=== PATIENT | male | born 1950 ===

== ENCOUNTER 2017-04-05 13:31 | Emergency (ER) | payer MEDICARE ==
[2017-04-05 13:31] VITALS: BMI 27.2
[2017-04-05 13:49] VITALS: RESP 18
[2017-04-05] MEDS ORDERED: Sodium Chloride 0.9% 500 ML IV ONE ×2 (15:30→15:40)
[2017-04-05 15:44] LABS: BASO # 0.1 K/uL (0.0-0.2); BASO % 0.4 % (0.0-2.0); EOS # 0.1 K/uL (0.0-0.7); EOS % 0.9 % (0.0-4.0); HEMOGLOBIN 11.9 g/dL (12.0-18.0); LYMPH # 2.6 K/uL (1.0-4.3); LYMPH % 17.7 % (20.0-40.0); MEAN CELL VOLUME 80.5 fL (80.0-94.0); MEAN CORPUSCULAR HEMOGLOBIN 26.4 pg (27.0-31.0); MEAN CORPUSCULAR HGB CONC 32.8 g/dL (33.0-37.0); MEAN PLATELET VOLUME 8.2 fL (7.2-11.7); MONO # 1.4 K/uL (0.0-0.8); MONO % 9.2 % (0.0-10.0); NEUT # 10.5 K/uL (1.8-7.0); NEUT % 71.8 % (50.0-75.0); RBC 4.5 Mil/uL (4.40-5.90); RED CELL DISTRIBUTION WIDTH 15.5 % (11.5-14.5); WHITE BLOOD COUNT 14.7 K/uL (4.8-10.8)
[2017-04-05 15:57] LABS: ALBUMIN 3.5 g/dL (3.5-5.0)
[2017-04-05 16:00] LABS: ALB/GLOB RATIO 0.9 (1.0-2.1); AST/SGOT 20 U/L (17-59); GFR AFRICAN-AMERICAN > 60; GFR NON-AFRICAN AMERICAN > 60
[2017-04-05 16:02] LABS: ALT/SGPT 22 U/L (21-72); BLOOD UREA NITROGEN 18 mg/dL (9-20); CALCIUM 9.2 mg/dl (8.6-10.4)
[2017-04-05] MEDS ORDERED: Potassium Chloride 20 mEq ER Tab PO STA (16:31)
[2017-04-05 16:37] VITALS: BP 105/65; PULSE 80; TEMP 98.1
[2017-04-05 16:39] VITALS: O2SAT 100
--- NOTE | 2017-04-05 16:40 | C.PDOC ---
History Of Present Illness 66 y/o male presents to the ED for evaluation of a pressure ulcer of his left buttock noted a few days ago. Patient believes the area is infected and feels like it is draining. Patient is paraplegic and uses a motorized scooter. Patient denies fever/chills, recent falls/injuries. Time Seen by Provider: 04/05/17 14:12 Chief Complaint (Nursing): Abnormal Skin Integrity History Per: Patient History/Exam Limitations: no limitations Onset/Duration Of Symptoms: Days Current Symptoms Are (Timing): Still Present Location Of Injury: Left: Buttock Quality Of Symptoms: Painful, Draining Severity: Mild Additional History Per: Patient Past Medical History Reviewed: Historical Data, Nursing Documentation, Vital Signs Vital Signs: Last Vital Signs Temp 98.1 F 04/05/17 16:36 Pulse 80 04/05/17 16:36 Resp 18 04/05/17 16:36 BP 105/65 04/05/17 16:36 Pulse Ox 100 04/05/17 18:58 - Medical History PMH: Anemia, Anxiety, Back Problems (paralysis), Bipolar Disorder, Depression, Diverticulitis, Fibromyalgia, Gastritis, Gall Bladder Disease, Hypercholesterolemia, Kidney Stones (1980s), Malignancy (kidney ), Peripheral Edema, Chronic Kidney Disease Surgical History: Back Surgery - [facility] Procedures DRAINAGE OF RIGHT KNEE JOINT, OPEN APPROACH (07/15/15) ENDOSC LG BOWEL THROUGH STOMA (10/03/14) EXCIS DEBRIDE OF WOUND, INFECT, OR BURN (12/01/14) EXCISION OF LEFT KIDNEY, PERCUTANEOUS ENDOSCOPIC APPROACH (06/01/16) EXCISION OF RIGHT LOWER LEG SKIN, EXTERNAL APPROACH (06/20/15) FLUOROSCOPY OF L SUBCLAV VEIN USING OTH CONTRAST, GUIDANCE (06/20/15) INDIVID PSYCHOTHERAP NEC (02/28/14) INSERT INFUSION DEV IN L EXT JUGULAR VEIN, PERC (06/20/15) INSERTION OF INFUSION DEV INTO L SUBCLAV VEIN, OPEN APPROACH (06/20/15) INTRODUCE OF OTH ANTI-INFECT INTO PERIPH VEIN, PERC APPROACH (06/20/15) INTRODUCTION OF SERUM/TOX/VACCINE INTO SUBCU, PERC APPROACH (06/20/15) OTHER GROUP THERAPY (02/28/14) OTHER SKIN & SUBQ I D (12/01/14) RADICAL EXCIS SKIN LES (12/01/14) ROBOTIC ASSISTED PROCEDURE OF TRUNK, PERC ENDO APPROACH (06/01/16) SOFT TISSUE INCISION NEC (12/01/14) TRANSFER RIGHT LOWER LEG SKIN, EXTERNAL APPROACH (06/20/15) Family History: States: No Known Family Hx - Social History Hx Tobacco Use: No Hx Alcohol Use: No Hx Substance Use: No - Immunization History Hx Tetanus Toxoid Vaccination: Yes Hx Influenza Vaccination: Yes Hx Pneumococcal Vaccination: No Review Of Systems Except As Marked, All Systems Reviewed And Found Negative. Constitutional: Negative for: Fever, Chills Cardiovascular: Negative for: Chest Pain Respiratory: Negative for: Shortness of Breath Gastrointestinal: Negative for: Nausea, Vomiting, Abdominal Pain, Diarrhea Skin: Positive for: Other (+pressure ulcer on left buttock with +drainage ) Physical Exam - Physical Exam Appears: Well, Non-toxic, No Acute Distress Skin: Warm, Dry, Other (+central pustule with mild surrounding erythema, (+) purulent discharge noted (left lower buttock/ischial area) ) Head: Normacephalic Eye(s): bilateral: Normal Inspection Oral Mucosa: Moist Cardiovascular: Rhythm Regular Respiratory: Normal Breath Sounds, No Rales, No Rhonchi, No Wheezing Gastrointestinal/Abdominal: Normal Exam, Bowel Sounds, Soft, No Tenderness Back: Normal Inspection, No Vertebral Tenderness, No Paraspinal Tenderness Extremity: Normal ROM, Tenderness (to left lower buttock/ischial area (+) TTP ) , Capillary Refill (less than 2 seconds ), No Deformity, No Swelling Neurological/Psych: Oriented x3 ED Course And Treatment - Laboratory Results Result Diagrams: 04/05/17 15:36 04/05/17 15:36 O2 Sat by Pulse Oximetry: 100 (on RA) Pulse Ox Interpretation: Normal Progress Note: Blood work and wound culture ordered. Patient given PO Clindamycin. He states he has h/o hypokalemia due to Lasix use. PO Kdur given. Patient offered admission but states he would like to go home, does not want admission at this time. He was given Rx for Clindamycin and instructed to return to ER in 48 hours for wound check. Patient has also previously been seen by Dr. Subramanian for similar wounds, states he will also follow up with him in the office. Disposition Counseled Patient/Family Regarding: Studies Performed, Diagnosis, Need For Followup, Rx Given - Disposition Referrals: Amalia Orellana MD [Staff Provider] - Jamil Subramanian MD [Staff Provider] - Disposition: HOME/ ROUTINE Disposition Time: 17:00 Condition: STABLE Additional Instructions: FOLLOW UP WITH YOUR DOCTOR/SURGEON WITHIN 1 WEEK RETURN FOR WOUND CHECK IN 48 HOURS Prescriptions: Clindamycin [Cleocin] 300 mg PO TID #21 cap Instructions: Pressure Ulcer (ED), Abscess (ED) Print Language: KHMER - POA Present On Arrival: None - Clinical Impression Clinical Impression: Decubitus ulcer, Abscess - Scribe Statement The provider has reviewed the documentation as recorded by the Scribe (Cristela Bates) Provider Attestation: All medical record entries made by the Scribe were at my direction and personally dictated by me. I have reviewed the chart and agree that the record accurately reflects my personal performance of the history, physical exam, medical decision making, and the department course for this patient. I have also personally directed, reviewed, and agree with the discharge instructions and disposition.
[2017-04-05] MEDS ORDERED: Potassium Chloride 20 mEq ER Tab PO ONE (16:41)
== END 2017-04-05 17:32 | disposition home or self-care (01) ==
LOC: C.ER 13:31
DX: L89.329 Pressure ulcer of left buttock, unspecified stage (principal); L02.31 Cutaneous abscess of buttock; E78.00 Pure hypercholesterolemia, unspecified; N18.9 Chronic kidney disease, unspecified
CPT/HCPCS: 80053; 82948; 85025; 87070; 87181; 96360; 99284; J7040

== ENCOUNTER 2017-04-07 18:09 | Inpatient (IN) | payer MEDICARE ==
[2017-04-07 18:09] VITALS: BMI 27.2
--- NOTE | 2017-04-07 19:11 | C.PDOC ---
History Of Present Illness 66 year old male, patient of Dr. Subramanian, who presents to the ER for a wound check. Patient is paralyzed from the waist down and spends most of the day sitting down; as a result patient developed an ulcer over the left buttock. Patient was seen in the ER 2 days ago because the wound began to drain; he had labs done at the time and was found to have a 19264 white count. Patient was advised to be admitted to the hospital but did not want to stay; he was discharged with clindamycin. Patient had an appointment with Dr. Subramanian today but did not go because he was advised to come to the ER for a wound check. Denies fever, chills, or abdominal pain. Time Seen by Provider: 04/07/17 18:49 Chief Complaint (Nursing): Wound Check History Per: Patient History/Exam Limitations: no limitations Onset/Duration Of Symptoms: Days Ago Current Symptoms Are (Timing): Still Present Location Of Injury: Left: Buttock (Ulcer) Quality Of Symptoms: Draining Recent travel outside of the [place]: No Past Medical History Reviewed: Historical Data, Nursing Documentation, Vital Signs Vital Signs: Last Vital Signs Temp 98.2 F 04/07/17 18:13 Pulse 90 04/07/17 18:13 Resp 20 04/07/17 18:13 BP 113/72 04/07/17 18:13 Pulse Ox 100 04/07/17 19:56 - Medical History PMH: Anemia, Anxiety, Back Problems (paralysis), Bipolar Disorder, Depression, Diverticulitis, Fibromyalgia, Gastritis, Gall Bladder Disease, Hypercholesterolemia, Kidney Stones (1980s), Malignancy (kidney ), Peripheral Edema, Chronic Kidney Disease Surgical History: Back Surgery - [facility] Procedures DRAINAGE OF RIGHT KNEE JOINT, OPEN APPROACH (07/15/15) ENDOSC LG BOWEL THROUGH STOMA (10/03/14) EXCIS DEBRIDE OF WOUND, INFECT, OR BURN (12/01/14) EXCISION OF LEFT KIDNEY, PERCUTANEOUS ENDOSCOPIC APPROACH (06/01/16) EXCISION OF RIGHT LOWER LEG SKIN, EXTERNAL APPROACH (06/20/15) FLUOROSCOPY OF L SUBCLAV VEIN USING [facility] CONTRAST, GUIDANCE (06/20/15) INDIVID PSYCHOTHERAP NEC (02/28/14) INSERT INFUSION DEV IN L EXT JUGULAR VEIN, PERC (06/20/15) INSERTION OF INFUSION DEV INTO L SUBCLAV VEIN, OPEN APPROACH (06/20/15) INTRODUCE OF OTH ANTI-INFECT INTO PERIPH VEIN, PERC APPROACH (06/20/15) INTRODUCTION OF SERUM/TOX/VACCINE INTO SUBCU, PERC APPROACH (06/20/15) OTHER GROUP THERAPY (02/28/14) OTHER SKIN & SUBQ I D (12/01/14) RADICAL EXCIS SKIN LES (12/01/14) ROBOTIC ASSISTED PROCEDURE OF TRUNK, PERC ENDO APPROACH (06/01/16) SOFT TISSUE INCISION NEC (12/01/14) TRANSFER RIGHT LOWER LEG SKIN, EXTERNAL APPROACH (06/20/15) Family History: States: Unknown Family Hx - Social History Hx Tobacco Use: No Hx Alcohol Use: No Hx Substance Use: No - Immunization History Hx Tetanus Toxoid Vaccination: Yes Hx Influenza Vaccination: Yes Hx Pneumococcal Vaccination: No Review Of Systems Constitutional: Negative for: Fever, Chills Skin: Positive for: Other (Ulcer) Neurological: Positive for: Other (Paralysis, waist down) Physical Exam - Physical Exam Appears: Non-toxic Skin: Warm, Dry, Other (1cm hole to left buttock with purulent drainage, no surrounding erythema, nontender due to paralysis) Head: Atraumatic, Normacephalic Oral Mucosa: Moist Chest: Symmetrical, No Tenderness Cardiovascular: Rhythm Regular, No Murmur Respiratory: Normal Breath Sounds, No Rales, No Rhonchi, No Wheezing Gastrointestinal/Abdominal: Soft, No Tenderness Neurological/Psych: Oriented x3, Normal Speech, Normal Cognition, Other ( Paralysis from the waist down) ED Course And Treatment - Laboratory Results Result Diagrams: 04/07/17 20:01 04/07/17 20:01 Lab Interpretation: Abnormal (WBC 14.8, with left shift.) O2 Sat by Pulse Oximetry: 100 (Room air) Pulse Ox Interpretation: Normal Progress Note: Blood work and wound culture ordered. - Physician Consult Information Outcome Of Conversation: Case discussed with Dr Subramanian and Dr Muñoz. He will be admitted for treatment of infected decubitus ulcer. Disposition - Disposition Disposition: HOSPITALIZED Disposition Time: 19:55 Condition: STABLE - POA Present On Arrival: None - Clinical Impression Clinical Impression: Decubitus ulcer, Cellulitis and abscess, Paraplegia - Scribe Statement The provider has reviewed the documentation as recorded by the Scribwendy Mcknight All medical record entries made by the Scribe were at my direction and personally dictated by me. I have reviewed the chart and agree that the record accurately reflects my personal performance of the history, physical exam, medical decision making, and the department course for this patient. I have also personally directed, reviewed, and agree with the discharge instructions and disposition.
[2017-04-07 20:06] LABS: BASO # 0.1 K/uL (0.0-0.2); BASO % 0.8 % (0.0-2.0); EOS # 0.2 K/uL (0.0-0.7); EOS % 1.1 % (0.0-4.0); HEMOGLOBIN 11.3 g/dL (12.0-18.0); LYMPH # 3.1 K/uL (1.0-4.3); LYMPH % 21.2 % (20.0-40.0); MEAN CELL VOLUME 81.6 fL (80.0-94.0); MEAN CORPUSCULAR HEMOGLOBIN 26.5 pg (27.0-31.0); MEAN CORPUSCULAR HGB CONC 32.5 g/dL (33.0-37.0); MEAN PLATELET VOLUME 7.9 fL (7.2-11.7); MONO % 7.1 % (0.0-10.0); NEUT # 10.3 K/uL (1.8-7.0); NEUT % 69.8 % (50.0-75.0); RBC 4.26 Mil/uL (4.40-5.90); WHITE BLOOD COUNT 14.8 K/uL (4.8-10.8)
[2017-04-07 20:12] LABS: ALBUMIN 3.5 g/dL (3.5-5.0)
[2017-04-07 20:15] LABS: AST/SGOT 20 U/L (17-59); GFR AFRICAN-AMERICAN > 60; GFR NON-AFRICAN AMERICAN > 60
[2017-04-07 20:16] LABS: ALB/GLOB RATIO 0.9 (1.0-2.1); ALT/SGPT 18 U/L (21-72); BLOOD UREA NITROGEN 20 mg/dL (9-20); CALCIUM 9.4 mg/dl (8.6-10.4)
--- NOTE | 2017-04-07 20:34 | CP.PCM.HP ---
<Annalee Navarro - Last Filed: 04/07/17 21:48> History of Present Illness - History of Present Illness History of Present Illness: Medicine Note CC: leaking sacral wound HPI: 66M with a significant PMHx significant noted below, presented to the ED complaining of leaking from sacral wound. Patient reports he had this sacral wound 1-2 years ago which was managed by Dr. Subramanian. Patient started to develop the sacral ulcer again, was seen by Dr. Subramanian, prescribed Clindamycin 300mg PO TID and instructed to return to the office at a later date. He was scheduled to follow up with Dr. Subramanian tomorrow, but the ulcer started to leak pus and the patient reported feeling febrile. Denied chills, chest pain, SOB, abdominal pain, n/v/d/c, or urinary symptoms. PMD: Dr. Orellana. 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 Meds: As per DEC All: NKDA SHx: Denies tobacco, alcohol and illicit drug use. FHx: Mother with DM, HTN, heart disease and depression. Father with prostate problems, dies of DE. Present on Admission - Present on Admission Any Indicators Present on Admission: No Review of Systems - Constitutional Constitutional: Fever. absent: Chills - EENT Eyes: absent: Change in Vision Ears: absent: Tinnitus Nose/Mouth/Throat: absent: Dry Mouth, Hoarsness - Cardiovascular Cardiovascular: absent: Chest Pain, Chest Pain at Rest - Respiratory Respiratory: absent: Cough, Dyspnea - Gastrointestinal Gastrointestinal: absent: Abdominal Pain, Bloating, Nausea, Vomiting - Genitourinary Genitourinary: absent: Dysuria, Hematuria - Musculoskeletal Musculoskeletal: absent: Back Pain - Integumentary Integumentary: Skin Ulcer (sacral ulcer, no eschar noted ) - Neurological Neurological: absent: Syncope - Psychiatric Psychiatric: Anxiety, Depression - Endocrine Endocrine: absent: Polyphagia, Polyuria - Hematologic/Lymphatic Hematologic: absent: Easy Bleeding Past Patient History - Infectious Disease Hx of Infectious Diseases: None - Past Medical History & Family History Past Medical History?: Yes - Past Social History Smoking Status: Never Smoked - CARDIAC Hx Hypercholesterolemia: Yes Hx Peripheral Edema: Yes - PULMONARY Hx Respiratory Disorders: No Hx Tuberculosis: No - HEENT Hx HEENT Problems: No Other/Comment: HX: CHRISTOPHER'S PALSY RIGHT SIDE - RENAL Hx Chronic Kidney Disease: Yes Hx Kidney Stones: Yes (1980s) - ENDOCRINE/METABOLIC Hx Endocrine Disorders: No - HEMATOLOGICAL/ONCOLOGICAL Hx Anemia: Yes - INTEGUMENTARY Hx Dermatological Problems: Yes Hx Cellulitis: Yes Other/Comment: . BOTH LEGS WITH EDEMAULCER ON RIGHT LOWER LEG SKIN GRAFT WAS DONE - MUSCULOSKELETAL/RHEUMATOLOGICAL Other/Comment: Paralyzed from the waist down - GASTROINTESTINAL Hx Diverticulitis: Yes Hx Gall Bladder Disease: Yes Hx Gastritis: Yes - GENITOURINARY/GYNECOLOGICAL Hx Sexually Transmitted Disorders: No - PSYCHIATRIC Hx Anxiety: Yes Hx Bipolar Disorder: Yes Hx Depression: Yes Hx Substance Use: No - SURGICAL HISTORY Hx Orthopedic Surgery: Yes (B/L LE sx) - ANESTHESIA Hx Anesthesia: Yes Hx Anesthesia Reactions: No Hx Malignant Hyperthermia: No Meds Allergies/Adverse Reactions: Allergies Allergy/AdvReac Type Severity Reaction Status Date / Time No Known Allergies Allergy Verified 04/07/17 18:25 Physical Exam - Constitutional Appears: No Acute Distress - Head Exam Head Exam: NORMAL INSPECTION, NORMOCEPHALIC - Eye Exam Eye Exam: EOMI, Normal appearance, PERRL Pupil Exam: NORMAL ACCOMODATION - ENT Exam ENT Exam: Mucous Membranes Moist - Neck Exam Neck exam: Positive for: Normal Inspection - Respiratory Exam Respiratory Exam: Clear to Auscultation Bilateral, NORMAL BREATHING PATTERN. absent: Wheezes - Cardiovascular Exam Cardiovascular Exam: REGULAR RHYTHM, RRR - GI/Abdominal Exam GI & Abdominal Exam: Normal Bowel Sounds, Soft. absent: Distended - Extremities Exam Extremities exam: Positive for: normal inspection, pedal edema, pedal pulses present. Negative for: tenderness Additional comments: chronic pitting edema BL - Back Exam Back exam: NORMAL INSPECTION. absent: CVA tenderness (L), CVA tenderness (R), muscle spasm - Neurological Exam Neurological exam: Alert, Oriented x3 Additional comments: paraplegic waist down - Skin Skin Exam: Dry, Intact, Normal Color, Warm Results - Vital Signs Recent Vital Signs: Last Vital Signs Temp 98.2 F 04/07/17 18:13 Pulse 90 04/07/17 18:13 Resp 20 04/07/17 18:13 BP 113/72 04/07/17 18:13 Pulse Ox 100 04/07/17 20:29 - Labs Result Diagrams: 04/07/17 20:01 04/07/17 20:01 Labs: Laboratory Results - last 24 hr 04/07/17 04/07/17 20:01 20:01 WBC 14.8 H RBC 4.26 L Hgb 11.3 L Hct 34.8 L MCV 81.6 MCH 26.5 L MCHC 32.5 L RDW 15.0 H Plt Count 585 H MPV 7.9 Neut % (Auto) 69.8 Lymph % (Auto) 21.2 [place] % (Auto) 7.1 Eos % (Auto) 1.1 Baso % (Auto) 0.8 Neut # 10.3 H Lymph # 3.1 [place] # 1.0 H Eos # 0.2 Baso # 0.1 Sodium 136 Potassium 3.7 Chloride 90 L Carbon Dioxide 35 H Anion Gap 15 BUN 20 Creatinine 0.6 L Est GFR ( Amer) > 60 Est GFR (Non-Af Amer) > 60 Random Glucose 127 H Calcium 9.4 Total Bilirubin 0.7 AST 20 ALT 18 L Alkaline Phosphatase 71 Total Protein 7.3 Albumin 3.5 Globulin 3.8 Albumin/Globulin Ratio 0.9 L Assessment & Plan - Assessment and Plan (Free Text) Assessment: 66M with a significant PMHx significant noted below, presented to the ED complaining of leaking from sacral wound. Plan: Sacral Ulcer * Leukocytosis with left shift * Surgery Consult: Dr. Subramanian - help appreciated * Wound Care consult - help appreciated * Patient continued on Clindamycin 600mg IV Q8H * F/U wound culture, blood cultures Chronic Peripheral Edema * Resumed home medications: Lasix 40mg PO daily and KDur 40mg PO daily Chronic DVT * IVC filter placed * Xarelto 10mg PO daily PVD Paraplegia Depression/ Anxiety * Resumed home medications: Wellbutrin xL 300mg PO daily, Celexa 20mg PO daily, Klonopin 0.5mg PO BID Prophylactic Measures * GI PPX: Protonix 40mg PO daily * DVT: SCDs contraindicated due to PVD, VTE patient already on Xarelto * Regular Diet DW Ramon Cruz DO, PGY-1 <Vinicius Muñoz - Last Filed: 04/08/17 06:25> Results - Vital Signs Recent Vital Signs: Last Vital Signs Temp 98.4 F 04/08/17 00:00 Pulse 81 04/08/17 00:00 Resp 20 04/08/17 00:00 BP 106/61 04/08/17 00:00 Pulse Ox 98 04/08/17 00:00 - Labs Result Diagrams: 04/07/17 20:01 04/07/17 20:01 Labs: Laboratory Results - last 24 hr 04/07/17 04/07/17 20:01 20:01 WBC 14.8 H RBC 4.26 L Hgb 11.3 L Hct 34.8 L MCV 81.6 MCH 26.5 L MCHC 32.5 L RDW 15.0 H Plt Count 585 H MPV 7.9 Neut % (Auto) 69.8 Lymph % (Auto) 21.2 [place] % (Auto) 7.1 Eos % (Auto) 1.1 Baso % (Auto) 0.8 Neut # 10.3 H Lymph # 3.1 [place] # 1.0 H Eos # 0.2 Baso # 0.1 Sodium 136 Potassium 3.7 Chloride 90 L Carbon Dioxide 35 H Anion Gap 15 BUN 20 Creatinine 0.6 L Est GFR ( Amer) > 60 Est GFR (Non-Af Amer) > 60 Random Glucose 127 H Calcium 9.4 Total Bilirubin 0.7 AST 20 ALT 18 L Alkaline Phosphatase 71 Total Protein 7.3 Albumin 3.5 Globulin 3.8 Albumin/Globulin Ratio 0.9 L Assessment & Plan - Date & Time Date: 04/08/17 (I have seen and examined the patient. I agree with the findings and plan of care as documented by Dr. Navarro. Patient with sacral decub ulcer. History of paraplegia. Continue clinda. Consult to wound care and surgery. Patient would prefer not to have to undergo further surgeries. Monitor for signs of cellulitis. Monitor for acute changes.) Time: 06:23 Attending/Attestation - Attestation I have personally seen and examined this patient.: Yes I have fully participated in the care of the patient.: Yes I have reviewed all pertinent clinical information: Yes
[2017-04-07] MEDS: Clindamycin 600mg/50ml D5W 600 MG/50 ML VIAL IVPB SCH (22:01)
[2017-04-07] MEDS: Sodium Chloride 0.9% 1,000 ML IV SCH (22:03)
[2017-04-08] MEDS: Clindamycin 600mg/50ml D5W 600 MG/50 ML VIAL IVPB SCH ×2 (04:57→12:10)
[2017-04-08] MEDS: Sodium Chloride 0.9% 1,000 ML IV SCH ×2 (06:29→10:50)
[2017-04-08 07:56] LABS: BASO # 0.1 K/uL (0.0-0.2); BASO % 0.4 % (0.0-2.0); EOS # 0.1 K/uL (0.0-0.7); HEMOGLOBIN 9.8 g/dL (12.0-18.0); LYMPH # 3.6 K/uL (1.0-4.3); MEAN CELL VOLUME 80.4 fL (80.0-94.0); MEAN CORPUSCULAR HEMOGLOBIN 26.1 pg (27.0-31.0); MEAN CORPUSCULAR HGB CONC 32.5 g/dL (33.0-37.0); MONO # 1.2 K/uL (0.0-0.8); MONO % 8.7 % (0.0-10.0); NEUT # 8.7 K/uL (1.8-7.0); NEUT % 63.9 % (50.0-75.0); RBC 3.75 Mil/uL (4.40-5.90); RED CELL DISTRIBUTION WIDTH 15.1 % (11.5-14.5); WHITE BLOOD COUNT 13.7 K/uL (4.8-10.8)
[2017-04-08 08:07] LABS: GFR AFRICAN-AMERICAN > 60; GFR NON-AFRICAN AMERICAN > 60
[2017-04-08 08:08] LABS: ALB/GLOB RATIO 0.9 (1.0-2.1); ALT/SGPT 19 U/L (21-72); AST/SGOT 16 U/L (17-59); BLOOD UREA NITROGEN 14 mg/dL (9-20)
[2017-04-08 08:09] LABS: CALCIUM 8.6 mg/dl (8.6-10.4); MAGNESIUM 2.3 mg/dL (1.6-2.3)
--- NOTE | 2017-04-08 09:07 | CP.PCM.PN ---
<Willow RiverCiara kesslerrebecaaly Pastora - Last Filed: 04/08/17 19:57> Subjective - Date & Time of Evaluation Date of Evaluation: 04/08/17 Time of Evaluation: 10:00 - Subjective Subjective: Medicine Note (PGY 1) : Dr. Murray' service Patient was seen and examined at bedside. Patient states that he is doing well. Patient denies chest pain, shortness of breath, nausea, vomiting, fever and chills. Patient has no new complaints. Objective - Vital Signs/Intake and Output Vital Signs (last 24 hours): Temp Pulse Resp BP Pulse Ox 98.4 F 81 20 106/61 98 04/08/17 00:00 04/08/17 00:00 04/08/17 00:00 04/08/17 00:00 04/08/17 00:00 Intake and Output: 04/08/17 04/08/17 06:59 18:59 Intake Total 1040 Output Total 500 Balance 540 - Medications Medications: Current Medications Acetaminophen (Tylenol 325mg Tab) 650 mg PO Q6 PRN PRN Reason: Pain, moderate (4-7) Bupropion HCl (Wellbutrin Xl) 300 mg PO DAILY [facility] Citalopram Hydrobromide (Celexa) 20 mg PO DAILY [facility] Clonazepam (Klonopin) 0.5 mg PO BID PRN PRN Reason: Other Last Admin: 04/08/17 00:06 Dose: 0.5 mg Furosemide (Lasix) 40 mg PO DAILY [facility] Sodium Chloride (Sodium Chloride 0.9%) 1,000 mls @ 100 mls/hr IV .Q10H [facility] Last Admin: 04/08/17 06:29 Dose: Not Given Clindamycin Phosphate (Cleocin) 600 mg in 50 mls @ 102 mls/hr IVPB Q8H [facility] Last Admin: 04/08/17 04:57 Dose: 102 mls/hr Ondansetron HCl (Zofran Inj) 4 mg IVP Q6 PRN PRN Reason: Nausea/Vomiting Pantoprazole Sodium (Protonix Ec Tab) 40 mg PO DAILY [facility] Potassium Chloride (K-Dur 20 Meq Er Tab) 40 meq PO DAILY [facility] Rivaroxaban (Xarelto) 10 mg PO QPM [facility] Zolpidem Tartrate (Ambien) 5 mg PO HS PRN PRN Reason: Insomnia Last Admin: 04/08/17 00:06 Dose: 5 mg - Labs Labs: 04/08/17 07:51 04/08/17 07:51 - Constitutional Appears: Well, No Acute Distress - Head Exam Head Exam: NORMAL INSPECTION, NORMOCEPHALIC - Eye Exam Eye Exam: EOMI, Normal appearance - ENT Exam ENT Exam: Mucous Membranes Moist, Normal Exam - Respiratory Exam Respiratory Exam: Clear to Ausculation Bilateral, NORMAL BREATHING PATTERN - Cardiovascular Exam Cardiovascular Exam: REGULAR RHYTHM, +S1, +S2 - GI/Abdominal Exam GI & Abdominal Exam: Soft, Normal Bowel Sounds - Exam External exam: Erythema (Left sacral wounds ) - Extremities Exam Extremities Exam: Normal Capillary Refill. absent: Pedal Edema - Neurological Exam Neurological Exam: Alert, Awake, Oriented x3 - Psychiatric Exam Psychiatric exam: Normal Affect, Normal Mood - Skin Skin Exam: Dry, Normal Color, Warm Assessment and Plan (1) Sacral ulcer Assessment & Plan: Afebrile Leukocytosis with left shift (Improving 14.8--->13.7) * Surgery Consult: Dr. Subramanian - help appreciated * Wound Care consult - help appreciated * Patient continued on Clindamycin 600mg IV Q8H --- discontinued 04/08/17 Infectious disease consult: Dr. Sevilla----> Help appreciated * Wound culture: + for staphylcoccus aureus 1. Started on Zosyn 3.3753mg IVPB Q6H (04/08/17) 2. Started on Vancomycin 1gm IVPB Q12H (04/08/17) * Pending blood culture Status: Acute (2) Peripheral edema Assessment & Plan: Resumed home medications: Lasix 40mg PO daily and KDur 40mg PO daily Status: Chronic (3) Hypokalemia Assessment & Plan: K= 2.4 Continue home medication: KDur 40mg PO daily Status: Acute (4) History of DVT (deep vein thrombosis) Assessment & Plan: IVC filter placed * Xarelto 10mg PO daily Status: Chronic (5) History of depression Assessment & Plan: Resumed home medications: * Wellbutrin xL 300mg PO daily, * Celexa 20mg PO daily Status: Acute (6) History of anxiety Assessment & Plan: Continue home medications: * Klonopin 0.5mg PO BID * Celexa 20mg PO daily Status: Acute (7) Paraplegia Assessment & Plan: Evaluation of PT and Occupation. Status: Chronic (8) Prophylactic measure Assessment & Plan: * GI PPX: Protonix 40mg PO daily * DVT: SCDs contraindicated due to hx PVD, VTE patient already on Xarelto Status: Acute <Denny Murray M - Last Filed: 04/09/17 08:56> Objective - Vital Signs/Intake and Output Vital Signs (last 24 hours): Temp Pulse Resp BP Pulse Ox 97.8 F 70 20 99/57 L 98 04/09/17 00:00 04/09/17 00:00 04/09/17 00:00 04/09/17 00:00 04/09/17 00:00 Intake and Output: 04/09/17 04/09/17 06:59 18:59 Intake Total 1040 Output Total 500 Balance 540 - Medications Medications: Current Medications Acetaminophen (Tylenol 325mg Tab) 650 mg PO Q6 PRN PRN Reason: Pain, moderate (4-7) Artificial Tears (Artificial Tears) 0 ml OU Q2H PRN PRN Reason: Dry eyes Last Admin: 04/09/17 00:19 Dose: 2 applic Bupropion HCl (Wellbutrin Xl) 300 mg PO DAILY [facility] Last Admin: 04/08/17 10:56 Dose: 300 mg Citalopram Hydrobromide (Celexa) 20 mg PO DAILY [facility] Last Admin: 04/08/17 09:37 Dose: Not Given Clonazepam (Klonopin) 0.5 mg PO BID PRN PRN Reason: Other Last Admin: 04/08/17 09:38 Dose: 0.5 mg Furosemide (Lasix) 40 mg PO DAILY [facility] Last Admin: 04/08/17 09:38 Dose: 40 mg Gabapentin (Neurontin) 300 mg PO TID [facility] Sodium Chloride (Sodium Chloride 0.9%) 1,000 mls @ 100 mls/hr IV .Q10H [facility] Last Admin: 04/09/17 02:17 Dose: 100 mls/hr Vancomycin/Sodium Chloride (Vancocin) 1 gm in 200 mls @ 133 mls/hr IVPB Q12H [facility] Stop: 04/13/17 18:16 Last Admin: 04/09/17 06:11 Dose: 133 mls/hr Piperacillin Sod/Tazobactam Sod (Zosyn 3.375 Gm Iv Premix) 3.375 gm in 50 mls @ 100 mls/hr IVPB Q6H [facility] Last Admin: 04/09/17 07:07 Dose: 100 mls/hr Lactobacillus Acidophilus (Bacid Acidophilus) 1 cap PO BID [facility] Ondansetron HCl (Zofran Inj) 4 mg IVP Q6 PRN PRN Reason: Nausea/Vomiting Pantoprazole Sodium (Protonix Ec Tab) 40 mg PO DAILY [facility] Last Admin: 04/08/17 09:38 Dose: 40 mg Potassium Chloride (K-Dur 20 Meq Er Tab) 40 meq PO DAILY [facility] Last Admin: 04/08/17 10:46 Dose: 40 meq Rivaroxaban (Xarelto) 10 mg PO QPM [facility] Last Admin: 04/08/17 18:24 Dose: 10 mg Rosuvastatin Calcium (Crestor) 5 mg PO HS [facility] Last Admin: 04/08/17 22:14 Dose: 5 mg Zolpidem Tartrate (Ambien) 5 mg PO HS PRN PRN Reason: Insomnia Last Admin: 04/08/17 22:14 Dose: 5 mg - Labs Labs: 04/09/17 07:31 04/09/17 07:31 Attending/Attestation - Attestation I have personally seen and examined this patient.: Yes I have fully participated in the care of the patient.: Yes I have reviewed all pertinent clinical information, including history, physical exam and plan: Yes Notes (Text): 04/09/17 08:56 Patient was seen and examined at bedside with the resident Patient to be evaluated by ID for antibiotic management Continue current management Discussed the plan of care with the resident and agree with the assessment and plan documented.
[2017-04-08] MEDS: Pantoprazole 40 mg EC Tab PO SCH (09:38)
[2017-04-08] MEDS ORDERED: Enoxaparin 40 mg Syringe SC SCH (10:00)
[2017-04-08] MEDS ORDERED: Potassium Chloride 20 mEq ER Tab PO ONE (10:00)
[2017-04-08] MEDS: Potassium Chloride 20 mEq ER Tab PO SCH (10:46)
[2017-04-08] MEDS: buPROPion 150 mg/24 Hours XL Tab PO SCH (10:56)
[2017-04-08 15:05] LABS: AST/SGOT 14 U/L (17-59); GFR AFRICAN-AMERICAN > 60; GFR NON-AFRICAN AMERICAN > 60
[2017-04-08 15:06] LABS: ALB/GLOB RATIO 0.9 (1.0-2.1); ALT/SGPT 18 U/L (21-72); BLOOD UREA NITROGEN 14 mg/dL (9-20)
[2017-04-08 15:07] LABS: CALCIUM 8.4 mg/dl (8.6-10.4)
--- NOTE | 2017-04-08 18:07 | CP.PCM.CON ---
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 Subramanian. Patient started to develop the sacral ulcer again, was seen by Dr. Subramanian, prescribed Clindamycin 300mg PO TID and instructed to return to the office at a later date. He was scheduled to follow up with Dr. Subramanian tomorrow , but the ulcer started to leak pus and the patient reported feeling febrile. Denied chills, chest pain, SOB, abdominal pain, n/v/d/c, or urinary symptoms. PMD: Dr. Orellana. 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 Meds: As per DEC All: NKDA SHx: Denies tobacco, alcohol and illicit drug use. FHx: Mother with DM, HTN, heart disease and depression. Father with prostate problems, dies of [place]. Present on Admission - Present on Admission Any Indicators Present on Admission: No Review of Systems - Constitutional Constitutional: Fever. absent: Chills - EENT Eyes: absent: Change in Vision Ears: absent: Tinnitus Nose/Mouth/Throat: absent: Dry Mouth, Hoarsness - Cardiovascular Cardiovascular: absent: Chest Pain, Chest Pain at Rest - Respiratory Respiratory: absent: Cough, Dyspnea - Gastrointestinal Gastrointestinal: absent: Abdominal Pain, Bloating, Nausea, Vomiting - Genitourinary Genitourinary: absent: Dysuria, Hematuria - Musculoskeletal Musculoskeletal: absent: Back Pain - Integumentary Integumentary: Skin Ulcer (sacral ulcer, Neurological Neurological: absent: Syncope - Psychiatric Psychiatric: Anxiety, Depression - Endocrine Endocrine: absent: Polyphagia, Polyuria - Hematologic/Lymphatic Hematologic: absent: Easy Bleeding Past Patient History - Infectious Disease Hx of Infectious Diseases: None - Past Medical History & Family History Past Medical History?: Yes - Past Social History Smoking Status: Never Smoked - CARDIAC Hx Hypercholesterolemia: Yes Hx Peripheral Edema: Yes - PULMONARY Hx Respiratory Disorders: No Hx Tuberculosis: No - HEENT Hx HEENT Problems: No Other/Comment: HX: LINDSEY'S PALSY RIGHT SIDE - RENAL Hx Chronic Kidney Disease: Yes Hx Kidney Stones: Yes () - ENDOCRINE/METABOLIC Hx Endocrine Disorders: No - HEMATOLOGICAL/ONCOLOGICAL Hx Anemia: Yes - INTEGUMENTARY Hx Dermatological Problems: Yes Hx Cellulitis: Yes Other/Comment: . BOTH LEGS WITH EDEMAULCER ON RIGHT LOWER LEG SKIN GRAFT WAS DONE - MUSCULOSKELETAL/RHEUMATOLOGICAL Other/Comment: Paralyzed from the waist down - GASTROINTESTINAL Hx Diverticulitis: Yes Hx Gall Bladder Disease: Yes Hx Gastritis: Yes - GENITOURINARY/GYNECOLOGICAL Hx Sexually Transmitted Disorders: No - PSYCHIATRIC Hx Anxiety: Yes Hx Bipolar Disorder: Yes Hx Depression: Yes Hx Substance Use: No - SURGICAL HISTORY Hx Orthopedic Surgery: Yes (B/L LE sx) - ANESTHESIA Hx Anesthesia: Yes Hx Anesthesia Reactions: No Hx Malignant Hyperthermia: No Meds Allergies/Adverse Reactions: Allergies Allergy/AdvReac Type Severity Reaction Status Date / Time No Known Allergies Allergy Verified 04/07/17 18:25 Temp 98.2 F 04/07/17 18:13 Pulse 90 04/07/17 18:13 Resp 20 04/07/17 18:13 BP 113/72 04/07/17 18:13 Pulse Ox 100 04/07/17 20:29 04/07/17 04/07/17 20:01 20:01 WBC 14.8 H RBC 4.26 L Hgb 11.3 L Hct 34.8 L MCV 81.6 MCH 26.5 L MCHC 32.5 L RDW 15.0 H Plt Count 585 H MPV 7.9 Neut % (Auto) 69.8 Lymph % (Auto) 21.2 [place] % (Auto) 7.1 Eos % (Auto) 1.1 Baso % (Auto) 0.8 Neut # 10.3 H Lymph # 3.1 [place] # 1.0 H Eos # 0.2 Baso # 0.1 Sodium 136 Potassium 3.7 Chloride 90 L Carbon Dioxide 35 H Anion Gap 15 BUN 20 Creatinine 0.6 L Est GFR ( Amer) > 60 Est GFR (Non-Af Amer) > 60 Random Glucose 127 H Calcium 9.4 Total Bilirubin 0.7 AST 20 ALT 18 L Alkaline Phosphatase 71 Total Protein 7.3 Albumin 3.5 Globulin 3.8 Albumin/Globulin Ratio 0.9 L Temp 98.4 F 04/08/17 00:00 Pulse 81 04/08/17 00:00 Resp 20 04/08/17 00:00 BP 106/61 04/08/17 00:00 Pulse Ox 98 04/08/17 00:00 - Labs Result Diagrams: 04/07/17 20:01 04/07/17 20:01 Labs: Laboratory Results - last 24 hr 04/07/17 04/07/17 20:01 20:01 WBC 14.8 H RBC 4.26 L Hgb 11.3 L Hct 34.8 L MCV 81.6 MCH 26.5 L MCHC 32.5 L RDW 15.0 H Plt Count 585 H MPV 7.9 Neut % (Auto) 69.8 Lymph % (Auto) 21.2 [place] % (Auto) 7.1 Eos % (Auto) 1.1 Baso % (Auto) 0.8 Neut # 10.3 H Lymph # 3.1 [place] # 1.0 H Eos # 0.2 Baso # 0.1 Sodium 136 Potassium 3.7 Chloride 90 L Carbon Dioxide 35 H Anion Gap 15 BUN 20 Creatinine 0.6 L Est GFR ( Amer) > 60 Est GFR (Non-Af Amer) > 60 Random Glucose 127 H Calcium 9.4 Total Bilirubin 0.7 AST 20 ALT 18 L Alkaline Phosphatase 71 Total Protein 7.3 Albumin 3.5 Globulin 3.8 Albumin/Globulin Ratio 0.9 L Past Patient History - Infectious Disease Hx of Infectious Diseases: None - Past Medical History & Family History Past Medical History?: Yes - Past Social History Smoking Status: Never Smoked - CARDIAC Hx Hypercholesterolemia: Yes Hx Peripheral Edema: Yes - PULMONARY Hx Respiratory Disorders: No Hx Tuberculosis: No - HEENT Hx HEENT Problems: No Other/Comment: HX: LINDSEY'S PALSY RIGHT SIDE - RENAL Hx Chronic Kidney Disease: Yes Hx Kidney Stones: Yes () - ENDOCRINE/METABOLIC Hx Endocrine Disorders: No - HEMATOLOGICAL/ONCOLOGICAL Hx Anemia: Yes - INTEGUMENTARY Hx Dermatological Problems: Yes Hx Cellulitis: Yes Other/Comment: . BOTH LEGS WITH EDEMAULCER ON RIGHT LOWER LEG SKIN GRAFT WAS DONE - MUSCULOSKELETAL/RHEUMATOLOGICAL Other/Comment: Paralyzed from the waist down - GASTROINTESTINAL Hx Diverticulitis: Yes Hx Gall Bladder Disease: Yes Hx Gastritis: Yes - GENITOURINARY/GYNECOLOGICAL Hx Sexually Transmitted Disorders: No - PSYCHIATRIC Hx Anxiety: Yes Hx Bipolar Disorder: Yes Hx Depression: Yes Hx Substance Use: No - SURGICAL HISTORY Hx Orthopedic Surgery: Yes (B/L LE sx) - ANESTHESIA Hx Anesthesia: Yes Hx Anesthesia Reactions: No Hx Malignant Hyperthermia: No Meds Allergies/Adverse Reactions: Allergies Allergy/AdvReac Type Severity Reaction Status Date / Time No Known Allergies Allergy Verified 04/07/17 18:25 - Medications Medications: Current Medications Acetaminophen (Tylenol 325mg Tab) 650 mg PO Q6 PRN PRN Reason: Pain, moderate (4-7) Bupropion HCl (Wellbutrin Xl) 300 mg PO DAILY [facility] Last Admin: 04/08/17 10:56 Dose: 300 mg Citalopram Hydrobromide (Celexa) 20 mg PO DAILY [facility] Last Admin: 04/08/17 09:37 Dose: Not Given Clonazepam (Klonopin) 0.5 mg PO BID PRN PRN Reason: Other Last Admin: 04/08/17 09:38 Dose: 0.5 mg Furosemide (Lasix) 40 mg PO DAILY [facility] Last Admin: 04/08/17 09:38 Dose: 40 mg Sodium Chloride (Sodium Chloride 0.9%) 1,000 mls @ 100 mls/hr IV .Q10H [facility] Last Admin: 04/08/17 10:50 Dose: 100 mls/hr Vancomycin/Sodium Chloride (Vancocin) 1 gm in 200 mls @ 133 mls/hr IVPB Q12H [facility] Stop: 04/13/17 18:16 Piperacillin Sod/Tazobactam Sod (Zosyn 3.375 Gm Iv Premix) 3.375 gm in 50 mls @ 100 mls/hr IVPB Q6H [facility] Lactobacillus Acidophilus (Bacid Acidophilus) 1 cap PO BID [facility] Ondansetron HCl (Zofran Inj) 4 mg IVP Q6 PRN PRN Reason: Nausea/Vomiting Pantoprazole Sodium (Protonix Ec Tab) 40 mg PO DAILY [facility] Last Admin: 04/08/17 09:38 Dose: 40 mg Potassium Chloride (K-Dur 20 Meq Er Tab) 40 meq PO DAILY [facility] Last Admin: 04/08/17 10:46 Dose: 40 meq Rivaroxaban (Xarelto) 10 mg PO QPM [facility] Rosuvastatin Calcium (Crestor) 5 mg PO HS [facility] Zolpidem Tartrate (Ambien) 5 mg PO HS PRN PRN Reason: Insomnia Last Admin: 04/08/17 00:06 Dose: 5 mg Physical Exam - Constitutional Appears: No Acute Distress - Head Exam Head Exam: ATRAUMATIC, NORMOCEPHALIC - Eye Exam Eye Exam: Normal appearance Pupil Exam: NORMAL ACCOMODATION - ENT Exam ENT Exam: Normal Exam - Neck Exam Neck exam: Positive for: Normal Inspection - Respiratory Exam Respiratory Exam: Decreased Breath Sounds, Clear to Auscultation Bilateral - Cardiovascular Exam Cardiovascular Exam: REGULAR RHYTHM, RRR - GI/Abdominal Exam GI & Abdominal Exam: Normal Bowel Sounds, Soft - Rectal Exam Additional comments: patient is paraplegic with decreased sensations below umbilicus and incontinent of urine and feces and has leg edema bilateral there is a right heel decbiti stage 2 present. - Neurological Exam Additional comments: paraplegic,history of bells palsy - Skin Additional comments: sacral decubiti with drainage Results - Vital Signs Recent Vital Signs: Last Vital Signs Temp 97.5 F L 04/08/17 15:00 Pulse 73 04/08/17 15:00 Resp 20 04/08/17 15:00 BP 92/52 L 04/08/17 15:00 Pulse Ox 98 04/08/17 15:00 - Labs Result Diagrams: 04/08/17 07:51 04/08/17 14:35 Labs: Laboratory Results - last 24 hr 04/07/17 04/07/17 04/08/17 20:01 20:01 07:51 WBC 14.8 H 13.7 H RBC 4.26 L 3.75 L Hgb 11.3 L 9.8 L Hct 34.8 L 30.2 L MCV 81.6 80.4 MCH 26.5 L 26.1 L MCHC 32.5 L 32.5 L RDW 15.0 H 15.1 H Plt Count 585 H 476 H D MPV 7.9 8.0 Neut % (Auto) 69.8 63.9 Lymph % (Auto) 21.2 26.0 [place] % (Auto) 7.1 8.7 Eos % (Auto) 1.1 1.0 Baso % (Auto) 0.8 0.4 Neut # 10.3 H 8.7 H Lymph # 3.1 3.6 [place] # 1.0 H 1.2 H Eos # 0.2 0.1 Baso # 0.1 0.1 Sodium 136 Potassium 3.7 Chloride 90 L Carbon Dioxide 35 H Anion Gap 15 BUN 20 Creatinine 0.6 L Est GFR ( Amer) > 60 Est GFR (Non-Af Amer) > 60 Random Glucose 127 H Calcium 9.4 Phosphorus Magnesium Total Bilirubin 0.7 AST 20 ALT 18 L Alkaline Phosphatase 71 Total Protein 7.3 Albumin 3.5 Globulin 3.8 Albumin/Globulin Ratio 0.9 L 04/08/17 04/08/17 07:51 14:35 WBC RBC Hgb Hct MCV MCH MCHC RDW Plt Count MPV Neut % (Auto) Lymph % (Auto) [place] % (Auto) Eos % (Auto) Baso % (Auto) Neut # Lymph # [place] # Eos # Baso # Sodium 133 132 Potassium 2.4 L* D 3.2 L Chloride 91 L 90 L Carbon Dioxide 33 H 33 H Anion Gap 11 12 BUN 14 14 Creatinine 0.6 L 0.6 L Est GFR ( Amer) > 60 > 60 Est GFR (Non-Af Amer) > 60 > 60 Random Glucose 83 117 H Calcium 8.6 8.4 L Phosphorus 3.5 Magnesium 2.3 Total Bilirubin 0.6 0.5 AST 16 L 14 L ALT 19 L 18 L Alkaline Phosphatase 69 72 Total Protein 6.2 L 6.3 Albumin 3.0 L 3.0 L Globulin 3.2 3.3 Albumin/Globulin Ratio 0.9 L 0.9 L Assessment & Plan (1) Cellulitis and abscess Assessment and Plan: patient has draining infected sacral decubiti and is paraplegic will need surgical eval and also antibiotics for now. If deep will need Mri if patient can have one and has no contraindication to MRI Status: Acute Priority: High (2) Decubitus ulcer Status: Acute (3) History of anxiety Status: Acute (4) History of depression Status: Acute (5) Hypokalemia Status: Acute (6) Sacral ulcer Status: Acute (7) History of DVT (deep vein thrombosis) Status: Chronic - Assessment and Plan (Free Text) Assessment: patient has sacral decubiti and is bed ridden except that he has a motorized wheel chair to move around and is incontinent of stool and urine Plan: will dc clindamycin in view of potassium depletion and place him on Vancomycin and zosyn
[2017-04-08] MEDS: Vancomycin 1 gm/NS 200 ml 1 GM/200 ML BAG IVPB SCH (18:32)
[2017-04-08] MEDS ORDERED: Saccharomyces Boulardi 250 mg Cap PO SCH (19:30)
[2017-04-08] MEDS: Piperacill/Tazo 3.375gm in Dex 3.375 GM/50 ML BAG IVPB SCH (22:15)
[2017-04-09] MEDS: Aritificial Tears (15ml) OU PRN (00:19)
[2017-04-09] MEDS: Piperacill/Tazo 3.375gm in Dex 3.375 GM/50 ML BAG IVPB SCH ×5 (02:15→19:25)
[2017-04-09] MEDS: Sodium Chloride 0.9% 1,000 ML IV SCH ×3 (02:17→23:00)
[2017-04-09] MEDS: Vancomycin 1 gm/NS 200 ml 1 GM/200 ML BAG IVPB SCH ×2 (06:11→17:48)
[2017-04-09 07:43] LABS: BASO % 0.4 % (0.0-2.0); EOS # 0.3 K/uL (0.0-0.7); EOS % 2.3 % (0.0-4.0); HEMOGLOBIN 8.6 g/dL (12.0-18.0); LYMPH # 3.6 K/uL (1.0-4.3); MEAN CELL VOLUME 81.2 fL (80.0-94.0); MEAN CORPUSCULAR HEMOGLOBIN 26.5 pg (27.0-31.0); MEAN CORPUSCULAR HGB CONC 32.6 g/dL (33.0-37.0); MONO # 0.8 K/uL (0.0-0.8); MONO % 7.1 % (0.0-10.0); NEUT # 6.8 K/uL (1.8-7.0); NEUT % 59.2 % (50.0-75.0); RBC 3.24 Mil/uL (4.40-5.90); RED CELL DISTRIBUTION WIDTH 15.5 % (11.5-14.5); WHITE BLOOD COUNT 11.5 K/uL (4.8-10.8)
[2017-04-09 07:59] LABS: ALBUMIN 2.6 g/dL (3.5-5.0)
[2017-04-09 08:02] LABS: ALB/GLOB RATIO 0.9 (1.0-2.1); AST/SGOT 12 U/L (17-59); BLOOD UREA NITROGEN 11 mg/dL (9-20); GFR AFRICAN-AMERICAN > 60; GFR NON-AFRICAN AMERICAN > 60
[2017-04-09 08:03] LABS: ALT/SGPT 19 U/L (21-72); CALCIUM 8.4 mg/dl (8.6-10.4); MAGNESIUM 2.4 mg/dL (1.6-2.3)
[2017-04-09] MEDS: Lactobacillus Acidophilus 500 MU Cap PO SCH ×2 (12:12→17:47)
[2017-04-09] MEDS: Pantoprazole 40 mg EC Tab PO SCH (12:12)
[2017-04-09] MEDS: buPROPion 150 mg/24 Hours XL Tab PO SCH (12:13)
[2017-04-09] MEDS: Potassium Chloride 20 mEq ER Tab PO SCH (12:13)
[2017-04-09] MEDS ORDERED: Lidocaine 1% Inj (20ml) ONE (15:20)
[2017-04-09] MEDS ORDERED: Bupivacaine HCl 0.25% PF (10 ml) Inj ONE (15:20)
[2017-04-09] MEDS ORDERED: ceFAZolin IV 1 gm in Dextrose 0 GM/0 ML BAG IVPB ONE (15:20)
--- NOTE | 2017-04-09 22:05 | CP.PCM.PN ---
<AurelioCiaracolumba Guillory - Last Filed: 04/09/17 22:12> Subjective - Date & Time of Evaluation Date of Evaluation: 04/09/17 Time of Evaluation: 09:15 - Subjective Subjective: Medicine Note (PGY 1) : Dr. Murray' service Patient was seen and examined at bedside. Patient states that he is doing well. Patient denies chest pain, shortness of breath, nausea, vomiting, fever and chills. Patient has no new complaints. Objective - Vital Signs/Intake and Output Vital Signs (last 24 hours): Temp Pulse Resp BP Pulse Ox 98.0 F 80 20 98/60 L 98 04/09/17 15:00 04/09/17 15:00 04/09/17 15:00 04/09/17 15:00 04/09/17 15:00 Intake and Output: 04/09/17 04/10/17 18:59 06:59 Output Total 750 Balance -750 - Medications Medications: Current Medications Acetaminophen (Tylenol 325mg Tab) 650 mg PO Q6 PRN PRN Reason: Pain, moderate (4-7) Artificial Tears (Artificial Tears) 0 ml OU Q2H PRN PRN Reason: Dry eyes Last Admin: 04/09/17 00:19 Dose: 2 applic Bupropion HCl (Wellbutrin Xl) 300 mg PO DAILY [facility] Last Admin: 04/09/17 12:13 Dose: 300 mg Citalopram Hydrobromide (Celexa) 20 mg PO DAILY [facility] Last Admin: 04/09/17 12:12 Dose: 20 mg Clonazepam (Klonopin) 0.5 mg PO BID PRN PRN Reason: Other Last Admin: 04/09/17 21:54 Dose: 0.5 mg Furosemide (Lasix) 40 mg PO DAILY [facility] Last Admin: 04/09/17 12:13 Dose: Not Given Gabapentin (Neurontin) 300 mg PO TID [facility] Last Admin: 04/09/17 17:48 Dose: 300 mg Sodium Chloride (Sodium Chloride 0.9%) 1,000 mls @ 100 mls/hr IV .Q10H [facility] Last Admin: 04/09/17 13:00 Dose: Not Given Vancomycin/Sodium Chloride (Vancocin) 1 gm in 200 mls @ 133 mls/hr IVPB Q12H [facility] Stop: 04/13/17 18:16 Last Admin: 04/09/17 17:48 Dose: 133 mls/hr Imipenem/Cilastatin Sodium 500 (mg/ Sodium Chloride) 100 mls @ 100 mls/hr IVPB Q6H [facility] Last Admin: 04/09/17 21:54 Dose: 100 mls/hr Lactobacillus Acidophilus (Bacid Acidophilus) 1 cap PO BID [facility] Last Admin: 04/09/17 17:47 Dose: 1 cap Ondansetron HCl (Zofran Inj) 4 mg IVP Q6 PRN PRN Reason: Nausea/Vomiting Pantoprazole Sodium (Protonix Ec Tab) 40 mg PO DAILY [facility] Last Admin: 04/09/17 12:12 Dose: 40 mg Potassium Chloride (K-Dur 20 Meq Er Tab) 40 meq PO DAILY [facility] Last Admin: 04/09/17 12:13 Dose: 40 meq Rivaroxaban (Xarelto) 10 mg PO QPM [facility] Last Admin: 04/09/17 17:48 Dose: 10 mg Rosuvastatin Calcium (Crestor) 5 mg PO HS [facility] Last Admin: 04/09/17 21:54 Dose: 5 mg Zolpidem Tartrate (Ambien) 5 mg PO HS PRN PRN Reason: Insomnia Last Admin: 04/09/17 21:54 Dose: 5 mg - Labs Labs: 04/09/17 07:31 04/09/17 07:31 - Constitutional Appears: Well, No Acute Distress - Eye Exam Eye Exam: EOMI, Normal appearance - ENT Exam ENT Exam: Mucous Membranes Moist, Normal Exam - Respiratory Exam Respiratory Exam: Clear to Ausculation Bilateral, NORMAL BREATHING PATTERN - GI/Abdominal Exam GI & Abdominal Exam: Soft, Normal Bowel Sounds - Extremities Exam Extremities Exam: Tenderness - Neurological Exam Neurological Exam: Alert, Awake, Oriented x3 - Psychiatric Exam Psychiatric exam: Normal Affect, Normal Mood - Skin Skin Exam: Dry, Normal Color, Warm Assessment and Plan (1) Sacral ulcer Assessment & Plan: Afebrile Leukocytosis with left shift (Improving 14.8--->13.7---> 11.5) * Surgery Consult: Dr. Subramanian - help appreciated Debridement of left hip decubitus ulcer (04/09/17) * Wound Care consult - help appreciated * Patient continued on Clindamycin 600mg IV Q8H --- discontinued 04/08/17 Infectious disease consult: Dr. Sevilla----> Help appreciated * Wound culture: + for staphylcoccus aureus 1. Started on Zosyn 3.3753mg IVPB Q6H (04/08/17) 2. Started on Vancomycin 1gm IVPB Q12H (04/08/17) * Pending blood culture Status: Acute (2) Peripheral edema Assessment & Plan: Resumed home medications: Lasix 40mg PO daily and KDur 40mg PO daily Status: Chronic (3) Hypokalemia Assessment & Plan: Continue home medication: KDur 40mg PO daily Status: Acute (4) History of DVT (deep vein thrombosis) Assessment & Plan: IVC filter placed * Xarelto 10mg PO daily Status: Chronic (5) History of depression Assessment & Plan: Resumed home medications: * Wellbutrin xL 300mg PO daily, * Celexa 20mg PO daily Status: Acute (6) History of anxiety Assessment & Plan: Continue home medications: * Klonopin 0.5mg PO BID * Celexa 20mg PO daily Status: Acute (7) Paraplegia Assessment & Plan: Evaluation of PT and Occupation therapy. Status: Chronic (8) Prophylactic measure Assessment & Plan: GI PPX: Protonix 40mg PO daily DVT: SCDs contraindicated due to hx PVD, VTE patient already on Xarelto Bacid acidophilus 1 cap PO bid Status: Acute <Denny Murray - Last Filed: 04/10/17 17:29> Objective - Vital Signs/Intake and Output Vital Signs (last 24 hours): Temp Pulse Resp BP Pulse Ox 98.3 F 82 20 104/59 L 100 04/10/17 16:00 04/10/17 16:00 04/10/17 16:00 04/10/17 16:00 04/10/17 16:00 Intake and Output: 04/10/17 04/10/17 06:59 18:59 Intake Total 1840 1150 Output Total 1200 1200 Balance 640 -50 - Medications Medications: Current Medications Acetaminophen (Tylenol 325mg Tab) 650 mg PO Q6 PRN PRN Reason: Pain, moderate (4-7) Artificial Tears (Artificial Tears) 0 ml OU Q2H PRN PRN Reason: Dry eyes Last Admin: 04/09/17 00:19 Dose: 2 applic Bupropion HCl (Wellbutrin Xl) 300 mg PO DAILY [facility] Last Admin: 04/10/17 09:23 Dose: 300 mg Citalopram Hydrobromide (Celexa) 20 mg PO DAILY [facility] Last Admin: 04/10/17 09:23 Dose: 20 mg Clonazepam (Klonopin) 0.5 mg PO BID PRN PRN Reason: Other Last Admin: 04/09/17 21:54 Dose: 0.5 mg Furosemide (Lasix) 40 mg PO DAILY [facility] Last Admin: 04/10/17 09:21 Dose: 40 mg Gabapentin (Neurontin) 300 mg PO TID [facility] Last Admin: 04/10/17 13:27 Dose: 300 mg Sodium Chloride (Sodium Chloride 0.9%) 1,000 mls @ 100 mls/hr IV .Q10H [facility] Last Admin: 04/10/17 09:46 Dose: Not Given Vancomycin/Sodium Chloride (Vancocin) 1 gm in 200 mls @ 133 mls/hr IVPB Q12H [facility] Stop: 04/13/17 18:16 Last Admin: 04/10/17 05:19 Dose: 133 mls/hr Imipenem/Cilastatin Sodium 500 (mg/ Sodium Chloride) 100 mls @ 100 mls/hr IVPB Q6H [facility] Last Admin: 04/10/17 13:27 Dose: 100 mls/hr Lactobacillus Acidophilus (Bacid Acidophilus) 1 cap PO BID [facility] Last Admin: 04/10/17 09:23 Dose: 1 cap Ondansetron HCl (Zofran Inj) 4 mg IVP Q6 PRN PRN Reason: Nausea/Vomiting Pantoprazole Sodium (Protonix Ec Tab) 40 mg PO DAILY [facility] Last Admin: 04/10/17 09:22 Dose: 40 mg Potassium Chloride (K-Dur 20 Meq Er Tab) 40 meq PO DAILY [facility] Last Admin: 04/10/17 09:22 Dose: 40 meq Rivaroxaban (Xarelto) 10 mg PO QPM [facility] Last Admin: 04/09/17 17:48 Dose: 10 mg Rosuvastatin Calcium (Crestor) 5 mg PO HS [facility] Last Admin: 04/09/17 21:54 Dose: 5 mg Zolpidem Tartrate (Ambien) 5 mg PO HS PRN PRN Reason: Insomnia Last Admin: 04/09/17 21:54 Dose: 5 mg - Labs Labs: 04/10/17 16:56 04/10/17 16:56 Attending/Attestation - Attestation I have personally seen and examined this patient.: Yes I have fully participated in the care of the patient.: Yes I have reviewed all pertinent clinical information, including history, physical exam and plan: Yes Notes (Text): 04/10/17 17:29 Patient was seen and examined at bedside Plan for I and D by Dr. Subramanian today. Continue antibiotic as per recommendations of for ID Discussed the plan of care with the resident and agree with the assessment and plan.
[2017-04-10] MEDS: Vancomycin 1 gm/NS 200 ml 1 GM/200 ML BAG IVPB SCH ×2 (05:19→17:57)
[2017-04-10] MEDS: Pantoprazole 40 mg EC Tab PO SCH (09:22)
[2017-04-10] MEDS: Potassium Chloride 20 mEq ER Tab PO SCH (09:22)
[2017-04-10] MEDS: Lactobacillus Acidophilus 500 MU Cap PO SCH ×2 (09:23→17:57)
[2017-04-10] MEDS: buPROPion 150 mg/24 Hours XL Tab PO SCH (09:23)
[2017-04-10] MEDS: Sodium Chloride 0.9% 1,000 ML IV SCH ×3 (09:26→19:00)
--- NOTE | 2017-04-10 11:03 | CP.PCM.PN ---
<Raven Valdez - Last Filed: 04/10/17 18:21> Subjective - Date & Time of Evaluation Date of Evaluation: 04/10/17 Time of Evaluation: 08:00 - Subjective Subjective: PGY1- Medicine Note- Dr. Murray's Service Patient seen and examined and in no acute distress. Patient laying in bed comfortably eating breakfast. Patient complains of no pain at site of sacral ulcer. Patient denies chest pain, shortness of breath, or abdominal pain. Patient is incontinent of both urine and feces secondary to paraplegia. Patient' s urine color slightly dark so suggested to drink more. Patient's right foot ulcer healing well and was cleaned and covered with medihoney and 4x4 dressing. Objective - Vital Signs/Intake and Output Vital Signs (last 24 hours): Temp Pulse Resp BP Pulse Ox 98.5 F 87 20 103/60 100 04/10/17 00:00 04/10/17 00:00 04/10/17 00:00 04/10/17 09:21 04/10/17 00:00 Intake and Output: 04/10/17 04/10/17 06:59 18:59 Intake Total 1840 Output Total 1200 Balance 640 - Medications Medications: Current Medications Acetaminophen (Tylenol 325mg Tab) 650 mg PO Q6 PRN PRN Reason: Pain, moderate (4-7) Artificial Tears (Artificial Tears) 0 ml OU Q2H PRN PRN Reason: Dry eyes Last Admin: 04/09/17 00:19 Dose: 2 applic Bupropion HCl (Wellbutrin Xl) 300 mg PO DAILY [facility] Last Admin: 04/10/17 09:23 Dose: 300 mg Citalopram Hydrobromide (Celexa) 20 mg PO DAILY [facility] Last Admin: 04/10/17 09:23 Dose: 20 mg Clonazepam (Klonopin) 0.5 mg PO BID PRN PRN Reason: Other Last Admin: 04/09/17 21:54 Dose: 0.5 mg Furosemide (Lasix) 40 mg PO DAILY [facility] Last Admin: 04/10/17 09:21 Dose: 40 mg Gabapentin (Neurontin) 300 mg PO TID [facility] Last Admin: 04/10/17 09:22 Dose: 300 mg Sodium Chloride (Sodium Chloride 0.9%) 1,000 mls @ 100 mls/hr IV .Q10H [facility] Last Admin: 04/10/17 09:26 Dose: 100 mls/hr Vancomycin/Sodium Chloride (Vancocin) 1 gm in 200 mls @ 133 mls/hr IVPB Q12H [facility] Stop: 04/13/17 18:16 Last Admin: 04/10/17 05:19 Dose: 133 mls/hr Imipenem/Cilastatin Sodium 500 (mg/ Sodium Chloride) 100 mls @ 100 mls/hr IVPB Q6H [facility] Last Admin: 04/10/17 09:19 Dose: 100 mls/hr Lactobacillus Acidophilus (Bacid Acidophilus) 1 cap PO BID [facility] Last Admin: 04/10/17 09:23 Dose: 1 cap Ondansetron HCl (Zofran Inj) 4 mg IVP Q6 PRN PRN Reason: Nausea/Vomiting Pantoprazole Sodium (Protonix Ec Tab) 40 mg PO DAILY [facility] Last Admin: 04/10/17 09:22 Dose: 40 mg Potassium Chloride (K-Dur 20 Meq Er Tab) 40 meq PO DAILY [facility] Last Admin: 04/10/17 09:22 Dose: 40 meq Rivaroxaban (Xarelto) 10 mg PO QPM [facility] Last Admin: 04/09/17 17:48 Dose: 10 mg Rosuvastatin Calcium (Crestor) 5 mg PO HS [facility] Last Admin: 04/09/17 21:54 Dose: 5 mg Zolpidem Tartrate (Ambien) 5 mg PO HS PRN PRN Reason: Insomnia Last Admin: 04/09/17 21:54 Dose: 5 mg - Labs Labs: 04/09/17 07:31 04/09/17 07:31 - Constitutional Appears: Well, Non-toxic, No Acute Distress - Head Exam Head Exam: ATRAUMATIC, NORMAL INSPECTION, NORMOCEPHALIC - Eye Exam Eye Exam: EOMI, Normal appearance, PERRL - Neck Exam Neck Exam: Full ROM, Normal Inspection. absent: Lymphadenopathy - Cardiovascular Exam Cardiovascular Exam: REGULAR RHYTHM, RRR, +S1, +S2. absent: Murmur - GI/Abdominal Exam GI & Abdominal Exam: Soft, Normal Bowel Sounds. absent: Firm, Guarding, Rigid, Tenderness - Extremities Exam Extremities Exam: Pedal Edema Additional comments: paraplegia, chronic edema bilaterally - Back Exam Additional comments: sacral decubitus ulcer - Neurological Exam Neurological Exam: Alert, Awake, Oriented x3 - Psychiatric Exam Psychiatric exam: Normal Affect, Normal Mood - Skin Skin Exam: Warm Additional comments: sacral decubitus ulcer dressed, right heel decubitus ulcer dressed Assessment and Plan - Assessment and Plan (Free Text) Assessment: (1) Sacral ulcer Assessment & Plan: Afebrile Leukocytosis with left shift ( 14.8--->13.7---> 11.5--->14.9 on 04/10) * Surgery Consult: Dr. Subramanian - help appreciated Debridement of left hip decubitus ulcer (04/09/17) * Wound Care consult - help appreciated * Patient continued on Clindamycin 600mg IV Q8H --- discontinued 04/08/17 Infectious disease consult: Dr. Sevilla----> Help appreciated * Wound culture: + for staphylcoccus aureus 1. Started on Zosyn 3.3753mg IVPB Q6H (04/08/17) 2. Started on Vancomycin 1gm IVPB Q12H (04/08/17) * Pending blood culture Status: Acute (2) Peripheral edema Assessment & Plan: Resumed home medications: Lasix 40mg PO daily and KDur 40mg PO daily Status: Chronic (3) Right heel ulcer Has been getting it treated outpatient before hospital admission continue to clean and use medihoney (4) Hypokalemia Assessment & Plan: Continue home medication: KDur 40mg PO daily Status: Acute (5) History of DVT (deep vein thrombosis) Assessment & Plan: IVC filter placed * Xarelto 10mg PO daily Status: Chronic (6) History of depression Assessment & Plan: Resumed home medications: * Wellbutrin xL 300mg PO daily, * Celexa 20mg PO daily Status: Acute (7) History of anxiety Assessment & Plan: Continue home medications: * Klonopin 0.5mg PO BID * Celexa 20mg PO daily Status: Acute (8) Paraplegia Assessment & Plan: Evaluation of PT and Occupation therapy. Status: Chronic (9) Prophylactic measure Assessment & Plan: GI PPX: Protonix 40mg PO daily DVT: SCDs contraindicated due to hx PVD, VTE patient already on Xarelto Bacid acidophilus 1 cap PO bid <Denny Murray - Last Filed: 04/10/17 18:33> Objective - Vital Signs/Intake and Output Vital Signs (last 24 hours): Temp Pulse Resp BP Pulse Ox 98.3 F 82 20 104/59 L 100 04/10/17 16:00 04/10/17 16:00 04/10/17 16:00 04/10/17 16:00 04/10/17 16:00 Intake and Output: 04/10/17 04/10/17 06:59 18:59 Intake Total 1840 1150 Output Total 1200 1200 Balance 640 -50 - Medications Medications: Current Medications Acetaminophen (Tylenol 325mg Tab) 650 mg PO Q6 PRN PRN Reason: Pain, moderate (4-7) Artificial Tears (Artificial Tears) 0 ml OU Q2H PRN PRN Reason: Dry eyes Last Admin: 04/09/17 00:19 Dose: 2 applic Bupropion HCl (Wellbutrin Xl) 300 mg PO DAILY [facility] Last Admin: 04/10/17 09:23 Dose: 300 mg Citalopram Hydrobromide (Celexa) 20 mg PO DAILY [facility] Last Admin: 04/10/17 09:23 Dose: 20 mg Clonazepam (Klonopin) 0.5 mg PO BID PRN PRN Reason: Other Last Admin: 04/09/17 21:54 Dose: 0.5 mg Furosemide (Lasix) 40 mg PO DAILY [facility] Last Admin: 04/10/17 09:21 Dose: 40 mg Gabapentin (Neurontin) 300 mg PO TID [facility] Last Admin: 04/10/17 17:57 Dose: 300 mg Sodium Chloride (Sodium Chloride 0.9%) 1,000 mls @ 100 mls/hr IV .Q10H [facility] Last Admin: 04/10/17 09:46 Dose: Not Given Vancomycin/Sodium Chloride (Vancocin) 1 gm in 200 mls @ 133 mls/hr IVPB Q12H [facility] Stop: 04/13/17 18:16 Last Admin: 04/10/17 17:57 Dose: 133 mls/hr Imipenem/Cilastatin Sodium 500 (mg/ Sodium Chloride) 100 mls @ 100 mls/hr IVPB Q6H [facility] Last Admin: 04/10/17 13:27 Dose: 100 mls/hr Lactobacillus Acidophilus (Bacid Acidophilus) 1 cap PO BID [facility] Last Admin: 04/10/17 17:57 Dose: 1 cap Ondansetron HCl (Zofran Inj) 4 mg IVP Q6 PRN PRN Reason: Nausea/Vomiting Pantoprazole Sodium (Protonix Ec Tab) 40 mg PO DAILY [facility] Last Admin: 04/10/17 09:22 Dose: 40 mg Potassium Chloride (K-Dur 20 Meq Er Tab) 40 meq PO DAILY [facility] Last Admin: 04/10/17 09:22 Dose: 40 meq Rivaroxaban (Xarelto) 10 mg PO QPM [facility] Last Admin: 04/10/17 17:57 Dose: 10 mg Rosuvastatin Calcium (Crestor) 5 mg PO HS [facility] Last Admin: 04/09/17 21:54 Dose: 5 mg Zolpidem Tartrate (Ambien) 5 mg PO HS PRN PRN Reason: Insomnia Last Admin: 04/09/17 21:54 Dose: 5 mg - Labs Labs: 04/10/17 16:56 04/10/17 16:56 Attending/Attestation - Attestation I have personally seen and examined this patient.: Yes I have fully participated in the care of the patient.: Yes I have reviewed all pertinent clinical information, including history, physical exam and plan: Yes Notes (Text): 04/10/17 18:33 Patient was seen and examined at bedside Status post IND of the sacral decubitus ulcer by Dr. Subramanian Continue antibiotics as per recommendations of ID Plan for further debridement on Wednesday Discussed the plan of care with the resident and agree with the assessment and plan.
[2017-04-10 17:07] LABS: BASO # 0.1 K/uL (0.0-0.2); BASO % 0.5 % (0.0-2.0); EOS # 0.4 K/uL (0.0-0.7); HEMOGLOBIN 9.5 g/dL (12.0-18.0); LYMPH # 3.1 K/uL (1.0-4.3); LYMPH % 21.1 % (20.0-40.0); MEAN CELL VOLUME 81.3 fL (80.0-94.0); MEAN CORPUSCULAR HEMOGLOBIN 26.2 pg (27.0-31.0); MEAN CORPUSCULAR HGB CONC 32.3 g/dL (33.0-37.0); MONO # 1.2 K/uL (0.0-0.8); NEUT % 67.4 % (50.0-75.0); RBC 3.61 Mil/uL (4.40-5.90); RED CELL DISTRIBUTION WIDTH 15.7 % (11.5-14.5); WHITE BLOOD COUNT 14.9 K/uL (4.8-10.8)
[2017-04-10 17:20] LABS: ALBUMIN 2.7 g/dL (3.5-5.0)
[2017-04-10 17:23] LABS: ALB/GLOB RATIO 0.9 (1.0-2.1); ALT/SGPT 17 U/L (21-72); AST/SGOT 10 U/L (17-59); BLOOD UREA NITROGEN 12 mg/dL (9-20); GFR AFRICAN-AMERICAN > 60; GFR NON-AFRICAN AMERICAN > 60
[2017-04-10 17:24] LABS: CALCIUM 8.3 mg/dl (8.6-10.4)
--- NOTE | 2017-04-10 19:44 | CP.PCM.PN ---
Subjective - Date & Time of Evaluation Date of Evaluation: 04/10/17 Time of Evaluation: 07:00 Objective - Vital Signs/Intake and Output Vital Signs (last 24 hours): Temp Pulse Resp BP Pulse Ox 98.3 F 82 20 104/59 L 100 04/10/17 16:00 04/10/17 16:00 04/10/17 16:00 04/10/17 16:00 04/10/17 16:00 Intake and Output: 04/10/17 04/11/17 18:59 06:59 Intake Total 1150 Output Total 1200 Balance -50 - Medications Medications: Current Medications Acetaminophen (Tylenol 325mg Tab) 650 mg PO Q6 PRN PRN Reason: Pain, moderate (4-7) Artificial Tears (Artificial Tears) 0 ml OU Q2H PRN PRN Reason: Dry eyes Last Admin: 04/09/17 00:19 Dose: 2 applic Bupropion HCl (Wellbutrin Xl) 300 mg PO DAILY [facility] Last Admin: 04/10/17 09:23 Dose: 300 mg Citalopram Hydrobromide (Celexa) 20 mg PO DAILY [facility] Last Admin: 04/10/17 09:23 Dose: 20 mg Clonazepam (Klonopin) 0.5 mg PO BID PRN PRN Reason: Other Last Admin: 04/09/17 21:54 Dose: 0.5 mg Furosemide (Lasix) 40 mg PO DAILY [facility] Last Admin: 04/10/17 09:21 Dose: 40 mg Gabapentin (Neurontin) 300 mg PO TID [facility] Last Admin: 04/10/17 17:57 Dose: 300 mg Sodium Chloride (Sodium Chloride 0.9%) 1,000 mls @ 100 mls/hr IV .Q10H [facility] Last Admin: 04/10/17 09:46 Dose: Not Given Vancomycin/Sodium Chloride (Vancocin) 1 gm in 200 mls @ 133 mls/hr IVPB Q12H [facility] Stop: 04/13/17 18:16 Last Admin: 04/10/17 17:57 Dose: 133 mls/hr Imipenem/Cilastatin Sodium 500 (mg/ Sodium Chloride) 100 mls @ 100 mls/hr IVPB Q6H [facility] Last Admin: 04/10/17 13:27 Dose: 100 mls/hr Lactobacillus Acidophilus (Bacid Acidophilus) 1 cap PO BID [facility] Last Admin: 04/10/17 17:57 Dose: 1 cap Ondansetron HCl (Zofran Inj) 4 mg IVP Q6 PRN PRN Reason: Nausea/Vomiting Pantoprazole Sodium (Protonix Ec Tab) 40 mg PO DAILY [facility] Last Admin: 04/10/17 09:22 Dose: 40 mg Potassium Chloride (K-Dur 20 Meq Er Tab) 40 meq PO DAILY [facility] Last Admin: 04/10/17 09:22 Dose: 40 meq Rivaroxaban (Xarelto) 10 mg PO QPM [facility] Last Admin: 04/10/17 17:57 Dose: 10 mg Rosuvastatin Calcium (Crestor) 5 mg PO HS [facility] Last Admin: 04/09/17 21:54 Dose: 5 mg Zolpidem Tartrate (Ambien) 5 mg PO HS PRN PRN Reason: Insomnia Last Admin: 04/09/17 21:54 Dose: 5 mg - Labs Labs: 04/10/17 16:56 04/10/17 16:56
[2017-04-11] MEDS: Sodium Chloride 0.9% 1,000 ML IV SCH ×2 (03:00→18:10)
[2017-04-11] MEDS: Vancomycin 1 gm/NS 200 ml 1 GM/200 ML BAG IVPB SCH ×2 (05:16→18:08)
[2017-04-11 07:47] LABS: BASO # 0.1 K/uL (0.0-0.2); BASO % 0.4 % (0.0-2.0); EOS # 0.4 K/uL (0.0-0.7); HEMOGLOBIN 8.7 g/dL (12.0-18.0); LYMPH % 31.7 % (20.0-40.0); MEAN CELL VOLUME 82.1 fL (80.0-94.0); MEAN CORPUSCULAR HEMOGLOBIN 26.2 pg (27.0-31.0); MEAN PLATELET VOLUME 7.7 fL (7.2-11.7); NEUT # 7.1 K/uL (1.8-7.0); NEUT % 56.9 % (50.0-75.0); RBC 3.31 Mil/uL (4.40-5.90); RED CELL DISTRIBUTION WIDTH 15.4 % (11.5-14.5); WHITE BLOOD COUNT 12.5 K/uL (4.8-10.8)
[2017-04-11 08:13] LABS: ALBUMIN 2.5 g/dL (3.5-5.0)
[2017-04-11 08:16] LABS: AST/SGOT 15 U/L (17-59); GFR AFRICAN-AMERICAN > 60; GFR NON-AFRICAN AMERICAN > 60
[2017-04-11 08:17] LABS: ALB/GLOB RATIO 0.8 (1.0-2.1); ALT/SGPT 18 U/L (21-72); BLOOD UREA NITROGEN 12 mg/dL (9-20); CALCIUM 8.3 mg/dl (8.6-10.4); MAGNESIUM 2.1 mg/dL (1.6-2.3)
--- NOTE | 2017-04-11 09:42 | CP.PCM.PN ---
<Raven Valdez - Last Filed: 04/11/17 15:31> Subjective - Date & Time of Evaluation Date of Evaluation: 04/11/17 Time of Evaluation: 07:00 - Subjective Subjective: PGY1- Medicine Note- Dr. Murray's Service Patient seen and examined and in no acute distress. Patient laying in bed comfortably eating breakfast. Patient complains of no pain at site of sacral ulcer. Patient denies chest pain, shortness of breath, or abdominal pain. Patient is incontinent of both urine and feces secondary to paraplegia. 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 Objective - Vital Signs/Intake and Output Vital Signs (last 24 hours): Temp Pulse Resp BP Pulse Ox 98.6 F 87 20 106/64 97 04/11/17 00:00 04/11/17 00:00 04/11/17 00:00 04/11/17 00:00 04/11/17 00:00 Intake and Output: 04/11/17 04/11/17 06:59 18:59 Intake Total 1250 Output Total 1300 Balance -50 - Medications Medications: Current Medications Acetaminophen (Tylenol 325mg Tab) 650 mg PO Q6 PRN PRN Reason: Pain, moderate (4-7) Artificial Tears (Artificial Tears) 0 ml OU Q2H PRN PRN Reason: Dry eyes Last Admin: 04/09/17 00:19 Dose: 2 applic Bupropion HCl (Wellbutrin Xl) 300 mg PO DAILY [facility] Last Admin: 04/10/17 09:23 Dose: 300 mg Citalopram Hydrobromide (Celexa) 20 mg PO DAILY [facility] Last Admin: 04/10/17 09:23 Dose: 20 mg Clonazepam (Klonopin) 0.5 mg PO BID PRN PRN Reason: Other Last Admin: 04/10/17 21:26 Dose: 0.5 mg Furosemide (Lasix) 40 mg PO DAILY [facility] Last Admin: 04/10/17 09:21 Dose: 40 mg Gabapentin (Neurontin) 300 mg PO TID [facility] Last Admin: 04/10/17 17:57 Dose: 300 mg Sodium Chloride (Sodium Chloride 0.9%) 1,000 mls @ 100 mls/hr IV .Q10H [facility] Last Admin: 04/11/17 03:00 Dose: 100 mls/hr Vancomycin/Sodium Chloride (Vancocin) 1 gm in 200 mls @ 133 mls/hr IVPB Q12H [facility] Stop: 04/13/17 18:16 Last Admin: 04/11/17 05:16 Dose: 133 mls/hr Imipenem/Cilastatin Sodium 500 (mg/ Sodium Chloride) 100 mls @ 100 mls/hr IVPB Q6H [facility] Last Admin: 04/11/17 08:18 Dose: 100 mls/hr Lactobacillus Acidophilus (Bacid Acidophilus) 1 cap PO BID [facility] Last Admin: 04/10/17 17:57 Dose: 1 cap Ondansetron HCl (Zofran Inj) 4 mg IVP Q6 PRN PRN Reason: Nausea/Vomiting Pantoprazole Sodium (Protonix Ec Tab) 40 mg PO DAILY [facility] Last Admin: 04/10/17 09:22 Dose: 40 mg Potassium Chloride (K-Dur 20 Meq Er Tab) 40 meq PO DAILY [facility] Last Admin: 04/10/17 09:22 Dose: 40 meq Rivaroxaban (Xarelto) 10 mg PO QPM [facility] Last Admin: 04/10/17 17:57 Dose: 10 mg Rosuvastatin Calcium (Crestor) 5 mg PO HS [facility] Last Admin: 04/10/17 21:26 Dose: 5 mg Zolpidem Tartrate (Ambien) 5 mg PO HS PRN PRN Reason: Insomnia Last Admin: 04/10/17 21:26 Dose: 5 mg - Labs Labs: 04/11/17 07:40 04/11/17 07:40 - Constitutional Appears: Well, Non-toxic, No Acute Distress - Head Exam Head Exam: ATRAUMATIC, NORMAL INSPECTION, NORMOCEPHALIC - Eye Exam Eye Exam: EOMI, Normal appearance, PERRL - ENT Exam ENT Exam: Mucous Membranes Moist, Normal Exam - Neck Exam Neck Exam: Full ROM, Normal Inspection. absent: Lymphadenopathy - Respiratory Exam Respiratory Exam: Clear to Ausculation Bilateral, NORMAL BREATHING PATTERN. absent: Rales, Rhonchi, Wheezes, Respiratory Distress, Stridor - Cardiovascular Exam Cardiovascular Exam: REGULAR RHYTHM, RRR. absent: Gallop, Murmur - GI/Abdominal Exam GI & Abdominal Exam: Soft, Normal Bowel Sounds. absent: Distended, Firm, Guarding, Rigid, Tenderness - Extremities Exam Extremities Exam: Pedal Edema. absent: Full ROM Additional comments: paraplegic, chronic lower extremity edema - Back Exam Back Exam: absent: CVA tenderness (L), CVA tenderness (R) Additional comments: sacral ulcer covered in dressings - Neurological Exam Neurological Exam: Alert, Awake, Oriented x3 - Psychiatric Exam Psychiatric exam: Normal Affect, Normal Mood - Skin Skin Exam: Warm. absent: Intact Additional comments: right leg ulcer near knee sacral ulcer right foot ulcer healing Assessment and Plan - Assessment and Plan (Free Text) Assessment: (1) Sacral ulcer Assessment & Plan: Afebrile Leukocytosis with left shift ( 14.9 -->12.5 on 04/11) * Surgery Consult: Dr. Subramanian - help appreciated Debridement of left hip decubitus ulcer (04/09/17) * Wound Care consult - help appreciated * Patient continued on Clindamycin 600mg IV Q8H --- discontinued 04/08/17 * Patient to go for second debridement 04/12 Infectious disease consult: Dr. Sevilla----> Help appreciated * Wound culture: + for staphylcoccus aureus 1. Started on Zosyn 3.3753mg IVPB Q6H (04/08/17) 2. Started on Vancomycin 1gm IVPB Q12H (04/08/17) * blood culture- no growth Status: Acute (2) Peripheral edema Assessment & Plan: Resumed home medications: Lasix 40mg PO daily and KDur 40mg PO daily Status: Chronic (3) Right heel ulcer Has been getting it treated outpatient before hospital admission continue to clean and use medihoney (4) Hypokalemia Assessment & Plan: Continue home medication: KDur 40mg PO daily Status: Acute (5) History of DVT (deep vein thrombosis) Assessment & Plan: IVC filter placed * Xarelto 10mg PO daily Status: Chronic (6) History of depression Assessment & Plan: Resumed home medications: * Wellbutrin xL 300mg PO daily, * Celexa 20mg PO daily Status: Acute (7) History of anxiety Assessment & Plan: Continue home medications: * Klonopin 0.5mg PO BID * Celexa 20mg PO daily Status: Acute (8) Paraplegia Assessment & Plan: Evaluation of PT and Occupation therapy. Status: Chronic (9) Prophylactic measure Assessment & Plan: GI PPX: Protonix 40mg PO daily DVT: SCDs contraindicated due to hx PVD, VTE patient already on Xarelto Bacid acidophilus 1 cap PO bid <Denny Murray - Last Filed: 04/11/17 16:46> Objective - Vital Signs/Intake and Output Vital Signs (last 24 hours): Temp Pulse Resp BP Pulse Ox 98.6 F 87 20 106/64 97 04/11/17 00:00 04/11/17 00:00 04/11/17 00:00 04/11/17 10:14 04/11/17 00:00 Intake and Output: 04/11/17 04/11/17 06:59 18:59 Intake Total 1250 1250 Output Total 1300 1450 Balance -50 -200 - Medications Medications: Current Medications Acetaminophen (Tylenol 325mg Tab) 650 mg PO Q6 PRN PRN Reason: Pain, moderate (4-7) Artificial Tears (Artificial Tears) 0 ml OU Q2H PRN PRN Reason: Dry eyes Last Admin: 04/09/17 00:19 Dose: 2 applic Bupropion HCl (Wellbutrin Xl) 300 mg PO DAILY [facility] Last Admin: 04/11/17 10:15 Dose: 300 mg Citalopram Hydrobromide (Celexa) 20 mg PO DAILY [facility] Last Admin: 04/11/17 10:15 Dose: 20 mg Clonazepam (Klonopin) 0.5 mg PO BID PRN PRN Reason: Other Last Admin: 04/10/17 21:26 Dose: 0.5 mg Furosemide (Lasix) 40 mg PO DAILY [facility] Last Admin: 04/11/17 10:14 Dose: 40 mg Gabapentin (Neurontin) 300 mg PO TID [facility] Last Admin: 04/11/17 13:45 Dose: 300 mg Sodium Chloride (Sodium Chloride 0.9%) 1,000 mls @ 100 mls/hr IV .Q10H [facility] Last Admin: 04/11/17 03:00 Dose: 100 mls/hr Vancomycin/Sodium Chloride (Vancocin) 1 gm in 200 mls @ 133 mls/hr IVPB Q12H [facility] Stop: 04/13/17 18:16 Last Admin: 04/11/17 05:16 Dose: 133 mls/hr Imipenem/Cilastatin Sodium 500 (mg/ Sodium Chloride) 100 mls @ 100 mls/hr IVPB Q6H [facility] Last Admin: 04/11/17 13:45 Dose: 100 mls/hr Lactobacillus Acidophilus (Bacid Acidophilus) 1 cap PO BID [facility] Last Admin: 04/11/17 10:15 Dose: 1 cap Ondansetron HCl (Zofran Inj) 4 mg IVP Q6 PRN PRN Reason: Nausea/Vomiting Pantoprazole Sodium (Protonix Ec Tab) 40 mg PO DAILY [facility] Last Admin: 04/11/17 10:16 Dose: 40 mg Potassium Chloride (K-Dur 20 Meq Er Tab) 40 meq PO DAILY [facility] Last Admin: 04/11/17 10:14 Dose: 40 meq Rivaroxaban (Xarelto) 10 mg PO QPM [facility] Last Admin: 04/10/17 17:57 Dose: 10 mg Rosuvastatin Calcium (Crestor) 5 mg PO HS [facility] Last Admin: 04/10/17 21:26 Dose: 5 mg Zolpidem Tartrate (Ambien) 5 mg PO HS PRN PRN Reason: Insomnia Last Admin: 04/10/17 21:26 Dose: 5 mg - Labs Labs: 04/11/17 07:40 04/11/17 07:40 Attending/Attestation - Attestation I have personally seen and examined this patient.: Yes I have fully participated in the care of the patient.: Yes I have reviewed all pertinent clinical information, including history, physical exam and plan: Yes Notes (Text): 04/11/17 16:43 Patient was seen and examined at bedside with the resident Patient appears comfortable at this time Patient is scheduled for another I and D by Dr. Subramanian in the morning We will follow up the results of the bone biopsy to rule out any osteomyelitis We will continue antibiotics as per recommendations of ID. Patient is currently on vancomycin and Zosyn. Wound culture shows staph aureus I discussed the plan of care with the resident and agree with the history and physical and assessment/plan by the resident.
[2017-04-11] MEDS: Potassium Chloride 20 mEq ER Tab PO SCH (10:14)
[2017-04-11] MEDS: Lactobacillus Acidophilus 500 MU Cap PO SCH ×2 (10:15→18:09)
[2017-04-11] MEDS: buPROPion 150 mg/24 Hours XL Tab PO SCH (10:15)
[2017-04-11] MEDS: Pantoprazole 40 mg EC Tab PO SCH (10:16)
[2017-04-12] MEDS: Sodium Chloride 0.9% 1,000 ML IV SCH ×3 (00:45→20:30)
[2017-04-12] MEDS: Vancomycin 1 gm/NS 200 ml 1 GM/200 ML BAG IVPB SCH ×2 (05:15→17:19)
[2017-04-12 08:24] LABS: BASO # 0.1 K/uL (0.0-0.2); BASO % 0.7 % (0.0-2.0); EOS # 0.4 K/uL (0.0-0.7); EOS % 3.4 % (0.0-4.0); HEMOGLOBIN 8.8 g/dL (12.0-18.0); LYMPH # 4.1 K/uL (1.0-4.3); LYMPH % 32.7 % (20.0-40.0); MEAN CELL VOLUME 81.2 fL (80.0-94.0); MEAN CORPUSCULAR HEMOGLOBIN 26.5 pg (27.0-31.0); MEAN CORPUSCULAR HGB CONC 32.6 g/dL (33.0-37.0); MEAN PLATELET VOLUME 7.9 fL (7.2-11.7); MONO % 7.7 % (0.0-10.0); NEUT % 55.5 % (50.0-75.0); NRBC % 0.1 % (0.0-2.0); RBC 3.32 Mil/uL (4.40-5.90); RED CELL DISTRIBUTION WIDTH 15.4 % (11.5-14.5); WHITE BLOOD COUNT 12.6 K/uL (4.8-10.8)
[2017-04-12 08:28] LABS: INR 1.7; PROTHROMBIN TIME 20.2 SECONDS (9.7-12.2)
[2017-04-12 08:50] LABS: ALBUMIN 2.7 g/dL (3.5-5.0)
[2017-04-12 08:52] LABS: GFR AFRICAN-AMERICAN > 60; GFR NON-AFRICAN AMERICAN > 60
[2017-04-12 08:53] LABS: ALB/GLOB RATIO 0.8 (1.0-2.1); ALT/SGPT 25 U/L (21-72); AST/SGOT 18 U/L (17-59); BLOOD UREA NITROGEN 10 mg/dL (9-20); CALCIUM 8.7 mg/dl (8.6-10.4)
[2017-04-12] MEDS: Pantoprazole 40 mg EC Tab PO SCH (10:13)
[2017-04-12] MEDS: Lactobacillus Acidophilus 500 MU Cap PO SCH ×2 (10:13→17:20)
[2017-04-12] MEDS: Potassium Chloride 20 mEq ER Tab PO SCH (10:17)
[2017-04-12] MEDS: buPROPion 150 mg/24 Hours XL Tab PO SCH (10:17)
[2017-04-12] MEDS ORDERED: Lactated Ringer's 1,000 ML IV ONE (13:15)
[2017-04-12] MEDS ORDERED: Midazolam 2 MG/2 ML VIAL ONE (13:27)
--- NOTE | 2017-04-12 13:44 | CP.PCM.PN ---
<AurelioCiaracolumba Guillory - Last Filed: 04/12/17 20:27> Subjective - Date & Time of Evaluation Date of Evaluation: 04/12/17 Time of Evaluation: 07:20 - Subjective Subjective: Medicine Note ( PGY 1) : Dr. Ho's note Patient was seen and examined at bedside. Patient is s/p day 2 first sacral ulcer debridement. Patient reports that he is doing well and has no complaints. Patient denies chest pain, sob, nausea, vomiting, abd pain, fever, chills or pain. Patient is having a second debridement today. Objective - Vital Signs/Intake and Output Vital Signs (last 24 hours): Temp Pulse Resp BP Pulse Ox 98.2 F 83 20 113/62 98 04/12/17 07:53 04/12/17 07:53 04/12/17 07:53 04/12/17 10:19 04/12/17 07:53 Intake and Output: 04/12/17 04/12/17 06:59 18:59 Intake Total 1500 Output Total 1850 300 Balance -350 -300 - Medications Medications: Current Medications Acetaminophen (Tylenol 325mg Tab) 650 mg PO Q6 PRN PRN Reason: Pain, moderate (4-7) Artificial Tears (Artificial Tears) 0 ml OU Q2H PRN PRN Reason: Dry eyes Last Admin: 04/09/17 00:19 Dose: 2 applic Bupropion HCl (Wellbutrin Xl) 300 mg PO DAILY [facility] Last Admin: 04/12/17 10:17 Dose: 300 mg Citalopram Hydrobromide (Celexa) 20 mg PO DAILY [facility] Last Admin: 04/12/17 10:18 Dose: 20 mg Clonazepam (Klonopin) 0.5 mg PO BID PRN PRN Reason: Other Last Admin: 04/11/17 22:06 Dose: 0.5 mg Furosemide (Lasix) 40 mg PO DAILY [facility] Last Admin: 04/12/17 10:19 Dose: 40 mg Gabapentin (Neurontin) 300 mg PO TID [facility] Last Admin: 04/12/17 13:42 Dose: Not Given Sodium Chloride (Sodium Chloride 0.9%) 1,000 mls @ 100 mls/hr IV .Q10H [facility] Last Admin: 04/12/17 13:43 Dose: Not Given Vancomycin/Sodium Chloride (Vancocin) 1 gm in 200 mls @ 133 mls/hr IVPB Q12H [facility] Stop: 04/13/17 18:16 Last Admin: 04/12/17 05:15 Dose: 133 mls/hr Imipenem/Cilastatin Sodium 500 (mg/ Sodium Chloride) 100 mls @ 100 mls/hr IVPB Q6H [facility] Last Admin: 04/12/17 10:24 Dose: 100 mls/hr Lactobacillus Acidophilus (Bacid Acidophilus) 1 cap PO BID [facility] Last Admin: 04/12/17 10:13 Dose: Not Given Ondansetron HCl (Zofran Inj) 4 mg IVP Q6 PRN PRN Reason: Nausea/Vomiting Pantoprazole Sodium (Protonix Ec Tab) 40 mg PO DAILY [facility] Last Admin: 04/12/17 10:13 Dose: Not Given Potassium Chloride (K-Dur 20 Meq Er Tab) 40 meq PO DAILY [facility] Last Admin: 04/12/17 10:17 Dose: 40 meq Rivaroxaban (Xarelto) 10 mg PO QPM [facility] Last Admin: 04/11/17 18:09 Dose: 10 mg Rosuvastatin Calcium (Crestor) 5 mg PO HS [facility] Last Admin: 04/11/17 22:06 Dose: 5 mg Zolpidem Tartrate (Ambien) 5 mg PO HS PRN PRN Reason: Insomnia Last Admin: 04/11/17 22:06 Dose: 5 mg - Labs Labs: 04/12/17 08:09 04/12/17 08:09 PT 20.2 SECONDS (9.7-12.2) H 04/12/17 08:09 INR 1.7 04/12/17 08:09 - Constitutional Appears: Well, No Acute Distress - Head Exam Head Exam: NORMAL INSPECTION, NORMOCEPHALIC - Eye Exam Eye Exam: EOMI, Normal appearance - ENT Exam ENT Exam: Mucous Membranes Moist, Normal Exam - Respiratory Exam Respiratory Exam: Clear to Ausculation Bilateral, NORMAL BREATHING PATTERN - Cardiovascular Exam Cardiovascular Exam: REGULAR RHYTHM, +S1, +S2 - GI/Abdominal Exam GI & Abdominal Exam: Soft, Normal Bowel Sounds - Extremities Exam Extremities Exam: Pedal Edema - Neurological Exam Neurological Exam: Alert, Awake, Oriented x3 - Psychiatric Exam Psychiatric exam: Normal Affect, Normal Mood - Skin Skin Exam: Dry, Normal Color, Warm Assessment and Plan (1) Sacral ulcer Assessment & Plan: Afebrile Leukocytosis with left shift ( 14.9 -->12.5 on 04/11)---> Stable * Surgery Consult: Dr. Subramanian - help appreciated Debridement of left hip decubitus ulcer (04/09/17) * Wound Care consult - help appreciated * Patient continued on Clindamycin 600mg IV Q8H --- discontinued 04/08/17 * Patient to go for second debridement 04/12 Infectious disease consult: Dr. Sevilla----> Help appreciated * Wound culture: + for staphylcoccus aureus and Acinectobacter Baumanii 1. Started on Zosyn 3.3753mg IVPB Q6H (04/08/17)-- discontinues 2. Started on Vancomycin 1gm IVPB Q12H (04/08/17) --- Stop date (08/20) 3. Started on primaxin 500mg IVPB Q6H (04/09/17) * blood culture- no growth Status: Acute (2) Peripheral edema Assessment & Plan: Resumed home medications: Lasix 40mg PO daily and KDur 40mg PO daily Status: Chronic (3) Ulcer of right heel Assessment & Plan: Has been getting it treated outpatient before hospital admission continue to clean and use medihoney Status: Acute (4) Hypokalemia Assessment & Plan: Continue home medication: KDur 40mg PO daily Status: Acute (5) History of DVT (deep vein thrombosis) Assessment & Plan: IVC filter placed * Xarelto 10mg PO daily Status: Chronic (6) History of depression Assessment & Plan: Resumed home medications: * Wellbutrin xL 300mg PO daily, * Celexa 20mg PO daily Status: Acute (7) History of anxiety Assessment & Plan: continue home medications: * Klonopin 0.5mg PO BID * Celexa 20mg PO daily Status: Acute (8) Paraplegia Assessment & Plan: Evaluation of PT and Occupation therapy Status: Chronic (9) History of kidney cancer Assessment & Plan: 06/02/16: Left partial nephrectomy (10) Prophylactic measure Assessment & Plan: GI PPX: Protonix 40mg PO daily DVT: SCDs contraindicated due to hx PVD, VTE patient already on Xarelto Bacid acidophilus 1 cap PO bid Status: Acute <Markel Ho - Last Filed: 04/13/17 07:46> Objective - Vital Signs/Intake and Output Vital Signs (last 24 hours): Temp Pulse Resp BP Pulse Ox 98.8 F 82 20 113/62 96 04/13/17 00:00 04/13/17 00:00 04/13/17 00:00 04/12/17 16:11 04/13/17 00:00 Intake and Output: 04/13/17 04/13/17 06:59 18:59 Intake Total 1650 Output Total 1950 Balance -300 - Medications Medications: Current Medications Acetaminophen (Tylenol 325mg Tab) 650 mg PO Q6 PRN PRN Reason: Pain, moderate (4-7) Artificial Tears (Artificial Tears) 0 ml OU Q2H PRN PRN Reason: Dry eyes Last Admin: 04/09/17 00:19 Dose: 2 applic Bupropion HCl (Wellbutrin Xl) 300 mg PO DAILY [facility] Last Admin: 04/12/17 10:17 Dose: 300 mg Citalopram Hydrobromide (Celexa) 20 mg PO DAILY [facility] Last Admin: 04/12/17 10:18 Dose: 20 mg Clonazepam (Klonopin) 0.5 mg PO BID PRN PRN Reason: Other Last Admin: 04/12/17 17:30 Dose: 0.5 mg Furosemide (Lasix) 40 mg PO DAILY [facility] Last Admin: 04/12/17 10:19 Dose: 40 mg Gabapentin (Neurontin) 300 mg PO TID [facility] Last Admin: 04/12/17 17:20 Dose: 300 mg Sodium Chloride (Sodium Chloride 0.9%) 1,000 mls @ 100 mls/hr IV .Q10H [facility] Last Admin: 04/13/17 07:01 Dose: 100 mls/hr Imipenem/Cilastatin Sodium 500 (mg/ Sodium Chloride) 100 mls @ 100 mls/hr IVPB Q6H [facility] Last Admin: 04/13/17 01:12 Dose: 100 mls/hr Vancomycin HCl 1,000 mg/ (Sodium Chloride) 250 mls @ 166.6 mls/hr IVPB Q12H [facility] Last Admin: 04/13/17 05:13 Dose: 166.6 mls/hr Lactobacillus Acidophilus (Bacid Acidophilus) 1 cap PO BID [facility] Last Admin: 04/12/17 17:20 Dose: 1 cap Ondansetron HCl (Zofran Inj) 4 mg IVP Q6 PRN PRN Reason: Nausea/Vomiting Pantoprazole Sodium (Protonix Ec Tab) 40 mg PO DAILY [facility] Last Admin: 04/12/17 10:13 Dose: Not Given Potassium Chloride (K-Dur 20 Meq Er Tab) 40 meq PO DAILY [facility] Last Admin: 04/12/17 10:17 Dose: 40 meq Rivaroxaban (Xarelto) 10 mg PO QPM [facility] Last Admin: 04/12/17 17:20 Dose: 10 mg Rosuvastatin Calcium (Crestor) 5 mg PO HS [facility] Last Admin: 04/12/17 21:47 Dose: 5 mg Zolpidem Tartrate (Ambien) 5 mg PO HS PRN PRN Reason: Insomnia Last Admin: 04/12/17 21:48 Dose: 5 mg - Labs Labs: 04/13/17 07:05 04/13/17 07:05 PT 20.2 SECONDS (9.7-12.2) H 04/12/17 08:09 INR 1.7 04/12/17 08:09 Attending/Attestation - Attestation I have personally seen and examined this patient.: Yes I have fully participated in the care of the patient.: Yes I have reviewed all pertinent clinical information, including history, physical exam and plan: Yes Notes (Text): Medical attending: Patient was seen and examined by me, agrees the above note by emergency medicine medical director. This is a patient with a history of paraplegia. He explains to us that normally he is bed bound, or wheelchair-bound. He last week was seen by his surgeon who advised him to come to the hospital due to worsening sacral wounds. He is ready had one debridement and from what I understand he'll be very soon going for another debridement as well. He previously had wound culture positive Staph Aureus as well as Acinectobacter Baumanii. The patient remains on IV anti-biotics at this time. The blood cultures have remained negative for the past 4 days, however were pending a new wound cultures from the wound debridement The patient denied having any pain in his sacral area and also denied having pain in the right knee area for which it looks like he has either an abscess or boil. However he has very minimal sensation below his waist following his history of injury Thank you very much, Markel Ho
--- NOTE | 2017-04-12 21:05 | CP.PCM.PN ---
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 He is concerned about his knee. he is paraplegic and has incontinence of urine and has a colostomy due to sacral wound Objective - Vital Signs/Intake and Output Vital Signs (last 24 hours): Temp Pulse Resp BP Pulse Ox 98.2 F 80 20 113/62 100 04/12/17 15:00 04/12/17 15:00 04/12/17 15:00 04/12/17 16:11 04/12/17 15:00 Intake and Output: 04/12/17 04/13/17 18:59 06:59 Output Total 300 Balance -300 - Medications Medications: Current Medications Acetaminophen (Tylenol 325mg Tab) 650 mg PO Q6 PRN PRN Reason: Pain, moderate (4-7) Artificial Tears (Artificial Tears) 0 ml OU Q2H PRN PRN Reason: Dry eyes Last Admin: 04/09/17 00:19 Dose: 2 applic Bupropion HCl (Wellbutrin Xl) 300 mg PO DAILY [facility] Last Admin: 04/12/17 10:17 Dose: 300 mg Citalopram Hydrobromide (Celexa) 20 mg PO DAILY [facility] Last Admin: 04/12/17 10:18 Dose: 20 mg Clonazepam (Klonopin) 0.5 mg PO BID PRN PRN Reason: Other Last Admin: 04/12/17 17:30 Dose: 0.5 mg Furosemide (Lasix) 40 mg PO DAILY [facility] Last Admin: 04/12/17 10:19 Dose: 40 mg Gabapentin (Neurontin) 300 mg PO TID [facility] Last Admin: 04/12/17 17:20 Dose: 300 mg Sodium Chloride (Sodium Chloride 0.9%) 1,000 mls @ 100 mls/hr IV .Q10H [facility] Last Admin: 04/12/17 13:43 Dose: Not Given Vancomycin/Sodium Chloride (Vancocin) 1 gm in 200 mls @ 133 mls/hr IVPB Q12H [facility] Stop: 04/13/17 18:16 Last Admin: 04/12/17 17:19 Dose: 133 mls/hr Imipenem/Cilastatin Sodium 500 (mg/ Sodium Chloride) 100 mls @ 100 mls/hr IVPB Q6H [facility] Last Admin: 04/12/17 20:57 Dose: 100 mls/hr Vancomycin HCl 1,000 mg/ (Sodium Chloride) 250 mls @ 166.6 mls/hr IVPB Q12H [facility] Lactobacillus Acidophilus (Bacid Acidophilus) 1 cap PO BID [facility] Last Admin: 04/12/17 17:20 Dose: 1 cap Ondansetron HCl (Zofran Inj) 4 mg IVP Q6 PRN PRN Reason: Nausea/Vomiting Pantoprazole Sodium (Protonix Ec Tab) 40 mg PO DAILY [facility] Last Admin: 04/12/17 10:13 Dose: Not Given Potassium Chloride (K-Dur 20 Meq Er Tab) 40 meq PO DAILY [facility] Last Admin: 04/12/17 10:17 Dose: 40 meq Rivaroxaban (Xarelto) 10 mg PO QPM [facility] Last Admin: 04/12/17 17:20 Dose: 10 mg Rosuvastatin Calcium (Crestor) 5 mg PO HS [facility] Last Admin: 04/11/17 22:06 Dose: 5 mg Zolpidem Tartrate (Ambien) 5 mg PO HS PRN PRN Reason: Insomnia Last Admin: 04/11/17 22:06 Dose: 5 mg - Labs Labs: 04/12/17 08:09 04/12/17 08:09 PT 20.2 SECONDS (9.7-12.2) H 04/12/17 08:09 INR 1.7 04/12/17 08:09 - Constitutional Appears: No Acute Distress - Head Exam Head Exam: ATRAUMATIC, NORMOCEPHALIC - Eye Exam Eye Exam: Normal appearance. absent: Conjunctival injection, EOMI, Nystagmus, Periorbital swelling, Periorbital tenderness, PERRL, Scleral icterus Pupil Exam: NORMAL ACCOMODATION - ENT Exam ENT Exam: Mucous Membranes Moist - Neck Exam Neck Exam: Normal Inspection - Respiratory Exam Respiratory Exam: Clear to Ausculation Bilateral, NORMAL BREATHING PATTERN - Cardiovascular Exam Cardiovascular Exam: REGULAR RHYTHM - GI/Abdominal Exam GI & Abdominal Exam: Soft, Normal Bowel Sounds - Extremities Exam Additional comments: paraplegic with chronic edema legs,dressing on the right knee with pressure present Assessment and Plan (1) Cellulitis and abscess Assessment & Plan: patient has stage 4 decubiti sacral s/p bone biopsy today Status: Acute (2) Decubitus ulcer Status: Acute (3) History of anxiety Status: Acute (4) History of depression Status: Acute (5) Hypokalemia Status: Acute (6) Sacral ulcer Status: Acute (7) History of DVT (deep vein thrombosis) Status: Chronic (8) Infection of right knee Assessment & Plan: patient awaiting ortho eval, Status: Acute - Assessment and Plan (Free Text) Assessment: patient has staph and acinetobacter and should be in contact precaution pt to continue Vancomycin and primaxin iv check bone biopsy results also right knee assessment from DR Temple
[2017-04-13] MEDS: Sodium Chloride 0.9% 1,000 ML IV SCH (07:01)
[2017-04-13 07:20] LABS: ALBUMIN 2.6 g/dL (3.5-5.0)
[2017-04-13 07:23] LABS: AST/SGOT 20 U/L (17-59); GFR AFRICAN-AMERICAN > 60; GFR NON-AFRICAN AMERICAN > 60
[2017-04-13 07:24] LABS: ALB/GLOB RATIO 0.9 (1.0-2.1); ALT/SGPT 33 U/L (21-72); BLOOD UREA NITROGEN 12 mg/dL (9-20); CALCIUM 8.6 mg/dl (8.6-10.4)
[2017-04-13 07:25] LABS: BASO # 0.1 K/uL (0.0-0.2); BASO % 0.6 % (0.0-2.0); EOS # 0.4 K/uL (0.0-0.7); EOS % 3.4 % (0.0-4.0); HEMOGLOBIN 9.1 g/dL (12.0-18.0); LYMPH # 3.7 K/uL (1.0-4.3); LYMPH % 35.1 % (20.0-40.0); MAGNESIUM 2.1 mg/dL (1.6-2.3); MEAN CELL VOLUME 80.8 fL (80.0-94.0); MEAN CORPUSCULAR HEMOGLOBIN 26.5 pg (27.0-31.0); MEAN CORPUSCULAR HGB CONC 32.8 g/dL (33.0-37.0); MEAN PLATELET VOLUME 7.7 fL (7.2-11.7); MONO # 0.8 K/uL (0.0-0.8); MONO % 7.8 % (0.0-10.0); NEUT # 5.7 K/uL (1.8-7.0); NEUT % 53.1 % (50.0-75.0); RBC 3.42 Mil/uL (4.40-5.90); RED CELL DISTRIBUTION WIDTH 15.1 % (11.5-14.5); WHITE BLOOD COUNT 10.6 K/uL (4.8-10.8)
[2017-04-13] MEDS: Potassium Chloride 20 mEq ER Tab PO SCH (10:08)
[2017-04-13] MEDS: Aritificial Tears (15ml) OU PRN (10:09)
[2017-04-13] MEDS: Pantoprazole 40 mg EC Tab PO SCH (10:09)
[2017-04-13] MEDS: Lactobacillus Acidophilus 500 MU Cap PO SCH ×2 (10:09→17:10)
[2017-04-13] MEDS: buPROPion 150 mg/24 Hours XL Tab PO SCH (10:10)
--- NOTE | 2017-04-13 16:03 | CP.PCM.PN ---
<KirkwoodCiara kesslercolumba E - Last Filed: 04/13/17 18:19> Subjective - Date & Time of Evaluation Date of Evaluation: 04/13/17 Time of Evaluation: 07:45 - Subjective Subjective: Medicine note (PGY 1): Dr. Ho's service Patient was seen and examined at bedside. Patient is s/p sacral ulcer and right knee I & D day 1. Patient reports that he is doing well and has no new complaints. Patient denies chest pain, sob, nausea, vomiting, fever, chills and abd pain. Objective - Vital Signs/Intake and Output Vital Signs (last 24 hours): Temp Pulse Resp BP Pulse Ox 98.1 F 78 20 106/62 98 04/13/17 08:55 04/13/17 08:55 04/13/17 08:55 04/13/17 10:17 04/13/17 08:55 Intake and Output: 04/13/17 04/13/17 06:59 18:59 Intake Total 1650 Output Total 1950 Balance -300 - Medications Medications: Current Medications Acetaminophen (Tylenol 325mg Tab) 650 mg PO Q6 PRN PRN Reason: Pain, moderate (4-7) Artificial Tears (Artificial Tears) 0 ml OU Q2H PRN PRN Reason: Dry eyes Last Admin: 04/13/17 10:09 Dose: 1 applic Bupropion HCl (Wellbutrin Xl) 300 mg PO DAILY [facility] Last Admin: 04/13/17 10:10 Dose: 300 mg Citalopram Hydrobromide (Celexa) 20 mg PO DAILY [facility] Last Admin: 04/13/17 10:10 Dose: 20 mg Clonazepam (Klonopin) 0.5 mg PO BID PRN PRN Reason: Other Last Admin: 04/12/17 17:30 Dose: 0.5 mg Furosemide (Lasix) 40 mg PO DAILY [facility] Last Admin: 04/13/17 10:17 Dose: 40 mg Gabapentin (Neurontin) 300 mg PO TID [facility] Last Admin: 04/13/17 14:12 Dose: 300 mg Imipenem/Cilastatin Sodium 500 (mg/ Sodium Chloride) 100 mls @ 100 mls/hr IVPB Q6H [facility] Last Admin: 04/13/17 14:12 Dose: 100 mls/hr Vancomycin HCl 1,000 mg/ (Sodium Chloride) 250 mls @ 166.6 mls/hr IVPB Q12H [facility] Last Admin: 04/13/17 05:13 Dose: 166.6 mls/hr Lactobacillus Acidophilus (Bacid Acidophilus) 1 cap PO BID [facility] Last Admin: 04/13/17 10:09 Dose: 1 cap Ondansetron HCl (Zofran Inj) 4 mg IVP Q6 PRN PRN Reason: Nausea/Vomiting Pantoprazole Sodium (Protonix Ec Tab) 40 mg PO DAILY [facility] Last Admin: 04/13/17 10:09 Dose: 40 mg Potassium Chloride (K-Dur 20 Meq Er Tab) 40 meq PO DAILY [facility] Last Admin: 04/13/17 10:08 Dose: 40 meq Rivaroxaban (Xarelto) 10 mg PO QPM [facility] Last Admin: 04/12/17 17:20 Dose: 10 mg Rosuvastatin Calcium (Crestor) 5 mg PO HS [facility] Last Admin: 04/12/17 21:47 Dose: 5 mg Zolpidem Tartrate (Ambien) 5 mg PO HS PRN PRN Reason: Insomnia Last Admin: 04/12/17 21:48 Dose: 5 mg - Labs Labs: 04/13/17 07:05 04/13/17 07:05 PT 20.2 SECONDS (9.7-12.2) H 04/12/17 08:09 INR 1.7 04/12/17 08:09 - Constitutional Appears: Well, No Acute Distress - Head Exam Head Exam: ATRAUMATIC - Eye Exam Eye Exam: EOMI, Normal appearance - ENT Exam ENT Exam: Mucous Membranes Moist, Normal Exam - Respiratory Exam Respiratory Exam: Clear to Ausculation Bilateral, NORMAL BREATHING PATTERN - Cardiovascular Exam Cardiovascular Exam: REGULAR RHYTHM, +S1, +S2 - GI/Abdominal Exam GI & Abdominal Exam: Soft, Normal Bowel Sounds - Extremities Exam Extremities Exam: Pedal Edema, Tenderness - Neurological Exam Neurological Exam: Alert, Awake, Oriented x3 - Psychiatric Exam Psychiatric exam: Normal Affect, Normal Mood - Skin Skin Exam: Dry, Normal Color, Warm Assessment and Plan (1) Sacral ulcer Assessment & Plan: Stable Afebrile Leukocytosis with left shift ( 14.9 -->12.5 on 04/11---> 10.4 (04/19)---> Stable * Surgery Consult: Dr. Subramanian - help appreciated Debridement of left hip decubitus ulcer (04/09/17) * Wound Care consult - help appreciated * Patient continued on Clindamycin 600mg IV Q8H --- discontinued 04/08/17 * Patient to go for second debridement 04/12 * Patient is s/p second sacral ulcer debridement and I & D of the right knee * Management instruction as per Dr. Subramanian Infectious disease consult: Dr. Sevilla----> Help appreciated * Wound culture: + for staphylcoccus aureus and Acinectobacter Baumanii * Wound culture s/p debridement: Staphylococcus aureus 1. Started on Zosyn 3.3753mg IVPB Q6H (04/08/17)-- discontinued 2. Started on Vancomycin 1gm IVPB Q12H (04/08/17) ---> Stop date () 3. Started on primaxin 500mg IVPB Q6H (04/09/17) * (04/07/17) blood culture- no growth Status: Acute (2) Peripheral edema Assessment & Plan: On going, stable Resumed home medications: Lasix 40mg PO daily and KDur 40mg PO daily Status: Chronic (3) Ulcer of right heel Assessment & Plan: Stable Has been getting it treated outpatient before hospital admission Patient continues to clean and use medihoney Status: Acute (4) Hypokalemia Assessment & Plan: Stable Continue home medication: KDur 40mg PO daily Status: Acute (5) History of DVT (deep vein thrombosis) Assessment & Plan: IVC filter placed * Xarelto 10mg PO daily Status: Chronic (6) History of depression Assessment & Plan: Resumed home medications: * Wellbutrin xL 300mg PO daily * Celexa 20mg PO daily Status: Acute (7) History of anxiety Assessment & Plan: continue home medications: * Klonopin 0.5mg PO BID * Celexa 20mg PO daily Status: Acute (8) Paraplegia Assessment & Plan: Evaluation of PT and Occupation therapy Status: Chronic (9) History of kidney cancer Assessment & Plan: 06/02/16: Left partial nephrectomy Status: Acute (10) Prophylactic measure Assessment & Plan: GI PPX: Protonix 40mg PO daily DVT: SCDs contraindicated due to hx PVD, VTE patient already on Xarelto Bacid acidophilus 1 cap PO bid Status: Acute <Markel Ho H - Last Filed: 04/13/17 18:34> Objective - Vital Signs/Intake and Output Vital Signs (last 24 hours): Temp Pulse Resp BP Pulse Ox 98.4 F 96 H 20 113/63 99 04/13/17 16:00 04/13/17 16:00 04/13/17 16:00 04/13/17 16:00 04/13/17 16:00 Intake and Output: 04/13/17 04/13/17 06:59 18:59 Intake Total 1650 800 Output Total 1950 1150 Balance -300 -350 - Medications Medications: Current Medications Acetaminophen (Tylenol 325mg Tab) 650 mg PO Q6 PRN PRN Reason: Pain, moderate (4-7) Artificial Tears (Artificial Tears) 0 ml OU Q2H PRN PRN Reason: Dry eyes Last Admin: 04/13/17 10:09 Dose: 1 applic Bupropion HCl (Wellbutrin Xl) 300 mg PO DAILY [facility] Last Admin: 04/13/17 10:10 Dose: 300 mg Citalopram Hydrobromide (Celexa) 20 mg PO DAILY [facility] Last Admin: 04/13/17 10:10 Dose: 20 mg Clonazepam (Klonopin) 0.5 mg PO BID PRN PRN Reason: Other Last Admin: 04/12/17 17:30 Dose: 0.5 mg Furosemide (Lasix) 40 mg PO DAILY [facility] Last Admin: 04/13/17 10:17 Dose: 40 mg Gabapentin (Neurontin) 300 mg PO TID [facility] Last Admin: 04/13/17 17:10 Dose: 300 mg Imipenem/Cilastatin Sodium 500 (mg/ Sodium Chloride) 100 mls @ 100 mls/hr IVPB Q6H [facility] Last Admin: 04/13/17 14:12 Dose: 100 mls/hr Vancomycin HCl 1,000 mg/ (Sodium Chloride) 250 mls @ 166.6 mls/hr IVPB Q12H [facility] Last Admin: 04/13/17 17:10 Dose: 166.6 mls/hr Lactobacillus Acidophilus (Bacid Acidophilus) 1 cap PO BID [facility] Last Admin: 04/13/17 17:10 Dose: 1 cap Ondansetron HCl (Zofran Inj) 4 mg IVP Q6 PRN PRN Reason: Nausea/Vomiting Pantoprazole Sodium (Protonix Ec Tab) 40 mg PO DAILY [facility] Last Admin: 04/13/17 10:09 Dose: 40 mg Potassium Chloride (K-Dur 20 Meq Er Tab) 40 meq PO DAILY [facility] Last Admin: 04/13/17 10:08 Dose: 40 meq Rivaroxaban (Xarelto) 10 mg PO QPM [facility] Last Admin: 04/13/17 17:10 Dose: 10 mg Rosuvastatin Calcium (Crestor) 5 mg PO HS [facility] Last Admin: 04/12/17 21:47 Dose: 5 mg Zolpidem Tartrate (Ambien) 5 mg PO HS PRN PRN Reason: Insomnia Last Admin: 04/12/17 21:48 Dose: 5 mg - Labs Labs: 04/13/17 07:05 04/13/17 07:05 PT 20.2 SECONDS (9.7-12.2) H 04/12/17 08:09 INR 1.7 04/12/17 08:09 Attending/Attestation - Attestation I have personally seen and examined this patient.: Yes I have fully participated in the care of the patient.: Yes I have reviewed all pertinent clinical information, including history, physical exam and plan: Yes Notes (Text): 04/13/17 18:31 Medical attending: Patient was seen and examined by me, agree with the above note by the medical dosimetrist. He had additional I and D done yesterday. He still needs to be on abx, the new cultures are showing additional staph auerus and on vancomycin as per ID. He does not have a fever, WBC is stable, he may end up with a wound vac - particular for the sacral wound - there is concern he may have osteomylitis as well. He did not report any pain - however he has paraplegia and has little to no sensation from the waist down. At this time, continue IV abx, follow cultures, lab work thank you Markel Ho
--- NOTE | 2017-04-13 20:56 | CP.PCM.PN ---
Subjective - Date & Time of Evaluation Date of Evaluation: 04/13/17 Time of Evaluation: 03:00 - Subjective Subjective: Patient has been draining alot from the sacral wound,he was still waiting to see the orthopedic doctor Objective - Vital Signs/Intake and Output Vital Signs (last 24 hours): Temp Pulse Resp BP Pulse Ox 98.4 F 96 H 20 113/63 99 04/13/17 16:00 04/13/17 16:00 04/13/17 16:00 04/13/17 16:00 04/13/17 16:00 Intake and Output: 04/13/17 04/14/17 18:59 06:59 Intake Total 800 Output Total 1150 Balance -350 - Medications Medications: Current Medications Acetaminophen (Tylenol 325mg Tab) 650 mg PO Q6 PRN PRN Reason: Pain, moderate (4-7) Artificial Tears (Artificial Tears) 0 ml OU Q2H PRN PRN Reason: Dry eyes Last Admin: 04/13/17 10:09 Dose: 1 applic Bupropion HCl (Wellbutrin Xl) 300 mg PO DAILY [facility] Last Admin: 04/13/17 10:10 Dose: 300 mg Citalopram Hydrobromide (Celexa) 20 mg PO DAILY [facility] Last Admin: 04/13/17 10:10 Dose: 20 mg Clonazepam (Klonopin) 0.5 mg PO BID PRN PRN Reason: Other Last Admin: 04/12/17 17:30 Dose: 0.5 mg Furosemide (Lasix) 40 mg PO DAILY [facility] Last Admin: 04/13/17 10:17 Dose: 40 mg Gabapentin (Neurontin) 300 mg PO TID [facility] Last Admin: 04/13/17 17:10 Dose: 300 mg Imipenem/Cilastatin Sodium 500 (mg/ Sodium Chloride) 100 mls @ 100 mls/hr IVPB Q6H [facility] Last Admin: 04/13/17 14:12 Dose: 100 mls/hr Vancomycin HCl 1,000 mg/ (Sodium Chloride) 250 mls @ 166.6 mls/hr IVPB Q12H [facility] Last Admin: 04/13/17 17:10 Dose: 166.6 mls/hr Lactobacillus Acidophilus (Bacid Acidophilus) 1 cap PO BID [facility] Last Admin: 04/13/17 17:10 Dose: 1 cap Ondansetron HCl (Zofran Inj) 4 mg IVP Q6 PRN PRN Reason: Nausea/Vomiting Pantoprazole Sodium (Protonix Ec Tab) 40 mg PO DAILY [facility] Last Admin: 04/13/17 10:09 Dose: 40 mg Potassium Chloride (K-Dur 20 Meq Er Tab) 40 meq PO DAILY [facility] Last Admin: 04/13/17 10:08 Dose: 40 meq Rivaroxaban (Xarelto) 10 mg PO QPM [facility] Last Admin: 04/13/17 17:10 Dose: 10 mg Rosuvastatin Calcium (Crestor) 5 mg PO HS [facility] Last Admin: 04/12/17 21:47 Dose: 5 mg Zolpidem Tartrate (Ambien) 5 mg PO HS PRN PRN Reason: Insomnia Last Admin: 04/12/17 21:48 Dose: 5 mg - Labs Labs: 04/13/17 07:05 04/13/17 07:05 PT 20.2 SECONDS (9.7-12.2) H 04/12/17 08:09 INR 1.7 04/12/17 08:09 - Constitutional Appears: No Acute Distress - Head Exam Head Exam: ATRAUMATIC, NORMOCEPHALIC - Eye Exam Eye Exam: Normal appearance - ENT Exam ENT Exam: Normal Exam - Neck Exam Neck Exam: Normal Inspection - Respiratory Exam Respiratory Exam: Clear to Ausculation Bilateral, NORMAL BREATHING PATTERN - Cardiovascular Exam Cardiovascular Exam: REGULAR RHYTHM, RRR - GI/Abdominal Exam GI & Abdominal Exam: Soft, Normal Bowel Sounds - Rectal Exam Additional comments: colostomy present - Extremities Exam Additional comments: edema present with bilateral foot drop ,small ulcer on right heel and right knee has dressing and has infection of joint Assessment and Plan (1) Cellulitis and abscess Assessment & Plan: patient is on Vancomycin and primaxin based on the bacteria isolated,wound seen is a big whol in sacral area down to the bone Dr Warren packed it as it was bleeding and also he took bone biopsy yesterday will wait for that Status: Acute (2) Decubitus ulcer Status: Acute (3) History of anxiety Status: Acute (4) History of depression Status: Acute (5) Hypokalemia Status: Acute (6) Sacral ulcer Status: Acute (7) History of DVT (deep vein thrombosis) Status: Chronic (8) Infection of right knee Status: Acute
[2017-04-14 08:07] LABS: BASO # 0.1 K/uL (0.0-0.2); BASO % 0.9 % (0.0-2.0); EOS # 0.3 K/uL (0.0-0.7); EOS % 3.1 % (0.0-4.0); LYMPH % 34.6 % (20.0-40.0); MEAN CELL VOLUME 80.9 fL (80.0-94.0); MEAN CORPUSCULAR HEMOGLOBIN 26.6 pg (27.0-31.0); MEAN CORPUSCULAR HGB CONC 32.9 g/dL (33.0-37.0); MEAN PLATELET VOLUME 7.7 fL (7.2-11.7); MONO # 0.6 K/uL (0.0-0.8); MONO % 7.1 % (0.0-10.0); NEUT # 4.7 K/uL (1.8-7.0); NEUT % 54.3 % (50.0-75.0); RBC 3.36 Mil/uL (4.40-5.90); RED CELL DISTRIBUTION WIDTH 15.3 % (11.5-14.5); WHITE BLOOD COUNT 8.7 K/uL (4.8-10.8)
[2017-04-14 08:20] LABS: ALBUMIN 2.6 g/dL (3.5-5.0)
[2017-04-14 08:22] LABS: GFR AFRICAN-AMERICAN > 60; GFR NON-AFRICAN AMERICAN > 60
[2017-04-14 08:23] LABS: ALB/GLOB RATIO 0.8 (1.0-2.1); ALT/SGPT 30 U/L (21-72); AST/SGOT 16 U/L (17-59); BLOOD UREA NITROGEN 12 mg/dL (9-20)
[2017-04-14 08:24] LABS: CALCIUM 8.5 mg/dl (8.6-10.4); MAGNESIUM 2.1 mg/dL (1.6-2.3)
[2017-04-14] MEDS: Pantoprazole 40 mg EC Tab PO SCH ×2 (10:15→14:44)
[2017-04-14] MEDS: buPROPion 150 mg/24 Hours XL Tab PO SCH ×2 (10:15→14:45)
[2017-04-14] MEDS: Lactobacillus Acidophilus 500 MU Cap PO SCH ×2 (10:15→17:58)
[2017-04-14] MEDS: Potassium Chloride 20 mEq ER Tab PO SCH ×2 (10:15→14:44)
[2017-04-14] MEDS ORDERED: Lactated Ringer's 1,000 ML IV ONE (12:20)
--- NOTE | 2017-04-14 15:41 | CP.PCM.PN ---
<AurelioCiaracolumba E - Last Filed: 04/14/17 16:02> Subjective - Date & Time of Evaluation Date of Evaluation: 04/14/17 Time of Evaluation: 07:30 - Subjective Subjective: Medicine Note (PGY 1) : Dr. Ho's service Patient was seen and examined. Patient states that he is doing well. Patient denies chest pain, sob, nausea, vomiting, fever, chills and diarrhea. Patient is tolerating diet. Objective - Vital Signs/Intake and Output Vital Signs (last 24 hours): Temp Pulse Resp BP Pulse Ox 99.2 F 74 20 95/66 L 99 04/14/17 08:25 04/14/17 08:25 04/14/17 08:25 04/14/17 14:51 04/14/17 08:25 Intake and Output: 04/14/17 04/14/17 06:59 18:59 Intake Total 1570 Output Total 2100 Balance -530 - Medications Medications: Current Medications Acetaminophen (Tylenol 325mg Tab) 650 mg PO Q6 PRN PRN Reason: Pain, moderate (4-7) Artificial Tears (Artificial Tears) 0 ml OU Q2H PRN PRN Reason: Dry eyes Last Admin: 04/13/17 10:09 Dose: 1 applic Bupropion HCl (Wellbutrin Xl) 300 mg PO DAILY [facility] Last Admin: 04/14/17 14:45 Dose: 300 mg Citalopram Hydrobromide (Celexa) 20 mg PO DAILY [facility] Last Admin: 04/14/17 14:49 Dose: 20 mg Clonazepam (Klonopin) 0.5 mg PO BID PRN PRN Reason: Other Last Admin: 04/14/17 14:54 Dose: 0.5 mg Furosemide (Lasix) 40 mg PO DAILY [facility] Last Admin: 04/14/17 14:51 Dose: 40 mg Gabapentin (Neurontin) 300 mg PO TID [facility] Last Admin: 04/14/17 14:44 Dose: 300 mg Imipenem/Cilastatin Sodium 500 (mg/ Sodium Chloride) 100 mls @ 100 mls/hr IVPB Q6H [facility] Last Admin: 04/14/17 14:43 Dose: 100 mls/hr Vancomycin HCl 1,000 mg/ (Sodium Chloride) 250 mls @ 166.6 mls/hr IVPB Q12H [facility] Last Admin: 04/14/17 05:16 Dose: 166.6 mls/hr Lactobacillus Acidophilus (Bacid Acidophilus) 1 cap PO BID [facility] Last Admin: 04/14/17 10:15 Dose: Not Given Ondansetron HCl (Zofran Inj) 4 mg IVP Q6 PRN PRN Reason: Nausea/Vomiting Pantoprazole Sodium (Protonix Ec Tab) 40 mg PO DAILY [facility] Last Admin: 04/14/17 14:44 Dose: 40 mg Potassium Chloride (K-Dur 20 Meq Er Tab) 40 meq PO DAILY [facility] Last Admin: 04/14/17 14:44 Dose: 40 meq Rosuvastatin Calcium (Crestor) 5 mg PO HS [facility] Last Admin: 04/13/17 21:20 Dose: 5 mg Zolpidem Tartrate (Ambien) 5 mg PO HS PRN PRN Reason: Insomnia Last Admin: 04/13/17 21:20 Dose: 5 mg - Labs Labs: 04/14/17 07:56 04/14/17 07:56 PT 20.2 SECONDS (9.7-12.2) H 04/12/17 08:09 INR 1.7 04/12/17 08:09 - Constitutional Appears: Well, No Acute Distress - Head Exam Head Exam: NORMAL INSPECTION, NORMOCEPHALIC - Eye Exam Eye Exam: EOMI, Normal appearance - ENT Exam ENT Exam: Mucous Membranes Moist, Normal Exam - Respiratory Exam Respiratory Exam: Clear to Ausculation Bilateral, NORMAL BREATHING PATTERN - Cardiovascular Exam Cardiovascular Exam: REGULAR RHYTHM, +S1, +S2 - GI/Abdominal Exam GI & Abdominal Exam: Soft, Normal Bowel Sounds - Extremities Exam Extremities Exam: Joint Swelling, Pedal Edema - Neurological Exam Neurological Exam: Awake, Oriented x3 - Psychiatric Exam Psychiatric exam: Normal Affect, Normal Mood - Skin Skin Exam: Dry, Normal Color, Warm Assessment and Plan (1) Sacral ulcer Assessment & Plan: Stable Afebrile Leukocytosis with left shift ( 14.9 -->12.5 on 04/11---> 10.4 (04/13)---> 8.7 (04/14): Stable Surgery Consult: Dr. Subramanian----> help appreciated * Debridement of left hip decubitus ulcer (04/09/17) * Wound Care consult - help appreciated * Patient continued on Clindamycin 600mg IV Q8H --- discontinued 04/08/17 * Patient to go for second debridement 04/12 * Patient is s/p second sacral ulcer debridement and I & D of the right knee * Third debridement (04/14/17) for sacral ulcer * Wound vacuum placement on 04/14/17 * Management instruction as per Dr. Subramanian Infectious disease consult: Dr. Sevilla----> Help appreciated * Wound culture: + for staphylcoccus aureus and Acinectobacter Baumanii * Wound culture s/p debridement: Staphylococcus aureus 1. Started on Zosyn 3.3753mg IVPB Q6H (04/08/17)-- discontinued 2. Continue on Vancomycin 1gm IVPB Q12H (04/08/17) ----> Day 7 3. Continue on primaxin 500mg IVPB Q6H (04/09/17)---> DAY 8 * (04/07/17) blood culture- no growth Status: Acute (2) Peripheral edema Assessment & Plan: On going, stable Resumed home medications: Lasix 40mg PO daily Status: Chronic (3) Hypokalemia Assessment & Plan: Stable Continue home medication: KDur 40mg PO daily Status: Acute (4) Ulcer of right heel Assessment & Plan: Stable Has been getting it treated outpatient before hospital admission Patient continues to clean and use medihoney Status: Acute (5) History of DVT (deep vein thrombosis) Assessment & Plan: IVC filter placed * Xarelto 10mg PO daily Status: Chronic (6) History of depression Assessment & Plan: Resumed home medications: * Wellbutrin xL 300mg PO daily * Celexa 20mg PO daily Status: Acute (7) History of anxiety Assessment & Plan: Continue home medications: * Klonopin 0.5mg PO BID * Celexa 20mg PO daily Status: Acute (8) Paraplegia Assessment & Plan: Evaluation of PT and Occupation therapy Status: Chronic (9) History of kidney cancer Assessment & Plan: 06/02/16: Left partial nephrectomy Status: Acute (10) Prophylactic measure Assessment & Plan: GI PPX: Protonix 40mg PO daily DVT: SCDs contraindicated due to hx PVD, VTE patient already on Xarelto Bacid acidophilus 1 cap PO bid Status: Acute <Markel Ho - Last Filed: 04/15/17 09:09> Objective - Vital Signs/Intake and Output Vital Signs (last 24 hours): Temp Pulse Resp BP Pulse Ox 98.1 F 80 20 101/60 97 04/15/17 07:18 04/15/17 07:18 04/15/17 07:18 04/15/17 07:18 04/15/17 07:18 Intake and Output: 04/15/17 04/15/17 06:59 18:59 Intake Total 1050 Output Total 2800 Balance -1750 - Medications Medications: Current Medications Acetaminophen (Tylenol 325mg Tab) 650 mg PO Q6 PRN PRN Reason: Pain, moderate (4-7) Artificial Tears (Artificial Tears) 0 ml OU Q2H PRN PRN Reason: Dry eyes Last Admin: 04/13/17 10:09 Dose: 1 applic Bupropion HCl (Wellbutrin Xl) 300 mg PO DAILY [facility] Last Admin: 04/14/17 14:45 Dose: 300 mg Citalopram Hydrobromide (Celexa) 20 mg PO DAILY [facility] Last Admin: 04/14/17 14:49 Dose: 20 mg Clonazepam (Klonopin) 0.5 mg PO BID PRN PRN Reason: Other Last Admin: 04/14/17 14:54 Dose: 0.5 mg Furosemide (Lasix) 40 mg PO DAILY [facility] Last Admin: 04/14/17 14:51 Dose: 40 mg Gabapentin (Neurontin) 300 mg PO TID [facility] Last Admin: 04/14/17 17:58 Dose: 300 mg Imipenem/Cilastatin Sodium 500 (mg/ Sodium Chloride) 100 mls @ 100 mls/hr IVPB Q6H [facility] Last Admin: 04/15/17 07:55 Dose: 100 mls/hr Vancomycin HCl 1,000 mg/ (Sodium Chloride) 250 mls @ 166.6 mls/hr IVPB Q12H [facility] 234 [facility] Last Admin: 04/15/17 05:44 Dose: 166.6 mls/hr Lactobacillus Acidophilus (Bacid Acidophilus) 1 cap PO BID [facility] 234 [facility] Last Admin: 04/14/17 17:58 Dose: 1 cap Ondansetron HCl (Zofran Inj) 4 mg IVP Q6 PRN PRN Reason: Nausea/Vomiting Pantoprazole Sodium (Protonix Ec Tab) 40 mg PO DAILY [facility] Last Admin: 04/14/17 14:44 Dose: 40 mg Potassium Chloride (K-Dur 20 Meq Er Tab) 40 meq PO DAILY [facility] Last Admin: 04/14/17 14:44 Dose: 40 meq Rosuvastatin Calcium (Crestor) 5 mg PO HS [facility] Last Admin: 04/14/17 21:11 Dose: 5 mg Zolpidem Tartrate (Ambien) 5 mg PO HS PRN PRN Reason: Insomnia Last Admin: 04/14/17 23:21 Dose: 5 mg - Labs Labs: 04/15/17 08:16 04/15/17 08:16 PT 20.2 SECONDS (9.7-12.2) H 04/12/17 08:09 INR 1.7 04/12/17 08:09 Attending/Attestation - Attestation I have personally seen and examined this patient.: Yes I have fully participated in the care of the patient.: Yes I have reviewed all pertinent clinical information, including history, physical exam and plan: Yes Notes (Text): Medical Attending: Patient was seen and examined by me. When we saw him, he had just returned from further debridment. From what I am being told, there is possibly a wound vac that will be placed on Wednesday. Patient does not want to go to an [facility], he'd rather go home. If this is the case will discuss with case workers with [facility] visiting nurse for when he does leave. Patient denies fevers or chills. WBC is stable. As mentioned previously his wound cultures are growing out staph aureus.
--- NOTE | 2017-04-14 21:41 | CP.PCM.PN ---
Subjective - Date & Time of Evaluation Date of Evaluation: 04/14/17 Time of Evaluation: 03:00 - Subjective Subjective: Patient just came back from OR after debridement of knee abscesses and the sacral decubiti,biopsy came back as acute on chronic osteomyelitis and patient will need iv antibiotics but he refuses to go to rehab,will need to discuss with is also He will probably need Picc line. He denies any compaints,no nausea,no vomiting, feels no pain as paraplegic Objective - Vital Signs/Intake and Output Vital Signs (last 24 hours): Temp Pulse Resp BP Pulse Ox 98.2 F 81 20 111/64 99 04/14/17 16:00 04/14/17 16:00 04/14/17 16:00 04/14/17 16:00 04/14/17 16:00 - Medications Medications: Current Medications Acetaminophen (Tylenol 325mg Tab) 650 mg PO Q6 PRN PRN Reason: Pain, moderate (4-7) Artificial Tears (Artificial Tears) 0 ml OU Q2H PRN PRN Reason: Dry eyes Last Admin: 04/13/17 10:09 Dose: 1 applic Bupropion HCl (Wellbutrin Xl) 300 mg PO DAILY [facility] Last Admin: 04/14/17 14:45 Dose: 300 mg Citalopram Hydrobromide (Celexa) 20 mg PO DAILY [facility] Last Admin: 04/14/17 14:49 Dose: 20 mg Clonazepam (Klonopin) 0.5 mg PO BID PRN PRN Reason: Other Last Admin: 04/14/17 14:54 Dose: 0.5 mg Furosemide (Lasix) 40 mg PO DAILY [facility] Last Admin: 04/14/17 14:51 Dose: 40 mg Gabapentin (Neurontin) 300 mg PO TID [facility] Last Admin: 04/14/17 17:58 Dose: 300 mg Imipenem/Cilastatin Sodium 500 (mg/ Sodium Chloride) 100 mls @ 100 mls/hr IVPB Q6H [facility] Last Admin: 04/14/17 20:00 Dose: 100 mls/hr Vancomycin HCl 1,000 mg/ (Sodium Chloride) 250 mls @ 166.6 mls/hr IVPB Q12H [facility] Last Admin: 04/14/17 18:00 Dose: 166.6 mls/hr Lactobacillus Acidophilus (Bacid Acidophilus) 1 cap PO BID [facility] Last Admin: 04/14/17 17:58 Dose: 1 cap Ondansetron HCl (Zofran Inj) 4 mg IVP Q6 PRN PRN Reason: Nausea/Vomiting Pantoprazole Sodium (Protonix Ec Tab) 40 mg PO DAILY [facility] Last Admin: 04/14/17 14:44 Dose: 40 mg Potassium Chloride (K-Dur 20 Meq Er Tab) 40 meq PO DAILY [facility] Last Admin: 04/14/17 14:44 Dose: 40 meq Rosuvastatin Calcium (Crestor) 5 mg PO HS [facility] Last Admin: 04/14/17 21:11 Dose: 5 mg Zolpidem Tartrate (Ambien) 5 mg PO HS PRN PRN Reason: Insomnia Last Admin: 04/13/17 21:20 Dose: 5 mg - Labs Labs: 04/14/17 07:56 04/14/17 07:56 PT 20.2 SECONDS (9.7-12.2) H 04/12/17 08:09 INR 1.7 04/12/17 08:09 - Constitutional Appears: No Acute Distress - Head Exam Head Exam: ATRAUMATIC, NORMOCEPHALIC - Eye Exam Eye Exam: Normal appearance Pupil Exam: NORMAL ACCOMODATION - ENT Exam ENT Exam: Mucous Membranes Moist - Neck Exam Neck Exam: Normal Inspection - Respiratory Exam Respiratory Exam: Clear to Ausculation Bilateral, NORMAL BREATHING PATTERN - Cardiovascular Exam Cardiovascular Exam: REGULAR RHYTHM, RRR - GI/Abdominal Exam GI & Abdominal Exam: Soft, Normal Bowel Sounds - Extremities Exam Extremities Exam: Pedal Edema Additional comments: with dressing on right knee from OR and sacral dressings. Assessment and Plan (1) Cellulitis and abscess Status: Acute (2) Decubitus ulcer Status: Acute (3) History of anxiety Status: Acute (4) History of depression Status: Acute (5) Hypokalemia Status: Acute (6) Sacral ulcer Assessment & Plan: Path shows acute on chronic osteomyelitis,will also get echo done Status: Acute (7) History of DVT (deep vein thrombosis) Status: Chronic (8) Infection of right knee Status: Acute - Assessment and Plan (Free Text) Assessment: may need wound Vac and iv antibiotics for healing and skin & muscle flap probably
[2017-04-15 08:24] LABS: BASO # 0.1 K/uL (0.0-0.2); BASO % 0.8 % (0.0-2.0); EOS # 0.2 K/uL (0.0-0.7); EOS % 2.7 % (0.0-4.0); LYMPH # 2.6 K/uL (1.0-4.3); MEAN CELL VOLUME 81.1 fL (80.0-94.0); MEAN CORPUSCULAR HEMOGLOBIN 26.6 pg (27.0-31.0); MEAN CORPUSCULAR HGB CONC 32.8 g/dL (33.0-37.0); MEAN PLATELET VOLUME 7.4 fL (7.2-11.7); MONO # 0.6 K/uL (0.0-0.8); MONO % 7.3 % (0.0-10.0); NEUT % 59.2 % (50.0-75.0); RBC 3.39 Mil/uL (4.40-5.90); RED CELL DISTRIBUTION WIDTH 15.4 % (11.5-14.5); WHITE BLOOD COUNT 8.5 K/uL (4.8-10.8)
[2017-04-15 08:36] LABS: ALBUMIN 2.6 g/dL (3.5-5.0)
[2017-04-15 08:39] LABS: ALB/GLOB RATIO 0.9 (1.0-2.1); AST/SGOT 17 U/L (17-59); GFR AFRICAN-AMERICAN > 60; GFR NON-AFRICAN AMERICAN > 60
[2017-04-15 08:40] LABS: ALT/SGPT 30 U/L (21-72); BLOOD UREA NITROGEN 11 mg/dL (9-20); CALCIUM 8.5 mg/dl (8.6-10.4); MAGNESIUM 2.1 mg/dL (1.6-2.3)
[2017-04-15] MEDS: buPROPion 150 mg/24 Hours XL Tab PO SCH (11:02)
[2017-04-15] MEDS: Pantoprazole 40 mg EC Tab PO SCH (11:02)
[2017-04-15] MEDS: Potassium Chloride 20 mEq ER Tab PO SCH (11:02)
[2017-04-15] MEDS: Lactobacillus Acidophilus 500 MU Cap PO SCH ×2 (11:03→17:43)
--- NOTE | 2017-04-15 13:20 | CP.PCM.PN ---
<Hanny Carey Pastora - Last Filed: 04/15/17 19:44> Subjective - Date & Time of Evaluation Date of Evaluation: 04/15/17 Time of Evaluation: 07:40 - Subjective Subjective: Medicine Note (PGY 1) : Dr. Ho's service Patient was seen and examined at bedside. Patient is stable and has no acute complaints. Patient denies chest pain, sob, nausea, vomiting, abdominal pain, fever and chills. Patient reports that he is having another debridement today. Objective - Vital Signs/Intake and Output Vital Signs (last 24 hours): Temp Pulse Resp BP Pulse Ox 98.1 F 80 20 95/54 L 97 04/15/17 07:18 04/15/17 07:18 04/15/17 07:18 04/15/17 11:07 04/15/17 07:18 Intake and Output: 04/15/17 04/15/17 06:59 18:59 Intake Total 1050 Output Total 2800 Balance -1750 - Medications Medications: Current Medications Acetaminophen (Tylenol 325mg Tab) 650 mg PO Q6 PRN PRN Reason: Pain, moderate (4-7) Artificial Tears (Artificial Tears) 0 ml OU Q2H PRN PRN Reason: Dry eyes Last Admin: 04/13/17 10:09 Dose: 1 applic Bupropion HCl (Wellbutrin Xl) 300 mg PO DAILY [facility] Last Admin: 04/15/17 11:02 Dose: 300 mg Citalopram Hydrobromide (Celexa) 20 mg PO DAILY [facility] Last Admin: 04/15/17 11:03 Dose: 20 mg Clonazepam (Klonopin) 0.5 mg PO BID PRN PRN Reason: Other Last Admin: 04/14/17 14:54 Dose: 0.5 mg Furosemide (Lasix) 40 mg PO DAILY [facility] Last Admin: 04/15/17 11:07 Dose: Not Given Gabapentin (Neurontin) 300 mg PO TID [facility] Last Admin: 04/15/17 11:01 Dose: 300 mg Imipenem/Cilastatin Sodium 500 (mg/ Sodium Chloride) 100 mls @ 100 mls/hr IVPB Q6H [facility] Last Admin: 04/15/17 07:55 Dose: 100 mls/hr Vancomycin HCl 1,000 mg/ (Sodium Chloride) 250 mls @ 166.6 mls/hr IVPB Q12H [facility] Last Admin: 04/15/17 05:44 Dose: 166.6 mls/hr Lactobacillus Acidophilus (Bacid Acidophilus) 1 cap PO BID [facility] Last Admin: 04/15/17 11:03 Dose: 1 cap Ondansetron HCl (Zofran Inj) 4 mg IVP Q6 PRN PRN Reason: Nausea/Vomiting Pantoprazole Sodium (Protonix Ec Tab) 40 mg PO DAILY [facility] Last Admin: 04/15/17 11:02 Dose: 40 mg Potassium Chloride (K-Dur 20 Meq Er Tab) 40 meq PO DAILY [facility] Last Admin: 04/15/17 11:02 Dose: 40 meq Rosuvastatin Calcium (Crestor) 5 mg PO HS [facility] Last Admin: 04/14/17 21:11 Dose: 5 mg Zolpidem Tartrate (Ambien) 5 mg PO HS PRN PRN Reason: Insomnia Last Admin: 04/14/17 23:21 Dose: 5 mg - Labs Labs: 04/15/17 08:16 04/15/17 08:16 PT 20.2 SECONDS (9.7-12.2) H 04/12/17 08:09 INR 1.7 04/12/17 08:09 - Constitutional Appears: Well, No Acute Distress - Head Exam Head Exam: NORMAL INSPECTION, NORMOCEPHALIC - Eye Exam Eye Exam: EOMI, Normal appearance - ENT Exam ENT Exam: Mucous Membranes Moist, Normal Exam - Respiratory Exam Respiratory Exam: Clear to Ausculation Bilateral, NORMAL BREATHING PATTERN - Cardiovascular Exam Cardiovascular Exam: REGULAR RHYTHM, +S1, +S2 - GI/Abdominal Exam GI & Abdominal Exam: Soft, Normal Bowel Sounds - Extremities Exam Extremities Exam: Pedal Edema - Neurological Exam Neurological Exam: Alert, Awake, Oriented x3 - Psychiatric Exam Psychiatric exam: Normal Affect, Normal Mood - Skin Skin Exam: Dry, Normal Color, Warm Assessment and Plan (1) Stage 4 skin ulcer of sacral region Assessment & Plan: Stable Afebrile Leukocytosis with left shift ( 14.9 -->12.5 on 04/11---> 10.4 (04/13)---> 8.7 (04/14): Stable Surgery Consult: Dr. Subramanian----> help appreciated * Debridement of left hip decubitus ulcer (04/09/17) * Wound Care consult - help appreciated * Patient continued on Clindamycin 600mg IV Q8H --- discontinued 04/08/17 * Patient to go for second debridement 04/12 * Patient is s/p second sacral ulcer debridement and I & D of the right knee * Third debridement (04/15/17) for sacral ulcer -----> Debridement done today () * Wound vacuum placement on 04/14/17-----> Placed today (04/15/17) * Management instruction as per Dr. Subramanian Infectious disease consult: Dr. Sevilla----> Help appreciated * Wound culture: + for staphylcoccus aureus and Acinectobacter Baumanii * Wound culture s/p debridement: Staphylococcus aureus * Tissue biopsy of sacral ulcer : Acute and chronic inflammation (Osteomyelitis) 1. Started on Zosyn 3.3753mg IVPB Q6H (04/08/17)-- discontinued 2. Continue on Vancomycin 1gm IVPB Q12H (04/08/17) ----> Day 7 3. Continue on primaxin 500mg IVPB Q6H (04/09/17)---> DAY 8 * (04/07/17) blood culture- no growth Status: Acute (2) Ulcer of right knee Assessment & Plan: Stable S/P I&D ( x 3) Status: Acute (3) Peripheral edema Status: Chronic (4) Hypokalemia Assessment & Plan: Stable Continue home medication: KDur 40mg PO daily Status: Acute (5) Ulcer of right heel Assessment & Plan: Stable As per wound care: unable to stage Has been getting it treated outpatient before hospital admission Patient continues to clean and use medihoney Status: Acute (6) History of DVT (deep vein thrombosis) Assessment & Plan: IVC filter placed * Xarelto 10mg PO daily Status: Chronic (7) History of depression Assessment & Plan: Resumed home medications: * Wellbutrin xL 300mg PO daily * Celexa 20mg PO daily Status: Acute (8) History of anxiety Assessment & Plan: Continue home medications: * Klonopin 0.5mg PO BID * Celexa 20mg PO daily Status: Acute (9) Paraplegia Assessment & Plan: Evaluation of PT and Occupation therapy Status: Chronic (10) History of kidney cancer Assessment & Plan: 06/02/16: Left partial nephrectomy Status: Acute (11) Prophylactic measure Assessment & Plan: GI PPX: Protonix 40mg PO daily DVT: SCDs contraindicated due to hx PVD, VTE patient already on Xarelto Bacid acidophilus 1 cap PO bid Status: Acute <Markel Ho H - Last Filed: 04/16/17 07:33> Objective - Vital Signs/Intake and Output Vital Signs (last 24 hours): Temp Pulse Resp BP Pulse Ox 98.4 F 78 20 101/59 L 99 04/16/17 00:00 04/16/17 00:00 04/16/17 00:00 04/16/17 00:30 04/16/17 00:00 Intake and Output: 04/16/17 04/16/17 06:59 18:59 Intake Total 600 Output Total 1650 Balance -1050 - Medications Medications: Current Medications Acetaminophen (Tylenol 325mg Tab) 650 mg PO Q6 PRN PRN Reason: Pain, moderate (4-7) Artificial Tears (Artificial Tears) 0 ml OU Q2H PRN PRN Reason: Dry eyes Last Admin: 04/13/17 10:09 Dose: 1 applic Bupropion HCl (Wellbutrin Xl) 300 mg PO DAILY [facility] Last Admin: 04/15/17 11:02 Dose: 300 mg Citalopram Hydrobromide (Celexa) 20 mg PO DAILY [facility] Last Admin: 04/15/17 11:03 Dose: 20 mg Clonazepam (Klonopin) 0.5 mg PO BID PRN PRN Reason: Other Last Admin: 04/15/17 22:19 Dose: 0.5 mg Furosemide (Lasix) 40 mg PO DAILY [facility] Last Admin: 04/15/17 11:07 Dose: Not Given Gabapentin (Neurontin) 300 mg PO TID [facility] Last Admin: 04/15/17 17:44 Dose: 300 mg Imipenem/Cilastatin Sodium 500 (mg/ Sodium Chloride) 100 mls @ 100 mls/hr IVPB Q6H [facility] Last Admin: 04/16/17 01:17 Dose: 100 mls/hr Vancomycin HCl 1,000 mg/ (Sodium Chloride) 250 mls @ 166.6 mls/hr IVPB Q12H [facility] Last Admin: 04/16/17 05:07 Dose: 166.6 mls/hr Lactobacillus Acidophilus (Bacid Acidophilus) 1 cap PO BID [facility] Last Admin: 04/15/17 17:43 Dose: 1 cap Ondansetron HCl (Zofran Inj) 4 mg IVP Q6 PRN PRN Reason: Nausea/Vomiting Pantoprazole Sodium (Protonix Ec Tab) 40 mg PO DAILY [facility] Last Admin: 04/15/17 11:02 Dose: 40 mg Potassium Chloride (K-Dur 20 Meq Er Tab) 40 meq PO DAILY [facility] Last Admin: 04/15/17 11:02 Dose: 40 meq Rosuvastatin Calcium (Crestor) 5 mg PO HS [facility] Last Admin: 04/15/17 22:18 Dose: 5 mg Zolpidem Tartrate (Ambien) 5 mg PO HS PRN PRN Reason: Insomnia Last Admin: 04/15/17 22:21 Dose: 5 mg - Labs Labs: 04/16/17 06:16 04/16/17 06:16 PT 20.2 SECONDS (9.7-12.2) H 04/12/17 08:09 INR 1.7 04/12/17 08:09 Attending/Attestation - Attestation I have personally seen and examined this patient.: Yes I have fully participated in the care of the patient.: Yes I have reviewed all pertinent clinical information, including history, physical exam and plan: Yes Notes (Text): Medical attending: Patient was seen and examined by me, agree with the above note by medical delivery technician. Before we saw him he was awaiting further debridement and possibly wound VAC placement over the left sacral area wound. He reported feeling well, he denied having any pain however he has history of paraplegia with decreased sensation below his waist level. We then discussed where he would receive further care, and very likely he's can have to be added subacute rehabilitation or possibly LTAC. This remains to be determined by caseworkers. He's given need any biotics for quite some time following this as well as changes to the wound VAC. We are also following the patient's hemoglobin, in case it drops any further. He denied having any shortness breath for tachycardia. It's likely that he has some element of anemia of chronic disease. Thank you very much, Markel Ho
[2017-04-16 00:26] VITALS: RESP 20
[2017-04-16 06:22] LABS: BASO # 0.1 K/uL (0.0-0.2); BASO % 0.8 % (0.0-2.0); EOS # 0.3 K/uL (0.0-0.7); EOS % 3.5 % (0.0-4.0); HEMOGLOBIN 9.1 g/dL (12.0-18.0); LYMPH # 2.4 K/uL (1.0-4.3); LYMPH % 29.7 % (20.0-40.0); MEAN CELL VOLUME 80.9 fL (80.0-94.0); MEAN CORPUSCULAR HEMOGLOBIN 26.9 pg (27.0-31.0); MEAN CORPUSCULAR HGB CONC 33.3 g/dL (33.0-37.0); MEAN PLATELET VOLUME 7.5 fL (7.2-11.7); MONO # 0.7 K/uL (0.0-0.8); MONO % 8.8 % (0.0-10.0); NEUT # 4.6 K/uL (1.8-7.0); NEUT % 57.2 % (50.0-75.0); NRBC % 0.1 % (0.0-2.0); RBC 3.39 Mil/uL (4.40-5.90); RED CELL DISTRIBUTION WIDTH 15.6 % (11.5-14.5); WHITE BLOOD COUNT 8.1 K/uL (4.8-10.8)
[2017-04-16 06:41] LABS: ALB/GLOB RATIO 0.9 (1.0-2.1); ALBUMIN 2.7 g/dL (3.5-5.0); ALT/SGPT 33 U/L (21-72); AST/SGOT 22 U/L (17-59); BLOOD UREA NITROGEN 12 mg/dL (9-20); CALCIUM 8.5 mg/dl (8.6-10.4); GFR AFRICAN-AMERICAN > 60; GFR NON-AFRICAN AMERICAN > 60; MAGNESIUM 2.1 mg/dL (1.6-2.3)
[2017-04-16] MEDS: Pantoprazole 40 mg EC Tab PO SCH (09:54)
[2017-04-16] MEDS: Potassium Chloride 20 mEq ER Tab PO SCH (09:54)
[2017-04-16] MEDS: Lactobacillus Acidophilus 500 MU Cap PO SCH ×2 (09:55→17:40)
[2017-04-16] MEDS: buPROPion 150 mg/24 Hours XL Tab PO SCH (09:55)
--- NOTE | 2017-04-16 13:00 | OP ---
PROCEDURE DATE: 04/15/2017 PREOPERATIVE DIAGNOSES: 1. Osteomyelitis and decubitus ulcer of the left hip. 2. Osteomyelitis and deep abscess of the right knee. PROCEDURE PERFORMED: Reincision and drainage of osteomyelitis of the left hip. Reincision and drainage of osteomyelitis of the right knee with debridement and partial tissue transfer closure and placement of a wound VAC. SURGEON: Jamil Subramanian MD TYPE OF ANESTHESIA: No anesthesia. ESTIMATED BLOOD LOSS: 50 mL. POSTOPERATIVE CONDITION: Stable. INDICATIONS FOR SURGERY: This is a 66-year-old male with a paraplegia with a new left ischial decubitus ulcer, which is resulted in osteomyelitis of his hip. He came back to the OR today for re-debridement and placement of a wound VAC. He also has concurrent deep abscess of his left knee into his joint cavity, which is also being treated in the OR. DESCRIPTION OF PROCEDURE: The patient was taken to the operating room, placed in a right lateral decubitus position. The left hip and medial right knee areas were prepped and draped. Attention was then turned to the right hip where osteomyelitis was re-drained, cultured, and again aggressively debrided. Bleeding was controlled using the Bovie and a pelvic blood vessel was repaired. Partial tissue transfer closure was again performed and the central portion of the wound was packed with a wound VAC and the wound VAC was placed in the usual fashion. Attention was turned to the left knee where the packing was removed. The abscess was redrained and cultured and the wound was pulse irrigated and packed with wet saline gauze and dressed thoroughly. The patient tolerated the procedure well and returned to the recovery room in stable condition. Jamil Subramanian MD
[2017-04-16] MEDS ORDERED: Lidocaine 2% Inj (20ml) ONE (15:11)
--- NOTE | 2017-04-16 15:40 | PCM.SURG1 ---
Surgeon's Initial Post Op Note - Surgeon's Notes Surgeon: Gurinder Truong MD [employer]: NONE Type of Anesthesia: Local Pre-Operative Diagnosis: Knee infection Operative Findings: Patent right basilic vein. Post-Operative Diagnosis: Knee infection Operation Performed: Single lumen picc placement right basilic vein, 35 cm. Tip in SVC. Specimen/Specimens Removed: None Estimated Blood Loss: EBL {In ML}: 2 Blood Products Given: N/A Drains Used: No Drains Post-Op Condition: Fair Date of Surgery/Procedure: 04/16/17 Time of Surgery/Procedure: 15:35
--- NOTE | 2017-04-16 19:35 | CP.PCM.PN ---
<Gabriel Davila - Last Filed: 04/16/17 19:32> Subjective - Date & Time of Evaluation Date of Evaluation: 04/16/17 Time of Evaluation: 11:00 - Subjective Subjective: Patient was seen and examined at bedside. Patient was resting comfortably in bed. He was not in pain and had no complaints. Patient denied chest pain, shortness of breath, headache, fever, n/v/d/c, bleeding. Objective - Vital Signs/Intake and Output Vital Signs (last 24 hours): Temp Pulse Resp BP Pulse Ox 97.7 F 80 20 103/62 98 04/16/17 15:05 04/16/17 15:05 04/16/17 15:05 04/16/17 15:05 04/16/17 15:05 - Medications Medications: Current Medications Acetaminophen (Tylenol 325mg Tab) 650 mg PO Q6 PRN PRN Reason: Pain, moderate (4-7) Artificial Tears (Artificial Tears) 0 ml OU Q2H PRN PRN Reason: Dry eyes Last Admin: 04/13/17 10:09 Dose: 1 applic Bupropion HCl (Wellbutrin Xl) 300 mg PO DAILY [facility] Last Admin: 04/16/17 09:55 Dose: 300 mg Citalopram Hydrobromide (Celexa) 20 mg PO DAILY [facility] Last Admin: 04/16/17 09:55 Dose: 20 mg Clonazepam (Klonopin) 0.5 mg PO BID PRN PRN Reason: Other Last Admin: 04/15/17 22:19 Dose: 0.5 mg Furosemide (Lasix) 40 mg PO DAILY [facility] Last Admin: 04/16/17 09:54 Dose: Not Given Gabapentin (Neurontin) 300 mg PO TID [facility] Last Admin: 04/16/17 17:39 Dose: 300 mg Imipenem/Cilastatin Sodium 500 (mg/ Sodium Chloride) 100 mls @ 100 mls/hr IVPB Q6H [facility] Last Admin: 04/16/17 14:24 Dose: Not Given Vancomycin HCl 1,000 mg/ (Sodium Chloride) 250 mls @ 166.6 mls/hr IVPB Q12H [facility] Last Admin: 04/16/17 17:43 Dose: 166.6 mls/hr Lactobacillus Acidophilus (Bacid Acidophilus) 1 cap PO BID [facility] Last Admin: 04/16/17 17:40 Dose: 1 cap Ondansetron HCl (Zofran Inj) 4 mg IVP Q6 PRN PRN Reason: Nausea/Vomiting Pantoprazole Sodium (Protonix Ec Tab) 40 mg PO DAILY [facility] Last Admin: 04/16/17 09:54 Dose: 40 mg Potassium Chloride (K-Dur 20 Meq Er Tab) 40 meq PO DAILY [facility] Last Admin: 04/16/17 09:54 Dose: Not Given Rosuvastatin Calcium (Crestor) 5 mg PO HS [facility] Last Admin: 04/15/17 22:18 Dose: 5 mg Zolpidem Tartrate (Ambien) 5 mg PO HS PRN PRN Reason: Insomnia Last Admin: 04/15/17 22:21 Dose: 5 mg - Labs Labs: 04/16/17 06:16 04/16/17 06:16 PT 20.2 SECONDS (9.7-12.2) H 04/12/17 08:09 INR 1.7 04/12/17 08:09 - Constitutional Appears: Well, No Acute Distress - Head Exam Head Exam: ATRAUMATIC, NORMAL INSPECTION, NORMOCEPHALIC - Eye Exam Eye Exam: EOMI, Normal appearance, PERRL - ENT Exam ENT Exam: Mucous Membranes Moist - Neck Exam Neck Exam: Full ROM, Normal Inspection. absent: Lymphadenopathy - Respiratory Exam Respiratory Exam: Clear to Ausculation Bilateral, NORMAL BREATHING PATTERN - Cardiovascular Exam Cardiovascular Exam: REGULAR RHYTHM, +S1, +S2. absent: Murmur - GI/Abdominal Exam GI & Abdominal Exam: Soft, Normal Bowel Sounds. absent: Tenderness - Rectal Exam Rectal Exam: Deferred - Extremities Exam Additional comments: patient is paraplegic from waist down wound vac suctioning fluid appropriately - Neurological Exam Neurological Exam: Alert, Awake, Oriented x3 - Psychiatric Exam Psychiatric exam: Normal Affect, Normal Mood - Skin Skin Exam: Dry, Intact, Normal Color, Warm Assessment and Plan - Assessment and Plan (Free Text) Assessment: (1) Stage 4 skin ulcer of sacral region Assessment & Plan: 04/16: PICC line placed. insurance sales manager trying to find placement at intermediate to continue administration of abx. Patient prefers [facility] as his mother is also there Stable Afebrile Leukocytosis with left shift ( 14.9 -->12.5 on 04/11---> 10.4 (7/11)---> 8.7 (04/14): Stable Surgery Consult: Dr. Subramanian----> help appreciated * Debridement of left hip decubitus ulcer (04/09/17) * Wound Care consult - help appreciated * Patient continued on Clindamycin 600mg IV Q8H --- discontinued 04/08/17 * Patient to go for second debridement 04/12 * Patient is s/p second sacral ulcer debridement and I & D of the right knee * Third debridement (04/15/17) for sacral ulcer -----> Debridement done today () * Wound vacuum placement on 04/14/17-----> Placed today (04/15/17) * Management instruction as per Dr. Subramanian Infectious disease consult: Dr. Sevilla----> Help appreciated * Wound culture: + for staphylcoccus aureus and Acinectobacter Baumanii * Wound culture s/p debridement: Staphylococcus aureus * Tissue biopsy of sacral ulcer : Acute and chronic inflammation (Osteomyelitis) 1. Started on Zosyn 3.3753mg IVPB Q6H (04/08/17)-- discontinued 2. Continue on Vancomycin 1gm IVPB Q12H (04/08/17) ----> Day 7 3. Continue on primaxin 500mg IVPB Q6H (04/09/17)---> DAY 8 * (04/07/17) blood culture- no growth Status: Acute (2) Ulcer of right knee Assessment & Plan: Stable S/P I&D ( x 3) Status: Acute (3) Peripheral edema Status: Chronic (4) Hypokalemia Assessment & Plan: Stable Continue home medication: KDur 40mg PO daily Status: Acute (5) Ulcer of right heel Assessment & Plan: Stable As per wound care: unable to stage Has been getting it treated outpatient before hospital admission Patient continues to clean and use medihoney Status: Acute (6) History of DVT (deep vein thrombosis) Assessment & Plan: IVC filter placed * Xarelto 10mg PO daily Status: Chronic (7) History of depression Assessment & Plan: Resumed home medications: * Wellbutrin xL 300mg PO daily * Celexa 20mg PO daily Status: Acute (8) History of anxiety Assessment & Plan: Continue home medications: * Klonopin 0.5mg PO BID * Celexa 20mg PO daily Status: Acute (9) Paraplegia Assessment & Plan: Evaluation of PT and Occupation therapy Status: Chronic (10) History of kidney cancer Assessment & Plan: 06/02/16: Left partial nephrectomy Status: Acute (11) Prophylactic measure Assessment & Plan: GI PPX: Protonix 40mg PO daily DVT: SCDs contraindicated due to hx PVD, VTE patient already on Xarelto Bacid acidophilus 1 cap PO bid Status: Acute <Markel Ho H - Last Filed: 04/17/17 08:08> Objective - Vital Signs/Intake and Output Vital Signs (last 24 hours): Temp Pulse Resp BP Pulse Ox 97.8 F 76 20 101/59 L 98 04/17/17 00:00 04/17/17 00:00 04/17/17 00:00 04/17/17 00:00 04/17/17 00:00 Intake and Output: 04/17/17 04/17/17 06:59 18:59 Intake Total 1310 Output Total 1600 Balance -290 - Medications Medications: Current Medications Acetaminophen (Tylenol 325mg Tab) 650 mg PO Q6 PRN PRN Reason: Pain, moderate (4-7) Artificial Tears (Artificial Tears) 0 ml OU Q2H PRN PRN Reason: Dry eyes Last Admin: 04/13/17 10:09 Dose: 1 applic Bupropion HCl (Wellbutrin Xl) 300 mg PO DAILY [facility] Last Admin: 04/16/17 09:55 Dose: 300 mg Citalopram Hydrobromide (Celexa) 20 mg PO DAILY [facility] Last Admin: 04/16/17 09:55 Dose: 20 mg Clonazepam (Klonopin) 0.5 mg PO BID PRN PRN Reason: Other Last Admin: 04/16/17 22:42 Dose: 0.5 mg Furosemide (Lasix) 40 mg PO DAILY [facility] Last Admin: 04/16/17 09:54 Dose: Not Given Gabapentin (Neurontin) 300 mg PO TID [facility] Last Admin: 04/16/17 17:39 Dose: 300 mg Imipenem/Cilastatin Sodium 500 (mg/ Sodium Chloride) 100 mls @ 100 mls/hr IVPB Q6H [facility] Last Admin: 04/17/17 07:02 Dose: 100 mls/hr Vancomycin HCl 1,000 mg/ (Sodium Chloride) 250 mls @ 166.6 mls/hr IVPB Q12H [facility] Last Admin: 04/17/17 05:19 Dose: 166.6 mls/hr Lactobacillus Acidophilus (Bacid Acidophilus) 1 cap PO BID [facility] Last Admin: 04/16/17 17:40 Dose: 1 cap Ondansetron HCl (Zofran Inj) 4 mg IVP Q6 PRN PRN Reason: Nausea/Vomiting Pantoprazole Sodium (Protonix Ec Tab) 40 mg PO DAILY [facility] Last Admin: 04/16/17 09:54 Dose: 40 mg Potassium Chloride (K-Dur 20 Meq Er Tab) 40 meq PO DAILY [facility] Last Admin: 04/16/17 09:54 Dose: Not Given Rosuvastatin Calcium (Crestor) 5 mg PO HS [facility] Last Admin: 04/16/17 22:42 Dose: 5 mg Zolpidem Tartrate (Ambien) 5 mg PO HS PRN PRN Reason: Insomnia Last Admin: 04/16/17 22:42 Dose: 5 mg - Labs Labs: 04/17/17 06:22 04/17/17 06:22 PT 20.2 SECONDS (9.7-12.2) H 04/12/17 08:09 INR 1.7 04/12/17 08:09 Attending/Attestation - Attestation I have personally seen and examined this patient.: Yes I have fully participated in the care of the patient.: Yes I have reviewed all pertinent clinical information, including history, physical exam and plan: Yes Notes (Text): Medical Attending: Patient was seen and examined by me. Agree with the above note by the resident. The patient was doing well. He now has a PICC line, also he has a wound vacuum as well to the sacral area. He reported no fever, no chills, no shortness of breath, no chest pain, no palpitations, no abdominal pain, he was tolerating diet well, colostomy bag was fully functional. At this time he remains on IV abx and I explained to the patient that he likley will need it for a very long time usually at a rehab or a intermediate. Patient says he understands as he has been through similar circumstances in the past. Markel Ho
[2017-04-17 06:40] LABS: BASO # 0.1 K/uL (0.0-0.2); BASO % 1.1 % (0.0-2.0); EOS # 0.3 K/uL (0.0-0.7); EOS % 3.6 % (0.0-4.0); HEMOGLOBIN 8.8 g/dL (12.0-18.0); LYMPH # 2.2 K/uL (1.0-4.3); MEAN CELL VOLUME 81.6 fL (80.0-94.0); MEAN CORPUSCULAR HEMOGLOBIN 26.6 pg (27.0-31.0); MEAN CORPUSCULAR HGB CONC 32.7 g/dL (33.0-37.0); MEAN PLATELET VOLUME 7.8 fL (7.2-11.7); MONO # 0.7 K/uL (0.0-0.8); MONO % 8.9 % (0.0-10.0); NEUT # 4.4 K/uL (1.8-7.0); NEUT % 57.4 % (50.0-75.0); RBC 3.31 Mil/uL (4.40-5.90); RED CELL DISTRIBUTION WIDTH 15.8 % (11.5-14.5); WHITE BLOOD COUNT 7.6 K/uL (4.8-10.8)
[2017-04-17 06:43] LABS: ALBUMIN 2.6 g/dL (3.5-5.0)
[2017-04-17 06:46] LABS: AST/SGOT 20 U/L (17-59); BLOOD UREA NITROGEN 13 mg/dL (9-20); GFR AFRICAN-AMERICAN > 60; GFR NON-AFRICAN AMERICAN > 60
[2017-04-17 06:47] LABS: ALT/SGPT 33 U/L (21-72); CALCIUM 8.5 mg/dl (8.6-10.4)
[2017-04-17 07:00] LABS: ALB/GLOB RATIO 0.8 (1.0-2.1)
--- NOTE | 2017-04-17 07:48 | CP.PCM.PN ---
<Gabriel Davila - Last Filed: 04/17/17 13:59> Subjective - Date & Time of Evaluation Date of Evaluation: 04/17/17 Time of Evaluation: 08:30 - Subjective Subjective: Patient was seen and examined at bedside. The patient stated his wound vac stopped functioning last night. He's aware that the auto body technician will come to address this issue. Otherwise patient stated he had no complaints today. He said he feels well and [facility]. He denied chest pain, shortness of breath, fever, chills, cough, bleeding, nausea, vomiting, diarrhea. Objective - Vital Signs/Intake and Output Vital Signs (last 24 hours): Temp Pulse Resp BP Pulse Ox 97.8 F 76 20 101/59 L 98 04/17/17 00:00 04/17/17 00:00 04/17/17 00:00 04/17/17 00:00 04/17/17 00:00 Intake and Output: 04/17/17 04/17/17 06:59 18:59 Intake Total 1310 Output Total 1600 Balance -290 - Medications Medications: Current Medications Acetaminophen (Tylenol 325mg Tab) 650 mg PO Q6 PRN PRN Reason: Pain, moderate (4-7) Artificial Tears (Artificial Tears) 0 ml OU Q2H PRN PRN Reason: Dry eyes Last Admin: 04/13/17 10:09 Dose: 1 applic Bupropion HCl (Wellbutrin Xl) 300 mg PO DAILY [facility] Last Admin: 04/16/17 09:55 Dose: 300 mg Citalopram Hydrobromide (Celexa) 20 mg PO DAILY [facility] Last Admin: 04/16/17 09:55 Dose: 20 mg Clonazepam (Klonopin) 0.5 mg PO BID PRN PRN Reason: Other Last Admin: 04/16/17 22:42 Dose: 0.5 mg Furosemide (Lasix) 40 mg PO DAILY [facility] Last Admin: 04/16/17 09:54 Dose: Not Given Gabapentin (Neurontin) 300 mg PO TID [facility] Last Admin: 04/16/17 17:39 Dose: 300 mg Imipenem/Cilastatin Sodium 500 (mg/ Sodium Chloride) 100 mls @ 100 mls/hr IVPB Q6H [facility] Last Admin: 04/17/17 07:02 Dose: 100 mls/hr Vancomycin HCl 1,000 mg/ (Sodium Chloride) 250 mls @ 166.6 mls/hr IVPB Q12H [facility] Last Admin: 04/17/17 05:19 Dose: 166.6 mls/hr Lactobacillus Acidophilus (Bacid Acidophilus) 1 cap PO BID [facility] Last Admin: 04/16/17 17:40 Dose: 1 cap Ondansetron HCl (Zofran Inj) 4 mg IVP Q6 PRN PRN Reason: Nausea/Vomiting Pantoprazole Sodium (Protonix Ec Tab) 40 mg PO DAILY [facility] Last Admin: 04/16/17 09:54 Dose: 40 mg Potassium Chloride (K-Dur 20 Meq Er Tab) 40 meq PO DAILY [facility] Last Admin: 04/16/17 09:54 Dose: Not Given Rosuvastatin Calcium (Crestor) 5 mg PO HS [facility] Last Admin: 04/16/17 22:42 Dose: 5 mg Zolpidem Tartrate (Ambien) 5 mg PO HS PRN PRN Reason: Insomnia Last Admin: 04/16/17 22:42 Dose: 5 mg - Labs Labs: 04/17/17 06:22 04/17/17 06:22 PT 20.2 SECONDS (9.7-12.2) H 04/12/17 08:09 INR 1.7 04/12/17 08:09 - Constitutional Appears: Well - Head Exam Head Exam: ATRAUMATIC, NORMAL INSPECTION, NORMOCEPHALIC - Eye Exam Eye Exam: EOMI, Normal appearance, PERRL - ENT Exam ENT Exam: Mucous Membranes Moist, Normal Exam - Neck Exam Neck Exam: Full ROM, Normal Inspection. absent: Lymphadenopathy - Respiratory Exam Respiratory Exam: Clear to Ausculation Bilateral, NORMAL BREATHING PATTERN - Cardiovascular Exam Cardiovascular Exam: REGULAR RHYTHM, +S1, +S2. absent: Murmur - GI/Abdominal Exam GI & Abdominal Exam: Soft, Normal Bowel Sounds. absent: Tenderness - Rectal Exam Rectal Exam: Deferred - Exam Additional comments: wilkinson in place - Extremities Exam Extremities Exam: Normal Inspection Additional comments: patient is paraplegic from waist down - Back Exam Additional comments: surgical site covered in gauze c/d/i - Neurological Exam Neurological Exam: Alert, Awake, Oriented x3 - Psychiatric Exam Psychiatric exam: Normal Affect, Normal Mood - Skin Skin Exam: Dry, Intact, Normal Color, Warm Assessment and Plan - Assessment and Plan (Free Text) Assessment: (1) Stage 4 skin ulcer of sacral region Assessment & Plan: 04/17: Length of Abx treatment [facility] was discussed with Dr Sevilla. She recommends imipenem/cilastatin 500mg iv q6 for a total of 6 weeks. Imipenem/cilastatin was started on 04/09 so thus will conclude on 05/21. She recommends Vancomycin 1g iv q12 for a total of 6 weeks. Vancomycin was started on 04/13 so thus will continue until 05/25. She recommends that the penitentiary do a vanco peak and trough once a week, preferably on Mondays. The peak should be between 30-40 and the trough should be between 10-20. The penitentiary should also check a crp, cmp and cbc weekly. 04/16: PICC line placed. custodian manager trying to find placement at penitentiary to continue administration of abx. Patient prefers [place] as his mother is also there Stable Afebrile Leukocytosis with left shift ( 14.9 -->12.5 on 04/11---> 10.4 (04/13)---> 8.7 (04/14): Stable Surgery Consult: Dr. Subramanian----> help appreciated * Debridement of left hip decubitus ulcer (04/09/17) * Wound Care consult - help appreciated * Patient continued on Clindamycin 600mg IV Q8H --- discontinued 04/08/17 * Patient to go for second debridement 04/12 * Patient is s/p second sacral ulcer debridement and I & D of the right knee * Third debridement (04/15/17) for sacral ulcer -----> Debridement done today () * Wound vacuum placement on 04/14/17-----> Placed today (04/15/17) * Management instruction as per Dr. Subramanian Infectious disease consult: Dr. Sevilla----> Help appreciated Wound culture of left hip -> stenotrophomonas maltophilia and klebsella pneumoniae * Wound culture of sacral ulcer: + for staphylcoccus aureus and Acinectobacter Baumanii * Wound culture s/p debridement: Staphylococcus aureus * Tissue biopsy of sacral ulcer : Acute and chronic inflammation (Osteomyelitis) 1. Started on Zosyn 3.3753mg IVPB Q6H (04/08/17)-- discontinued 2. Continue on Vancomycin 1gm IVPB Q12H (04/08/17) ----> Day 7 3. Continue on primaxin 500mg IVPB Q6H (04/09/17)---> DAY 8 * (04/07/17) blood culture- no growth Status: Acute (2) Ulcer of right knee Assessment & Plan: Stable S/P I&D ( x 3) Status: Acute (3) Peripheral edema Status: Chronic (4) Hypokalemia Assessment & Plan: Stable Continue home medication: KDur 40mg PO daily Status: Acute (5) Ulcer of right heel Assessment & Plan: Stable As per wound care: unable to stage Has been getting it treated outpatient before hospital admission Patient continues to clean and use medihoney Status: Acute (6) History of DVT (deep vein thrombosis) Assessment & Plan: IVC filter placed * Xarelto 10mg PO daily Status: Chronic (7) History of depression Assessment & Plan: Resumed home medications: * Wellbutrin xL 300mg PO daily * Celexa 20mg PO daily Status: Acute (8) History of anxiety Assessment & Plan: Continue home medications: * Klonopin 0.5mg PO BID * Celexa 20mg PO daily Status: Acute (9) Paraplegia Assessment & Plan: Evaluation of PT and Occupation therapy Status: Chronic (10) History of kidney cancer Assessment & Plan: 06/02/16: Left partial nephrectomy Status: Acute (11) Prophylactic measure Assessment & Plan: GI PPX: Protonix 40mg PO daily DVT: SCDs contraindicated due to hx PVD, VTE patient already on Xarelto Bacid acidophilus 1 cap PO bid Status: Acute <Markel Ho H - Last Filed: 04/17/17 18:56> Objective - Vital Signs/Intake and Output Vital Signs (last 24 hours): Temp Pulse Resp BP Pulse Ox 97.9 F 82 20 107/53 L 99 04/17/17 15:00 04/17/17 15:00 04/17/17 15:00 04/17/17 15:00 04/17/17 15:00 Intake and Output: 04/17/17 04/17/17 06:59 18:59 Intake Total 1310 340 Output Total 1600 1800 Balance -290 -1460 - Medications Medications: Current Medications Acetaminophen (Tylenol 325mg Tab) 650 mg PO Q6 PRN PRN Reason: Pain, moderate (4-7) Artificial Tears (Artificial Tears) 0 ml OU Q2H PRN PRN Reason: Dry eyes Last Admin: 04/13/17 10:09 Dose: 1 applic Bupropion HCl (Wellbutrin Xl) 300 mg PO DAILY [facility] Last Admin: 04/17/17 09:23 Dose: 300 mg Citalopram Hydrobromide (Celexa) 20 mg PO DAILY [facility] Last Admin: 04/17/17 09:23 Dose: 20 mg Clonazepam (Klonopin) 0.5 mg PO BID PRN PRN Reason: Other Last Admin: 04/17/17 09:26 Dose: 0.5 mg Furosemide (Lasix) 40 mg PO DAILY [facility] Last Admin: 04/17/17 09:25 Dose: 40 mg Gabapentin (Neurontin) 300 mg PO TID [facility] Last Admin: 04/17/17 18:40 Dose: 300 mg Imipenem/Cilastatin Sodium 500 (mg/ Sodium Chloride) 100 mls @ 100 mls/hr IVPB Q6H [facility] Last Admin: 04/17/17 13:25 Dose: 100 mls/hr Vancomycin HCl 1,000 mg/ (Sodium Chloride) 250 mls @ 166.6 mls/hr IVPB Q12H [facility] Last Admin: 04/17/17 18:41 Dose: 166.6 mls/hr Lactobacillus Acidophilus (Bacid Acidophilus) 1 cap PO BID [facility] Last Admin: 04/17/17 18:40 Dose: 1 cap Ondansetron HCl (Zofran Inj) 4 mg IVP Q6 PRN PRN Reason: Nausea/Vomiting Pantoprazole Sodium (Protonix Ec Tab) 40 mg PO DAILY [facility] Last Admin: 04/17/17 09:20 Dose: 40 mg Potassium Chloride (K-Dur 20 Meq Er Tab) 40 meq PO DAILY [facility] Last Admin: 04/17/17 09:20 Dose: 40 meq Rosuvastatin Calcium (Crestor) 5 mg PO HS [facility] Last Admin: 04/16/17 22:42 Dose: 5 mg Zolpidem Tartrate (Ambien) 5 mg PO HS PRN PRN Reason: Insomnia Last Admin: 04/16/17 22:42 Dose: 5 mg - Labs Labs: 04/17/17 06:22 04/17/17 06:22 PT 20.2 SECONDS (9.7-12.2) H 04/12/17 08:09 INR 1.7 04/12/17 08:09 Attending/Attestation - Attestation I have personally seen and examined this patient.: Yes I have fully participated in the care of the patient.: Yes I have reviewed all pertinent clinical information, including history, physical exam and plan: Yes Notes (Text): 04/17/17 18:55 Medical Attending: Patient was seen and examined by me. Agree with the above note by the resident. The patient was not in any acute distress. He denied fever and chills. Per ID will need 6 weeks of IV abx. [place] will be here until Wednesday until can get approval. He now has access via a PICC Line. Markel Ho
[2017-04-17] MEDS: Pantoprazole 40 mg EC Tab PO SCH (09:20)
[2017-04-17] MEDS: Potassium Chloride 20 mEq ER Tab PO SCH (09:20)
[2017-04-17] MEDS: buPROPion 150 mg/24 Hours XL Tab PO SCH (09:23)
[2017-04-17] MEDS: Lactobacillus Acidophilus 500 MU Cap PO SCH ×2 (09:23→18:40)
--- NOTE | 2017-04-18 00:11 | CP.PCM.PN ---
<Hanny Carey E - Last Filed: 04/18/17 05:07> Subjective - Date & Time of Evaluation Date of Evaluation: 04/18/17 Time of Evaluation: 01:15 - Subjective Subjective: Medicine Note (PGY 1) : Dr. Ho's service Patient was seen and examined at bedside. Patient reports that he is doing well and has no new complaints. Patient is s/p wound vac placement for his sacral ulcer; patient is aware that the wound vac is malfunctioning and will be repaired on Wednesday. Patient denies chest pain, sob, nausea, abdominal pain, fever and chills. Objective - Vital Signs/Intake and Output Vital Signs (last 24 hours): Temp Pulse Resp BP Pulse Ox 97.9 F 82 20 107/53 L 99 04/17/17 15:00 04/17/17 15:00 04/17/17 15:00 04/17/17 15:00 04/17/17 15:00 Intake and Output: 04/17/17 04/18/17 18:59 06:59 Intake Total 340 900 Output Total 1800 800 Balance -1460 100 - Medications Medications: Current Medications Acetaminophen (Tylenol 325mg Tab) 650 mg PO Q6 PRN PRN Reason: Pain, moderate (4-7) Artificial Tears (Artificial Tears) 0 ml OU Q2H PRN PRN Reason: Dry eyes Last Admin: 04/13/17 10:09 Dose: 1 applic Bupropion HCl (Wellbutrin Xl) 300 mg PO DAILY [facility] Last Admin: 04/17/17 09:23 Dose: 300 mg Citalopram Hydrobromide (Celexa) 20 mg PO DAILY [facility] Last Admin: 04/17/17 09:23 Dose: 20 mg Clonazepam (Klonopin) 0.5 mg PO BID PRN PRN Reason: Other Last Admin: 04/17/17 22:29 Dose: 0.5 mg Furosemide (Lasix) 40 mg PO DAILY [facility] Last Admin: 04/17/17 09:25 Dose: 40 mg Gabapentin (Neurontin) 300 mg PO TID [facility] Last Admin: 04/17/17 18:40 Dose: 300 mg Imipenem/Cilastatin Sodium 500 (mg/ Sodium Chloride) 100 mls @ 100 mls/hr IVPB Q6H [facility] Last Admin: 04/17/17 20:30 Dose: 100 mls/hr Vancomycin HCl 1,000 mg/ (Sodium Chloride) 250 mls @ 166.6 mls/hr IVPB Q12H [facility] Last Admin: 04/17/17 18:41 Dose: 166.6 mls/hr Lactobacillus Acidophilus (Bacid Acidophilus) 1 cap PO BID [facility] Last Admin: 04/17/17 18:40 Dose: 1 cap Ondansetron HCl (Zofran Inj) 4 mg IVP Q6 PRN PRN Reason: Nausea/Vomiting Pantoprazole Sodium (Protonix Ec Tab) 40 mg PO DAILY [facility] Last Admin: 04/17/17 09:20 Dose: 40 mg Potassium Chloride (K-Dur 20 Meq Er Tab) 40 meq PO DAILY [facility] Last Admin: 04/17/17 09:20 Dose: 40 meq Rosuvastatin Calcium (Crestor) 5 mg PO HS [facility] Last Admin: 04/17/17 22:29 Dose: 5 mg Zolpidem Tartrate (Ambien) 5 mg PO HS PRN PRN Reason: Insomnia Last Admin: 04/17/17 22:29 Dose: 5 mg - Labs Labs: 04/17/17 06:22 04/17/17 06:22 PT 20.2 SECONDS (9.7-12.2) H 04/12/17 08:09 INR 1.7 04/12/17 08:09 - Constitutional Appears: Well, No Acute Distress - Head Exam Head Exam: ATRAUMATIC - Eye Exam Eye Exam: EOMI, Normal appearance - ENT Exam ENT Exam: Mucous Membranes Moist, Normal Exam - Respiratory Exam Respiratory Exam: Clear to Ausculation Bilateral, NORMAL BREATHING PATTERN - Cardiovascular Exam Cardiovascular Exam: REGULAR RHYTHM, +S1, +S2 - GI/Abdominal Exam GI & Abdominal Exam: Soft, Normal Bowel Sounds - Extremities Exam Extremities Exam: Pedal Edema - Neurological Exam Neurological Exam: Alert, Awake, Oriented x3 - Psychiatric Exam Psychiatric exam: Normal Affect, Normal Mood - Skin Skin Exam: Dry, Normal Color, Warm Assessment and Plan (1) Stage 4 skin ulcer of sacral region Assessment & Plan: Stable Afebrile Leukocytosis with left shift ( 14.9 -->12.5 on 04/11---> 10.4 (04/13)---> 8.7 (04/14): Stable Surgery Consult: Dr. Subramanian----> help appreciated * Debridement of left hip decubitus ulcer (04/09/17) * Wound Care consult - help appreciated * Patient continued on Clindamycin 600mg IV Q8H --- discontinued 04/08/17 * Patient to go for second debridement 04/12 * Patient is s/p second sacral ulcer debridement and I & D of the right knee * Third debridement (04/15/17) for sacral ulcer -----> Debridement done today () * Wound vacuum placement on 04/14/17-----> Placed today (04/15/17) * Management instruction as per Dr. Subramanian Infectious disease consult: Dr. Sevilla----> Help appreciated Wound culture of left hip -> stenotrophomonas maltophilia and klebsella pneumoniae * Wound culture of sacral ulcer: + for staphylcoccus aureus and Acinectobacter Baumanii * Wound culture s/p debridement: Staphylococcus aureus * Tissue biopsy of sacral ulcer : Acute and chronic inflammation (Osteomyelitis) 1. Started on Zosyn 3.3753mg IVPB Q6H (04/08/17)-- discontinued 2. Continue on Vancomycin 1gm IVPB Q12H (04/08/17) ----> Day 7 3. Continue on primaxin 500mg IVPB Q6H (04/09/17)---> DAY 8 * (04/07/17) blood culture- no growth 04/17: Length of Abx treatment to continue at group home was discussed with Dr Sevilla. She recommends imipenem/cilastatin 500mg iv q6 for a total of 6 weeks. Imipenem/cilastatin was started on 04/09 so thus will conclude on 05/21. She recommends Vancomycin 1g iv q12 for a total of 6 weeks. Vancomycin was started on 04/13 so thus will continue until 05/25. She recommends that the group home do a vanco peak and trough once a week, preferably on Mondays. The peak should be between 30-40 and the trough should be between 10-20. The group home should also check a crp, cmp and cbc weekly. 04/16: PICC line placed. automotive general manager trying to find placement at group home to continue administration of abx. Patient prefers [place] as his mother is also there Status: Acute (2) Ulcer of right knee Assessment & Plan: Stable S/P I&D ( x 3) Status: Acute (3) Peripheral edema Assessment & Plan: On going, stable Resumed home medications: Lasix 40mg PO daily Status: Chronic (4) Hypokalemia Assessment & Plan: Stable Continue home medication: KDur 40mg PO daily Status: Acute (5) Ulcer of right heel Assessment & Plan: Stable Has been getting it treated outpatient before hospital admission Patient continues to clean and use medihoney Status: Acute (6) History of DVT (deep vein thrombosis) Assessment & Plan: IVC filter placed * Xarelto 10mg PO daily Status: Chronic (7) History of depression Assessment & Plan: Resumed home medications: * Wellbutrin xL 300mg PO daily * Celexa 20mg PO daily Status: Acute (8) History of anxiety Assessment & Plan: Continue home medications: * Klonopin 0.5mg PO BID * Celexa 20mg PO daily Status: Acute (9) Paraplegia Assessment & Plan: Evaluation of PT and Occupation therapy Status: Chronic (10) History of kidney cancer Assessment & Plan: 06/02/16: Left partial nephrectomy Status: Acute (11) Prophylactic measure Assessment & Plan: GI PPX: Protonix 40mg PO daily DVT: SCDs contraindicated due to hx PVD, VTE patient already on Xarelto Bacid acidophilus 1 cap PO bid Status: Acute <Markel Ho H - Last Filed: 04/18/17 12:31> Objective - Vital Signs/Intake and Output Vital Signs (last 24 hours): Temp Pulse Resp BP Pulse Ox 98.7 F 79 20 117/68 100 04/18/17 08:54 04/18/17 08:54 04/18/17 08:54 04/18/17 10:04 04/18/17 08:54 Intake and Output: 04/18/17 04/18/17 06:59 18:59 Intake Total 1250 Output Total 1800 Balance -550 - Medications Medications: Current Medications Acetaminophen (Tylenol 325mg Tab) 650 mg PO Q6 PRN PRN Reason: Pain, moderate (4-7) Artificial Tears (Artificial Tears) 0 ml OU Q2H PRN PRN Reason: Dry eyes Last Admin: 04/13/17 10:09 Dose: 1 applic Bupropion HCl (Wellbutrin Xl) 300 mg PO DAILY [facility] Last Admin: 04/18/17 10:02 Dose: 150 mg Citalopram Hydrobromide (Celexa) 20 mg PO DAILY [facility] Last Admin: 04/18/17 10:03 Dose: 20 mg Clonazepam (Klonopin) 0.5 mg PO BID PRN PRN Reason: Other Last Admin: 04/18/17 10:02 Dose: 0.5 mg Furosemide (Lasix) 40 mg PO DAILY [facility] Last Admin: 04/18/17 10:04 Dose: 40 mg Gabapentin (Neurontin) 300 mg PO TID [facility] Last Admin: 04/18/17 10:03 Dose: 300 mg Imipenem/Cilastatin Sodium 500 (mg/ Sodium Chloride) 100 mls @ 100 mls/hr IVPB Q6H [facility] Last Admin: 04/18/17 08:05 Dose: 100 mls/hr Vancomycin HCl 1,000 mg/ (Sodium Chloride) 250 mls @ 166.6 mls/hr IVPB Q12H [facility] Last Admin: 04/18/17 05:33 Dose: 166.6 mls/hr Lactobacillus Acidophilus (Bacid Acidophilus) 1 cap PO BID [facility] Last Admin: 04/18/17 10:03 Dose: 1 cap Ondansetron HCl (Zofran Inj) 4 mg IVP Q6 PRN PRN Reason: Nausea/Vomiting Pantoprazole Sodium (Protonix Ec Tab) 40 mg PO DAILY [facility] Last Admin: 04/18/17 10:03 Dose: 40 mg Potassium Chloride (K-Dur 20 Meq Er Tab) 40 meq PO DAILY [facility] Last Admin: 04/18/17 10:03 Dose: 40 meq Rosuvastatin Calcium (Crestor) 5 mg PO HS [facility] Last Admin: 04/17/17 22:29 Dose: 5 mg Zolpidem Tartrate (Ambien) 5 mg PO HS PRN PRN Reason: Insomnia Last Admin: 04/17/17 22:29 Dose: 5 mg - Labs Labs: 04/18/17 07:00 04/18/17 07:00 PT 20.2 SECONDS (9.7-12.2) H 04/12/17 08:09 INR 1.7 04/12/17 08:09 Attending/Attestation - Attestation I have personally seen and examined this patient.: Yes I have fully participated in the care of the patient.: Yes I have reviewed all pertinent clinical information, including history, physical exam and plan: Yes Notes (Text): Medical Attending: Patient was seen and examined by me. Agree with the above note by the resident. The patient now has a wound vac, however the battery appears to be need of change. He now has a PICC Line and as per ID will need 6 weeks of abx. Per my discussion with the case sealer over the weekend they still have to get approval before he can go to group home. Patient explains that this is not the first time he's had prolonged IV abx before. thank you Markel Ho
[2017-04-18 07:09] LABS: BASO # 0.1 K/uL (0.0-0.2); BASO % 0.9 % (0.0-2.0); EOS # 0.2 K/uL (0.0-0.7); EOS % 2.7 % (0.0-4.0); HEMOGLOBIN 8.7 g/dL (12.0-18.0); LYMPH # 1.9 K/uL (1.0-4.3); LYMPH % 20.6 % (20.0-40.0); MEAN CELL VOLUME 81.2 fL (80.0-94.0); MEAN CORPUSCULAR HEMOGLOBIN 26.8 pg (27.0-31.0); MEAN PLATELET VOLUME 7.9 fL (7.2-11.7); MONO # 0.8 K/uL (0.0-0.8); MONO % 8.4 % (0.0-10.0); NEUT # 6.2 K/uL (1.8-7.0); NEUT % 67.4 % (50.0-75.0); RBC 3.24 Mil/uL (4.40-5.90); RED CELL DISTRIBUTION WIDTH 15.5 % (11.5-14.5); WHITE BLOOD COUNT 9.2 K/uL (4.8-10.8)
[2017-04-18 07:44] LABS: ALBUMIN 2.6 g/dL (3.5-5.0)
[2017-04-18 07:47] LABS: ALB/GLOB RATIO 0.9 (1.0-2.1); ALT/SGPT 34 U/L (21-72); AST/SGOT 18 U/L (17-59); BLOOD UREA NITROGEN 14 mg/dL (9-20); GFR AFRICAN-AMERICAN > 60; GFR NON-AFRICAN AMERICAN > 60
[2017-04-18 07:48] LABS: CALCIUM 8.6 mg/dl (8.6-10.4); MAGNESIUM 2.2 mg/dL (1.6-2.3)
[2017-04-18] MEDS: buPROPion 150 mg/24 Hours XL Tab PO SCH (10:00)
[2017-04-18] MEDS: Potassium Chloride 20 mEq ER Tab PO SCH (10:03)
[2017-04-18] MEDS: Pantoprazole 40 mg EC Tab PO SCH (10:03)
[2017-04-18] MEDS: Lactobacillus Acidophilus 500 MU Cap PO SCH ×2 (10:03→18:50)
[2017-04-18] MEDS: Vancomycin 1 gm/NS 200 ml 1 GM/200 ML BAG IVPB SCH (18:50)
--- NOTE | 2017-04-18 21:53 | CP.PCM.PN ---
Subjective - Date & Time of Evaluation Date of Evaluation: 04/18/17 Time of Evaluation: 03:00 - Subjective Subjective: dictated Objective - Vital Signs/Intake and Output Vital Signs (last 24 hours): Temp Pulse Resp BP Pulse Ox 98.3 F 83 20 110/67 99 04/18/17 15:00 04/18/17 15:00 04/18/17 15:00 04/18/17 15:00 04/18/17 15:00 Intake and Output: 04/18/17 04/19/17 18:59 06:59 Output Total 1500 Balance -1500 - Medications Medications: Current Medications Acetaminophen (Tylenol 325mg Tab) 650 mg PO Q6 PRN PRN Reason: Pain, moderate (4-7) Artificial Tears (Artificial Tears) 0 ml OU Q2H PRN PRN Reason: Dry eyes Last Admin: 04/13/17 10:09 Dose: 1 applic Bupropion HCl (Wellbutrin Xl) 300 mg PO DAILY [facility] Last Admin: 04/18/17 10:00 Dose: 300 mg Citalopram Hydrobromide (Celexa) 20 mg PO DAILY [facility] Last Admin: 04/18/17 10:03 Dose: 20 mg Clonazepam (Klonopin) 0.5 mg PO BID PRN PRN Reason: Other Last Admin: 04/18/17 10:02 Dose: 0.5 mg Furosemide (Lasix) 40 mg PO DAILY [facility] Last Admin: 04/18/17 10:04 Dose: 40 mg Gabapentin (Neurontin) 300 mg PO TID [facility] Last Admin: 04/18/17 18:59 Dose: 300 mg Imipenem/Cilastatin Sodium 500 (mg/ Sodium Chloride) 100 mls @ 100 mls/hr IVPB Q6H [facility] Last Admin: 04/18/17 20:28 Dose: 100 mls/hr Vancomycin/Sodium Chloride (Vancocin) 1 gm in 200 mls @ 166.6 mls/hr IVPB Q12H [facility] Stop: 04/19/17 06:00 Last Admin: 04/18/17 18:50 Dose: 166.6 mls/hr Lactobacillus Acidophilus (Bacid Acidophilus) 1 cap PO BID [facility] Last Admin: 04/18/17 18:50 Dose: 1 cap Ondansetron HCl (Zofran Inj) 4 mg IVP Q6 PRN PRN Reason: Nausea/Vomiting Pantoprazole Sodium (Protonix Ec Tab) 40 mg PO DAILY [facility] Last Admin: 04/18/17 10:03 Dose: 40 mg Potassium Chloride (K-Dur 20 Meq Er Tab) 40 meq PO DAILY [facility] Last Admin: 04/18/17 10:03 Dose: 40 meq Rosuvastatin Calcium (Crestor) 5 mg PO HS [facility] Last Admin: 04/17/17 22:29 Dose: 5 mg Zolpidem Tartrate (Ambien) 5 mg PO HS PRN PRN Reason: Insomnia Last Admin: 04/17/17 22:29 Dose: 5 mg - Labs Labs: 04/18/17 07:00 04/18/17 07:00 PT 20.2 SECONDS (9.7-12.2) H 04/12/17 08:09 INR 1.7 04/12/17 08:09 Assessment and Plan (1) Cellulitis and abscess Status: Acute (2) Decubitus ulcer Status: Acute (3) History of anxiety Status: Acute (4) History of depression Status: Acute (5) Hypokalemia Status: Acute (6) Sacral ulcer Status: Deleted (7) History of DVT (deep vein thrombosis) Status: Chronic (8) Infection of right knee Status: Acute
[2017-04-19] MEDS: Vancomycin 1 gm/NS 200 ml 1 GM/200 ML BAG IVPB SCH (05:15)
[2017-04-19 06:57] LABS: BASO # 0.1 K/uL (0.0-0.2); BASO % 1.1 % (0.0-2.0); EOS # 0.3 K/uL (0.0-0.7); HEMOGLOBIN 8.2 g/dL (12.0-18.0); LYMPH # 1.9 K/uL (1.0-4.3); MEAN CELL VOLUME 81.2 fL (80.0-94.0); MEAN CORPUSCULAR HEMOGLOBIN 26.8 pg (27.0-31.0); MEAN PLATELET VOLUME 7.8 fL (7.2-11.7); MONO # 0.7 K/uL (0.0-0.8); MONO % 9.3 % (0.0-10.0); NEUT # 4.7 K/uL (1.8-7.0); NEUT % 61.6 % (50.0-75.0); RBC 3.07 Mil/uL (4.40-5.90); RED CELL DISTRIBUTION WIDTH 15.7 % (11.5-14.5); WHITE BLOOD COUNT 7.7 K/uL (4.8-10.8)
[2017-04-19 07:12] LABS: ALB/GLOB RATIO 0.9 (1.0-2.1); ALBUMIN 2.6 g/dL (3.5-5.0); ALT/SGPT 37 U/L (21-72); AST/SGOT 24 U/L (17-59); BLOOD UREA NITROGEN 15 mg/dL (9-20); CALCIUM 8.2 mg/dl (8.6-10.4); GFR AFRICAN-AMERICAN > 60; GFR NON-AFRICAN AMERICAN > 60
--- NOTE | 2017-04-19 09:31 | PN ---
SUBJECTIVE: The patient was seen today, was in good spirits. He has a PICC line there and he states that the vacuum was not working, which they will replace tomorrow. PHYSICAL EXAMINATION: VITAL SIGNS: T-max is 98.3, pulse is 83, blood pressure is 110/67, and respirations are 20. HEENT: Head is atraumatic and normocephalic. NECK: Supple. HEART: S1 and S2 is regular. LUNGS: Clear. No crackles or rales present. ABDOMEN: Soft and nontender. He has a colostomy. He has a wound VAC at this time to the back and also has a dressing on the left knee. He is paraplegic. EXTREMITIES: Trace edema. LABORATORY DATA: Labs are noted. Labs showed white count is 9.2, hemoglobin is 8.7, hematocrit is 26.3, and platelet count is 363. He remains anemic. Sodium is 138, potassium is 3.5, chloride is 100, CO2 is 29, anion gap is 13, and creatinine is 0.6. His micro culture and wound cultures, they did of the left hip and right knee. IMPRESSION AND PLAN: Right knee has Staph aureus and the left hip also has Staph aureus. The sacrum had Staph aureus and Acinetobacter baumannii and the *-sternophonemonas-----*maltophilia that grew, which is Cipro sensitive, but the patient also has Klebsiella pneumoniae along with that, so we will try to give and he is already on imipenem. We will continue with that as it is also trying him to treat the Acinetobacter, which is in the wound and vancomycin, so we will continue that as there are multiple organisms, it is not possible to put antibiotics for every organisms, but needs to be followed up closely. He is on imipenem and he is also on the vancomycin 1 gram and will need vancomycin peak and trough, which have not seen, so we will order for tomorrow. The patient needs to be on antibiotics for about 6 weeks and has chronic osteomyelitis of the sacral wound and we will follow. He also had left knee abscesses, which was also done by *--Marilynn----*. Hill Sevilla MD MTDD
[2017-04-19] MEDS: Lactobacillus Acidophilus 500 MU Cap PO SCH ×2 (09:34→19:08)
[2017-04-19] MEDS: buPROPion 150 mg/24 Hours XL Tab PO SCH (09:34)
[2017-04-19] MEDS: Potassium Chloride 20 mEq ER Tab PO SCH (09:34)
[2017-04-19] MEDS: Pantoprazole 40 mg EC Tab PO SCH (09:34)
--- NOTE | 2017-04-19 17:39 | CP.PCM.PN ---
<Gabriel Davila - Last Filed: 04/19/17 17:35> Subjective - Date & Time of Evaluation Date of Evaluation: 04/19/17 Time of Evaluation: 10:00 - Subjective Subjective: PGY-[address] Murray's Service Patient was seen and examined at beside. Patient was resting comfortably in bed without any complaints. Patient's woundVac has still not been replaced, but the patient said his sacral would was not collecting fluid because the nurses were doing a good job of cleaning it. He was worried about the length of antibiotic treatment and the effect it could have on his kidneys, the patient was reassured his kidney function would be checked throughout his abx treatment. He denied chest pain, shortness of breath, headache, abdominal pain, dysuria, bleeding, fever, nausea, vomiting, diarrhea. Objective - Vital Signs/Intake and Output Vital Signs (last 24 hours): Temp Pulse Resp BP Pulse Ox 98.2 F 85 20 121/67 100 04/19/17 15:00 04/19/17 15:00 04/19/17 15:00 04/19/17 15:00 04/19/17 15:00 Intake and Output: 04/19/17 04/19/17 06:59 18:59 Intake Total 800 770 Output Total 850 100 Balance -50 670 - Medications Medications: Current Medications Acetaminophen (Tylenol 325mg Tab) 650 mg PO Q6 PRN PRN Reason: Pain, moderate (4-7) Artificial Tears (Artificial Tears) 0 ml OU Q2H PRN PRN Reason: Dry eyes Last Admin: 04/13/17 10:09 Dose: 1 applic Bupropion HCl (Wellbutrin Xl) 300 mg PO DAILY [facility] Last Admin: 04/19/17 09:34 Dose: 300 mg Citalopram Hydrobromide (Celexa) 20 mg PO DAILY [facility] Last Admin: 04/19/17 09:34 Dose: 20 mg Clonazepam (Klonopin) 0.5 mg PO BID PRN PRN Reason: Other Last Admin: 04/19/17 09:38 Dose: 0.5 mg Furosemide (Lasix) 40 mg PO DAILY [facility] Last Admin: 04/19/17 09:33 Dose: Not Given Gabapentin (Neurontin) 300 mg PO TID [facility] Last Admin: 04/19/17 13:22 Dose: 300 mg Imipenem/Cilastatin Sodium 500 (mg/ Sodium Chloride) 100 mls @ 100 mls/hr IVPB Q6H [facility] Last Admin: 04/19/17 13:23 Dose: 100 mls/hr Vancomycin HCl 750 mg/ Sodium (Chloride) 250 mls @ 166.6 mls/hr IVPB Q12H [facility] Lactobacillus Acidophilus (Bacid Acidophilus) 1 cap PO BID [facility] Last Admin: 04/19/17 09:34 Dose: 1 cap Ondansetron HCl (Zofran Inj) 4 mg IVP Q6 PRN PRN Reason: Nausea/Vomiting Pantoprazole Sodium (Protonix Ec Tab) 40 mg PO DAILY [facility] Last Admin: 04/19/17 09:34 Dose: 40 mg Potassium Chloride (K-Dur 20 Meq Er Tab) 40 meq PO DAILY [facility] Last Admin: 04/19/17 09:34 Dose: 40 meq Rosuvastatin Calcium (Crestor) 5 mg PO HS [facility] Last Admin: 04/18/17 22:22 Dose: 5 mg Zolpidem Tartrate (Ambien) 5 mg PO HS PRN PRN Reason: Insomnia Last Admin: 04/18/17 22:21 Dose: 5 mg - Labs Labs: 04/19/17 06:30 04/19/17 06:30 PT 20.2 SECONDS (9.7-12.2) H 04/12/17 08:09 INR 1.7 04/12/17 08:09 - Constitutional Appears: Well, No Acute Distress - Head Exam Head Exam: ATRAUMATIC, NORMAL INSPECTION, NORMOCEPHALIC - Eye Exam Eye Exam: EOMI, Normal appearance, PERRL - ENT Exam ENT Exam: Mucous Membranes Moist - Neck Exam Neck Exam: Full ROM - Respiratory Exam Respiratory Exam: Clear to Ausculation Bilateral, NORMAL BREATHING PATTERN - Cardiovascular Exam Cardiovascular Exam: REGULAR RHYTHM, +S1, +S2. absent: Murmur - GI/Abdominal Exam GI & Abdominal Exam: Soft, Normal Bowel Sounds. absent: Tenderness - Rectal Exam Rectal Exam: Deferred - Extremities Exam Extremities Exam: Pedal Edema Additional comments: paraplegia from waist down - Back Exam Additional comments: sacral ulcer covered with gauze - Neurological Exam Neurological Exam: Alert, Awake, Oriented x3 - Psychiatric Exam Psychiatric exam: Normal Affect, Normal Mood - Skin Skin Exam: Dry, Intact, Normal Color, Warm Assessment and Plan - Assessment and Plan (Free Text) Assessment: Disposition: Patient is awaiting placement in detention at [facility]. (1) Stage 4 skin ulcer of sacral region Assessment & Plan: 04/19: woundVac still not functioning properly. A processing technician is to come by end of today to replace it. A woundVac will be available for the patient at [facility], once he finds placement. Stable Afebrile Leukocytosis with left shift ( 14.9 -->12.5 on 04/11---> 10.4 (04/13)---> 8.7 (04/14): Stable Surgery Consult: Dr. Subramanian----> help appreciated * Debridement of left hip decubitus ulcer (04/09/17) * Wound Care consult - help appreciated * Patient continued on Clindamycin 600mg IV Q8H --- discontinued 04/08/17 * Patient to go for second debridement 04/12 * Patient is s/p second sacral ulcer debridement and I & D of the right knee * Third debridement (04/15/17) for sacral ulcer -----> Debridement done today () * Wound vacuum placement on 04/14/17-----> Placed today (04/15/17) * Management instruction as per Dr. Subramanian Infectious disease consult: Dr. Sevilla----> Help appreciated Wound culture of left hip -> stenotrophomonas maltophilia and klebsella pneumoniae * Wound culture of sacral ulcer: + for staphylcoccus aureus and Acinectobacter Baumanii * Wound culture s/p debridement: Staphylococcus aureus * Tissue biopsy of sacral ulcer : Acute and chronic inflammation (Osteomyelitis) 1. Started on Zosyn 3.3753mg IVPB Q6H (04/08/17)-- discontinued 2. Continue on Vancomycin 1gm IVPB Q12H (04/08/17) ----> Day 7 3. Continue on primaxin 500mg IVPB Q6H (04/09/17)---> DAY 8 * (04/07/17) blood culture- no growth 04/17: Length of Abx treatment to continue at detention was discussed with Dr Sevilla. She recommends imipenem/cilastatin 500mg iv q6 for a total of 6 weeks. Imipenem/cilastatin was started on 04/09 so thus will conclude on 05/21. She recommends Vancomycin 1g iv q12 for a total of 6 weeks. Vancomycin was started on 04/13 so thus will continue until 05/25. She recommends that the detention do a vanco peak and trough once a week, preferably on Mondays. The peak should be between 30-40 and the trough should be between 10-20. The detention should also check a crp, cmp and cbc weekly. 04/16: PICC line placed. 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 clean and use [employer] Status: Acute (6) History of DVT (deep vein thrombosis) Assessment & Plan: IVC filter placed * Xarelto 10mg PO daily Status: Chronic (7) History of depression Assessment & Plan: Resumed home medications: * Wellbutrin xL 300mg PO daily * Celexa 20mg PO daily Status: Acute (8) History of anxiety Assessment & Plan: Continue home medications: * Klonopin 0.5mg PO BID * Celexa 20mg PO daily Status: Acute (9) Paraplegia Assessment & Plan: Evaluation of PT and Occupation therapy Status: Chronic (10) History of kidney cancer Assessment & Plan: 06/02/16: Left partial nephrectomy Status: Acute (11) Prophylactic measure Assessment & Plan: GI PPX: Protonix 40mg PO daily DVT: SCDs contraindicated due to hx PVD, VTE patient already on Xarelto Bacid acidophilus 1 cap PO bid Status: Acute <Denny Murray - Last Filed: 04/20/17 17:55> Objective - Vital Signs/Intake and Output Vital Signs (last 24 hours): Temp Pulse Resp BP Pulse Ox 98.0 F 86 20 103/62 99 04/20/17 15:03 04/20/17 15:03 04/20/17 15:03 04/20/17 15:03 04/20/17 15:03 Intake and Output: 04/20/17 04/20/17 06:59 18:59 Intake Total 820 Output Total 1350 Balance -530 - Medications Medications: Current Medications Acetaminophen (Tylenol 325mg Tab) 650 mg PO Q6 PRN PRN Reason: Pain, moderate (4-7) Artificial Tears (Artificial Tears) 0 ml OU Q2H PRN PRN Reason: Dry eyes Last Admin: 04/13/17 10:09 Dose: 1 applic Bupropion HCl (Wellbutrin Xl) 300 mg PO DAILY [facility] Last Admin: 04/20/17 09:08 Dose: 300 mg Citalopram Hydrobromide (Celexa) 20 mg PO DAILY [facility] Last Admin: 04/20/17 09:09 Dose: 20 mg Clonazepam (Klonopin) 0.5 mg PO BID PRN PRN Reason: Other Last Admin: 04/19/17 21:52 Dose: 0.5 mg Furosemide (Lasix) 40 mg PO DAILY [facility] Last Admin: 04/19/17 09:33 Dose: Not Given Gabapentin (Neurontin) 300 mg PO TID [facility] Last Admin: 04/20/17 17:13 Dose: 300 mg Imipenem/Cilastatin Sodium 500 (mg/ Sodium Chloride) 100 mls @ 100 mls/hr IVPB Q6H [facility] Last Admin: 04/20/17 13:38 Dose: 100 mls/hr Vancomycin HCl 750 mg/ Sodium (Chloride) 250 mls @ 166.6 mls/hr IVPB Q12H [facility] Last Admin: 04/20/17 17:22 Dose: 166.6 mls/hr Lactobacillus Acidophilus (Bacid Acidophilus) 1 cap PO BID [facility] Last Admin: 04/20/17 17:14 Dose: 1 cap Ondansetron HCl (Zofran Inj) 4 mg IVP Q6 PRN PRN Reason: Nausea/Vomiting Pantoprazole Sodium (Protonix Ec Tab) 40 mg PO DAILY [facility] Last Admin: 04/20/17 09:08 Dose: 40 mg Potassium Chloride (K-Dur 20 Meq Er Tab) 40 meq PO DAILY [facility] Last Admin: 04/20/17 09:09 Dose: 40 meq Rosuvastatin Calcium (Crestor) 5 mg PO HS [facility] Last Admin: 04/19/17 21:52 Dose: 5 mg Zolpidem Tartrate (Ambien) 5 mg PO HS PRN PRN Reason: Insomnia Last Admin: 04/19/17 21:52 Dose: 5 mg - Labs Labs: 04/20/17 14:01 04/19/17 06:30 PT 20.2 SECONDS (9.7-12.2) H 04/12/17 08:09 INR 1.7 04/12/17 08:09 Attending/Attestation - Attestation I have personally seen and examined this patient.: Yes I have fully participated in the care of the patient.: Yes I have reviewed all pertinent clinical information, including history, physical exam and plan: Yes Notes (Text): 04/20/17 17:55 Patient was seen and examined at bedside with the resident Patient appears comfortable. Wound VAC has to be replaced because of malfunction Discharge planning in progress Discussed the plan of care with the resident and agree with the history and physical and assessment/plan by the resident.
[2017-04-20] MEDS: Pantoprazole 40 mg EC Tab PO SCH (09:08)
[2017-04-20] MEDS: buPROPion 150 mg/24 Hours XL Tab PO SCH (09:08)
[2017-04-20] MEDS: Lactobacillus Acidophilus 500 MU Cap PO SCH ×2 (09:09→17:14)
[2017-04-20] MEDS: Potassium Chloride 20 mEq ER Tab PO SCH (09:09)
[2017-04-20 09:21] VITALS: TEMP 98; O2SAT 99
[2017-04-20 16:04] VITALS: BP 103/62; PULSE 86
[2017-04-20 17:36] LABS: BASO # 0.1 K/uL (0.0-0.2); EOS # 0.3 K/uL (0.0-0.7); EOS % 3.4 % (0.0-4.0); HEMOGLOBIN 9.1 g/dL (12.0-18.0); LYMPH # 2.5 K/uL (1.0-4.3); LYMPH % 28.7 % (20.0-40.0); MEAN CELL VOLUME 81.8 fL (80.0-94.0); MEAN CORPUSCULAR HEMOGLOBIN 26.6 pg (27.0-31.0); MEAN CORPUSCULAR HGB CONC 32.5 g/dL (33.0-37.0); MEAN PLATELET VOLUME 7.9 fL (7.2-11.7); MONO # 0.7 K/uL (0.0-0.8); MONO % 8.2 % (0.0-10.0); NEUT # 5.2 K/uL (1.8-7.0); NEUT % 58.7 % (50.0-75.0); RBC 3.42 Mil/uL (4.40-5.90); RED CELL DISTRIBUTION WIDTH 16.3 % (11.5-14.5); WHITE BLOOD COUNT 8.8 K/uL (4.8-10.8)
--- NOTE | 2017-04-20 17:55 | CP.PCM.DIS ---
<Gabriel Davila R - Last Filed: 04/20/17 17:55> Provider - Provider Date of Admission: 04/07/17 19:56 Attending physician: Markel Ho DO Primary care physician: PMD: Dr. Orellana Consults: General Surgery: Dr Subramanian Orthopedic Surgery: Dr Temple Infectious Disease: Dr Sevilla Time Spent in preparation of Discharge (in minutes): 45 Hospital Course - Lab Results Lab Results: Micro Results 04/14/17 18:30 Knee - Right Gram Stain - Final 04/14/17 18:30 Knee - Right Wound Culture - Final Coagulase Neg Staphylococcus 04/14/17 18:30 Hip - Left Gram Stain - Final 04/14/17 18:30 Hip - Left Wound Culture - Final Stenotrophomonas Maltophilia Klebsiella Pneumoniae Ssp Pneu 04/12/17 16:40 Knee - Right Gram Stain - Final 04/12/17 16:40 Knee - Right Wound Culture - Final Staphylococcus Aureus 04/12/17 16:40 Hip - Left Gram Stain - Final 04/12/17 16:40 Hip - Left Wound Culture - Final No growth. 04/12/17 16:40 Knee - Right Gram Stain - Final 04/12/17 16:40 Knee - Right Wound Culture - Final Staphylococcus Aureus 04/09/17 16:00 Hip - Left Gram Stain - Final 04/09/17 16:00 Hip - Left Wound Culture - Final Staphylococcus Aureus 04/07/17 20:59 Other: Please Indicate Gram Stain - Final 04/07/17 20:59 Other: Please Indicate Wound Culture - Final Staphylococcus Aureus Most Recent Lab Values WBC 8.8 K/uL (4.8-10.8) 04/20/17 14:01 RBC 3.42 Mil/uL (4.40-5.90) L 04/20/17 14:01 Hgb 9.1 g/dL (12.0-18.0) L 04/20/17 14:01 Hct 28.0 % (35.0-51.0) L 04/20/17 14:01 MCV 81.8 fL (80.0-94.0) 04/20/17 14:01 MCH 26.6 pg (27.0-31.0) L 04/20/17 14:01 MCHC 32.5 g/dL (33.0-37.0) L 04/20/17 14:01 RDW 16.3 % (11.5-14.5) H 04/20/17 14:01 Plt Count 378 K/uL (130-400) 04/20/17 14:01 MPV 7.9 fL (7.2-11.7) 04/20/17 14:01 Neut % (Auto) 58.7 % (50.0-75.0) 04/20/17 14:01 Lymph % (Auto) 28.7 % (20.0-40.0) 04/20/17 14:01 [place] % (Auto) 8.2 % (0.0-10.0) 04/20/17 14:01 Eos % (Auto) 3.4 % (0.0-4.0) 04/20/17 14:01 Baso % (Auto) 1.0 % (0.0-2.0) 04/20/17 14:01 Neut # 5.2 K/uL (1.8-7.0) 04/20/17 14:01 Lymph # 2.5 K/uL (1.0-4.3) 04/20/17 14:01 [place] # 0.7 K/uL (0.0-0.8) 04/20/17 14:01 Eos # 0.3 K/uL (0.0-0.7) 04/20/17 14:01 Baso # 0.1 K/uL (0.0-0.2) 04/20/17 14:01 PT 20.2 SECONDS (9.7-12.2) H 04/12/17 08:09 INR 1.7 04/12/17 08:09 Sodium 135 mmol/L (132-148) 04/19/17 06:30 Potassium 3.8 mmol/L (3.6-5.2) 04/19/17 06:30 Chloride 99 mmol/L (98-107) 04/19/17 06:30 Carbon Dioxide 29 mmol/L (22-30) 04/19/17 06:30 Anion Gap 10 (10-20) 04/19/17 06:30 BUN 15 mg/dL (9-20) 04/19/17 06:30 Creatinine 0.7 MG/DL (0.8-1.5) L 04/19/17 06:30 Est GFR ( Amer) > 60 04/19/17 06:30 Est GFR (Non-Af Amer) > 60 04/19/17 06:30 Random Glucose 83 mg/dL (75-110) 04/19/17 06:30 Calcium 8.2 mg/dl (8.6-10.4) L 04/19/17 06:30 Phosphorus 2.9 mg/dL (2.5-4.5) 04/19/17 06:30 Magnesium 2.0 mg/dL (1.6-2.3) 04/19/17 06:30 Total Bilirubin 0.3 mg/dL (0.2-1.3) 04/19/17 06:30 AST 24 U/L (17-59) 04/19/17 06:30 ALT 37 U/L (21-72) 04/19/17 06:30 Alkaline Phosphatase 59 U/L (38-126) 04/19/17 06:30 Total Protein 5.5 g/dL (6.3-8.3) L 04/19/17 06:30 Albumin 2.6 g/dL (3.5-5.0) L 04/19/17 06:30 Globulin 2.9 gm/dL (2.2-3.9) 04/19/17 06:30 Albumin/Globulin Ratio 0.9 (1.0-2.1) L 04/19/17 06:30 Vancomycin Peak 44.0 ug/mL (30.0-40.0) H 04/19/17 06:30 Vancomycin Trough 15.7 ug/mL (5.0-10.0) H 04/19/17 05:00 - Hospital Course Hospital Course: CC: leaking sacral wound HPI: 66M with a significant PMHx significant noted below, presented to the ED complaining of leaking from sacral wound. Patient reports he had this sacral wound 1-2 years ago which was managed by Dr. Subramanian. Patient started to develop the sacral ulcer again, was seen by Dr. Subramanian, prescribed Clindamycin 300mg PO TID and instructed to return to the office at a later date. He was scheduled to follow up with Dr. Subramanian tomorrow, but the ulcer started to leak pus and the patient reported feeling febrile. Denied chills, chest pain, SOB, abdominal pain, n/v/d/c, or urinary symptoms. PMD: Dr. Orellana. 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 Meds: As per DEC All: NKDA SHx: Denies tobacco, alcohol and illicit drug use. FHx: Mother with DM, HTN, heart disease and depression. Father with prostate problems, dies of [place]. This is a patient of Dr Subramanian, general surgeon. Patient had debridement of the left hip decubitus ulcer on 04/09/17 and another debridement on 04/12/17. A wound Vac was placed on 04/14/17. Patient then had a third debridement for the sacral ulcer on 04/15/17. Would culture of the left hip grew stenotrophomonas maltophilia and klebsella pneumoniae. Wound culture of the the sacral ulcer grew staphylcoccus aureus and Acinectobacter Baumanii. Wound culture of the right knee grew coagulase neg staphylococcus. The patient had been treated with vancomycin 1gm q12 and primaxin 500mg q6 throughout his stay. Leukocytosis with left shift seen on admission had resolved by discharge with clinical improvement to baseline. PICC lined was placed on 04/16 and his antibiotic treatment will be continued via PICC after discharge. Discharge Exam - Head Exam Head Exam: ATRAUMATIC, NORMAL INSPECTION, NORMOCEPHALIC - Eye Exam Eye Exam: EOMI, Normal appearance, PERRL - ENT Exam ENT Exam: Mucous Membranes Moist - Neck Exam Neck exam: Full Rom - Respiratory Exam Respiratory Exam: Clear to PA & Lateral. absent: Wheezes - Cardiovascular Exam Cardiovascular Exam: REGULAR RHYTHM, RRR, +S1, +S2 - GI/Abdominal Exam GI & Abdominal Exam: Normal Bowel Sounds Additional comments: osteomy bag in place - Rectal Exam Rectal Exam: Deferred - Extremities Exam Extremities exam: pedal edema Additional comments: paraplegia from waist down 2/2 to fall - Neurological Exam Neurological exam: Alert, Oriented x3 - Psychiatric Exam Psychiatric exam: Normal Affect, Normal Mood - Skin Skin Exam: Dry, Intact, Normal Color, Warm Discharge Plan - Follow Up Plan Condition: STABLE Disposition: NURSING FACILITY MEDICAID CERT Instructions: How to Prevent Pressure Ulcers (DC), Pressure Ulcer (DC) Additional Instructions: Patient is medically stable for discharge to retirement. Please make sure the following instructions are presented to the patient/ retirement: The patient is to continue all his regular home medications and continue all treatments he was receiving prior to being admitted. In addition to his regular home medications/treatments the patient is to take the following antibiotics as instructed: Patient is to receive antibiotic treatment via PICC line. Length of Abx treatment to continue at retirement and was discussed with Dr Sevilla. She recommends imipenem/cilastatin 500mg iv q6 for a total of 6 weeks. Imipenem/ cilastatin was started on 04/09 so thus will conclude on 05/21. She recommends Vancomycin 1g iv q12 for a total of 6 weeks. Vancomycin was started on 04/13 so thus will continue until 05/25. She recommends that the retirement do a vanco peak and trough once a week, preferably on Mondays. The peak should be between 30-40 and the trough should be between 10-20. The retirement should also check a crp, cmp and cbc weekly. Please keep the patient on a Wound-Vac when he arrives at the retirement to drain his sacral ulcer. Please be well and take care. Referrals: Jamil Subramanian MD [Staff Provider] - <Denny Murray - Last Filed: 04/21/17 17:08> Provider - Provider Date of Admission: 04/07/17 19:56 Attending physician: Markel Ho DO Hospital Course - Lab Results Lab Results: Micro Results 04/14/17 18:30 Knee - Right Gram Stain - Final 04/14/17 18:30 Knee - Right Wound Culture - Final Coagulase Neg Staphylococcus 04/14/17 18:30 Hip - Left Gram Stain - Final 04/14/17 18:30 Hip - Left Wound Culture - Final Stenotrophomonas Maltophilia Klebsiella Pneumoniae Ssp Pneu 04/12/17 16:40 Knee - Right Gram Stain - Final 04/12/17 16:40 Knee - Right Wound Culture - Final Staphylococcus Aureus 04/12/17 16:40 Hip - Left Gram Stain - Final 04/12/17 16:40 Hip - Left Wound Culture - Final No growth. 04/12/17 16:40 Knee - Right Gram Stain - Final 04/12/17 16:40 Knee - Right Wound Culture - Final Staphylococcus Aureus 04/09/17 16:00 Hip - Left Gram Stain - Final 04/09/17 16:00 Hip - Left Wound Culture - Final Staphylococcus Aureus 04/07/17 20:59 Other: Please Indicate Gram Stain - Final 04/07/17 20:59 Other: Please Indicate Wound Culture - Final Staphylococcus Aureus Most Recent Lab Values WBC 8.8 K/uL (4.8-10.8) 04/20/17 14:01 RBC 3.42 Mil/uL (4.40-5.90) L 04/20/17 14:01 Hgb 9.1 g/dL (12.0-18.0) L 04/20/17 14:01 Hct 28.0 % (35.0-51.0) L 04/20/17 14:01 MCV 81.8 fL (80.0-94.0) 04/20/17 14:01 MCH 26.6 pg (27.0-31.0) L 04/20/17 14:01 MCHC 32.5 g/dL (33.0-37.0) L 04/20/17 14:01 RDW 16.3 % (11.5-14.5) H 04/20/17 14:01 Plt Count 378 K/uL (130-400) 04/20/17 14:01 MPV 7.9 fL (7.2-11.7) 04/20/17 14:01 Neut % (Auto) 58.7 % (50.0-75.0) 04/20/17 14:01 Lymph % (Auto) 28.7 % (20.0-40.0) 04/20/17 14:01 [place] % (Auto) 8.2 % (0.0-10.0) 04/20/17 14:01 Eos % (Auto) 3.4 % (0.0-4.0) 04/20/17 14:01 Baso % (Auto) 1.0 % (0.0-2.0) 04/20/17 14:01 Neut # 5.2 K/uL (1.8-7.0) 04/20/17 14:01 Lymph # 2.5 K/uL (1.0-4.3) 04/20/17 14:01 [place] # 0.7 K/uL (0.0-0.8) 04/20/17 14:01 Eos # 0.3 K/uL (0.0-0.7) 04/20/17 14:01 Baso # 0.1 K/uL (0.0-0.2) 04/20/17 14:01 PT 20.2 SECONDS (9.7-12.2) H 04/12/17 08:09 INR 1.7 04/12/17 08:09 Sodium 137 mmol/L (132-148) 04/20/17 18:18 Potassium 4.7 mmol/L (3.6-5.2) 04/20/17 18:18 Chloride 102 mmol/L (98-107) 04/20/17 18:18 Carbon Dioxide 25 mmol/L (22-30) 04/20/17 18:18 Anion Gap 15 (10-20) 04/20/17 18:18 BUN 17 mg/dL (9-20) 04/20/17 18:18 Creatinine 0.6 MG/DL (0.8-1.5) L 04/20/17 18:18 Est GFR ( Amer) > 60 04/20/17 18:18 Est GFR (Non-Af Amer) > 60 04/20/17 18:18 Random Glucose 82 mg/dL (75-110) 04/20/17 18:18 Calcium 8.6 mg/dl (8.6-10.4) 04/20/17 18:18 Phosphorus 2.8 mg/dL (2.5-4.5) 04/20/17 18:18 Magnesium 2.0 mg/dL (1.6-2.3) 04/20/17 18:18 Total Bilirubin 0.3 mg/dL (0.2-1.3) 04/20/17 18:18 AST 56 U/L (17-59) 04/20/17 18:18 ALT 83 U/L (21-72) H D 04/20/17 18:18 Alkaline Phosphatase 58 U/L (38-126) 04/20/17 18:18 Total Protein 4.9 g/dL (6.3-8.3) L 04/20/17 18:18 Albumin 2.5 g/dL (3.5-5.0) L 04/20/17 18:18 Globulin 2.4 gm/dL (2.2-3.9) 04/20/17 18:18 Albumin/Globulin Ratio 1.0 (1.0-2.1) 04/20/17 18:18 Vancomycin Peak 20.8 ug/mL (30.0-40.0) L 04/20/17 19:47 Vancomycin Trough 9.8 ug/mL (5.0-10.0) 04/20/17 14:01 Attending/Attestation - Attestation I have personally seen and examined this patient.: Yes I have fully participated in the care of the patient.: Yes I have reviewed all pertinent clinical information, including history, physical exam and plan: Yes Notes (Text): 04/21/17 17:08 Patient was seen and examined at bedside with the resident Wound VAC is in place. We will discharge the patient to rehabilitation center for continuation of IV antibiotics as per recommendations of ID I discussed the discharge plan with the resident and agree with the discharge note by the resident.
[2017-04-20 18:43] LABS: ALBUMIN 2.5 g/dL (3.5-5.0)
[2017-04-20 18:46] LABS: GFR AFRICAN-AMERICAN > 60; GFR NON-AFRICAN AMERICAN > 60
[2017-04-20 18:47] LABS: ALT/SGPT 83 U/L (21-72); AST/SGOT 56 U/L (17-59); BLOOD UREA NITROGEN 17 mg/dL (9-20); CALCIUM 8.6 mg/dl (8.6-10.4)
--- NOTE | 2017-04-20 21:37 | CP.PCM.PN ---
Subjective - Date & Time of Evaluation Date of Evaluation: 04/20/17 Time of Evaluation: 03:00 - Subjective Subjective: Patient was seen today and he was waiting placement,he said there is problem with his picc line and they were instilling blood thinner.Patient also has a wound vac to the back wound. Objective - Vital Signs/Intake and Output Vital Signs (last 24 hours): Temp Pulse Resp BP Pulse Ox 98.0 F 86 20 103/62 99 04/20/17 15:03 04/20/17 15:03 04/20/17 15:03 04/20/17 15:03 04/20/17 15:03 - Medications Medications: Current Medications Acetaminophen (Tylenol 325mg Tab) 650 mg PO Q6 PRN PRN Reason: Pain, moderate (4-7) Artificial Tears (Artificial Tears) 0 ml OU Q2H PRN PRN Reason: Dry eyes Last Admin: 04/13/17 10:09 Dose: 1 applic Bupropion HCl (Wellbutrin Xl) 300 mg PO DAILY [facility] Last Admin: 04/20/17 09:08 Dose: 300 mg Citalopram Hydrobromide (Celexa) 20 mg PO DAILY [facility] Last Admin: 04/20/17 09:09 Dose: 20 mg Clonazepam (Klonopin) 0.5 mg PO BID PRN PRN Reason: Other Last Admin: 04/19/17 21:52 Dose: 0.5 mg Furosemide (Lasix) 40 mg PO DAILY [facility] Last Admin: 04/19/17 09:33 Dose: Not Given Gabapentin (Neurontin) 300 mg PO TID [facility] Last Admin: 04/20/17 17:13 Dose: 300 mg Imipenem/Cilastatin Sodium 500 (mg/ Sodium Chloride) 100 mls @ 100 mls/hr IVPB Q6H [facility] Last Admin: 04/20/17 20:03 Dose: 100 mls/hr Vancomycin HCl 750 mg/ Sodium (Chloride) 250 mls @ 166.6 mls/hr IVPB Q12H [facility] Last Admin: 04/20/17 17:22 Dose: 166.6 mls/hr Lactobacillus Acidophilus (Bacid Acidophilus) 1 cap PO BID [facility] Last Admin: 04/20/17 17:14 Dose: 1 cap Ondansetron HCl (Zofran Inj) 4 mg IVP Q6 PRN PRN Reason: Nausea/Vomiting Pantoprazole Sodium (Protonix Ec Tab) 40 mg PO DAILY [facility] Last Admin: 04/20/17 09:08 Dose: 40 mg Potassium Chloride (K-Dur 20 Meq Er Tab) 40 meq PO DAILY [facility] Last Admin: 04/20/17 09:09 Dose: 40 meq Rosuvastatin Calcium (Crestor) 5 mg PO HS [facility] Last Admin: 04/19/17 21:52 Dose: 5 mg Zolpidem Tartrate (Ambien) 5 mg PO HS PRN PRN Reason: Insomnia Last Admin: 04/19/17 21:52 Dose: 5 mg - Labs Labs: 04/20/17 14:01 04/20/17 18:18 PT 20.2 SECONDS (9.7-12.2) H 04/12/17 08:09 INR 1.7 04/12/17 08:09 - Constitutional Appears: No Acute Distress - Head Exam Head Exam: ATRAUMATIC, NORMOCEPHALIC - Eye Exam Eye Exam: Normal appearance - ENT Exam ENT Exam: Normal Exam - Neck Exam Neck Exam: Normal Inspection - Respiratory Exam Respiratory Exam: Clear to Ausculation Bilateral, NORMAL BREATHING PATTERN - Cardiovascular Exam Cardiovascular Exam: REGULAR RHYTHM, RRR - GI/Abdominal Exam GI & Abdominal Exam: Soft, Normal Bowel Sounds Additional comments: colostomy present - Exam Additional comments: paraplegic,left knee dressing present Assessment and Plan (1) Cellulitis and abscess Status: Acute (2) Decubitus ulcer Status: Acute (3) History of anxiety Status: Acute (4) History of depression Status: Acute (5) Hypokalemia Status: Acute (6) Sacral ulcer Status: Deleted (7) History of DVT (deep vein thrombosis) Status: Chronic (8) Infection of right knee Status: Acute - Assessment and Plan (Free Text) Assessment: patient will need 6weeks treatment with Vancomycin and Merrem and wound care with proper nutrition and vitamins and wound vac care and may later need follow up with Dr Subramanian also
--- NOTE | 2017-04-21 13:47 | PCM.OP ---
Operative Report - Operative Report Date of Surgery/Procedure: 04/12/17 Time of Surgery/Procedure: 12:00 Surgeon: Jamil Subramanian MD Anesthesia/Sedation: General Pre-Operative Diagnosis: 1) Osteomyelitis of the left hip with ischial decubitus ulcer. 2) Abscess of the medial aspect of the right knee Post-Operative Diagnosis: 1) Incision and drainage left of the osteomyelitis of the left hip with pulsed irrigation and changed packing. 2) Incision and drainage of left knee intra-articular abscess. Indication for Surgery: Patient is a 66 year old male who now has two separate issues, osteomyelitis and decubitus ulcer of his left hip, along with a new abscess of the medial aspect of his right knee, which will be drained in the OR today. Patient has a history of paraplegia. Operative Findings: Osteomyelitis of hip Procedure/Operation Description: Patient was taken to the operating room and placed in the right lateral decubitus position. The left hip and medial right knee were then prepped and draped. Patient was first turned to the left hip, packing was removed and there was a fair amount of clot from the previous debridement. Until the clot had been completely debrided and removed, the wound was post irrigated and debrided of any necrotic tissue. The osteomyelitis of the hip was re-drained and a bone biopsy was taken. A __ transfer closure was performed peripherally. The suction portion wound was packed with wet saline gauze. Patient was then turned to the medial right knee, which was prepped and draped and the knee abscess was drained. It was noted to be very deep, and it was intra-articular upon wound exploration. It was irrigated with copious amounts of saline solution and packed with wet saline gauze after being cultured. Patient tolerated the procedure well and returned to the recovery room in stable conditions. Estimated Blood Loss: 60 cc. Complications: none Discharge & Condition: stable.
--- NOTE | 2017-04-28 12:31 | PCM.OP ---
This is dictating an operative summary on patient Manuel Lopez. #[id number] Patient Name: Dimitris Lopez Date of Operation : 04/07/2017 Operative Surgeon: Dr Subramanian.Kacie Blood Loss: 40 CC's postoperative, stable. Indication for surgery. Anesthesia: General Preoperative Diagnosis: Ejected Left Ischial Ulcer Postoperative Diagnosis: Same with osteomyelitis of the left hip. Procedure/s: Debridement of resected left ischial ulcer; Excision of an inflammatory mass; Repair of pelvic blood vessel and Partial tissue transfer closure Description of Operation: This is a 66 yo male paraplegic for many years. He has a left ischial ulcer which has been drained and is suspicious for an infected decubitis, brought to the operating room for debridement. Gross findings include an approximately 2-3 cm opening over the ischium. However, underneath this was a large approximately 7 by 8, ___7 meter area necrotic muscle overlying the femoral head. The wound had to be opened further and this tissue was a further debrided procedure. Patient taken to operative room placed in the right lateral decubitus position. No anesthesia was administered due to the fact he was a paraplegic. He also was opened approximately, distally exposing a large area of necrotic tissue. This was all sharply debrided using the bovie. A pelvic blood vessel bleeding was repaired. The osteomyelitis of the hip was drained and a bone biopsy was taken.The area was irrigated with copious amounts of saline solution. Post irrigated with saline and the partial tissue transfer closure was performed proximally. The wound was packed with saline gauze and surgicel. Patient tolerated procedure well and returned to ____ . Dictated by: Dr. Marilynn M.D. [facility] HOSPITALJoel
--- NOTE | 2017-04-29 10:21 | PCM.OP ---
Pre-op diagnosis: Osteomyelitis of left hip and osteomyelitis of right knee. Post-op diagnosis: Osteomyelitis of left hip and osteomyelitis of right knee. Procedure performed: Reincision & drainage of osteomyelitis of left hip with pulse irrigation and debridement, reincision & drainage osteomyelitis of the right knee with pulse irrigation and debridement, and partial closure. Surgeon: Marilynn Anesthesia: General Blood lost: 40 cc's Post-op condition: Stable Indications for surgery: This 66 year old paraplegic male with an extensive left ischial pressure ulcer which has developed into an osteomyelitis documented by bone biopsy. He is taken back to the OR for recleaning and debridement of the wound in preparation for a wound VAC to be placed at a later date. He also has a left knee intraarticular infection associated with an abscess which had been recently drained and this will be dealt with also. Procedure: Patient was taken to the operating room and placed in a left ____ position. Attention was first turned to the left hip.The wound was again aggressively debrided, and osteomyelitis was redrained and cultured. Bleeding was controlled using ____, blood vessel was again repaired. Partial tissue transfer closures were performed along the periphery in the central portion along packed with wet saline gauze. Attention was then turned to the left knee where the wound was pulse irrigated, debrided, and the osteomyelitis was redrained and cultured. The wound was packed open with wet saline gauze and dressed sterilely. Patient _ __ stable condition. [facility]
== END 2017-04-20 22:43 | DRG 478 ==
LOC: C.ER 18:09 → C.9E 19:56 → C.3T 20:29 → C.9E 20:35 → C.3T 04-18 18:30
PROVIDERS: ADMIT Hospitalist; ATTEND Hospitalist
PROC: 0QB30ZZ Excision of Left Pelvic Bone, Open Approach (ICD-10-PCS; 2017-04-07)
PROC: 0SBB0ZZ Excision of Left Hip Joint, Open Approach (ICD-10-PCS; 2017-04-07)
PROC: 0QB70ZX Excision of Left Upper Femur, Open Approach, Diagnostic (ICD-10-PCS; principal; 2017-04-12 12:45)
PROC: 0S9B0ZZ Drainage of Left Hip Joint, Open Approach (ICD-10-PCS; 2017-04-15)
PROC: 0S9C0ZZ Drainage of Right Knee Joint, Open Approach (ICD-10-PCS; 2017-04-15)
PROC: 02HV33Z Insertion of Infusion Device into Superior Vena Cava, Percutaneous Approach (ICD-10-PCS; 2017-04-16)
PROC: B518ZZA Fluoroscopy of Superior Vena Cava, Guidance (ICD-10-PCS; 2017-04-16)
DX: M46.28 Osteomyelitis of vertebra, sacral and sacrococcygeal region (principal); G82.20 Paraplegia, unspecified; L89.229 Pressure ulcer of left hip, unspecified stage; I82.501 Chronic embolism and thrombosis of unspecified deep veins of right lower extremity; L02.415 Cutaneous abscess of right lower limb; L02.416 Cutaneous abscess of left lower limb; L97.419 Non-pressure chronic ulcer of right heel and midfoot with unspecified severity; M86.8X0 Other osteomyelitis, multiple sites; B96.1 Klebsiella pneumoniae [K. pneumoniae] as the cause of diseases classified elsewhere; B95.61 Methicillin susceptible Staphylococcus aureus infection as the cause of diseases classified elsewhere; F41.9 Anxiety disorder, unspecified; F32.9 Major depressive disorder, single episode, unspecified; E87.6 Hypokalemia; R60.0 Localized edema; I73.9 Peripheral vascular disease, unspecified; Z85.528 Personal history of other malignant neoplasm of kidney; Z79.01 Long term (current) use of anticoagulants; Z90.5 Acquired absence of kidney; Z93.3 Colostomy status

== ENCOUNTER 2017-06-15 14:00 | Inpatient (IN) | payer MEDICARE ==
[2017-06-15 14:00] VITALS: BMI 27.2
--- NOTE | 2017-06-15 14:18 | C.PDOC ---
History Of Present Illness 66 y/o male, with history of sacral ulcer, sent by doctor for evaluation of sacral ulcer. Patient presents with wound vac in place. Denies any other complaints. Time Seen by Provider: 06/15/17 14:09 Chief Complaint (Nursing): Abnormal Skin Integrity History Per: Patient History/Exam Limitations: no limitations Current Symptoms Are (Timing): Still Present Recent travel outside of the [place]: No Past Medical History Reviewed: Historical Data, Nursing Documentation, Vital Signs Vital Signs: Last Vital Signs Temp 98.1 F 06/15/17 20:35 Pulse 84 06/15/17 20:35 Resp 16 06/15/17 20:35 BP 115/66 06/15/17 20:35 Pulse Ox 97 06/15/17 21:18 - Medical History PMH: Anemia, Anxiety, Back Problems (paralysis), Bipolar Disorder, Depression, Diverticulitis, Fibromyalgia, Gastritis, Gall Bladder Disease, Hypercholesterolemia, Kidney Stones (1980s), Malignancy (kidney ), Peripheral Edema, Chronic Kidney Disease Surgical History: Back Surgery - [facility] Procedures DRAINAGE OF LEFT HIP JOINT, OPEN APPROACH (04/07/17) DRAINAGE OF RIGHT KNEE JOINT, OPEN APPROACH (04/07/17) ENDOSC LG BOWEL THROUGH STOMA (10/03/14) EXCIS DEBRIDE OF WOUND, INFECT, OR BURN (12/01/14) EXCISION OF LEFT HIP JOINT, OPEN APPROACH (04/07/17) EXCISION OF LEFT KIDNEY, PERCUTANEOUS ENDOSCOPIC APPROACH (06/01/16) EXCISION OF LEFT PELVIC BONE, OPEN APPROACH (04/07/17) EXCISION OF LEFT UPPER FEMUR, OPEN APPROACH, DIAGNOSTIC (04/07/17) EXCISION OF RIGHT LOWER LEG SKIN, EXTERNAL APPROACH (06/20/15) FLUOROSCOPY OF L SUBCLAV VEIN USING OTH CONTRAST, GUIDANCE (06/20/15) FLUOROSCOPY OF SUPERIOR VENA CAVA, GUIDANCE (04/07/17) INDIVID PSYCHOTHERAP NEC (02/28/14) INSERT INFUSION DEV IN L EXT JUGULAR VEIN, PERC (06/20/15) INSERTION OF INFUSION DEV INTO L SUBCLAV VEIN, OPEN APPROACH (06/20/15) INSERTION OF INFUSION DEV INTO SUP VENA CAVA, PERC APPROACH (04/07/17) INTRODUCE OF OTH ANTI-INFECT INTO PERIPH VEIN, PERC APPROACH (06/20/15) INTRODUCTION OF SERUM/TOX/VACCINE INTO SUBCU, PERC APPROACH (06/20/15) OTHER GROUP THERAPY (02/28/14) OTHER SKIN & SUBQ I D (12/01/14) RADICAL EXCIS SKIN LES (12/01/14) ROBOTIC ASSISTED PROCEDURE OF TRUNK, PERC ENDO APPROACH (06/01/16) SOFT TISSUE INCISION NEC (12/01/14) TRANSFER RIGHT LOWER LEG SKIN, EXTERNAL APPROACH (06/20/15) Family History: States: Unknown Family Hx - Social History Hx Tobacco Use: No Hx Alcohol Use: No Hx Substance Use: No - Immunization History Hx Tetanus Toxoid Vaccination: Yes Hx Influenza Vaccination: Yes Hx Pneumococcal Vaccination: No Review Of Systems Except As Marked, All Systems Reviewed And Found Negative. Constitutional: Negative for: Fever, Chills Cardiovascular: Negative for: Chest Pain Respiratory: Negative for: Cough, Shortness of Breath, Wheezing Gastrointestinal: Negative for: Nausea, Vomiting, Abdominal Pain Skin: Positive for: Lesions (sacral ulcer). Negative for: Rash Neurological: Negative for: Dizziness Physical Exam - Physical Exam Appears: Non-toxic, No Acute Distress Skin: Warm, Dry, Other (sacral ulcer with wound vac in place. ) Head: Atraumatic, Normacephalic Oral Mucosa: Moist Chest: Symmetrical Cardiovascular: Rhythm Regular, No Murmur Respiratory: Normal Breath Sounds, No Rales, No Rhonchi, No Wheezing Gastrointestinal/Abdominal: Soft, No Tenderness, No Guarding, No Rebound Extremity: Normal ROM, Capillary Refill (< 2 sec.) Extremity: Bilateral: Normal Color And Temperature Neurological/Psych: Oriented x3, Normal Speech, Normal Cognition ED Course And Treatment - Laboratory Results Result Diagrams: 06/15/17 14:38 06/15/17 14:38 O2 Sat by Pulse Oximetry: 97 (RA) Pulse Ox Interpretation: Normal Medical Decision Making Medical Decision Making: discussed with dr hunt, requests admission. possible or, dr dash accepts Disposition - Disposition Disposition: HOSPITALIZED Disposition Time: 07:00 Condition: STABLE - Clinical Impression Clinical Impression: Sacral ulcer - Scribe Statement The provider has reviewed the documentation as recorded by the Scribwendy Salinas All medical record entries made by the Scribe were at my direction and personally dictated by me. I have reviewed the chart and agree that the record accurately reflects my personal performance of the history, physical exam, medical decision making, and the department course for this patient. I have also personally directed, reviewed, and agree with the discharge instructions and disposition. Decision To Admit - Pt Status Changed To: Hospital Disposition Of: Inpatient - Admit Certification Admit to Inpatient:: After my assessment, the patient will require hospitalization for at least two midnights. This is because of the severity of symptoms shown, intensity of services needed, and/or the medical risk in this patient being treated as an outpatient. - InPatient: Physician Admission Certification: I certify that this patient requires 2 or more midnights of care for the following reason:: pt wiht infected wound - . Bed Request Type: Regular Admitting Physician: Amalia Orellana Patient Diagnosis: Sacral ulcer
[2017-06-15 14:41] LABS: BASO # 0.1 K/uL (0.0-0.2); BASO % 1.1 % (0.0-2.0); EOS # 0.5 K/uL (0.0-0.7); EOS % 6.4 % (0.0-4.0); HEMATOCRIT 33.9 % (35.0-51.0); LYMPH # 2.6 K/uL (1.0-4.3); MEAN CELL VOLUME 78.5 fL (80.0-94.0); MEAN CORPUSCULAR HEMOGLOBIN 25.7 pg (27.0-31.0); MEAN CORPUSCULAR HGB CONC 32.7 g/dL (33.0-37.0); MEAN PLATELET VOLUME 8.3 fL (7.2-11.7); MONO # 0.7 K/uL (0.0-0.8); MONO % 9.2 % (0.0-10.0); RED CELL DISTRIBUTION WIDTH 16.7 % (11.5-14.5); WHITE BLOOD COUNT 7.5 K/uL (4.8-10.8)
[2017-06-15 14:56] LABS: INR 1.3
[2017-06-15 15:04] LABS: ALB/GLOB RATIO 1.3 (1.0-2.1); ALKALINE PHOSPHATASE 52 U/L (38-126); ALT/SGPT 26 U/L (21-72); AST/SGOT 15 U/L (17-59); BILIRUBIN,TOTAL 0.3 mg/dL (0.2-1.3); BLOOD UREA NITROGEN 21 mg/dL (9-20); CALCIUM 9.1 mg/dl (8.6-10.4); CARBON DIOXIDE 24 mmol/L (22-30); CHLORIDE 103 mmol/L (98-107); GFR AFRICAN-AMERICAN > 60; GLUCOSE,RANDOM 111 mg/dL (75-110); POTASSIUM 3.9 mmol/L (3.6-5.2); SODIUM 140 mmol/L (132-148); TOTAL PROTEIN 6.3 g/dL (6.3-8.3)
--- NOTE | 2017-06-15 15:43 | RAD ---
HISTORY: picc COMPARISON: 12/01/2016 FINDINGS: LUNGS: No active pulmonary disease. PLEURA: No significant pleural effusion identified, no pneumothorax apparent. CARDIOVASCULAR: Normal. OSSEOUS STRUCTURES: No significant abnormalities. VISUALIZED UPPER ABDOMEN: Normal. OTHER FINDINGS: Right-sided PICC line terminates at the junction of the SVC and right atrium. Port-A-Cath in SVC IMPRESSION: No active disease.
[2017-06-15] MEDS ORDERED: Alum-Mag Hydrox-Simethicone Susp (30 mL) PO PRN (19:24)
[2017-06-15] MEDS ORDERED: Home Med 1 UNIT (Zolpidem [Ambien] 10 MG) PO PRN (19:24)
[2017-06-15] MEDS: Aztreonam 1 GM in Sodium Chloride 0.9% 100 ML IVPB SCH (21:18)
[2017-06-15 22:36] VITALS: RESP 20
[2017-06-16] MEDS: Aztreonam 1 GM in Sodium Chloride 0.9% 100 ML IVPB SCH ×3 (03:32→19:45)
[2017-06-16] MEDS ORDERED: VANCOMYCIN IV SCH (10:00)
[2017-06-16] MEDS: Potassium Chloride 20 mEq ER Tab PO SCH (11:06)
[2017-06-16] MEDS: Multiple Vitamins Tab PO SCH (11:07)
[2017-06-16] MEDS: buPROPion 150 mg/24 Hours XL Tab PO SCH (11:07)
[2017-06-16] MEDS: Vancomycin 750mg/D5W 150 ml 150 ML IVPB SCH ×2 (11:13→21:53)
--- NOTE | 2017-06-16 13:17 | CP.PCM.HP ---
History of Present Illness - History of Present Illness History of Present Illness: Patient is a 66 year old male known o me. He was recently admitted to [facility] with wound infection and then sent to rehab. Pt was sent back due to wound infection and the need to get ID. Pt has been followed by and Dr. Yates. Pt reports no fever, no chest pain. Pt reports being incontinence of urine and is requesting a catheter to be inserted as he is concerned the wound will be soiled. PMH: Paraplegia since 1996 Hypercholesterolemia Major depressin Anemia Pre diabetes PVD Kidney ca , had nephrectomy PSH nephrectomy social no smokin lives with has been in rehab before this admission ALL; NKDA Meds ambien 10 mg po qd celexa 40mg po qd Furosemide 40mg po qd xarelto 10 mg po qd Gabapentin 300mg po tid Kdur 20 meq po daily Present on Admission - Present on Admission Any Indicators Present on Admission: No History of DVT/PE: No History of Uncontrolled Diabetes: No Review of Systems - Constitutional Constitutional: absent: Fever, Night Sweats - EENT Eyes: absent: Blind Spots - Cardiovascular Cardiovascular: absent: Chest Pain with Activity, Diaphoresis, Dyspnea on Exertion - Respiratory Respiratory: absent: Cough, Chest Congestion - Genitourinary Genitourinary: Urinary Incontinence - Neurological Neurological: absent: Headaches Past Patient History - Infectious Disease Hx of Infectious Diseases: None (recently treated for infected wound,) - Tetanus Immunizations Tetanus Immunization: Unknown - Past Medical History & Family History Past Medical History?: Yes - Past Social History Smoking Status: Unknown If Ever Smoked - CARDIAC Hx Hypercholesterolemia: Yes Hx Peripheral Edema: Yes - PULMONARY Hx Respiratory Disorders: No Hx Tuberculosis: No - HEENT Hx HEENT Problems: No Other/Comment: HX: LINDSEY'S PALSY RIGHT SIDE - RENAL Hx Chronic Kidney Disease: Yes Hx Kidney Stones: Yes () - ENDOCRINE/METABOLIC Hx Diabetes Mellitus Type 2: Yes - HEMATOLOGICAL/ONCOLOGICAL Hx Anemia: Yes - INTEGUMENTARY Hx Dermatological Problems: Yes Hx Cellulitis: Yes Other/Comment: . BOTH LEGS WITH EDEMAULCER ON RIGHT LOWER LEG SKIN GRAFT WAS DONE. SACRAL ULCER APPROX 4 CM X4 CM UNSTAGEABLE - MUSCULOSKELETAL/RHEUMATOLOGICAL Hx Falls: No - GASTROINTESTINAL Hx Diverticulitis: Yes Hx Gall Bladder Disease: Yes Hx Gastritis: Yes - GENITOURINARY/GYNECOLOGICAL Hx Sexually Transmitted Disorders: No - PSYCHIATRIC Hx Substance Use: No - SURGICAL HISTORY Hx Orthopedic Surgery: Yes (B/L LE sx) - ANESTHESIA Hx Anesthesia: Yes Hx Anesthesia Reactions: No Hx Malignant Hyperthermia: No Meds Allergies/Adverse Reactions: Allergies Allergy/AdvReac Type Severity Reaction Status Date / Time No Known Allergies Allergy Verified 06/15/17 14:22 Physical Exam - Constitutional Appears: Well, Non-toxic, No Acute Distress - Head Exam Head Exam: ATRAUMATIC, NORMAL INSPECTION, NORMOCEPHALIC - Eye Exam Eye Exam: EOMI, Normal appearance. absent: Nystagmus, Periorbital swelling - ENT Exam ENT Exam: Mucous Membranes Dry - Respiratory Exam Respiratory Exam: Clear to Auscultation Bilateral. absent: Accessory Muscle Use , Chest Wall Tenderness - Cardiovascular Exam Cardiovascular Exam: REGULAR RHYTHM, RRR. absent: JVD, Rubs, Systolic Murmur - GI/Abdominal Exam GI & Abdominal Exam: Normal Bowel Sounds. absent: Guarding, Mass, Organomegaly , Rebound - Rectal Exam Rectal Exam: Deferred - Skin Skin Exam: Normal Color (Pt has left hip wound, dressing intact, going to OR for I and D by Dr. Subramanian) Results - Vital Signs Recent Vital Signs: Last Vital Signs Temp 98 F 06/16/17 07:53 Pulse 74 06/16/17 07:53 Resp 20 06/16/17 07:53 BP 125/72 06/16/17 11:06 Pulse Ox 98 06/16/17 07:53 - Labs Result Diagrams: 06/15/17 14:38 06/15/17 14:38 Labs: Laboratory Results - last 24 hr 06/15/17 19:50 Vancomycin Trough 9.9 Assessment & Plan - Assessment and Plan (Free Text) Assessment: 1. Wound infection: cont abx per ID will follow renal fnx and vaco levels going to OR 2. bp is stabel 3 sp Neprectomy will keep an eye on creat and vanco 4. dvt and gi prophlaxis 5. incontince wilkinson to avoid urine soiling the wound
--- NOTE | 2017-06-16 13:49 | CP.PCM.PN ---
Subjective - Date & Time of Evaluation Date of Evaluation: 06/16/17 Time of Evaluation: 13:46 - Subjective Subjective: Pt reports feeling well he had no problems states he needs wilkinson as he is incontinent of urine Pt is being picked up to go to OR Objective - Vital Signs/Intake and Output Vital Signs (last 24 hours): Temp Pulse Resp BP Pulse Ox 98 F 74 20 125/72 98 06/16/17 07:53 06/16/17 07:53 06/16/17 07:53 06/16/17 11:06 06/16/17 07:53 Intake and Output: 06/16/17 06/16/17 06:59 18:59 Intake Total 280 Balance 280 - Medications Medications: Current Medications Acetaminophen (Tylenol 325mg Tab) 2 mg PO Q8H PRN PRN Reason: Pain, Mild (1-3) Al Hydrox/Mg Hydrox/Simethicone (Maalox Plus 30 Ml) 30 ml PO Q4 PRN PRN Reason: Heartburn Bupropion HCl (Wellbutrin Xl) 300 mg PO DAILY [facility] Last Admin: 06/16/17 11:07 Dose: 300 mg Citalopram Hydrobromide (Celexa) 20 mg PO DAILY [facility] Last Admin: 06/16/17 11:07 Dose: 20 mg Furosemide (Lasix) 40 mg PO DAILY [facility] Last Admin: 06/16/17 11:06 Dose: 40 mg Vancomycin HCl (Vancocin 750mg/D5w 150 Ml) 150 mls @ 100 mls/hr IVPB Q12H [facility] Stop: 06/21/17 10:01 Last Admin: 06/16/17 11:13 Dose: 100 mls/hr Aztreonam 1 gm/ Sodium (Chloride) 100 mls @ 200 mls/hr IVPB Q8H [facility] Last Admin: 06/16/17 12:40 Dose: 200 mls/hr Multivitamins (Hexavitamin) 1 tab PO DAILY [facility] Last Admin: 06/16/17 11:07 Dose: 1 tab Pneumococcal Polyvalent Vaccine (Pneumovax 23 Vaccine) 0.5 ml IM .ONCE ONE Stop: 06/18/17 10:01 Potassium Chloride (K-Dur 20 Meq Er Tab) 40 meq PO DAILY [facility] Last Admin: 06/16/17 11:06 Dose: 40 meq Rivaroxaban (Xarelto) 10 mg PO DAILY [facility] Last Admin: 06/16/17 11:07 Dose: 10 mg Rosuvastatin Calcium (Crestor) 5 mg PO HS [facility] Last Admin: 06/15/17 21:58 Dose: 5 mg Zolpidem Tartrate (Ambien) 5 mg PO HS PRN PRN Reason: Insomnia Last Admin: 06/15/17 21:58 Dose: 5 mg - Labs Labs: PT 14.4 SECONDS (9.7-12.2) H 06/15/17 14:38 INR 1.3 06/15/17 14:38 APTT 32 SECONDS (21-34) 06/15/17 14:38 - Constitutional Appears: Well, Non-toxic - Head Exam Head Exam: ATRAUMATIC - Eye Exam Eye Exam: EOMI - Respiratory Exam Respiratory Exam: Clear to Ausculation Bilateral - Cardiovascular Exam Cardiovascular Exam: RRR - Extremities Exam Extremities Exam: Pedal Edema Assessment and Plan - Assessment and Plan (Free Text) Plan: 1. ulcer on left hip going to OR for debreement cont anbx appreciate ID input 2. added minh 3. cont current meds 4. follow creat and labs
--- NOTE | 2017-06-16 18:46 | CP.PCM.CON ---
History of Present Illness - History of Present Illness History of Present Illness: dictated Past Patient History - Infectious Disease Hx of Infectious Diseases: None (recently treated for infected wound,) - Tetanus Immunizations Tetanus Immunization: Unknown - Past Medical History & Family History Past Medical History?: Yes - Past Social History Smoking Status: Unknown If Ever Smoked - CARDIAC Hx Hypercholesterolemia: Yes Hx Hypertension: Yes - PULMONARY Hx Respiratory Disorders: No Hx Tuberculosis: No - HEENT Hx HEENT Problems: No Other/Comment: HX: LINDSEY'S PALSY RIGHT SIDE - RENAL Hx Chronic Kidney Disease: Yes Hx Kidney Stones: Yes () - ENDOCRINE/METABOLIC Hx Diabetes Mellitus Type 2: Yes - HEMATOLOGICAL/ONCOLOGICAL Hx Anemia: Yes - INTEGUMENTARY Hx Dermatological Problems: Yes Hx Cellulitis: Yes Other/Comment: . BOTH LEGS WITH EDEMAULCER ON RIGHT LOWER LEG SKIN GRAFT WAS DONE. SACRAL ULCER APPROX 4 CM X4 CM UNSTAGEABLE - MUSCULOSKELETAL/RHEUMATOLOGICAL Hx Arthritis: Yes (BACK W/ HX OF SURGERY) - GASTROINTESTINAL Hx Diverticulitis: Yes Hx Gall Bladder Disease: Yes Hx Gastritis: Yes - GENITOURINARY/GYNECOLOGICAL Hx Sexually Transmitted Disorders: No - PSYCHIATRIC Hx Substance Use: No - SURGICAL HISTORY Hx Orthopedic Surgery: Yes (B/L LE sx) - ANESTHESIA Hx Anesthesia: Yes Hx Anesthesia Reactions: No Hx Malignant Hyperthermia: No Meds Allergies/Adverse Reactions: Allergies Allergy/AdvReac Type Severity Reaction Status Date / Time No Known Allergies Allergy Verified 06/15/17 14:22 - Medications Medications: Current Medications Acetaminophen (Tylenol 325mg Tab) 650 mg PO Q8H PRN PRN Reason: Pain, Mild (1-3) Al Hydrox/Mg Hydrox/Simethicone (Maalox Plus 30 Ml) 30 ml PO Q4 PRN PRN Reason: Heartburn Bupropion HCl (Wellbutrin Xl) 300 mg PO DAILY [facility] Last Admin: 06/16/17 11:07 Dose: 300 mg Citalopram Hydrobromide (Celexa) 20 mg PO DAILY [facility] Last Admin: 06/16/17 11:07 Dose: 20 mg Furosemide (Lasix) 40 mg PO DAILY [facility] Last Admin: 06/16/17 11:06 Dose: 40 mg Vancomycin HCl (Vancocin 750mg/D5w 150 Ml) 150 mls @ 100 mls/hr IVPB Q12H [facility] Stop: 06/21/17 10:01 Last Admin: 06/16/17 11:13 Dose: 100 mls/hr Aztreonam 1 gm/ Sodium (Chloride) 100 mls @ 200 mls/hr IVPB Q8H [facility] Last Admin: 06/16/17 12:40 Dose: 200 mls/hr Multivitamins (Hexavitamin) 1 tab PO DAILY [facility] Last Admin: 06/16/17 11:07 Dose: 1 tab Pneumococcal Polyvalent Vaccine (Pneumovax 23 Vaccine) 0.5 ml IM .ONCE ONE Stop: 06/18/17 10:01 Potassium Chloride (K-Dur 20 Meq Er Tab) 40 meq PO DAILY [facility] Last Admin: 06/16/17 11:06 Dose: 40 meq Rivaroxaban (Xarelto) 10 mg PO DAILY [facility] Last Admin: 06/16/17 11:07 Dose: 10 mg Rosuvastatin Calcium (Crestor) 5 mg PO HS [facility] Last Admin: 06/15/17 21:58 Dose: 5 mg Zolpidem Tartrate (Ambien) 5 mg PO HS PRN PRN Reason: Insomnia Last Admin: 06/15/17 21:58 Dose: 5 mg Results - Vital Signs Recent Vital Signs: Last Vital Signs Temp 98.3 F 06/16/17 16:00 Pulse 93 H 06/16/17 16:40 Resp 20 06/16/17 16:00 BP 131/80 06/16/17 16:40 Pulse Ox 99 06/16/17 16:40 - Labs Result Diagrams: 06/15/17 14:38 06/15/17 14:38 Labs: Laboratory Results - last 24 hr 06/15/17 19:50 Vancomycin Trough 9.9
--- NOTE | 2017-06-16 18:52 | CP.PCM.CON ---
History of Present Illness - History of Present Illness History of Present Illness: came to see the patient but he went to OR will follow tomorrow nd to continue present antibiotics for now Past Patient History - Infectious Disease Hx of Infectious Diseases: None (recently treated for infected wound,) - Tetanus Immunizations Tetanus Immunization: Unknown - Past Medical History & Family History Past Medical History?: Yes - Past Social History Smoking Status: Unknown If Ever Smoked - CARDIAC Hx Hypercholesterolemia: Yes Hx Hypertension: Yes - PULMONARY Hx Respiratory Disorders: No Hx Tuberculosis: No - HEENT Hx HEENT Problems: No Other/Comment: HX: LINDSEY'S PALSY RIGHT SIDE - RENAL Hx Chronic Kidney Disease: Yes Hx Kidney Stones: Yes () - ENDOCRINE/METABOLIC Hx Diabetes Mellitus Type 2: Yes - HEMATOLOGICAL/ONCOLOGICAL Hx Anemia: Yes - INTEGUMENTARY Hx Dermatological Problems: Yes Hx Cellulitis: Yes Other/Comment: . BOTH LEGS WITH EDEMAULCER ON RIGHT LOWER LEG SKIN GRAFT WAS DONE. SACRAL ULCER APPROX 4 CM X4 CM UNSTAGEABLE - MUSCULOSKELETAL/RHEUMATOLOGICAL Hx Arthritis: Yes (BACK W/ HX OF SURGERY) - GASTROINTESTINAL Hx Diverticulitis: Yes Hx Gall Bladder Disease: Yes Hx Gastritis: Yes - GENITOURINARY/GYNECOLOGICAL Hx Sexually Transmitted Disorders: No - PSYCHIATRIC Hx Substance Use: No - SURGICAL HISTORY Hx Orthopedic Surgery: Yes (B/L LE sx) - ANESTHESIA Hx Anesthesia: Yes Hx Anesthesia Reactions: No Hx Malignant Hyperthermia: No Meds Allergies/Adverse Reactions: Allergies Allergy/AdvReac Type Severity Reaction Status Date / Time No Known Allergies Allergy Verified 06/15/17 14:22 - Medications Medications: Current Medications Acetaminophen (Tylenol 325mg Tab) 650 mg PO Q8H PRN PRN Reason: Pain, Mild (1-3) Al Hydrox/Mg Hydrox/Simethicone (Maalox Plus 30 Ml) 30 ml PO Q4 PRN PRN Reason: Heartburn Bupropion HCl (Wellbutrin Xl) 300 mg PO DAILY [facility] Last Admin: 06/16/17 11:07 Dose: 300 mg Citalopram Hydrobromide (Celexa) 20 mg PO DAILY [facility] Last Admin: 06/16/17 11:07 Dose: 20 mg Furosemide (Lasix) 40 mg PO DAILY [facility] Last Admin: 06/16/17 11:06 Dose: 40 mg Vancomycin HCl (Vancocin 750mg/D5w 150 Ml) 150 mls @ 100 mls/hr IVPB Q12H [facility] Stop: 06/21/17 10:01 Last Admin: 06/16/17 11:13 Dose: 100 mls/hr Aztreonam 1 gm/ Sodium (Chloride) 100 mls @ 200 mls/hr IVPB Q8H [facility] Last Admin: 06/16/17 12:40 Dose: 200 mls/hr Multivitamins (Hexavitamin) 1 tab PO DAILY [facility] Last Admin: 06/16/17 11:07 Dose: 1 tab Pneumococcal Polyvalent Vaccine (Pneumovax 23 Vaccine) 0.5 ml IM .ONCE ONE Stop: 06/18/17 10:01 Potassium Chloride (K-Dur 20 Meq Er Tab) 40 meq PO DAILY [facility] Last Admin: 06/16/17 11:06 Dose: 40 meq Rivaroxaban (Xarelto) 10 mg PO DAILY [facility] Last Admin: 06/16/17 11:07 Dose: 10 mg Rosuvastatin Calcium (Crestor) 5 mg PO HS [facility] Last Admin: 06/15/17 21:58 Dose: 5 mg Zolpidem Tartrate (Ambien) 5 mg PO HS PRN PRN Reason: Insomnia Last Admin: 06/15/17 21:58 Dose: 5 mg Results - Vital Signs Recent Vital Signs: Last Vital Signs Temp 98.3 F 06/16/17 16:00 Pulse 93 H 06/16/17 16:40 Resp 20 06/16/17 16:00 BP 131/80 06/16/17 16:40 Pulse Ox 99 06/16/17 16:40 - Labs Result Diagrams: 06/15/17 14:38 06/15/17 14:38 Labs: Laboratory Results - last 24 hr 06/15/17 19:50 Vancomycin Trough 9.9
--- NOTE | 2017-06-16 19:49 | OP ---
PROCEDURE DATE: 06/15/2017 PROCEDURE: At the bedside in the emergency room, sacral ulcer was suspected and noted to contain osteomyelitis. A rongeur then was produced, and using the rongeur, the sacral osteomyelitis was drained and the wound was re-packed with the saline gauze. The patient tolerated the procedure well. Jamil Subramanian MD
--- NOTE | 2017-06-16 20:02 | OP ---
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 PROCEDURES PERFORMED: Debridement of sacral ulcer with drainage of sacral osteomyelitis, excision of a sacral polyp, bone biopsy, repair of parasacral blood vessel. SURGEON: Jamil Subramanian MD TYPE OF ANESTHESIA: None. ESTIMATED BLOOD LOSS: 50 mL. POSTOPERATIVE CONDITION: Stable. INDICATIONS FOR SURGERY: This is a 66-year-old paraplegic male who has recurrent osteomyelitis of a sacral ulcer, now taken back to the operating room. DESCRIPTION OF PROCEDURE: The patient was taken to the operating room, and due to paraplegia, no anesthesia was needed. He was placed in the right lateral decubitus position. The wound was aggressively debrided and he sacral osteomyelitis was drained and bone biopsy was sent. Distal cultures were also sent. Sacral poly was noted and also biopsied. Parasacral blood vessel was repaired; otherwise, remaining bleeding was controlled with the Bovie. The wound was then pulse irrigated with saline and Kantrex solution, packed open with wet saline gauze. The patient tolerated the procedure well, returned to recovery room in stable condition. Jamil Subramanian MD
[2017-06-17] MEDS: Aztreonam 1 GM in Sodium Chloride 0.9% 100 ML IVPB SCH ×3 (04:45→20:30)
[2017-06-17 07:16] LABS: BASO % 0.6 % (0.0-2.0); EOS # 0.6 K/uL (0.0-0.7); HEMATOCRIT 36.1 % (35.0-51.0); LYMPH # 3.1 K/uL (1.0-4.3); MEAN CELL VOLUME 77.9 fL (80.0-94.0); MEAN CORPUSCULAR HEMOGLOBIN 25.8 pg (27.0-31.0); MEAN CORPUSCULAR HGB CONC 33.1 g/dL (33.0-37.0); MONO # 0.7 K/uL (0.0-0.8); MONO % 8.5 % (0.0-10.0); NRBC % 0.1 % (0.0-2.0); RED CELL DISTRIBUTION WIDTH 16.5 % (11.5-14.5); WHITE BLOOD COUNT 8.6 K/uL (4.8-10.8)
[2017-06-17 07:35] LABS: BLOOD UREA NITROGEN 15 mg/dL (9-20); CALCIUM 9.3 mg/dl (8.6-10.4); CARBON DIOXIDE 27 mmol/L (22-30); CHLORIDE 99 mmol/L (98-107); GFR AFRICAN-AMERICAN > 60; GLUCOSE,RANDOM 67 mg/dL (75-110); POTASSIUM 3.7 mmol/L (3.6-5.2); SODIUM 138 mmol/L (132-148)
[2017-06-17] MEDS: Multiple Vitamins Tab PO SCH ×2 (09:56→14:37)
[2017-06-17] MEDS: Potassium Chloride 20 mEq ER Tab PO SCH ×2 (09:56→14:37)
[2017-06-17] MEDS: buPROPion 150 mg/24 Hours XL Tab PO SCH ×2 (09:57→14:36)
[2017-06-17] MEDS: Vancomycin 750mg/D5W 150 ml 150 ML IVPB SCH ×2 (10:20→22:06)
--- NOTE | 2017-06-17 15:47 | CP.PCM.PN ---
Subjective - Date & Time of Evaluation Date of Evaluation: 06/17/17 Time of Evaluation: 15:00 - Subjective Subjective: Pt reports feeling well no pain wilkinson placed yesterday sp I and D by Dr. Subramanian times 2 left sacral decubiti ulcer Objective - Vital Signs/Intake and Output Vital Signs (last 24 hours): Temp Pulse Resp BP Pulse Ox 97.5 F L 82 20 112/60 99 06/17/17 07:50 06/17/17 07:50 06/17/17 07:50 06/17/17 14:35 06/17/17 07:50 Intake and Output: 06/17/17 06/17/17 06:59 18:59 Intake Total 300 Output Total 1600 400 Balance -1300 -400 - Medications Medications: Current Medications Acetaminophen (Tylenol 325mg Tab) 650 mg PO Q8H PRN PRN Reason: Pain, Mild (1-3) Al Hydrox/Mg Hydrox/Simethicone (Maalox Plus 30 Ml) 30 ml PO Q4 PRN PRN Reason: Heartburn Bupropion HCl (Wellbutrin Xl) 300 mg PO DAILY [facility] Last Admin: 06/17/17 14:36 Dose: 300 mg Citalopram Hydrobromide (Celexa) 20 mg PO DAILY [facility] Last Admin: 06/17/17 14:36 Dose: 20 mg Furosemide (Lasix) 40 mg PO DAILY [facility] Last Admin: 06/17/17 14:35 Dose: Not Given Vancomycin HCl (Vancocin 750mg/D5w 150 Ml) 150 mls @ 100 mls/hr IVPB Q12H [facility] Stop: 06/21/17 10:01 Last Admin: 06/17/17 10:20 Dose: 100 mls/hr Aztreonam 1 gm/ Sodium (Chloride) 100 mls @ 200 mls/hr IVPB Q8H [facility] Last Admin: 06/17/17 11:57 Dose: 200 mls/hr Multivitamins (Hexavitamin) 1 tab PO DAILY [facility] Last Admin: 06/17/17 14:37 Dose: 1 tab Pneumococcal Polyvalent Vaccine (Pneumovax 23 Vaccine) 0.5 ml IM .ONCE ONE Stop: 06/18/17 10:01 Potassium Chloride (K-Dur 20 Meq Er Tab) 40 meq PO DAILY [facility] Last Admin: 06/17/17 14:37 Dose: Not Given Rivaroxaban (Xarelto) 10 mg PO DAILY [facility] Last Admin: 06/17/17 14:36 Dose: 10 mg Rosuvastatin Calcium (Crestor) 5 mg PO HS [facility] Last Admin: 06/16/17 21:53 Dose: 5 mg Zolpidem Tartrate (Ambien) 5 mg PO HS PRN PRN Reason: Insomnia Last Admin: 06/16/17 21:53 Dose: 5 mg - Labs Labs: 06/17/17 07:05 06/17/17 07:05 PT 14.4 SECONDS (9.7-12.2) H 06/15/17 14:38 INR 1.3 06/15/17 14:38 APTT 32 SECONDS (21-34) 06/15/17 14:38 - Constitutional Appears: Well, Non-toxic, No Acute Distress - Head Exam Head Exam: ATRAUMATIC - Eye Exam Eye Exam: EOMI - ENT Exam ENT Exam: Mucous Membranes Dry, Mucous Membranes Moist - Respiratory Exam Respiratory Exam: Clear to Ausculation Bilateral, NORMAL BREATHING PATTERN ( left decubiti ulcer with wound vac in place) Assessment and Plan - Assessment and Plan (Free Text) Assessment: Decubi ulcer continue wound vac continue antibiotics per ID Dr. Subramanian called me this AM and informed me patient has osteo as per his findings plan is to transfer to rehab tomorrow for continuation of IV antibiotics will make arrangements dc minh tomorrow
--- NOTE | 2017-06-17 23:58 | OP ---
PROCEDURE DATE: 06/17/2017 PREOPERATIVE DIAGNOSIS: Infected sacral ulcer with sacral osteomyelitis. POSTOPERATIVE DIAGNOSIS: Infected sacral ulcer with sacral osteomyelitis. PROCEDURES PERFORMED: Re-drainage of sacral osteomyelitis, debridement of infected sacral ulcer, pulse irrigation, placement of a wound VAC. SURGEON: Jamil Subramanian MD TYPE OF ANESTHESIA: General. ESTIMATED BLOOD LOSS: 30 mL POSTOPERATIVE CONDITION: Stable. INDICATIONS FOR SURGERY: This is a 66-year-old male, paraplegic with a stage IV sacral ulcer developed osteomyelitis for drainage and is taken back today for re-drainage and placement of a wound VAC. No anesthesia was needed due to his paraplegia. DESCRIPTION OF PROCEDURE: The patient was taken to the operating room, placed in the right lateral decubitus position. The sacral area was prepped and draped and using a rongeur, the bone biopsies were taken and the osteomyelitis was re-drained to culture. Bleeding was controlled using the Bovie. The wound was then further debrided and a larger parasacral blood vessel was repaired. The wound was pulse irrigated with saline solution and then packed with saline gauze. The patient tolerated the procedure well, returned to recovery room in stable condition. Jamil Subramanian MD
--- NOTE | 2017-06-18 00:47 | CON ---
HISTORY OF PRESENT ILLNESS: This patient is a 66-year-old male, he is paraplegic since 1996. He was admitted here at [facility] in April, he had a right knee infection and had a sacral decubitus, which was infected, underwent multiple debridements and was placed on wound VAC and was on IV antibiotics and sent to [place]. In the [place], I was called to follow him up. He received vancomycin IV and Cipro p.o. as he was not allowed two antibiotics according to the insurance and the patient was followed. The patient's vancomycin levels were followed. Last cultures came out positive for pseudomonas, which was Cipro sensitive and he has received seven weeks of IV antibiotics and he needed to be evaluated by Dr. Subramanian and was seen by him and sent here because he needed debridement. He underwent debridement yesterday and he underwent debridement today. He also has PICC line, which he came with and he is able to communicate however and denies any other problems except this. PAST MEDICAL HISTORY: Significant for paraplegia since 1996. He has also kidney cancer, underwent nephrectomy, suffers from depression, anemia. He is prediabetic, peripheral vascular disease, hypercholesterolemia, and surgical history of nephrectomy. SOCIAL HISTORY: Negative for smoking or drinking. He at this time came from [place], but he lives with his . ALLERGIES: HE IS NOT ALLERGIC TO ANY MEDICINE. He has already received seven weeks of IV antibiotics with vancomycin and Cipro. MEDICATIONS: Here, he is on Lasix, clonazepam, Xarelto, potassium, Crestor, Celexa, and Prevacid. He is also getting vancomycin and he was put on Azactam, and I have called [place] to send me the report of the last culture, as there is no new culture done here and the patient did have osteomyelitis of the sacral bone and has received antibiotics. PRESENT MEDICAL HISTORY: He has history of DVT in the past and paraplegic and he was not having any fever, no night sweats, no ear, nose, throat problems. No cough, no chest pain, no shortness of breath. He is incontinent of urine, and he is paraplegic and was being treated with IV antibiotics at this time and his medications now, he is here on vancomycin 750 q. 12 hours and Azactam 1 g q. 8 hours. His medications were on hold today because he went for the surgery. PHYSICAL EXAMINATION: VITAL SIGNS: I find his temperature is 97.5, pulse 82, blood pressure 122/69, respirations are 20. GENERAL: He is trying to eat now, it is 2:24. HEENT: Head is atraumatic and normocephalic. Pupils are reacting to light. No pallor present. Tongue is moist. NECK: Supple. JVP is flat. LUNGS: Clear. No crackles or rales present. HEART: S1 and S2 is regular. CHEST: Chest wall is symmetrical. ABDOMEN: Soft and he has a colostomy present. EXTREMITIES: Shows some edema. Right knee wound has healed. Extremities have dry skin otherwise and he has a wound VAC at this time and he did have a wound VAC in the [place] also. LABORATORY DATA: His labs show white count is 8.6, hemoglobin 11.9, hematocrit is 36.1 and platelet count is 259. Sodium is 138, potassium 3.7, chloride is 99, CO2 is 27, anion gap is 16, BUN is 15 and creatinine is 0.5. Vancomycin trough was 9.9, so he is on 750 q. 12 hours at this time, would like to have a better trough, we will follow as he was getting 1 g q. 12 hours and his trough was running high there, and we have decreased recently. IMPRESSION: He has infected sacral osteomyelitis with paraplegia, anxiety, bipolar depression, history of nephrectomy in the past, and I am not sure what the end point will be, as he has received 7 weeks of antibiotics already and he is with a wound VAC at this time and will follow with Dr. Subramanian's orders and plan as the patient's family and the patient is hoping to have this wound healed. I personally think it needs debridement and cleaning and may need full thickness graft to heal it. Hill Sevilla MD
[2017-06-18 01:08] VITALS: O2SAT 100
[2017-06-18] MEDS: Aztreonam 1 GM in Sodium Chloride 0.9% 100 ML IVPB SCH ×2 (04:50→12:29)
[2017-06-18 08:14] VITALS: BP 137/73; PULSE 78; TEMP 97.8
[2017-06-18] MEDS: Multiple Vitamins Tab PO SCH (09:59)
[2017-06-18] MEDS: Potassium Chloride 20 mEq ER Tab PO SCH (09:59)
[2017-06-18] MEDS ORDERED: Pneumococcal 23-Valent Vaccine IM ONE (10:00)
[2017-06-18] MEDS: buPROPion 150 mg/24 Hours XL Tab PO SCH (10:00)
[2017-06-18] MEDS: Vancomycin 750mg/D5W 150 ml 150 ML IVPB SCH (10:04)
--- NOTE | 2017-06-18 14:01 | CP.PCM.PN ---
Subjective - Date & Time of Evaluation Date of Evaluation: 06/18/17 Time of Evaluation: 14:00 - Subjective Subjective: Pt reports feeling well no chest pain or sob refuses to get wilkinson removed Objective - Vital Signs/Intake and Output Vital Signs (last 24 hours): Temp Pulse Resp BP Pulse Ox 97.8 F 78 20 137/73 100 06/18/17 08:12 06/18/17 08:12 06/18/17 08:12 06/18/17 09:59 06/18/17 08:12 Intake and Output: 06/18/17 06/18/17 06:59 18:59 Intake Total 1090 Output Total 1450 Balance -360 - Medications Medications: Current Medications Acetaminophen (Tylenol 325mg Tab) 650 mg PO Q8H PRN PRN Reason: Pain, Mild (1-3) Al Hydrox/Mg Hydrox/Simethicone (Maalox Plus 30 Ml) 30 ml PO Q4 PRN PRN Reason: Heartburn Bupropion HCl (Wellbutrin Xl) 300 mg PO DAILY [facility] Last Admin: 06/18/17 10:00 Dose: 300 mg Citalopram Hydrobromide (Celexa) 20 mg PO DAILY [facility] Last Admin: 06/18/17 10:00 Dose: 20 mg Furosemide (Lasix) 40 mg PO DAILY [facility] Last Admin: 06/18/17 09:59 Dose: Not Given Vancomycin HCl (Vancocin 750mg/D5w 150 Ml) 150 mls @ 100 mls/hr IVPB Q12H [facility] Stop: 06/21/17 10:01 Last Admin: 06/18/17 10:04 Dose: 100 mls/hr Aztreonam 1 gm/ Sodium (Chloride) 100 mls @ 200 mls/hr IVPB Q8H [facility] Last Admin: 06/18/17 12:29 Dose: 200 mls/hr Multivitamins (Hexavitamin) 1 tab PO DAILY [facility] Last Admin: 06/18/17 09:59 Dose: 1 tab Potassium Chloride (K-Dur 20 Meq Er Tab) 40 meq PO DAILY [facility] Last Admin: 06/18/17 09:59 Dose: Not Given Rivaroxaban (Xarelto) 10 mg PO DAILY [facility] Last Admin: 06/18/17 10:00 Dose: 10 mg Rosuvastatin Calcium (Crestor) 5 mg PO HS [facility] Last Admin: 06/17/17 22:09 Dose: 5 mg Zolpidem Tartrate (Ambien) 5 mg PO HS PRN PRN Reason: Insomnia Last Admin: 06/16/17 21:53 Dose: 5 mg - Labs Labs: 06/17/17 07:05 06/17/17 07:05 PT 14.4 SECONDS (9.7-12.2) H 06/15/17 14:38 INR 1.3 06/15/17 14:38 APTT 32 SECONDS (21-34) 06/15/17 14:38 - Head Exam Head Exam: ATRAUMATIC - Eye Exam Eye Exam: Normal appearance - Respiratory Exam Respiratory Exam: Clear to Ausculation Bilateral - Cardiovascular Exam Cardiovascular Exam: RRR (wound back in place, very little blood in the tubing.) Assessment and Plan - Assessment and Plan (Free Text) Assessment: decubiti left sacrum sp I and d I spoke to DR. Ralph she recommended 4 more weeks of IV anbx she stated pt may eventually need a skin graft as she does not think this wound will heal on its own dicussed possibility witth patient He states he has a wound care doctor who will follow up with him in the rehab facility Patient wants to keep wilkinson on the way back to rehab advised him to have it removed in the next day to avoid infections i
--- NOTE | 2017-06-18 17:42 | CP.PCM.PN ---
Subjective - Date & Time of Evaluation Date of Evaluation: 06/18/17 Time of Evaluation: 03:00 - Subjective Subjective: dictated Objective - Vital Signs/Intake and Output Vital Signs (last 24 hours): Temp Pulse Resp BP Pulse Ox 97.8 F 78 20 137/73 100 06/18/17 08:12 06/18/17 08:12 06/18/17 08:12 06/18/17 09:59 06/18/17 08:12 Intake and Output: 06/18/17 06/18/17 06:59 18:59 Intake Total 1090 Output Total 1450 Balance -360 - Medications Medications: Current Medications Acetaminophen (Tylenol 325mg Tab) 650 mg PO Q8H PRN PRN Reason: Pain, Mild (1-3) Al Hydrox/Mg Hydrox/Simethicone (Maalox Plus 30 Ml) 30 ml PO Q4 PRN PRN Reason: Heartburn Bupropion HCl (Wellbutrin Xl) 300 mg PO DAILY [facility] Last Admin: 06/18/17 10:00 Dose: 300 mg Citalopram Hydrobromide (Celexa) 20 mg PO DAILY [facility] Last Admin: 06/18/17 10:00 Dose: 20 mg Furosemide (Lasix) 40 mg PO DAILY [facility] Last Admin: 06/18/17 09:59 Dose: Not Given Vancomycin HCl (Vancocin 750mg/D5w 150 Ml) 150 mls @ 100 mls/hr IVPB Q12H [facility] Stop: 06/21/17 10:01 Last Admin: 06/18/17 10:04 Dose: 100 mls/hr Aztreonam 1 gm/ Sodium (Chloride) 100 mls @ 200 mls/hr IVPB Q8H [facility] Last Admin: 06/18/17 12:29 Dose: 200 mls/hr Multivitamins (Hexavitamin) 1 tab PO DAILY [facility] Last Admin: 06/18/17 09:59 Dose: 1 tab Potassium Chloride (K-Dur 20 Meq Er Tab) 40 meq PO DAILY [facility] Last Admin: 06/18/17 09:59 Dose: Not Given Rivaroxaban (Xarelto) 10 mg PO DAILY [facility] Last Admin: 06/18/17 10:00 Dose: 10 mg Rosuvastatin Calcium (Crestor) 5 mg PO HS [facility] Last Admin: 06/17/17 22:09 Dose: 5 mg Zolpidem Tartrate (Ambien) 5 mg PO HS PRN PRN Reason: Insomnia Last Admin: 06/16/17 21:53 Dose: 5 mg - Labs Labs: 06/17/17 07:05 06/17/17 07:05 PT 14.4 SECONDS (9.7-12.2) H 06/15/17 14:38 INR 1.3 06/15/17 14:38 APTT 32 SECONDS (21-34) 06/15/17 14:38
[2017-06-18] MEDS ORDERED: Aritificial Tears (15ml) OD SCH (18:00)
--- NOTE | 2017-06-19 00:26 | PN ---
DATE: SUBJECTIVE: The patient had debridement done yesterday and he is stable. The case sealer called me that he could go back to the rehab. The patient has to receive the antibiotics for 7 weeks and now he is on vancomycin and Azactam. He also has an indwelling Cotter catheter; however, he has had Cotter catheter he says for last 20 years and it is changed every so often, so we will keep it and he has a diaper on. Otherwise, he is paraplegic. 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 He says sometimes he has difficulty and he uses artificial tears, which I took the liberty to order. PHYSICAL EXAMINATION: VITAL SIGNS: His T-max is 97.8, pulse 78, blood pressure 137/73, respirations are 20. HEENT: Head is atraumatic, normocephalic. NECK: Supple. LUNGS: Clear. No crackles or rales present. HEART: S1 and S2 is regular. ABDOMEN: Soft and nontender. Colostomy bag present. EXTREMITIES: Right arm has a PICC line. Dependent edema a little bit, otherwise unremarkable. He has a Cotter catheter. He will probably get vancomycin for the next 2 to 4 weeks'. He would also need to follow with Dr. Subramanian as would and we will follow. IMPRESSION: He has a sacral osteomyelitis, he is paraplegic, he is diabetic, he has Christopher's palsy, and he is incontinent of urine. He does have a colostomy bag. Hill Sevilla MD
--- NOTE | 2017-06-22 15:02 | CP.PCM.DIS ---
Provider - Provider Date of Admission: 06/15/17 19:29 Pt admitted from rehab due to sacral decubiti in need of I and D pt had been treated by Dr. Kenney and Dr. Torres from [place] Attending physician: Amalia Orellana MD Time Spent in preparation of Discharge (in minutes): 30 Hospital Course - Lab Results Lab Results: Micro Results 06/15/17 20:05 Blood Blood Culture - Final NO GROWTH AFTER 5 DAYS 06/15/17 20:05 Blood Gram Stain - Final TEST NOT PERFORMED Most Recent Lab Values WBC 8.6 K/uL (4.8-10.8) 06/17/17 07:05 RBC 4.63 Mil/uL (4.40-5.90) 06/17/17 07:05 Hgb 11.9 g/dL (12.0-18.0) L 06/17/17 07:05 Hct 36.1 % (35.0-51.0) 06/17/17 07:05 MCV 77.9 fL (80.0-94.0) L 06/17/17 07:05 MCH 25.8 pg (27.0-31.0) L 06/17/17 07:05 MCHC 33.1 g/dL (33.0-37.0) 06/17/17 07:05 RDW 16.5 % (11.5-14.5) H 06/17/17 07:05 Plt Count 259 K/uL (130-400) 06/17/17 07:05 MPV 9.0 fL (7.2-11.7) 06/17/17 07:05 Neut % (Auto) 47.9 % (50.0-75.0) L 06/17/17 07:05 Lymph % (Auto) 36.0 % (20.0-40.0) 06/17/17 07:05 [place] % (Auto) 8.5 % (0.0-10.0) 06/17/17 07:05 Eos % (Auto) 7.0 % (0.0-4.0) H 06/17/17 07:05 Baso % (Auto) 0.6 % (0.0-2.0) 06/17/17 07:05 Neut # 4.1 K/uL (1.8-7.0) 06/17/17 07:05 Lymph # 3.1 K/uL (1.0-4.3) 06/17/17 07:05 [place] # 0.7 K/uL (0.0-0.8) 06/17/17 07:05 Eos # 0.6 K/uL (0.0-0.7) 06/17/17 07:05 Baso # 0.0 K/uL (0.0-0.2) 06/17/17 07:05 PT 14.4 SECONDS (9.7-12.2) H 06/15/17 14:38 INR 1.3 06/15/17 14:38 APTT 32 SECONDS (21-34) 06/15/17 14:38 Sodium 138 mmol/L (132-148) 06/17/17 07:05 Potassium 3.7 mmol/L (3.6-5.2) 06/17/17 07:05 Chloride 99 mmol/L (98-107) 06/17/17 07:05 Carbon Dioxide 27 mmol/L (22-30) 06/17/17 07:05 Anion Gap 16 (10-20) 06/17/17 07:05 BUN 15 mg/dL (9-20) 06/17/17 07:05 Creatinine 0.5 MG/DL (0.8-1.5) L 06/17/17 07:05 Est GFR ( Amer) > 60 06/17/17 07:05 Est GFR (Non-Af Amer) > 60 06/17/17 07:05 Random Glucose 67 mg/dL (75-110) L 06/17/17 07:05 Calcium 9.3 mg/dl (8.6-10.4) 06/17/17 07:05 Total Bilirubin 0.3 mg/dL (0.2-1.3) 06/15/17 14:38 AST 15 U/L (17-59) L 06/15/17 14:38 ALT 26 U/L (21-72) 06/15/17 14:38 Alkaline Phosphatase 52 U/L (38-126) 06/15/17 14:38 Total Protein 6.3 g/dL (6.3-8.3) 06/15/17 14:38 Albumin 3.6 g/dL (3.5-5.0) 06/15/17 14:38 Globulin 2.7 gm/dL (2.2-3.9) 06/15/17 14:38 Albumin/Globulin Ratio 1.3 (1.0-2.1) 06/15/17 14:38 Vancomycin Trough 9.9 ug/mL (5.0-10.0) 06/15/17 19:50 - Hospital Course Hospital Course: Pt was admitted and given IV anbx pt was taken to OR for I and D Discharge Exam - Head Exam Head Exam: ATRAUMATIC Discharge Plan - Follow Up Plan Condition: STABLE Disposition: TRANSF TO SNF Instructions: Paraplegia (DC), Acute Wound Care (DC), Pressure Ulcer (DC) Additional Instructions: PT TO HAVE 4WEEKS OF IV ANTIBIOTICS OF VANCOMYCIN AND AZACTAM PT TO HAVE BLOODWORKS DONE WEEKLY: CBC, CMP,ESR, CRP, VANCO P&T PT TO RESUME WOUND VAC AT THE [facility] TO REMOVE [facility]BRI[facility] TOMORROW 06/[address] KENNEY WEEKLY Referrals: Jamil Kenney MD [Staff Provider] -
== END 2017-06-18 18:55 | DRG 622 ==
LOC: C.ER 14:00 → C.9E 19:29 → C.3T 20:26
PROVIDERS: ADMIT Internal Medicine; ATTEND Internal Medicine
PROC: 0H96XZZ Drainage of Back Skin, External Approach (ICD-10-PCS; principal; 2017-06-15)
PROC: 0JB70ZZ Excision of Back Subcutaneous Tissue and Fascia, Open Approach (ICD-10-PCS; 2017-06-16)
PROC: 0QB10ZZ Excision of Sacrum, Open Approach (ICD-10-PCS; 2017-06-16)
PROC: 2W15X6Z Compression of Back using Pressure Dressing (ICD-10-PCS; 2017-06-16)
PROC: 0JD70ZZ Extraction of Back Subcutaneous Tissue and Fascia, Open Approach (ICD-10-PCS; 2017-06-17)
DX: E11.69 Type 2 diabetes mellitus with other specified complication (principal); L89.154 Pressure ulcer of sacral region, stage 4; G82.20 Paraplegia, unspecified; E11.622 Type 2 diabetes mellitus with other skin ulcer; E11.22 Type 2 diabetes mellitus with diabetic chronic kidney disease; M46.28 Osteomyelitis of vertebra, sacral and sacrococcygeal region; F31.9 Bipolar disorder, unspecified; F41.9 Anxiety disorder, unspecified; I12.9 Hypertensive chronic kidney disease with stage 1 through stage 4 chronic kidney disease, or unspecified chronic kidney disease; I73.9 Peripheral vascular disease, unspecified; M79.7 Fibromyalgia; N18.9 Chronic kidney disease, unspecified; R32 Unspecified urinary incontinence; G51.0 Bell's palsy; E78.00 Pure hypercholesterolemia, unspecified; F32.9 Major depressive disorder, single episode, unspecified; L08.89 Other specified local infections of the skin and subcutaneous tissue; D64.9 Anemia, unspecified; Z93.3 Colostomy status; Z87.442 Personal history of urinary calculi; Z85.528 Personal history of other malignant neoplasm of kidney

== ENCOUNTER 2017-07-04 19:35 | Inpatient (IN) | payer MEDICARE ==
[2017-07-04 19:35] VITALS: BMI 27.2
--- NOTE | 2017-07-04 20:03 | C.PDOC ---
History Of Present Illness Patient presents to the ER with after she was talking to him at the snf and noticed he stopped talking, turned to the right, and began having generalized shaking. As per patient was unresponsive for an unknown amount of time. Patient is now awake, alert, and oriented x3 and states this is a first time episode. Denies fever, chills, nausea, or vomiting. Time Seen by Provider: 07/04/17 20:03 Chief Complaint (Nursing): Seizure History Per: Patient History/Exam Limitations: no limitations Recent Seizure Activity Began: Just Before Arrival Number Of Seizures: One Length Of Seizures (Duration): Unknown Quality Of Seizure: Generalized Precipitating Factor(s): None Associated Symptoms: Other (No associated symptoms) Post-ictal Period: No Severity: Mild Pain Scale Rating Of: 4 Recent travel outside of the [place]: No Past Medical History Reviewed: Historical Data, Nursing Documentation, Vital Signs Vital Signs: Last Vital Signs Temp 97.8 F 07/04/17 19:50 Pulse 95 H 07/04/17 19:50 Resp 16 07/04/17 19:50 BP 117/69 07/04/17 19:50 Pulse Ox 99 07/04/17 20:50 - Medical History PMH: Anemia, Anxiety, Arthritis (BACK W/ HX OF SURGERY), Back Problems ( paralysis), Bipolar Disorder, Depression, Diverticulitis, Fibromyalgia, Gastritis, Gall Bladder Disease, HTN, Hypercholesterolemia, Kidney Stones (1980s ), Malignancy (kidney ), Peripheral Edema, Chronic Kidney Disease Surgical History: Back Surgery - [facility] Procedures COMPRESSION OF BACK USING PRESSURE DRESSING (06/15/17) DRAINAGE OF BACK SKIN, EXTERNAL APPROACH (06/15/17) DRAINAGE OF LEFT HIP JOINT, OPEN APPROACH (04/07/17) DRAINAGE OF RIGHT KNEE JOINT, OPEN APPROACH (04/07/17) ENDOSC LG BOWEL THROUGH STOMA (10/03/14) EXCIS DEBRIDE OF WOUND, INFECT, OR BURN (12/01/14) EXCISION OF BACK SUBCU/FASCIA, OPEN APPROACH (06/15/17) EXCISION OF LEFT HIP JOINT, OPEN APPROACH (04/07/17) EXCISION OF LEFT KIDNEY, PERCUTANEOUS ENDOSCOPIC APPROACH (06/01/16) EXCISION OF LEFT PELVIC BONE, OPEN APPROACH (04/07/17) EXCISION OF LEFT UPPER FEMUR, OPEN APPROACH, DIAGNOSTIC (04/07/17) EXCISION OF RIGHT LOWER LEG SKIN, EXTERNAL APPROACH (06/20/15) EXCISION OF SACRUM, OPEN APPROACH (06/15/17) EXTRACTION OF BACK SUBCU/FASCIA, OPEN APPROACH (06/15/17) FLUOROSCOPY OF L SUBCLAV VEIN USING OTH CONTRAST, GUIDANCE (06/20/15) FLUOROSCOPY OF SUPERIOR VENA CAVA, GUIDANCE (04/07/17) INDIVID PSYCHOTHERAP NEC (02/28/14) INSERT INFUSION DEV IN L EXT JUGULAR VEIN, PERC (06/20/15) INSERTION OF INFUSION DEV INTO L SUBCLAV VEIN, OPEN APPROACH (06/20/15) INSERTION OF INFUSION DEV INTO SUP VENA CAVA, PERC APPROACH (04/07/17) INTRODUCE OF OTH ANTI-INFECT INTO PERIPH VEIN, PERC APPROACH (06/20/15) INTRODUCTION OF SERUM/TOX/VACCINE INTO SUBCU, PERC APPROACH (06/20/15) OTHER GROUP THERAPY (02/28/14) OTHER SKIN & SUBQ I D (12/01/14) RADICAL EXCIS SKIN LES (12/01/14) ROBOTIC ASSISTED PROCEDURE OF TRUNK, PERC ENDO APPROACH (06/01/16) SOFT TISSUE INCISION NEC (12/01/14) TRANSFER RIGHT LOWER LEG SKIN, EXTERNAL APPROACH (06/20/15) Family History: States: No Known Family Hx - Social History Hx Tobacco Use: No Hx Alcohol Use: No Hx Substance Use: No - Immunization History Hx Tetanus Toxoid Vaccination: Yes Hx Influenza Vaccination: Yes Hx Pneumococcal Vaccination: No Review Of Systems Constitutional: Negative for: Fever, Chills Eyes: Negative for: Redness ENT: Negative for: Throat Pain Cardiovascular: Negative for: Chest Pain Respiratory: Negative for: Shortness of Breath Gastrointestinal: Negative for: Nausea, Vomiting Genitourinary: Negative for: Dysuria Musculoskeletal: Negative for: Back Pain Skin: Positive for: Lesions (r heel). Negative for: Rash Neurological: Positive for: Seizures Psych: Negative for: Anxiety Physical Exam - Physical Exam Appears: Non-toxic, No Acute Distress Skin: Warm, Dry Head: Normacephalic Eye(s): bilateral: Normal Inspection Oral Mucosa: Moist Neck: Trachea Midline, No Midline Cervical Tenderness, No Paracervical Tenderness, Supple Chest: Symmetrical, No Tenderness Cardiovascular: Rhythm Regular Respiratory: No Rales, No Rhonchi, No Wheezing Gastrointestinal/Abdominal: Soft, No Tenderness, No Distention, No Guarding, Other (left colostomy) Back: No CVA Tenderness, Other (Wound vac to sacral decubitus) Male Genital: Other ([place] cath) Extremity: Other (Right arm PICC line.) Extremity: Right: Other (small heel pressure sore) Pulses: Left Dorsalis Pedis: Normal, Right Dorsalis Pedis: Normal Neurological/Psych: Oriented x3, Other (Paralyzed from waist down after a fall 23 years ago off a building, otherwise no deficits) Gait: Unable To Assess ED Course And Treatment - Laboratory Results Result Diagrams: 07/04/17 20:18 07/04/17 20:18 ECG: Interpreted By Me, Viewed By Me ECG Rhythm: Sinus Rhythm (93), Nonspecific Changes (lahb) O2 Sat by Pulse Oximetry: 99 (Room air) Pulse Ox Interpretation: Normal - Radiology CXR: Interpreted by Me, Viewed By Me CXR Interpretation: Yes: Other (picc line in place right). No: Infiltrates, Fracture, Pnemothorax Progress Note: CT head, EKG, blood work, CXR, and urinalysis ordered. Disposition Discussed With : Amalia Orellana Comment: accepted the pt on her service and took over the care at 10PM Doctor Will See Patient In The: Hospital Counseled Patient/Family Regarding: Studies Performed, Diagnosis - Disposition Disposition: HOSPITALIZED Disposition Time: 20:03 Condition: FAIR Forms: [facility] ([place]) - POA Present On Arrival: Poor Glycemic Control - Clinical Impression Clinical Impression: Seizure - Scribe Statement The provider has reviewed the documentation as recorded by the Scribe Darwin Mcknight All medical record entries made by the Scribe were at my direction and personally dictated by me. I have reviewed the chart and agree that the record accurately reflects my personal performance of the history, physical exam, medical decision making, and the department course for this patient. I have also personally directed, reviewed, and agree with the discharge instructions and disposition. Decision To Admit - Pt Status Changed To: Hospital Disposition Of: Inpatient - Admit Certification Admit to Inpatient:: After my assessment, the patient will require hospitalization for at least two midnights. This is because of the severity of symptoms shown, intensity of services needed, and/or the medical risk in this patient being treated as an outpatient. - InPatient: Physician Admission Certification: I certify that this patient requires 2 or more midnights of care for the following reason:: After my assessment, the patient will require hospitalization for at least two midnights. This is because of the severity of symptoms shown, intensity of services needed, and/or the medical risk in this patient being treated as an outpatient. - . Bed Request Type: Regular Admitting Physician: Amalia Orellana Patient Diagnosis: Seizure
[2017-07-04 20:24] LABS: BASO # 0.1 K/uL (0.0-0.2); BASO % 1.1 % (0.0-2.0); EOS # 0.4 K/uL (0.0-0.7); EOS % 3.2 % (0.0-4.0); HEMATOCRIT 38.1 % (35.0-51.0); LYMPH # 5.2 K/uL (1.0-4.3); LYMPH % 42.7 % (20.0-40.0); MEAN CELL VOLUME 77.9 fL (80.0-94.0); MEAN CORPUSCULAR HEMOGLOBIN 25.4 pg (27.0-31.0); MEAN CORPUSCULAR HGB CONC 32.6 g/dL (33.0-37.0); MEAN PLATELET VOLUME 8.6 fL (7.2-11.7); MONO # 0.9 K/uL (0.0-0.8); MONO % 7.1 % (0.0-10.0); NRBC % 0.1 % (0.0-2.0); RED CELL DISTRIBUTION WIDTH 16.8 % (11.5-14.5); WHITE BLOOD COUNT 12.2 K/uL (4.8-10.8)
[2017-07-04 20:32] LABS: CHLORIDE 98 mmol/L (98-107); INR 1.8; POTASSIUM 3.6 mmol/L (3.6-5.2); SODIUM 135 mmol/L (132-148)
[2017-07-04 20:35] LABS: ALB/GLOB RATIO 1.4 (1.0-2.1); ALKALINE PHOSPHATASE 64 U/L (38-126); ALT/SGPT 32 U/L (21-72); AST/SGOT 20 U/L (17-59); BILIRUBIN,TOTAL 0.3 mg/dL (0.2-1.3); BLOOD UREA NITROGEN 12 mg/dL (9-20); CALCIUM 9.7 mg/dl (8.6-10.4); CARBON DIOXIDE 21 mmol/L (22-30); GFR AFRICAN-AMERICAN > 60; GLUCOSE,RANDOM 167 mg/dL (75-110); TOTAL PROTEIN 6.7 g/dL (6.3-8.3)
--- NOTE | 2017-07-04 21:13 | CT ---
EXAM: CT Head Without Intravenous Contrast EXAM DATE/TIME: Exam ordered 07/04/2017 8:06 PM CLINICAL HISTORY: 66 years old, male; Signs and symptoms; Other: Seizure TECHNIQUE: Axial computed tomography images of the head/brain without intravenous contrast. All CT scans at this facility use one or more dose reduction techniques, viz.: automated exposure control; ma/kV adjustment per patient size (including targeted exams where dose is matched to indication; i.e. head); or iterative reconstruction technique. Coronal and sagittal reformatted images were created and reviewed. COMPARISON: MR - BRAIN WITHOUT CONTRAST 01/01/2016 2:02:17 PM FINDINGS: Brain: Low density is noted within the periventricular white matter extending into the [place] radiata and centrum semiovale bilaterally. No hemorrhage. No edema. Ventricles: Unremarkable. No ventriculomegaly. Bones/joints: Unremarkable. No acute fracture. Soft tissues: A small 2 mm calcification is noted within the subcutaneous soft tissues of the scalp overlying the left frontal bone. Sinuses: Mucosal thickening is noted within the left ethmoid air cells. Mastoid air cells: Fluid is noted within the right mastoid air cells. There has been a partial mastoidectomy on the right. IMPRESSION: 1. No acute findings. 2. Chronic microvascular ischemic change within the deep white matter. 3. Status post partial right mastoidectomy with a small amount fluid within the remaining air cells.
[2017-07-04] MEDS ORDERED: ZOLPIDEM 5 MG PO PRN (22:31)
[2017-07-04] MEDS ORDERED: Aztreonam 2 Gm Inj IVPB SCH (22:45)
[2017-07-05] MEDS: Aztreonam 1 GM in Sodium Chloride 0.9% 100 ML IVPB SCH ×3 (02:21→18:15)
[2017-07-05 02:37] LABS: RBC URINE 6 /hpf (0-3); URINE BACTERIA RARE (<OCC); URINE BILIRUBIN NEGATIVE (NEGATIVE); URINE BLOOD NEGATIVE (NEGATIVE); URINE COLOR Yellow (YELLOW); URINE GLUCOSE (UA) NORMAL (Normal); URINE KETONE NEGATIVE (NEGATIVE); URINE LEUKOCYTE ESTERASE 3+ Leu/uL (Negative); URINE PROTEIN NEGATIVE (NEGATIVE); URINE UROBILINOGEN NORMAL mg/dL (0.2-1.0); WBC URINE 43 /hpf (0-5)
--- NOTE | 2017-07-05 09:22 | RAD ---
PROCEDURE: CHEST RADIOGRAPH, 1 VIEW HISTORY: Seizure COMPARISON: 06/15/2017 FINDINGS: LUNGS: Lines and tubes in stable position. Mild venous congestion. Left hilar prominence. Small nodular density at the right lung base and right suprahilar region may represent prominent vessels on end. PLEURA: Blunting of left costophrenic angle suggestive for trace effusion. CARDIOVASCULAR: Normal. OSSEOUS STRUCTURES: Postsurgical changes in the spine. VISUALIZED UPPER ABDOMEN: Normal. OTHER FINDINGS: None. IMPRESSION: Lines and tubes in stable position. Mild venous congestion. Left hilar prominence. Small nodular density at the right lung base and right suprahilar region may represent prominent vessels on end. Blunting of left costophrenic angle suggestive for trace effusion.
[2017-07-05] MEDS: buPROPion 150 mg/24 Hours XL Tab PO SCH (10:12)
[2017-07-05] MEDS: Potassium Chloride 20 mEq ER Tab PO SCH (10:12)
[2017-07-05] MEDS: Vancomycin 750mg/D5W 150 ml 150 ML IVPB SCH (10:33)
--- NOTE | 2017-07-05 13:44 | CP.PCM.HP ---
History of Present Illness - History of Present Illness History of Present Illness: CC. New onset seizure HPI; PT was sent to the Er after what appears to be a seizure. Pt has been in rehab for iv antibiotics for ostoe. He was recently in the hosptal for I and D of left hip. Pt has no prior history of seizure. Pt's states seizure occurred 15 minutes after taking neurontin.. PT has been depressed since he does not like to be in rehab. 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 Family Hx: mom and dad Meds: Metolazone 2.5 mg tab. 1 tab po QD, Pottasium Chloride CR 20 mEq tab. 1 tab po QD, Gabapentin 300 mg cap. 1 cap po TID. Bupropion HCI XL 300 mg tab. 1 tab po QD Ambien 10 mg tab. 1 tab qhs prn Furosemide 40 mg tab. 1 tab po BID Restasis 0.05% eye drops 1 drop in both eyes BID PRN Xarelto 10 mg tab 1 tab. po QD Memantine 5mg tab 1 tab. po QD Remeron 45 mg 1 tab. po QHS Risperdal 2 mg tab1 tab. po BID Celexa 40 mg 1 tab. po QD Strovite One 1 tab. po QD Vitamin D2 50,000 units cap. 1 cap weekly Clonazepam 0.5 mg tab. 1 tab po BID PRN Present on Admission - Present on Admission Any Indicators Present on Admission: No Review of Systems - Review of Systems Systems not reviewed;Unavailable: Altered Mental Status - Constitutional Constitutional: absent: Anorexia, Chills, Frequent Falls - EENT Nose/Mouth/Throat: absent: Epistaxis - Cardiovascular Cardiovascular: Chest Pain with Activity. absent: Chest Pain, Edema - Respiratory Respiratory: absent: Cough Past Patient History - Infectious Disease Hx of Infectious Diseases: None - Tetanus Immunizations Tetanus Immunization: Unknown - Past Medical History & Family History Past Medical History?: Yes - Past Social History Smoking Status: Unknown If Ever Smoked - CARDIAC Hx Hypercholesterolemia: Yes Hx Hypertension: Yes Hx Peripheral Edema: Yes - PULMONARY Hx Respiratory Disorders: No Hx Tuberculosis: No - HEENT Hx HEENT Problems: No Other/Comment: HX: LINDSEY'S PALSY RIGHT SIDE - RENAL Hx Chronic Kidney Disease: Yes Hx Kidney Stones: Yes (1980s) - ENDOCRINE/METABOLIC Hx Diabetes Mellitus Type 2: Yes - HEMATOLOGICAL/ONCOLOGICAL Hx Anemia: Yes - INTEGUMENTARY Hx Dermatological Problems: Yes Hx Cellulitis: Yes Other/Comment: . BOTH LEGS WITH EDEMAULCER ON RIGHT LOWER LEG SKIN GRAFT WAS DONE. SACRAL ULCER APPROX 4 CM X4 CM UNSTAGEABLE,with a wound vac - MUSCULOSKELETAL/RHEUMATOLOGICAL Hx Arthritis: Yes (BACK W/ HX OF SURGERY) - GASTROINTESTINAL Hx Diverticulitis: Yes Hx Gall Bladder Disease: Yes Hx Gastritis: Yes - GENITOURINARY/GYNECOLOGICAL Hx Sexually Transmitted Disorders: No - PSYCHIATRIC Hx Anxiety: Yes Hx Bipolar Disorder: Yes Hx Depression: Yes Hx Substance Use: No - SURGICAL HISTORY Hx Surgeries: Yes Hx Orthopedic Surgery: Yes (B/L LE sx) - ANESTHESIA Hx Anesthesia: Yes Hx Anesthesia Reactions: No Hx Malignant Hyperthermia: No Meds Allergies/Adverse Reactions: Allergies Allergy/AdvReac Type Severity Reaction Status Date / Time No Known Allergies Allergy Verified 07/04/17 19:38 Physical Exam - Constitutional Appears: Confused - Head Exam Head Exam: ATRAUMATIC - Eye Exam Eye Exam: EOMI, Normal appearance - ENT Exam ENT Exam: Mucous Membranes Moist - Neck Exam Neck exam: Positive for: Normal Inspection - Respiratory Exam Respiratory Exam: Clear to Auscultation Bilateral - Cardiovascular Exam Cardiovascular Exam: REGULAR RHYTHM - GI/Abdominal Exam GI & Abdominal Exam: Normal Bowel Sounds - Extremities Exam Extremities exam: Positive for: normal inspection - Psychiatric Exam Psychiatric exam: Anxious, Depressed Results - Vital Signs Recent Vital Signs: Last Vital Signs Temp 98.9 F 07/05/17 09:49 Pulse 86 07/05/17 11:27 Resp 18 07/05/17 11:27 BP 134/83 07/05/17 11:27 Pulse Ox 98 07/05/17 11:27 - Labs Result Diagrams: 07/04/17 20:18 07/06/17 06:14 Labs: Laboratory Results - last 24 hr 07/04/17 07/04/17 07/04/17 20:11 20:18 20:18 WBC 12.2 H RBC 4.89 Hgb 12.4 Hct 38.1 MCV 77.9 L MCH 25.4 L MCHC 32.6 L RDW 16.8 H Plt Count 431 H D MPV 8.6 Neut % (Auto) 45.9 L Lymph % (Auto) 42.7 H [place] % (Auto) 7.1 Eos % (Auto) 3.2 Baso % (Auto) 1.1 Neut # 5.6 Lymph # 5.2 H [place] # 0.9 H Eos # 0.4 Baso # 0.1 PT 21.2 H INR 1.8 APTT 34 Sodium Potassium Chloride Carbon Dioxide Anion Gap BUN Creatinine Est GFR ( Amer) Est GFR (Non-Af Amer) Random Glucose Calcium Total Bilirubin AST ALT Alkaline Phosphatase Total Protein Albumin Globulin Albumin/Globulin Ratio Lipase Urine Color Yellow Urine Clarity Hazy Urine pH 7.0 Ur Specific [place] 1.016 Urine Protein Negative Urine Glucose (UA) Normal Urine Ketones Negative Urine Blood Negative Urine Nitrate Negative Urine Bilirubin Negative Urine Urobilinogen Normal Ur Leukocyte Esterase 3+ H Urine WBC (Auto) 43 H Urine RBC (Auto) 6 H Ur Squamous Epith Cells < 1 Amorphous Sediment Occ H Urine Bacteria Rare Urine Yeast (Budding) Few H 07/04/17 20:18 WBC RBC Hgb Hct MCV MCH MCHC RDW Plt Count MPV Neut % (Auto) Lymph % (Auto) [place] % (Auto) Eos % (Auto) Baso % (Auto) Neut # Lymph # [place] # Eos # Baso # PT INR APTT Sodium 135 Potassium 3.6 Chloride 98 Carbon Dioxide 21 L Anion Gap 20 BUN 12 Creatinine 0.5 L Est GFR ( Amer) > 60 Est GFR (Non-Af Amer) > 60 Random Glucose 167 H Calcium 9.7 Total Bilirubin 0.3 AST 20 ALT 32 Alkaline Phosphatase 64 Total Protein 6.7 Albumin 3.9 Globulin 2.8 Albumin/Globulin Ratio 1.4 Lipase 81 Urine Color Urine Clarity Urine pH Ur Specific [place] Urine Protein Urine Glucose (UA) Urine Ketones Urine Blood Urine Nitrate Urine Bilirubin Urine Urobilinogen Ur Leukocyte Esterase Urine WBC (Auto) Urine RBC (Auto) Ur Squamous Epith Cells Amorphous Sediment Urine Bacteria Urine Yeast (Budding) Assessment & Plan - Assessment and Plan (Free Text) Assessment: New onset seizure depressed left hip decubiti ulcer admit to floors ct of head eeg neuro eval id eval for recommendation on antibiotics wean off neurontin will review other meds bp meds decrease ambien will discuss with possibility of home bruno, he is depressed in rehab facility does not want to be there.
[2017-07-05] MEDS ORDERED: Sodium Chloride 0.9% 1,000 ML IV ONE (14:34)
--- NOTE | 2017-07-05 17:17 | MRI ---
PROCEDURE: MRI BRAIN WITHOUT CONTRAST HISTORY: seizure COMPARISON: Comparison is made to the previous study dated 01/01/2016 TECHNIQUE: Multiplanar, multisequence MR images of the brain were obtained without intravenous contrast enhancement. FINDINGS: HEMORRHAGE: None DWI: No evidence of an acute or early subacute infarction. BRAIN PARENCHYMA: No mass effect or edema. [id number] atrophy is again noted. Mild chronic microvascular white matter ischemic disease is again noted. There is a small encephalomalacia at the posterior right cerebellum likely represent old small infarction. VENTRICLES: Unremarkable. No hydrocephalus. CRANIUM: Unremarkable. ORBITS: Grossly unremarkable. PARANASAL SINUSES/MASTOIDS: Partial opacification/ effusion is again noted at the right mastoid. The patient is likely status post partial right mastoidectomy. VASCULAR SYSTEM: Skull base flow voids intact. OTHER FINDINGS: None. IMPRESSION: Suboptimal study due to patient's motion. No evidence of acute infarction or acute intracranial pathology. [id number] atrophy and mild chronic microvascular white matter ischemic disease are again noted.
[2017-07-06] MEDS: Aztreonam 1 GM in Sodium Chloride 0.9% 100 ML IVPB SCH ×3 (02:19→17:27)
[2017-07-06 06:37] LABS: CHLORIDE 98 mmol/L (98-107); POTASSIUM 3.7 mmol/L (3.6-5.2); SODIUM 137 mmol/L (132-148)
[2017-07-06 06:40] LABS: BLOOD UREA NITROGEN 12 mg/dL (9-20); CALCIUM 9.5 mg/dl (8.6-10.4); CARBON DIOXIDE 29 mmol/L (22-30); GFR AFRICAN-AMERICAN > 60; GLUCOSE,RANDOM 76 mg/dL (75-110); PHOSPHOROUS 3.3 mg/dL (2.5-4.5)
[2017-07-06 06:41] LABS: MAGNESIUM 1.7 mg/dL (1.6-2.3)
--- NOTE | 2017-07-06 09:43 | RAD ---
Chest x-ray single frontal view History: Confirm PICC line placement. Comparison: 07/04/2017 Findings: Right PICC line with tip extending to the proximal right SVC. Other lines and tubes stable position. Consolidative changes in the left hilar region. Right lung apex obscured by the patient's chin. Postsurgical changes in the spine. IVC filter in place. Impression: Right PICC line with tip extending to the proximal right SVC. Other lines and tubes stable position. Consolidative changes in the left hilar region. Right lung apex obscured by the patient's chin. Postsurgical changes in the spine. IVC filter in place.
[2017-07-06] MEDS: buPROPion 150 mg/24 Hours XL Tab PO SCH (11:08)
[2017-07-06] MEDS: Potassium Chloride 20 mEq ER Tab PO SCH (11:08)
[2017-07-06] MEDS: Vancomycin 750mg/D5W 150 ml 150 ML IVPB SCH (13:13)
--- NOTE | 2017-07-06 16:48 | CP.PCM.PN ---
Subjective - Date & Time of Evaluation Date of Evaluation: 07/06/17 Time of Evaluation: 16:48 - Subjective Subjective: Pt more coherent today, at bed side still not at base line admits he is tired of being in the hospital /rehab no new seizure Objective - Vital Signs/Intake and Output Vital Signs (last 24 hours): Temp Pulse Resp BP Pulse Ox 98 F 95 H 20 133/74 98 07/06/17 16:21 07/06/17 16:21 07/06/17 16:21 07/06/17 16:21 07/06/17 16:21 Intake and Output: 07/06/17 07/06/17 06:59 18:59 Output Total 1350 Balance -1350 - Medications Medications: Current Medications Bupropion HCl (Wellbutrin Xl) 150 mg PO DAILY [facility] Last Admin: 07/06/17 11:08 Dose: 150 mg Citalopram Hydrobromide (Celexa) 20 mg PO DAILY [facility] Last Admin: 07/06/17 11:09 Dose: 20 mg Furosemide (Lasix) 40 mg PO DAILY [facility] Last Admin: 07/06/17 11:09 Dose: 40 mg Gabapentin (Neurontin) 100 mg PO TID [facility] Last Admin: 07/06/17 13:15 Dose: 100 mg Vancomycin HCl (Vancocin 750mg/D5w 150 Ml) 150 mls @ 100 mls/hr IVPB DAILY [facility] Last Admin: 07/06/17 13:13 Dose: 100 mls/hr Aztreonam 1 gm/ Sodium (Chloride) 100 mls @ 100 mls/hr IVPB Q8H [facility] Last Admin: 07/06/17 11:06 Dose: 100 mls/hr Levetiracetam (Keppra) 500 mg PO BID [facility] Last Admin: 07/06/17 11:08 Dose: 500 mg Potassium Chloride (K-Dur 20 Meq Er Tab) 40 meq PO DAILY [facility] Last Admin: 07/06/17 11:08 Dose: 40 meq Rivaroxaban (Xarelto) 10 mg PO DAILY [facility] Last Admin: 07/06/17 11:08 Dose: 10 mg Rosuvastatin Calcium (Crestor) 5 mg PO HS [facility] Last Admin: 07/05/17 22:17 Dose: 5 mg Zolpidem Tartrate (Ambien) 5 mg PO HS PRN PRN Reason: Insomnia Last Admin: 07/05/17 20:10 Dose: 5 mg - Labs Labs: 07/04/17 20:18 07/06/17 06:14 PT 21.2 SECONDS (9.7-12.2) H 07/04/17 20:18 INR 1.8 07/04/17 20:18 APTT 34 SECONDS (21-34) 07/04/17 20:18 - Constitutional Appears: Non-toxic - Head Exam Head Exam: ATRAUMATIC - Eye Exam Eye Exam: EOMI - ENT Exam ENT Exam: Mucous Membranes Moist - Cardiovascular Exam Cardiovascular Exam: REGULAR RHYTHM, +S1, +S2 - GI/Abdominal Exam GI & Abdominal Exam: Normal Bowel Sounds (left hip ulcer is clean, dressing changed with nurse at bed side) Assessment and Plan - Assessment and Plan (Free Text) Assessment: new onset seizure likely secndary to meds weaning off neurontin will discuss with neuro decubiti ulcer needs skin graft not likely to heal on its own very deep depressn discussed with pt and at bedside home bruno
--- NOTE | 2017-07-06 18:29 | CARD ---
APPROVED REPORT EKG Measurement Heart [id number] <Conclusion> Normal sinus rhythm Left anterior fascicular block Abnormal ECG
--- NOTE | 2017-07-06 19:39 | CON ---
DATE: REASON FOR CONSULTATION: Seizure. HISTORY OF PRESENTING ILLNESS: The patient is a 66-year-old male who has been asked for evaluation of seizure. The patient apparently was at prison. He noticed to be stopped talking and turned to the right and began having generalized shaking. As per , the patient was unresponsive for unknown amount of time. In the emergency room, he was awake and alert. This is the first time he ever had this episode. The patient unable to give a history and looks to be a little confused. PAST MEDICAL HISTORY: Includes anemia, anxiety, arthritis, paraparesis, bipolar disorder, depression, diverticulitis, fibromyalgia, hypercholesterolemia, chronic kidney disease. PAST SURGICAL HISTORY: Includes back surgery. MEDICATIONS AT HOME: Include Ambien, vitamin A, vancomycin, Crestor, Xarelto, multivitamin, Neurontin, Lasix, Celexa, Wellbutrin, Azactam, acetaminophen. ALLERGIES: NO KNOWN DRUG ALLERGIES. FAMILY HISTORY: Reviewed and noncontributory to the case. SOCIAL HISTORY: The patient denies smoking, use of alcohol, or illicit drugs. REVIEW OF SYSTEMS: Denies chest pain, shortness of breath, abdominal pain, constipation, diarrhea, cough, sputum production. PHYSICAL EXAMINATION: GENERAL: Patient is a middle aged male, lying in the bed in no acute distress. VITAL SIGNS: Blood pressure is 160/81, heart rate is 97 per minute, breathing at the rate of 16 per minute, temperature 97.6 degrees Fahrenheit. HEENT: Normocephalic and atraumatic. NECK: Supple. There are no carotid bruits. LUNGS: Clear. CARDIOVASCULAR SYSTEM: S1 and S2 audible. No murmurs. ABDOMEN: Soft and nontender. Bowel sound are present. NEUROLOGIC: Mental status: The patient is awake and alert. He follows some simple commands. The patient is oriented to place, person. While taking, all of a sudden he stopped talking and made some strange gestures and he started communicating with signs. Cranial nerve examination: Pupils 3 mm bilaterally, reactive to light. Visual chang are full. Extraocular movements are intact. There is no facial asymmetry. Palate is upgoing bilaterally and tongue is midline. Motor examination: Tone is normal. Power in the upper extremity is 5/5. Power in the lower extremity is 0/5. Reflexes are 1+ and symmetrical in upper extremity. Gait is not testable because of paraplegia. [id number] shows no dysmetria. DIAGNOSTIC DATA: The patient had a CT scan of the head done, which is negative for any acute intracranial pathology. The subsequently had MRI of the brain done, which is suboptimal study, but no evidence of acute infarction or intracranial pathology. IMPRESSION: 1. New onset seizure. 2. Altered mental status, which is possible postictal or this is secondary to his underlying bipolar disorder. RECOMMENDATIONS: 1. The patient will have an electroencephalogram. 2. The patient to be started on Keppra 500 mg twice a day. 3. Please consider psychiatric evaluation if the patient continues to have episodes during which he is not speaking. 4. Please continue supportive care and treatment. Thank you for the opportunity to participate in the care of this patient. David Lisa MD
--- NOTE | 2017-07-06 21:05 | CP.PCM.CON ---
History of Present Illness - History of Present Illness History of Present Illness: dictated Past Patient History - Infectious Disease Hx of Infectious Diseases: None - Tetanus Immunizations Tetanus Immunization: Unknown - Past Medical History & Family History Past Medical History?: Yes - Past Social History Smoking Status: Unknown If Ever Smoked - CARDIAC Hx Hypercholesterolemia: Yes Hx Hypertension: Yes Hx Peripheral Edema: Yes - PULMONARY Hx Respiratory Disorders: No Hx Tuberculosis: No - HEENT Hx HEENT Problems: No Other/Comment: HX: LINDSEY'S PALSY RIGHT SIDE - RENAL Hx Chronic Kidney Disease: Yes Hx Kidney Stones: Yes () - ENDOCRINE/METABOLIC Hx Diabetes Mellitus Type 2: Yes - HEMATOLOGICAL/ONCOLOGICAL Hx Anemia: Yes - INTEGUMENTARY Hx Dermatological Problems: Yes Hx Cellulitis: Yes Other/Comment: . BOTH LEGS WITH EDEMAULCER ON RIGHT LOWER LEG SKIN GRAFT WAS DONE. SACRAL ULCER APPROX 4 CM X4 CM UNSTAGEABLE,with a wound vac - MUSCULOSKELETAL/RHEUMATOLOGICAL Hx Arthritis: Yes (BACK W/ HX OF SURGERY) - GASTROINTESTINAL Hx Diverticulitis: Yes Hx Gall Bladder Disease: Yes Hx Gastritis: Yes - GENITOURINARY/GYNECOLOGICAL Hx Sexually Transmitted Disorders: No - PSYCHIATRIC Hx Anxiety: Yes Hx Bipolar Disorder: Yes Hx Depression: Yes Hx Substance Use: No - SURGICAL HISTORY Hx Surgeries: Yes Hx Orthopedic Surgery: Yes (B/L LE sx) - ANESTHESIA Hx Anesthesia: Yes Hx Anesthesia Reactions: No Hx Malignant Hyperthermia: No Meds Allergies/Adverse Reactions: Allergies Allergy/AdvReac Type Severity Reaction Status Date / Time No Known Allergies Allergy Verified 07/04/17 19:38 - Medications Medications: Current Medications Bupropion HCl (Wellbutrin Xl) 150 mg PO DAILY [facility] Last Admin: 07/06/17 11:08 Dose: 150 mg Citalopram Hydrobromide (Celexa) 20 mg PO DAILY [facility] Last Admin: 07/06/17 11:09 Dose: 20 mg Furosemide (Lasix) 40 mg PO DAILY [facility] Last Admin: 07/06/17 11:09 Dose: 40 mg Gabapentin (Neurontin) 100 mg PO TID [facility] Last Admin: 07/06/17 17:27 Dose: 100 mg Vancomycin HCl (Vancocin 750mg/D5w 150 Ml) 150 mls @ 100 mls/hr IVPB DAILY [facility] Last Admin: 07/06/17 13:13 Dose: 100 mls/hr Aztreonam 1 gm/ Sodium (Chloride) 100 mls @ 100 mls/hr IVPB Q8H [facility] Last Admin: 07/06/17 17:27 Dose: 100 mls/hr Levetiracetam (Keppra) 500 mg PO BID [facility] Last Admin: 07/06/17 17:27 Dose: 500 mg Potassium Chloride (K-Dur 20 Meq Er Tab) 40 meq PO DAILY [facility] Last Admin: 07/06/17 11:08 Dose: 40 meq Rivaroxaban (Xarelto) 10 mg PO DAILY [facility] Last Admin: 07/06/17 11:08 Dose: 10 mg Rosuvastatin Calcium (Crestor) 5 mg PO HS [facility] Last Admin: 07/05/17 22:17 Dose: 5 mg Zolpidem Tartrate (Ambien) 5 mg PO HS PRN PRN Reason: Insomnia Last Admin: 07/05/17 20:10 Dose: 5 mg Results - Vital Signs Recent Vital Signs: Last Vital Signs Temp 98 F 07/06/17 16:21 Pulse 95 H 07/06/17 16:21 Resp 20 07/06/17 16:21 BP 133/74 07/06/17 16:21 Pulse Ox 98 07/06/17 16:21 - Labs Result Diagrams: 07/04/17 20:18 07/06/17 06:14 Labs: Laboratory Results - last 24 hr 07/06/17 07/06/17 07/06/17 06:14 06:29 11:45 Sodium 137 Potassium 3.7 Chloride 98 Carbon Dioxide 29 Anion Gap 14 BUN 12 Creatinine 0.5 L Est GFR ( Amer) > 60 Est GFR (Non-Af Amer) > 60 POC Glucose (mg/dL) 82 73 Random Glucose 76 Calcium 9.5 Phosphorus 3.3 Magnesium 1.7 07/06/17 16:14 Sodium Potassium Chloride Carbon Dioxide Anion Gap BUN Creatinine Est GFR ( Amer) Est GFR (Non-Af Amer) POC Glucose (mg/dL) 108 Random Glucose Calcium Phosphorus Magnesium
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
[2017-07-07] MEDS: Aztreonam 1 GM in Sodium Chloride 0.9% 100 ML IVPB SCH ×3 (02:56→19:07)
[2017-07-07] MEDS: Vancomycin 750mg/D5W 150 ml 150 ML IVPB SCH (10:19)
[2017-07-07] MEDS: Potassium Chloride 20 mEq ER Tab PO SCH (10:20)
[2017-07-07] MEDS: buPROPion 150 mg/24 Hours XL Tab PO SCH (10:21)
--- NOTE | 2017-07-07 14:59 | CP.PCM.PN ---
Subjective - Date & Time of Evaluation Date of Evaluation: 07/07/17 Time of Evaluation: 14:56 - Subjective Subjective: Pt still not at base line confused depressed awating [facility] eval Objective - Vital Signs/Intake and Output Vital Signs (last 24 hours): Temp Pulse Resp BP Pulse Ox 97.9 F 89 20 169/81 H 95 07/07/17 07:36 07/07/17 07:36 07/07/17 07:36 07/07/17 10:20 07/07/17 07:36 Intake and Output: 07/07/17 07/07/17 06:59 18:59 Intake Total 820 Output Total 300 300 Balance 520 -300 - Medications Medications: Current Medications Bupropion HCl (Wellbutrin Xl) 150 mg PO DAILY [facility] Last Admin: 07/07/17 10:21 Dose: 150 mg Citalopram Hydrobromide (Celexa) 20 mg PO DAILY [facility] Last Admin: 07/07/17 10:21 Dose: 20 mg Furosemide (Lasix) 40 mg PO DAILY [facility] Last Admin: 07/07/17 10:20 Dose: 40 mg Gabapentin (Neurontin) 100 mg PO TID [facility] Last Admin: 07/07/17 14:41 Dose: 100 mg Vancomycin HCl (Vancocin 750mg/D5w 150 Ml) 150 mls @ 100 mls/hr IVPB DAILY [facility] Last Admin: 07/07/17 10:19 Dose: 100 mls/hr Aztreonam 1 gm/ Sodium (Chloride) 100 mls @ 100 mls/hr IVPB Q8H [facility] Last Admin: 07/07/17 09:02 Dose: 100 mls/hr Levetiracetam (Keppra) 500 mg PO BID [facility] Last Admin: 07/07/17 10:21 Dose: 500 mg Potassium Chloride (K-Dur 20 Meq Er Tab) 40 meq PO DAILY [facility] Last Admin: 07/07/17 10:20 Dose: 40 meq Rivaroxaban (Xarelto) 10 mg PO DAILY [facility] Last Admin: 07/07/17 10:21 Dose: 10 mg Rosuvastatin Calcium (Crestor) 5 mg PO HS [facility] Last Admin: 07/06/17 21:21 Dose: 5 mg Zolpidem Tartrate (Ambien) 5 mg PO HS PRN PRN Reason: Insomnia Last Admin: 07/06/17 21:21 Dose: 5 mg - Labs Labs: 07/04/17 20:18 07/06/17 06:14 PT 21.2 SECONDS (9.7-12.2) H 07/04/17 20:18 INR 1.8 07/04/17 20:18 APTT 34 SECONDS (21-34) 07/04/17 20:18 - Constitutional Appears: Non-toxic - Head Exam Head Exam: NORMAL INSPECTION - Eye Exam Eye Exam: Normal appearance - ENT Exam ENT Exam: Mucous Membranes Moist - Respiratory Exam Respiratory Exam: Clear to Ausculation Bilateral Assessment and Plan - Assessment and Plan (Free Text) Assessment: seizrue one epidoe discussd case with Dr. Lisa recommeded KEpra for now EEG is negatie but concerned that his current confusion may be post ictal due to recurrent seizure I expressed my doubts , think pt is depressed but agree to KEpra for now with re eval in the future awaing pschy ID; need to find how lenght of abx per ID bp not ideal recheck wound no time for graft yet per wound nurse recommeded wound vac for longer plan is to dc to rehab tomorrrow
--- NOTE | 2017-07-07 20:41 | EEG ---
DATE: INTRODUCTION: This is a digitally recorded EEG monitoring using standard EEG montages. BACKGROUND RHYTHM: The EEG shows a background activity of 8 Hertz alpha activity in parieto-occipital region. The EEG activity is bilaterally symmetrical and synchronous. There is attenuation of the background activity on eye opening. Moderate amount of myogenic artifact noticed in this EEG recording. ABNORMAL POTENTIALS: No spike, sharp waves or focal slowing was seen. PHOTIC STIMULATION AND HYPERVENTILATION: Photic stimulation did not reveal any abnormality. Hyperventilation was not performed. IMPRESSION: Normal EEG. No epileptiform activity seen in this EEG recording. David Lisa MD
[2017-07-08] MEDS: Aztreonam 1 GM in Sodium Chloride 0.9% 100 ML IVPB SCH ×3 (02:41→17:19)
[2017-07-08] MEDS: Potassium Chloride 20 mEq ER Tab PO SCH (11:18)
[2017-07-08] MEDS: Vancomycin 750mg/D5W 150 ml 150 ML IVPB SCH (11:18)
[2017-07-08] MEDS: buPROPion 150 mg/24 Hours XL Tab PO SCH (11:18)
[2017-07-08 11:22] LABS: BASO # 0.1 K/uL (0.0-0.2); BASO % 1.1 % (0.0-2.0); EOS # 0.5 K/uL (0.0-0.7); EOS % 6.1 % (0.0-4.0); HEMATOCRIT 37.1 % (35.0-51.0); MEAN CELL VOLUME 77.4 fL (80.0-94.0); MEAN CORPUSCULAR HEMOGLOBIN 25.4 pg (27.0-31.0); MEAN CORPUSCULAR HGB CONC 32.8 g/dL (33.0-37.0); MEAN PLATELET VOLUME 8.4 fL (7.2-11.7); MONO # 0.6 K/uL (0.0-0.8); MONO % 7.4 % (0.0-10.0); RED CELL DISTRIBUTION WIDTH 16.5 % (11.5-14.5); WHITE BLOOD COUNT 8.5 K/uL (4.8-10.8)
[2017-07-08 11:28] LABS: CHLORIDE 97 mmol/L (98-107); POTASSIUM 3.8 mmol/L (3.6-5.2); SODIUM 135 mmol/L (132-148)
[2017-07-08 11:31] LABS: BLOOD UREA NITROGEN 12 mg/dL (9-20); CALCIUM 9.5 mg/dl (8.6-10.4); CARBON DIOXIDE 30 mmol/L (22-30); GFR AFRICAN-AMERICAN > 60; GLUCOSE,RANDOM 71 mg/dL (75-110)
--- NOTE | 2017-07-08 15:12 | CP.PCM.DIS ---
Provider - Provider Date of Admission: 07/04/17 22:00 Attending physician: Amalia Orellana MD Time Spent in preparation of Discharge (in minutes): 30 Hospital Course - Lab Results Lab Results: Micro Results 07/06/17 16:59 Urine,Cotter Urine Culture - Final Yeast Species 07/05/17 05:08 Blood-Venous Blood Culture - Preliminary NO GROWTH AFTER 3 DAYS 07/05/17 05:08 Blood-Venous Blood Culture - Preliminary NO GROWTH AFTER 3 DAYS 07/05/17 02:00 Urine Urine Culture - Final Yeast Species Most Recent Lab Values WBC 8.5 K/uL (4.8-10.8) 07/08/17 11:16 RBC 4.79 Mil/uL (4.40-5.90) 07/08/17 11:16 Hgb 12.2 g/dL (12.0-18.0) 07/08/17 11:16 Hct 37.1 % (35.0-51.0) 07/08/17 11:16 MCV 77.4 fL (80.0-94.0) L 07/08/17 11:16 MCH 25.4 pg (27.0-31.0) L 07/08/17 11:16 MCHC 32.8 g/dL (33.0-37.0) L 07/08/17 11:16 RDW 16.5 % (11.5-14.5) H 07/08/17 11:16 Plt Count 344 K/uL (130-400) 07/08/17 11:16 MPV 8.4 fL (7.2-11.7) 07/08/17 11:16 Neut % (Auto) 50.4 % (50.0-75.0) 07/08/17 11:16 Lymph % (Auto) 35.0 % (20.0-40.0) 07/08/17 11:16 Charles % (Auto) 7.4 % (0.0-10.0) 07/08/17 11:16 Eos % (Auto) 6.1 % (0.0-4.0) H 07/08/17 11:16 Baso % (Auto) 1.1 % (0.0-2.0) 07/08/17 11:16 Neut # 4.3 K/uL (1.8-7.0) 07/08/17 11:16 Lymph # 3.0 K/uL (1.0-4.3) 07/08/17 11:16 Charles # 0.6 K/uL (0.0-0.8) 07/08/17 11:16 Eos # 0.5 K/uL (0.0-0.7) 07/08/17 11:16 Baso # 0.1 K/uL (0.0-0.2) 07/08/17 11:16 PT 21.2 SECONDS (9.7-12.2) H 07/04/17 20:18 INR 1.8 07/04/17 20:18 APTT 34 SECONDS (21-34) 07/04/17 20:18 Sodium 135 mmol/L (132-148) 07/08/17 11:16 Potassium 3.8 mmol/L (3.6-5.2) 07/08/17 11:16 Chloride 97 mmol/L (98-107) L 07/08/17 11:16 Carbon Dioxide 30 mmol/L (22-30) 07/08/17 11:16 Anion Gap 12 (10-20) 07/08/17 11:16 BUN 12 mg/dL (9-20) 07/08/17 11:16 Creatinine 0.5 mg/dL (0.8-1.5) L 07/08/17 11:16 Est GFR ( Amer) > 60 07/08/17 11:16 Est GFR (Non-Af Amer) > 60 07/08/17 11:16 POC Glucose (mg/dL) 222 mg/dL (65-110) H 07/08/17 11:32 Random Glucose 71 mg/dL (75-110) L 07/08/17 11:16 Calcium 9.5 mg/dl (8.6-10.4) 07/08/17 11:16 Phosphorus 3.3 mg/dL (2.5-4.5) 07/06/17 06:14 Magnesium 1.7 mg/dL (1.6-2.3) 07/06/17 06:14 Total Bilirubin 0.3 mg/dL (0.2-1.3) 07/04/17 20:18 AST 20 U/L (17-59) 07/04/17 20:18 ALT 32 U/L (21-72) 07/04/17 20:18 Alkaline Phosphatase 64 U/L (38-126) 07/04/17 20:18 Total Protein 6.7 g/dL (6.3-8.3) 07/04/17 20:18 Albumin 3.9 g/dL (3.5-5.0) 07/04/17 20:18 Globulin 2.8 gm/dL (2.2-3.9) 07/04/17 20:18 Albumin/Globulin Ratio 1.4 (1.0-2.1) 07/04/17 20:18 Lipase 81 U/L (23-300) 07/04/17 20:18 Urine Color Yellow (YELLOW) 07/04/17 20:11 Urine Clarity Hazy (Clear) 07/04/17 20:11 Urine pH 7.0 (5.0-8.0) 07/04/17 20:11 Ur Specific [place] 1.016 (1.003-1.030) 07/04/17 20:11 Urine Protein Negative mg/dL (NEGATIVE) 07/04/17 20:11 Urine Glucose (UA) Normal mg/dL (Normal) 07/04/17 20:11 Urine Ketones Negative mg/dL (NEGATIVE) 07/04/17 20:11 Urine Blood Negative (NEGATIVE) 07/04/17 20:11 Urine Nitrate Negative (NEGATIVE) 07/04/17 20:11 Urine Bilirubin Negative (NEGATIVE) 07/04/17 20:11 Urine Urobilinogen Normal mg/dL (0.2-1.0) 07/04/17 20:11 Ur Leukocyte Esterase 3+ Benny/uL (Negative) H 07/04/17 20:11 Urine WBC (Auto) 43 /hpf (0-5) H 07/04/17 20:11 Urine RBC (Auto) 6 /hpf (0-3) H 07/04/17 20:11 Ur Squamous Epith Cells < 1 /hpf (0-5) 07/04/17 20:11 Amorphous Sediment Occ /ul (<OCC) H 07/04/17 20:11 Urine Bacteria Rare (<OCC) 07/04/17 20:11 Urine Yeast (Budding) Few /hpf (NEGATIVE) H 07/04/17 20:11 Vancomycin Trough 8.7 ug/mL (5.0-10.0) 07/05/17 19:41 - Hospital Course Hospital Course: pT ADMITTED AFTER ONE TIME SEIZURE nEURO EVALUTATED PATIENT AND RECOMMENED kEPRA FOR NOW. eeg IS NEGATIVE . PT WILL BE RE EVALUATED FOR CLINICAL BIOSTATISTICS DIRECTOR NEED. pT IS DEPRESSED , DISCUSSED WITH HIM AND PSYCHIATRIC EVALUTATION pT EXPRESSED HIS DESIRE TO BE BACK HOME SAD ABOUT BEING IN THE HOSPITAL WOUND EVALUATED BY WOUND NURSE AND PABLITO WOUND VAC NO GRAFT YET ANTIBIOTICS FOR TWO MORE WEEKS PER id Discharge Exam - Head Exam Head Exam: NORMAL INSPECTION Discharge Plan - Follow Up Plan Condition: FAIR Disposition: REHAB FACILITY/REHAB UNIT Instructions: Bupropion (By mouth), Gabapentin (By mouth), Heart Healthy Diet ( DC), New-Onset Seizure in Adults (DC) Referrals: Amalia Orellana MD [Staff Provider] - Hill Sevilla MD [Staff Provider] -
--- NOTE | 2017-07-08 16:07 | OP ---
PROCEDURE DATE: 07/08/2017 PREOPERATIVE DIAGNOSIS: Chronic decubitus also sacral decubitus with osteomyelitis. POSTOPERATIVE DIAGNOSIS: Chronic decubitus also sacral decubitus with osteomyelitis. PROCEDURE PERFORMED: Debridement and re-drainage of sacral osteomyelitis. SURGEON: Dr. Subramanian. ANESTHESIA: None. ESTIMATED BLOOD LOSS: 20 mL. POSTOPERATIVE CONDITION: Stable. INDICATIONS FOR SURGERY: This is a 66-year-old male, well-known to me, paraplegic for many years with a sacral ulcer in the hospital with sepsis and is taken to the OR for examination of his decubitus and possible re-drainage on osteomyelitis which occurred 2 months ago. DESCRIPTION OF PROCEDURE: The patient taken to the operating room and placed in the right lateral decubitus position. The buttocks' area was prepped and draped. The decubitus ulcer was explored, especially the undermined area and the previous area of osteomyelitis was re-drained and cultured. A small sacral polyp was also removed. Fibrinous exudates were then debrided, bleeding was controlled using a Bovie. A bleeding parasacral blood vessel was repaired. The wound was pulse irrigated with saline and Kantrex solution and packed open with saline gauze. The patient tolerated the procedure well, returned to recovery room in stable condition. Jamil Subramanian MD
[2017-07-08] MEDS ORDERED: Influenza Vaccine 60 mcg/0.5 mL SYR (4YR UP) IM ONE (16:42)
[2017-07-08] MEDS ORDERED: Fluconazole IV 100mg/50 ml NS 50 ML IVPB SCH (19:00)
--- NOTE | 2017-07-08 19:26 | PCM.PSYCH ---
Initial Psychiatric Evaluation - Initial Psychiatric Evaluation Chief Complaint (in patient's own words): None seen for a consult re his AMS History of Present Illness and Precipitating Events: Pt is see, chart reviewed and case discussed This is a 66-year-old male, with 2 children, unknown profession and he currently resides in a care home. The patient is a very poor historian as he is confused and forgetful. The patient repeats himself a lot, gives irrelevant answers to questions, has an odd smile on his face for no reason and when asked about orientation he barely knew the year/month and hospital name and city. He was able to repeat 3 words but he couldn't recall them in 5 minutes. He denied feeling suicidal, homicidal and no delusions or hallucinations elicited. He was calm and cooperative. Past psych history: Denied Family psych history: Denied Medical history: As per chart Again, the history is limited due to patient's cognitive problems and lack of collateral information. Current Medications: Active Medications Generic Name Dose Route Start Last Admin Trade Name Sinan PRN Reason Stop Dose Admin Bupropion HCl 150 mg 07/05/17 10:00 07/08/17 11:18 Wellbutrin Xl PO 150 mg DAILY SRIKANTH Administration Citalopram Hydrobromide 20 mg 07/05/17 10:00 07/08/17 11:18 Celexa PO 20 mg DAILY SRIKANTH Administration Furosemide 40 mg 07/05/17 10:00 07/08/17 11:19 Lasix PO 40 mg DAILY SRIKNATH Administration Gabapentin 100 mg 07/05/17 10:00 07/08/17 17:21 Neurontin PO 100 mg TID SRIKANTH Administration Vancomycin HCl 150 mls @ 100 mls/hr 07/05/17 10:00 07/08/17 11:18 Vancocin 750mg/D5w 150 Ml IVPB 100 mls/hr DAILY SRIKANTH Administration Aztreonam 1 gm/ Sodium 100 mls @ 100 mls/hr 07/05/17 02:00 07/08/17 17:19 Chloride IVPB 100 mls/hr Q8H SRIKANTH Administration Fluconazole 50 mls @ 50 mls/hr 07/08/17 19:00 07/08/17 18:31 Diflucan Iv 100 Mg/50 Ml Ns IVPB 50 mls/hr Q24H SRIKANTH Administration Levetiracetam 500 mg 07/06/17 10:00 07/08/17 17:21 Keppra PO 500 mg BID SRIKANTH Administration Potassium Chloride 40 meq 07/05/17 10:00 07/08/17 11:18 K-Dur 20 Meq Er Tab PO 40 meq DAILY SRIKANTH Administration Rivaroxaban 10 mg 07/05/17 10:00 07/08/17 11:19 Xarelto PO 10 mg DAILY SRIKANTH Administration Rosuvastatin Calcium 5 mg 07/05/17 22:00 07/07/17 21:58 Crestor PO 5 mg HS SRIKANTH Administration Zolpidem Tartrate 5 mg 07/05/17 08:15 07/07/17 21:58 Ambien PO 5 mg HS PRN Administration Insomnia Past Psychiatric History - Past Psychiatric History Previous Treatment History: None Pertinent Medical Hx (Current Medical&Sleep Prob, Allergies): Allergies Allergy/AdvReac Type Severity Reaction Status Date / Time No Known Allergies Allergy Verified 07/04/17 19:38 Potassium Chloride [K-Tab ER] 40 meq PO DAILY 10/03/14 Furosemide [Lasix] 40 mg PO DAILY #0 tab 03/18/16 Bupropion HCl [Wellbutrin Xl] 150 mg PO DAILY 05/06/16 Citalopram Hydrobromide [Celexa] 20 mg PO DAILY 07/03/16 Rivaroxaban [Xarelto] 10 mg PO DAILY 07/03/16 Aluminum Hydroxide/Magnesium [Maalox Plus 30 ml] 30 ml PO Q4 PRN 06/15/17 Magnesium Hydroxide [Milk Of Magnesia] 30 ml PO Q24H PRN 06/15/17 Multivitamin [Multiple Vitamins] 1 tab PO DAILY 06/15/17 Vits A and D/White Pet/Lanolin [A and D Ointment] 1 gm TOP DAILY 06/15/17 Rosuvastatin Calcium [Crestor] 5 mg PO HS 07/04/17 Aztreonam [Azactam] 1 gm IVPB Q8H vial 07/08/17 Gabapentin [Neurontin] 100 mg PO TID cap 07/08/17 Vancomycin [Vancomycin Inj] 750 mg IV DAILY #0 07/08/17 Zolpidem [Ambien] 5 mg PO HS PRN tab 07/08/17 buPROPion XL [Wellbutrin XL] 150 mg PO DAILY t24 07/08/17 Review of Systems - Review of Systems Systems not reviewed;Unavailable: Altered Mental Status - Neurological Neurological: Confusion - Psychiatric Psychiatric: Confusion. absent: Hallucinations, Homicidal Ideation, Suicidal Ideation Mental Status Examination - Personal Presentation Personal Presentation: Looks older than stated age - Affect Affect: Constricted, Other (odd) - Motor Activity Motor Activity: Calm - Reliability in Providing Information Reliability in Providing Information: Poor, due to cognitve impairment - Speech Speech: Disorganized - Mood Mood: Other (labile) - Formal Thought Process Formal Thought Process: Loosening of associations - Cognitive Functions Orientation: Place Sensorium: Alert Attention/Concentration: Easily distracted Abstract Thinking: Branford Estimate of Intelligence: Below average Judgement: Imparied, as evidence by: Poor judgement Memory: Recent impaired, as evidence by: Inability to recall events of the day, Remote impaired as evidenced by: Inability to recall sig life events - Risk Risk: Diminished functioning - Strength & Assets Inventory Strength & Assets Inventory: Cooperative - Limitations Limitations: Living alone DSM 5 DX - DSM 5 DSM 5 Diagnosis: Delirium r/o dementia - Recommended/Plan of Treatment Treatment Recommendations and Plan of Treatment: Continue treating underlying problems Support and psychoed Frequent orientation Prn meds Dementia work up later on 33 min
--- NOTE | 2017-07-08 22:35 | CP.PCM.PN ---
Subjective - Date & Time of Evaluation Date of Evaluation: 07/08/17 Time of Evaluation: 05:20 - Subjective Subjective: dictated Objective - Vital Signs/Intake and Output Vital Signs (last 24 hours): Temp Pulse Resp BP Pulse Ox 97.9 F 78 18 137/80 99 07/08/17 15:24 07/08/17 15:24 07/08/17 15:24 07/08/17 15:24 07/08/17 15:24 Intake and Output: 07/08/17 07/09/17 18:59 06:59 Intake Total 800 Output Total 800 Balance 0 - Medications Medications: Current Medications Bupropion HCl (Wellbutrin Xl) 150 mg PO DAILY [facility] Last Admin: 07/08/17 11:18 Dose: 150 mg Citalopram Hydrobromide (Celexa) 20 mg PO DAILY [facility] Last Admin: 07/08/17 11:18 Dose: 20 mg Furosemide (Lasix) 40 mg PO DAILY [facility] Last Admin: 07/08/17 11:19 Dose: 40 mg Gabapentin (Neurontin) 100 mg PO TID [facility] Last Admin: 07/08/17 17:21 Dose: 100 mg Vancomycin HCl (Vancocin 750mg/D5w 150 Ml) 150 mls @ 100 mls/hr IVPB DAILY [facility] Last Admin: 07/08/17 11:18 Dose: 100 mls/hr Aztreonam 1 gm/ Sodium (Chloride) 100 mls @ 100 mls/hr IVPB Q8H [facility] Last Admin: 07/08/17 17:19 Dose: 100 mls/hr Fluconazole (Diflucan Iv 100 Mg/50 Ml Ns) 50 mls @ 50 mls/hr IVPB Q24H [facility] Last Admin: 07/08/17 18:31 Dose: 50 mls/hr Levetiracetam (Keppra) 500 mg PO BID [facility] Last Admin: 07/08/17 17:21 Dose: 500 mg Potassium Chloride (K-Dur 20 Meq Er Tab) 40 meq PO DAILY [facility] Last Admin: 07/08/17 11:18 Dose: 40 meq Rivaroxaban (Xarelto) 10 mg PO DAILY [facility] Last Admin: 07/08/17 11:19 Dose: 10 mg Rosuvastatin Calcium (Crestor) 5 mg PO HS [facility] Last Admin: 07/08/17 21:14 Dose: 5 mg Zolpidem Tartrate (Ambien) 5 mg PO HS PRN PRN Reason: Insomnia Last Admin: 07/07/17 21:58 Dose: 5 mg - Labs Labs: 07/08/17 11:16 07/08/17 11:16 PT 21.2 SECONDS (9.7-12.2) H 07/04/17 20:18 INR 1.8 07/04/17 20:18 APTT 34 SECONDS (21-34) 07/04/17 20:18
[2017-07-08 23:49] VITALS: BP 132/78; PULSE 64; RESP 20; TEMP 97.6; O2SAT 98
--- NOTE | 2017-07-09 02:12 | PN ---
DATE: SUBJECTIVE: Mr. Manuel Lopez was seen today. He was going to go to the skilled nursing. His son was around there and at least he was getting a little better. He recognized me, was not verbalizing much, but he was still somewhat confused and depressed. The son told me to check the sacral decubitus as he is going to go back to the skilled nursing. PHYSICAL EXAMINATION HEENT: Head is atraumatic, normocephalic. NECK: Supple. LUNGS: Clear. Decreased breath sound bilaterally. HEART: S1 and S2 is regular. No murmurs appreciated. ABDOMEN: Soft, nontender. No guarding. No rigidity present. EXTREMITIES: He has paraplegia. He also has colostomy bag and he has a sacral decubitus. His sacral decubitus had lot of dust around and so we will order some nystatin cream around and I also found that the culture came out positive. Urine was positive for yeast, so I ordered Diflucan. He also has a Cotter catheter and if he is still here, we can change the Cotter catheter tomorrow and if he has room, then Diflucan can be changed to p.o. after the change of the Cotter catheter. We will follow. Hill Sevilla MD
[2017-07-09] MEDS ORDERED: Fluconazole IV 200mg/100 ml NS 100 MG in Premixed IV 1 EA IVPB SCH (10:00)
--- NOTE | 2017-07-13 06:15 | PQF DEBRID ---
This form is a permanent part of the medical record To Jamil Subramanian MD 66 year old male paraplegic for many years was taken to the OR for debridement of sacral decubitus with osteomyelities. Please clarify if Debridement was EXCISIONAL OR NON EXCISIONAL. Please document the indicators for the procedure below. tHANK YOU Clarification of your documentation is requested to better reflect the severity of illness and intensity of treatment of your patient. Indicators present [X] Documentation of wound care / debridement [X] Technique: [] [X] Instrument used:[] [X] Nature of Tissue Removed:[] [X] Appearance of Wound:[] [X] Size of Wound: [] [] Depth of Debridement: [] [] Other: [] Location in the medical record that reflects the above clinical findings: [] NONE Other Treatment Provided: [] PHYSICIAN'S RESPONSE Based on your medical judgment, can you further clarify the precise NATURE, DEPTH, EXTENT and / or METHODS of wound debridement utilized in this case: [] EXCISIONAL debridement use of a scalpel / blade to cut away tissue Depth (subcutaneous, fascia, muscle, soft tissue and bone) [] Size of Wound [] NON-EXCISIONAL debridement chemical, scrubbing, trimming with a scissor/ versajet [] Other, please indicate: [] [] If unable to determine, please check the box, sign and date. In responding to this query, please exercise your independent professional judgment. The fact that a question is asked does not imply that any particular answer is desired or expected. Thank you for your clarification on this documentation. If you have any questions please call:[ ] * Thank you, [ Melissa Esteves, [facility]] sheet metal contractor ALESSIA
== END 2017-07-09 00:50 | DRG 101 ==
LOC: C.ER 19:35 → C.9E 22:00 → C.3T 22:58 → C.9E 22:58 → C.5S 07-05 20:09
PROVIDERS: ADMIT Internal Medicine; ATTEND Internal Medicine
PROC: 0HB6XZZ Excision of Back Skin, External Approach (ICD-10-PCS; principal; 2017-07-08 15:15)
DX: G40.909 Epilepsy, unspecified, not intractable, without status epilepticus (principal); L89.150 Pressure ulcer of sacral region, unstageable; G82.20 Paraplegia, unspecified; L89.229 Pressure ulcer of left hip, unspecified stage; E11.22 Type 2 diabetes mellitus with diabetic chronic kidney disease; F03.90 Unspecified dementia, unspecified severity, without behavioral disturbance, psychotic disturbance, mood disturbance, and anxiety; F05 Delirium due to known physiological condition; C64.9 Malignant neoplasm of unspecified kidney, except renal pelvis; B37.49 Other urogenital candidiasis; L97.919 Non-pressure chronic ulcer of unspecified part of right lower leg with unspecified severity; M86.9 Osteomyelitis, unspecified; D64.9 Anemia, unspecified; I12.9 Hypertensive chronic kidney disease with stage 1 through stage 4 chronic kidney disease, or unspecified chronic kidney disease; N18.9 Chronic kidney disease, unspecified; F41.9 Anxiety disorder, unspecified; F31.9 Bipolar disorder, unspecified; E78.00 Pure hypercholesterolemia, unspecified; E55.9 Vitamin D deficiency, unspecified; I70.209 Unspecified atherosclerosis of native arteries of extremities, unspecified extremity; G51.0 Bell's palsy; E11.622 Type 2 diabetes mellitus with other skin ulcer; E11.69 Type 2 diabetes mellitus with other specified complication; T42.6X5A Adverse effect of other antiepileptic and sedative-hypnotic drugs, initial encounter; Z93.3 Colostomy status

== ENCOUNTER 2017-11-01 09:02 | Emergency (ER) | payer MEDICARE ==
[2017-11-01 09:13] VITALS: BMI 27.9
[2017-11-01 09:22] VITALS: O2SAT 100
--- NOTE | 2017-11-01 10:19 | C.PDOC ---
History Of Present Illness 67 y/o male with history of Renal Carcinoma sent to ED for follow up with Dr. Morataya. Patient is wheel chair bounded and states he is unable to get to Dr. Morataya's office and was told to come to ED. Patient reports having Nephroctomy by Dr. Morataya with no Chemotherapy 1.5 years ago. Patient denies dysuria, back pain, urinary frequency, nausea, vomiting or any other physical complaints at this time. Time Seen by Provider: 11/01/17 09:26 Chief Complaint (Nursing): Male Genitourinary History Per: Patient History/Exam Limitations: no limitations Onset/Duration Of Symptoms: Days Current Symptoms Are (Timing): Better Past Medical History Reviewed: Historical Data, Nursing Documentation, Vital Signs Vital Signs: Last Vital Signs Temp 97.8 F 11/01/17 14:50 Pulse 96 H 11/01/17 14:50 Resp 16 11/01/17 14:50 BP 109/66 11/01/17 14:50 Pulse Ox 100 11/01/17 15:54 - Medical History PMH: Anemia, Anxiety, Arthritis (BACK W/ HX OF SURGERY), Back Problems ( paralysis), Bipolar Disorder, Depression, Diverticulitis, Fibromyalgia, Gastritis, Gall Bladder Disease, HTN, Hypercholesterolemia, Kidney Stones (1980s ), Malignancy (kidney ), Peripheral Edema, Chronic Kidney Disease Surgical History: Back Surgery - [facility] Procedures COMPRESSION OF BACK USING PRESSURE DRESSING (06/15/17) DRAINAGE OF BACK SKIN, EXTERNAL APPROACH (06/15/17) DRAINAGE OF LEFT HIP JOINT, OPEN APPROACH (04/07/17) DRAINAGE OF RIGHT KNEE JOINT, OPEN APPROACH (04/07/17) ENDOSC LG BOWEL THROUGH STOMA (10/03/14) EXCIS DEBRIDE OF WOUND, INFECT, OR BURN (12/01/14) EXCISION OF BACK SKIN, EXTERNAL APPROACH (07/04/17) EXCISION OF BACK SUBCU/FASCIA, OPEN APPROACH (06/15/17) EXCISION OF LEFT HIP JOINT, OPEN APPROACH (04/07/17) EXCISION OF LEFT KIDNEY, PERCUTANEOUS ENDOSCOPIC APPROACH (06/01/16) EXCISION OF LEFT PELVIC BONE, OPEN APPROACH (04/07/17) EXCISION OF LEFT UPPER FEMUR, OPEN APPROACH, DIAGNOSTIC (04/07/17) EXCISION OF RIGHT LOWER LEG SKIN, EXTERNAL APPROACH (06/20/15) EXCISION OF SACRUM, OPEN APPROACH (06/15/17) EXTRACTION OF BACK SUBCU/FASCIA, OPEN APPROACH (06/15/17) FLUOROSCOPY OF L SUBCLAV VEIN USING OTH CONTRAST, GUIDANCE (06/20/15) FLUOROSCOPY OF SUPERIOR VENA CAVA, GUIDANCE (04/07/17) INDIVID PSYCHOTHERAP NEC (02/28/14) INSERT INFUSION DEV IN L EXT JUGULAR VEIN, PERC (06/20/15) INSERTION OF INFUSION DEV INTO L SUBCLAV VEIN, OPEN APPROACH (06/20/15) INSERTION OF INFUSION DEV INTO SUP VENA CAVA, PERC APPROACH (04/07/17) INTRODUCE OF OTH ANTI-INFECT INTO PERIPH VEIN, PERC APPROACH (06/20/15) INTRODUCTION OF SERUM/TOX/VACCINE INTO SUBCU, PERC APPROACH (06/20/15) OTHER GROUP THERAPY (02/28/14) OTHER SKIN & SUBQ I D (12/01/14) RADICAL EXCIS SKIN LES (12/01/14) ROBOTIC ASSISTED PROCEDURE OF TRUNK, PERC ENDO APPROACH (06/01/16) SOFT TISSUE INCISION NEC (12/01/14) TRANSFER RIGHT LOWER LEG SKIN, EXTERNAL APPROACH (06/20/15) Family History: States: No Known Family Hx - Social History Hx Tobacco Use: No Hx Alcohol Use: No Hx Substance Use: No - Immunization History Hx Tetanus Toxoid Vaccination: Yes Hx Influenza Vaccination: Yes Hx Pneumococcal Vaccination: No Physical Exam - Physical Exam Appears: Non-toxic, No Acute Distress Skin: Warm, Dry, No Rash Head: Atraumatic, Normacephalic Eye(s): bilateral: Normal Inspection, EOMI Nose: Normal Neck: Supple Chest: Symmetrical Cardiovascular: Rhythm Regular Respiratory: Normal Breath Sounds, No Accessory Muscle Use, No Rales, No Rhonchi , No Wheezing Gastrointestinal/Abdominal: Soft, No Tenderness, No Guarding, No Rebound Neurological/Psych: Oriented x3 Gait: Other (Wheel chair bounded) ED Course And Treatment - Laboratory Results Result Diagrams: 11/01/17 10:17 11/01/17 10:17 O2 Sat by Pulse Oximetry: 100 (RA) - CT Scan/US Abdomen/Pelvis with IV contrast Other Rad Studies (CT/US): Read By Radiologist, Radiology Report Reviewed CT/US Interpretation: PROCEDURE: CT Abdomen and Pelvis with contrast. HISTORY : pain. COMPARISON: CT of the abdomen pelvis without and with IV contrast performed 01/26/17 and 03/11/16. TECHNIQUE: Contrast dose: 100 mL Visipaque 320. Radiation dose: Total exam DLP = 635.87 mGy-cm. This CT exam was performed using one or more of the following dose reduction techniques: Automated exposure control, adjustment of the mA and/or kV according to patient size, and/ or use of iterative reconstruction technique. FINDINGS: LOWER THORAX: No visible consolidation, pleural effusion, or pneumothorax. LIVER: Nodular hepatic contour. GALLBLADDER AND BILE DUCTS: Unremarkable. PANCREAS: Unremarkable. SPLEEN: Unremarkable. ADRENALS: Left adrenal gland hypertrophy and probable 6 mm hypodense nodule ; evaluation obscured by streak artifact from adjacent hardware. Right adrenal gland appears unremarkable except for punctate calcification involving the lateral limb. KIDNEYS AND URETERS: Streak artifact obscures evaluation of the kidneys. Mild left-sided hydronephrosis and hydroureter. No evidence of right-sided hydronephrosis. Bilateral low-density renal hypodense lesions including a right upper pole renal cyst and several which are too small to characterize ; statistically cysts. VASCULATURE: IVC filter. Atherosclerotic calcifications. Thrombosed IVC. No aortic aneurysm. BOWEL: Stomach is nondistended. Lack of oral contrast limits evaluation for bowel pathology. Left lower quadrant colostomy. No evidence of bowel obstruction. Moderate diffuse constipation. APPENDIX: The appendix appears within normal limits of caliber. No secondary signs of acute appendicitis. PERITONEUM: No significant free fluid. No definite free air. LYMPH NODES: Right pelvic side wall/inguinal adenopathy measuring up to approximately 14 mm in short axis. BLADDER: Under distended urinary bladder. Thick-walled irregular urinary bladder wall. REPRODUCTIVE: Penile prosthesis. Prosthesis reservoir within the left pelvis adjacent to the urinary bladder. Partially imaged hydroceles. BONES: Metallic hardware partially imaged within the left femur. Irregular appearance of the thoracolumbar spine ; correlate for remote history of trauma or infection. Osseous demineralization. Rounded lucent regions involving bilateral iliacs of unclear significance. Prominent soft tissue at the level both hip joints with coarse calcifications noted. OTHER FINDINGS: Subcutaneous varices. Soft tissue thickening/phlegmonous change at the level the right sacrum. Large left decubitus ulcer. IMPRESSION: Streak artifact obscures evaluation of the kidneys. Mild left-sided hydronephrosis and hydroureter. No evidence of right-sided hydronephrosis. Bilateral low-density renal hypodense lesions including a right upper pole renal cyst and several which are too small to characterize ; statistically cysts. Left adrenal gland hypertrophy and probable 6 mm hypodense nodule ; evaluation obscured by streak artifact from adjacent hardware. Right adrenal gland appears unremarkable except for punctate calcification involving the lateral limb. Nodular hepatic contour. Subcutaneous varices. Soft tissue thickening/phlegmonous change at the level the right sacrum. Large left decubitus ulcer. Right pelvic side wall /inguinal adenopathy measuring up to approximately 14 mm in short axis. Metallic hardware partially imaged within the left femur. Irregular appearance of the thoracolumbar spine ; correlate for remote history of trauma or infection. Osseous demineralization. Rounded lucent regions involving bilateral iliacs of unclear significance. Prominent soft tissue at the level both hip joints with coarse calcifications noted. Additional findings as above. Progress Note: Blood work, UA ordered and urine culture sent to lab, CT abd pelvis w/IV contrast and w/o IV contrast ordered as requested by Dr. Morataya. Dr Morataya evaluated pt at bedside and notes he will f/u on his results. Pt was noted to have hypokalemia which was replaced. Also noted to have UTI, Rocephin ordered. Ct evaluated . Offered to evaluate decubitus. Pt notes that left decub is healing s/p Dr hunt intervention. Also notes he has a small right side decub also. States Dr Orellana is aware and visiting nurse evaluates the area. Pt does not want further evaluation. Instructed strict f/u . Case discussed with Dr Smith who evalauted CT and labs, agreed upon plan and treatment. Disposition - Disposition Referrals: Sylwia Morataya MD [Staff Provider] - Disposition: HOME/ ROUTINE Disposition Time: 15:37 Condition: STABLE Additional Instructions: Follow up with primary medical doctor in 1-3 days without fail for further evaluation. Take medications as prescribed. Return to the emergency department at any time if symptoms persist or worsen. Prescriptions: Cefpodoxime [Vantin] 100 mg PO BID 7 Days tab Instructions: Urinary Tract Infection in Men (ED) Forms: [employer] (Malian) - Clinical Impression Clinical Impression: UTI (urinary tract infection), Hypokalemia, Renal cell carcinoma - PA / CHECKERING MACHINE OPERATOR / Resident Statement MD/DO has reviewed & agrees with the documentation as recorded. - Scribe Statement The provider has reviewed the documentation as recorded by the Scribe Maricsa Lopez All medical record entries made by the Ching were at my direction and personally dictated by me. I have reviewed the chart and agree that the record accurately reflects my personal performance of the history, physical exam, medical decision making, and the department course for this patient. I have also personally directed, reviewed, and agree with the discharge instructions and disposition.
[2017-11-01 10:22] LABS: BASO # 0.1 K/uL (0.0-0.2); BASO % 1.2 % (0.0-2.0); EOS # 0.1 K/uL (0.0-0.7); EOS % 1.4 % (0.0-4.0); LYMPH # 2.9 K/uL (1.0-4.3); LYMPH % 27.4 % (20.0-40.0); MEAN CELL VOLUME 77.5 fL (80.0-94.0); MEAN CORPUSCULAR HEMOGLOBIN 25.9 pg (27.0-31.0); MEAN CORPUSCULAR HGB CONC 33.4 g/dL (33.0-37.0); MEAN PLATELET VOLUME 7.6 fL (7.2-11.7); MONO # 0.7 K/uL (0.0-0.8); MONO % 6.3 % (0.0-10.0); NEUT # 6.8 K/uL (1.8-7.0); NEUT % 63.7 % (50.0-75.0); RBC 4.27 Mil/uL (4.40-5.90); RED CELL DISTRIBUTION WIDTH 16.7 % (11.5-14.5); WHITE BLOOD COUNT 10.7 K/uL (4.8-10.8)
[2017-11-01 10:35] LABS: SQUAMOUS EPITHIAL 3 /hpf (0-5); URINE BACTERIA RARE (<OCC); URINE BILIRUBIN NEGATIVE (NEGATIVE); URINE BLOOD 1+ (NEGATIVE); URINE CLARITY Hazy (Clear); URINE COLOR Yellow (YELLOW); URINE GLUCOSE (UA) NORMAL (Normal); URINE LEUKOCYTE ESTERASE 3+ Leu/uL (Negative); URINE NITRATE POSITIVE (NEGATIVE); URINE PROTEIN NEGATIVE (NEGATIVE); WBC CLUMPS MANY /hpf
[2017-11-01 10:36] LABS: ALBUMIN 3.7 g/dL (3.5-5.0); ALT/SGPT 17 U/L (21-72); AST/SGOT 16 U/L (17-59); BLOOD UREA NITROGEN 19 mg/dL (9-20); GFR AFRICAN-AMERICAN > 60; GFR NON-AFRICAN AMERICAN > 60
[2017-11-01] MEDS ORDERED: Potassium Chloride 20 mEq ER Tab PO STA (10:41)
[2017-11-01] MEDS ORDERED: Potassium Chloride 20 mEq ER Tab PO ONE (11:27)
[2017-11-01] MEDS ORDERED: Iohexol 300 100 ML IJ ONE (13:47)
[2017-11-01 14:51] VITALS: BP 109/66; PULSE 96; RESP 16; TEMP 97.8
--- NOTE | 2017-11-01 15:35 | CT ---
PROCEDURE: CT Abdomen and Pelvis with contrast HISTORY: pain COMPARISON: CT of the abdomen pelvis without and with IV contrast performed 01/26/17 and 03/11/16 TECHNIQUE: Contrast dose: 100 mL Visipaque 320 Radiation dose: Total exam DLP = 635.87 mGy-cm. This CT exam was performed using one or more of the following dose reduction techniques: Automated exposure control, adjustment of the mA and/or kV according to patient size, and/or use of iterative reconstruction technique. FINDINGS: LOWER THORAX: No visible consolidation, pleural effusion, or pneumothorax. LIVER: Nodular hepatic contour. GALLBLADDER AND BILE DUCTS: Unremarkable. PANCREAS: Unremarkable. SPLEEN: Unremarkable. ADRENALS: Left adrenal gland hypertrophy and probable 6 mm hypodense nodule ; evaluation obscured by streak artifact from adjacent hardware. Right adrenal gland appears unremarkable except for punctate calcification involving the lateral limb. KIDNEYS AND URETERS: Streak artifact obscures evaluation of the kidneys. Mild left-sided hydronephrosis and hydroureter. No evidence of right-sided hydronephrosis. Bilateral low-density renal hypodense lesions including a right upper pole renal cyst and several which are too small to characterize ; statistically cysts. VASCULATURE: IVC filter. Atherosclerotic calcifications. Thrombosed IVC. No aortic aneurysm. BOWEL: Stomach is nondistended. Lack of oral contrast limits evaluation for bowel pathology. Left lower quadrant colostomy. No evidence of bowel obstruction. Moderate diffuse constipation. APPENDIX: The appendix appears within normal limits of caliber. No secondary signs of acute appendicitis. PERITONEUM: No significant free fluid. No definite free air. LYMPH NODES: Right pelvic side wall/inguinal adenopathy measuring up to approximately 14 mm in short axis. BLADDER: Under distended urinary bladder. Thick-walled irregular urinary bladder wall. REPRODUCTIVE: Penile prosthesis. Prosthesis reservoir within the left pelvis adjacent to the urinary bladder. Partially imaged hydroceles. BONES: Metallic hardware partially imaged within the left femur. Irregular appearance of the thoracolumbar spine ; correlate for remote history of trauma or infection. Osseous demineralization. Rounded lucent regions involving bilateral iliacs of unclear significance. Prominent soft tissue at the level both hip joints with coarse calcifications noted. OTHER FINDINGS: Subcutaneous varices. Soft tissue thickening/phlegmonous change at the level the right sacrum. Large left decubitus ulcer. IMPRESSION: Streak artifact obscures evaluation of the kidneys. Mild left-sided hydronephrosis and hydroureter. No evidence of right-sided hydronephrosis. Bilateral low-density renal hypodense lesions including a right upper pole renal cyst and several which are too small to characterize ; statistically cysts. Left adrenal gland hypertrophy and probable 6 mm hypodense nodule ; evaluation obscured by streak artifact from adjacent hardware. Right adrenal gland appears unremarkable except for punctate calcification involving the lateral limb. Nodular hepatic contour. Subcutaneous varices. Soft tissue thickening/phlegmonous change at the level the right sacrum. Large left decubitus ulcer. Right pelvic side wall/inguinal adenopathy measuring up to approximately 14 mm in short axis. Metallic hardware partially imaged within the left femur. Irregular appearance of the thoracolumbar spine ; correlate for remote history of trauma or infection. Osseous demineralization. Rounded lucent regions involving bilateral iliacs of unclear significance. Prominent soft tissue at the level both hip joints with coarse calcifications noted. Additional findings as above.
[2017-11-01] MEDS ORDERED: cefTRIAXone IV 1 gm in Dextros 50 ML IV ONE (15:39)
== END 2017-11-01 17:10 | disposition home or self-care (01) ==
LOC: C.ER 09:02
DX: N39.0 Urinary tract infection, site not specified (principal); E87.6 Hypokalemia; C64.9 Malignant neoplasm of unspecified kidney, except renal pelvis; E78.00 Pure hypercholesterolemia, unspecified; I12.9 Hypertensive chronic kidney disease with stage 1 through stage 4 chronic kidney disease, or unspecified chronic kidney disease; N18.9 Chronic kidney disease, unspecified; M79.7 Fibromyalgia
CPT/HCPCS: 74177; 80053; 81001; 85025; 87086; 96365; 99285; J0696; J3480; Q9967

== ENCOUNTER 2017-11-02 14:57 | Emergency (ER) | payer MEDICARE ==
[2017-11-02 14:58] VITALS: BMI 27.9
[2017-11-02 15:29] VITALS: PULSE 94; RESP 16; TEMP 97.9; O2SAT 98
--- NOTE | 2017-11-02 16:15 | C.PDOC ---
History Of Present Illness 67yo paraplegic male, sent to ER by his surgeon for evaluation of a sacral wound. Patient currently denies any fever, chills or other medical complaints. Time Seen by Provider: 11/02/17 16:04 Chief Complaint (Nursing): Abnormal Skin Integrity History Per: Patient History/Exam Limitations: no limitations Location Of Injury: Posterior: Buttock Past Medical History Reviewed: Historical Data, Nursing Documentation, Vital Signs Vital Signs: Last Vital Signs Temp 97.9 F 11/02/17 15:24 Pulse 94 H 11/02/17 15:24 Resp 16 11/02/17 15:24 BP Pulse Ox 98 11/02/17 16:16 - Medical History PMH: Anemia, Anxiety, Arthritis (BACK W/ HX OF SURGERY), Back Problems ( paralysis), Bipolar Disorder, Depression, Diverticulitis, Fibromyalgia, Gastritis, Gall Bladder Disease, HTN, Hypercholesterolemia, Kidney Stones (1980s ), Malignancy (kidney ), Peripheral Edema, Chronic Kidney Disease Denies: Sexually Transmitted Disease Surgical History: Back Surgery - [facility] Procedures COMPRESSION OF BACK USING PRESSURE DRESSING (06/15/17) DRAINAGE OF BACK SKIN, EXTERNAL APPROACH (06/15/17) DRAINAGE OF LEFT HIP JOINT, OPEN APPROACH (04/07/17) DRAINAGE OF RIGHT KNEE JOINT, OPEN APPROACH (04/07/17) ENDOSC LG BOWEL THROUGH STOMA (10/03/14) EXCIS DEBRIDE OF WOUND, INFECT, OR BURN (12/01/14) EXCISION OF BACK SKIN, EXTERNAL APPROACH (07/04/17) EXCISION OF BACK SUBCU/FASCIA, OPEN APPROACH (06/15/17) EXCISION OF LEFT HIP JOINT, OPEN APPROACH (04/07/17) EXCISION OF LEFT KIDNEY, PERCUTANEOUS ENDOSCOPIC APPROACH (06/01/16) EXCISION OF LEFT PELVIC BONE, OPEN APPROACH (04/07/17) EXCISION OF LEFT UPPER FEMUR, OPEN APPROACH, DIAGNOSTIC (04/07/17) EXCISION OF RIGHT LOWER LEG SKIN, EXTERNAL APPROACH (06/20/15) EXCISION OF SACRUM, OPEN APPROACH (06/15/17) EXTRACTION OF BACK SUBCU/FASCIA, OPEN APPROACH (06/15/17) FLUOROSCOPY OF L SUBCLAV VEIN USING OTH CONTRAST, GUIDANCE (06/20/15) FLUOROSCOPY OF SUPERIOR VENA CAVA, GUIDANCE (04/07/17) INDIVID PSYCHOTHERAP NEC (02/28/14) INSERT INFUSION DEV IN L EXT JUGULAR VEIN, PERC (06/20/15) INSERTION OF INFUSION DEV INTO L SUBCLAV VEIN, OPEN APPROACH (06/20/15) INSERTION OF INFUSION DEV INTO SUP VENA CAVA, PERC APPROACH (04/07/17) INTRODUCE OF OTH ANTI-INFECT INTO PERIPH VEIN, PERC APPROACH (06/20/15) INTRODUCTION OF SERUM/TOX/VACCINE INTO SUBCU, PERC APPROACH (06/20/15) OTHER GROUP THERAPY (02/28/14) OTHER SKIN & SUBQ I D (12/01/14) RADICAL EXCIS SKIN LES (12/01/14) ROBOTIC ASSISTED PROCEDURE OF TRUNK, PERC ENDO APPROACH (06/01/16) SOFT TISSUE INCISION NEC (12/01/14) TRANSFER RIGHT LOWER LEG SKIN, EXTERNAL APPROACH (06/20/15) Family History: States: Unknown Family Hx - Social History Hx Tobacco Use: No Hx Alcohol Use: No Hx Substance Use: No - Immunization History Hx Tetanus Toxoid Vaccination: Yes Hx Influenza Vaccination: Yes Hx Pneumococcal Vaccination: No Review Of Systems Except As Marked, All Systems Reviewed And Found Negative. Constitutional: Negative for: Fever, Chills Skin: Positive for: Other (sacral wound) Physical Exam - Physical Exam Additional Physical Exam Comments: When attempting to examine the patient, he is refusing to change into a gown for a full evaluation. Patient states he is waiting for his surgeon and will only be evaluated by him. Provider attempted to talk to the patient and examine him and the patient still refuses. ED Course And Treatment O2 Sat by Pulse Oximetry: 98 (RA) Pulse Ox Interpretation: Normal Medical Decision Making Medical Decision Making: Impression: Sacral wound Plan: -- Awaiting callback from Dr. Subramanian Disposition - Disposition Disposition: ELOPEMENT - ER ONLY Disposition Time: 04:00 Condition: UNKNOWN Forms: [employer] (Albanian) - Clinical Impression Clinical Impression: Sacral ulcer - Scribe Statement The provider has reviewed the documentation as recorded by the Jose Guadalupeibe (Verna Abdi) Provider Attestation: All medical record entries made by the Jose Guadalupeibwendy were at my direction and personally dictated by me. I have reviewed the chart and agree that the record accurately reflects my personal performance of the history, physical exam, medical decision making, and the department course for this patient. I have also personally directed, reviewed, and agree with the discharge instructions and disposition.
== END 2017-11-02 16:15 | disposition left against medical advice (07) ==
LOC: C.ER 14:57
DX: L98.499 Non-pressure chronic ulcer of skin of other sites with unspecified severity (principal)

== ENCOUNTER 2017-11-11 11:32 | Observation (INO) | payer MEDICARE ==
[2017-11-11 11:57] VITALS: BMI 26.5
[2017-11-11 12:39] LABS: INR 1.2; PROTHROMBIN TIME 14.1 SECONDS (9.7-12.2)
[2017-11-11 12:47] LABS: BLOOD UREA NITROGEN 12 mg/dL (9-20); CALCIUM 9.1 mg/dl (8.6-10.4); GFR AFRICAN-AMERICAN > 60; GFR NON-AFRICAN AMERICAN > 60
[2017-11-11] MEDS ORDERED: ceFAZolin 1 gm in NS 1 GM/100 ML BAG IVPB ONE (14:42)
--- NOTE | 2017-11-11 15:20 | PCM.SURG1 ---
Surgeon's Initial Post Op Note - Surgeon's Notes Surgeon: Dr Leon Spray Painting Machine Operator: Sharron Gregory, PGY-1 Pre-Operative Diagnosis: Sacral decubitus ulcer Operative Findings: See op report Post-Operative Diagnosis: Sacral decubitus ulcer with eschar Operation Performed: Debridement of skin, soft tissue, muscle of sacral decubitus ulcer of Right gluteal area Specimen/Specimens Removed: Eschar of sacral ulcer Estimated Blood Loss: EBL {In ML}: 10 Blood Products Given: N/A Drains Used: No Drains Post-Op Condition: Good Date of Surgery/Procedure: 11/11/17 Time of Surgery/Procedure: 15:20
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
[2017-11-11 17:50] LABS: BASO # 0.1 K/uL (0.0-0.2); BASO % 1.1 % (0.0-2.0); EOS # 0.2 K/uL (0.0-0.7); EOS % 1.8 % (0.0-4.0); HEMOGLOBIN 10.1 g/dL (12.0-18.0); LYMPH # 2.7 K/uL (1.0-4.3); LYMPH % 27.3 % (20.0-40.0); MEAN CELL VOLUME 77.5 fL (80.0-94.0); MEAN CORPUSCULAR HEMOGLOBIN 25.5 pg (27.0-31.0); MEAN CORPUSCULAR HGB CONC 32.9 g/dL (33.0-37.0); MEAN PLATELET VOLUME 7.3 fL (7.2-11.7); MONO # 0.8 K/uL (0.0-0.8); MONO % 7.8 % (0.0-10.0); NEUT # 6.2 K/uL (1.8-7.0); RBC 3.95 Mil/uL (4.40-5.90); RED CELL DISTRIBUTION WIDTH 16.5 % (11.5-14.5)
[2017-11-11 17:58] LABS: INR 1.2
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
[2017-11-11] MEDS: Potassium Chloride 20 mEq ER Tab PO SCH (20:17)
[2017-11-11] MEDS: Piperacill/Tazo 3.375gm in Dex 3.375 GM/50 ML BAG IVPB SCH (21:14)
[2017-11-11] MEDS: metroNIDAZOLE IV 250mg/50 ml 250 MG/50 ML BAG IVPB SCH (21:39)
[2017-11-12 01:01] VITALS: RESP 20
--- NOTE | 2017-11-12 02:46 | OP ---
PROCEDURE DATE: 11/11/2017 PREOPERATIVE DIAGNOSIS: Necrotic wound right buttock. PROCEDURE CARRIED OUT: Debridement of skin, subcutaneous tissue, muscle from right buttock sacral area. SURGEON: Dennis Leon Jr., MD WILD OYSTER HARVESTER: Dr. Gregory. ANESTHESIOLOGIST: Myself. TYPE OF ANESTHESIA: No anesthesia. The patient had anesthetic from the waist down. The patient has managed to have problems with wounds on his buttocks etc., for quite sometime. He has developed a new necrotic ulcer on his right hip more to a sacral area rather than over the trochanter. OPERATIVE FINDINGS: This wound measured approximately 5 x 5 cm. It was excised and the subcutaneous tissues were then treated with use of a Versajet. Cultures were taken both on the surface and of the deep wound. After this had been done, we then packed the wound obtaining a hemostasis and terminated the procedure. Blood loss of the procedure was 150 mL. Operation carried out was debridement of skin, subcutaneous tissue, muscle on the right sacral area decubitus. Dennis Leon Jr., MD
[2017-11-12] MEDS: Piperacill/Tazo 3.375gm in Dex 3.375 GM/50 ML BAG IVPB SCH ×3 (03:27→17:48)
[2017-11-12] MEDS: metroNIDAZOLE IV 250mg/50 ml 250 MG/50 ML BAG IVPB SCH ×2 (06:09→21:38)
[2017-11-12 07:14] LABS: SQUAMOUS EPITHIAL 3 /hpf (0-5); URINE BACTERIA OCC (<OCC); URINE BILIRUBIN NEGATIVE (NEGATIVE); URINE BLOOD NEGATIVE (NEGATIVE); URINE CLARITY Hazy (Clear); URINE COLOR Yellow (YELLOW); URINE GLUCOSE (UA) 1+ mg/dL (Normal); URINE LEUKOCYTE ESTERASE 3+ Leu/uL (Negative); URINE NITRATE POSITIVE (NEGATIVE); URINE PROTEIN 1+ mg/dL (NEGATIVE); URINE UROBILINOGEN NORMAL mg/dL (0.2-1.0); WBC CLUMPS MANY /hpf
[2017-11-12 07:24] LABS: BASO # 0.1 K/uL (0.0-0.2); BASO % 0.7 % (0.0-2.0); EOS # 0.2 K/uL (0.0-0.7); EOS % 2.5 % (0.0-4.0); LYMPH # 2.7 K/uL (1.0-4.3); LYMPH % 29.2 % (20.0-40.0); MEAN CELL VOLUME 78.2 fL (80.0-94.0); MEAN CORPUSCULAR HEMOGLOBIN 25.9 pg (27.0-31.0); MEAN CORPUSCULAR HGB CONC 33.1 g/dL (33.0-37.0); MEAN PLATELET VOLUME 7.8 fL (7.2-11.7); MONO # 0.7 K/uL (0.0-0.8); MONO % 7.3 % (0.0-10.0); NEUT # 5.5 K/uL (1.8-7.0); NEUT % 60.3 % (50.0-75.0); RBC 3.87 Mil/uL (4.40-5.90); RED CELL DISTRIBUTION WIDTH 16.9 % (11.5-14.5); WHITE BLOOD COUNT 9.1 K/uL (4.8-10.8)
[2017-11-12 08:12] LABS: ALT/SGPT 21 U/L (21-72); AST/SGOT 13 U/L (17-59); BILIRUBIN,DIRECT 0.2 mg/dL (0.0-0.4); BLOOD UREA NITROGEN 14 mg/dL (9-20); CALCIUM 8.8 mg/dl (8.6-10.4); GFR AFRICAN-AMERICAN > 60; GFR NON-AFRICAN AMERICAN > 60
--- NOTE | 2017-11-12 08:29 | CP.PCM.PN ---
Subjective - Date & Time of Evaluation Date of Evaluation: 11/12/17 Time of Evaluation: 06:45 - Subjective Subjective: General surgery progress note for Dr. Trista Gregory, PGY-1 Pt S & E at bedside. Pt reports no problems overnight, feel asleep at 2pm. No acute events overnight. No pain. Objective - Vital Signs/Intake and Output Vital Signs (last 24 hours): Temp Pulse Resp BP Pulse Ox 98.2 F 82 20 107/59 L 99 11/11/17 23:11 11/11/17 23:11 11/11/17 23:11 11/11/17 23:11 11/12/17 00:57 Intake and Output: 11/12/17 11/12/17 06:59 18:59 Output Total 200 Balance -200 - Medications Medications: Current Medications Acetaminophen (Tylenol 325mg Tab) 650 mg PO Q6 PRN PRN Reason: Fever >100.4 F Bupropion HCl (Wellbutrin) 100 mg PO DAILY [facility] Citalopram Hydrobromide (Celexa) 20 mg PO DAILY [facility] Clonazepam (Klonopin) 0.5 mg PO BID [facility] Last Admin: 11/11/17 20:17 Dose: 0.5 mg Furosemide (Lasix) 40 mg PO DAILY [facility] Gabapentin (Neurontin) 300 mg PO TID [facility] Last Admin: 11/11/17 20:17 Dose: 300 mg Piperacillin Sod/Tazobactam Sod (Zosyn 3.375 Gm Iv Premix) 3.375 gm in 50 mls @ 100 mls/hr IVPB Q8H [facility] Last Admin: 11/12/17 03:27 Dose: 100 mls/hr Metronidazole (Flagyl) 250 mg in 50 mls @ 100 mls/hr IVPB Q8 [facility] Stop: 11/16/17 22:01 Last Admin: 11/12/17 06:09 Dose: 100 mls/hr Ondansetron HCl (Zofran Inj) 4 mg IVP Q6 PRN PRN Reason: Nausea/Vomiting Pantoprazole Sodium (Protonix Ec Tab) 40 mg PO DAILY [facility] Potassium Chloride (K-Dur 20 Meq Er Tab) 20 meq PO BID [facility] Last Admin: 11/11/17 20:17 Dose: 20 meq Rivaroxaban (Xarelto) 10 mg PO HS [facility] Last Admin: 11/11/17 21:42 Dose: Not Given - Labs Labs: 11/12/17 07:05 11/12/17 07:05 PT 14.0 SECONDS (9.7-12.2) H 11/11/17 17:46 INR 1.2 11/11/17 17:46 APTT 37 SECONDS (21-34) H 11/11/17 17:46 - Constitutional Appears: Non-toxic, No Acute Distress - Head Exam Head Exam: ATRAUMATIC, NORMOCEPHALIC. 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 absent: Tenderness - Exam Additional comments: [place] catheter in place - Extremities Exam Extremities Exam: Pedal Edema (bilateral). absent: Normal Inspection (external rotation) - Back Exam Back Exam: NORMAL INSPECTION - Neurological Exam Neurological Exam: Alert, Awake, Oriented x3 - Psychiatric Exam Psychiatric exam: Normal Affect, Normal Mood - Skin Skin Exam: Dry, Intact, Normal Color, Warm Additional comments: sacral dressing saturated- sanguinous Assessment and Plan - Assessment and Plan (Free Text) Assessment: 67M w/PMH sig for paraplegia POD#1 s/p debridement of sacral decubitus ulcer of right gluteal area Plan: Cont to monitor wound- dressing re-inforced this AM Turn pt Q2H Further mgmt as per primary team ID following Will PORFIRIO attending Bri, PGY-1
[2017-11-12] MEDS: Pantoprazole 40 mg EC Tab PO SCH (09:18)
[2017-11-12] MEDS: Potassium Chloride 20 mEq ER Tab PO SCH ×2 (09:18→17:48)
--- NOTE | 2017-11-12 16:19 | CP.PCM.PN ---
Subjective - Date & Time of Evaluation Date of Evaluation: 11/12/17 Time of Evaluation: 16:19 - Subjective Subjective: Medicine progress note for Dr. Aguirre's service. Patient was seen and examined at bedside in no acute distress. Patient reports feeling better and denies pain at post-op site. Patient denies chest pain, abdominal pain, nausea, vomiting, fevers, headaches, shortness of breath. Objective - Vital Signs/Intake and Output Vital Signs (last 24 hours): Temp Pulse Resp BP Pulse Ox 97.5 F L 76 20 118/62 100 11/12/17 07:50 11/12/17 07:50 11/12/17 07:50 11/12/17 09:19 11/12/17 07:50 Intake and Output: 11/12/17 11/12/17 06:59 18:59 Output Total 200 Balance -200 - Medications Medications: Current Medications Acetaminophen (Tylenol 325mg Tab) 650 mg PO Q6 PRN PRN Reason: Fever >100.4 F Bupropion HCl (Wellbutrin) 100 mg PO DAILY [facility] Last Admin: 11/12/17 09:20 Dose: 100 mg Citalopram Hydrobromide (Celexa) 20 mg PO DAILY [facility] Last Admin: 11/12/17 09:21 Dose: 20 mg Clonazepam (Klonopin) 0.5 mg PO BID [facility] Last Admin: 11/12/17 09:18 Dose: 0.5 mg Furosemide (Lasix) 40 mg PO DAILY [facility] Last Admin: 11/12/17 09:19 Dose: 40 mg Gabapentin (Neurontin) 300 mg PO TID [facility] Last Admin: 11/12/17 14:34 Dose: 300 mg Piperacillin Sod/Tazobactam Sod (Zosyn 3.375 Gm Iv Premix) 3.375 gm in 50 mls @ 100 mls/hr IVPB Q8H [facility] Last Admin: 11/12/17 10:30 Dose: 100 mls/hr Metronidazole (Flagyl) 250 mg in 50 mls @ 100 mls/hr IVPB Q8 [facility] Stop: 11/16/17 22:01 Last Admin: 11/12/17 06:09 Dose: 100 mls/hr Ondansetron HCl (Zofran Inj) 4 mg IVP Q6 PRN PRN Reason: Nausea/Vomiting Pantoprazole Sodium (Protonix Ec Tab) 40 mg PO DAILY [facility] Last Admin: 11/12/17 09:18 Dose: 40 mg Potassium Chloride (K-Dur 20 Meq Er Tab) 20 meq PO BID [facility] Last Admin: 11/12/17 09:18 Dose: 20 meq Rivaroxaban (Xarelto) 10 mg PO HS [facility] Last Admin: 11/11/17 21:42 Dose: Not Given - Labs Labs: 11/12/17 07:05 11/12/17 07:05 PT 14.0 SECONDS (9.7-12.2) H 11/11/17 17:46 INR 1.2 11/11/17 17:46 APTT 37 SECONDS (21-34) H 11/11/17 17:46 - Constitutional Appears: No Acute Distress - Head Exam Head Exam: ATRAUMATIC, NORMAL INSPECTION - Eye Exam Eye Exam: EOMI, Normal appearance - ENT Exam ENT Exam: Mucous Membranes Moist - Respiratory Exam Respiratory Exam: Clear to Ausculation Bilateral, NORMAL BREATHING PATTERN. absent: Rales, Rhonchi, Wheezes, Respiratory Distress - Cardiovascular Exam Cardiovascular Exam: REGULAR RHYTHM, +S1, +S2 - GI/Abdominal Exam GI & Abdominal Exam: Soft, Normal Bowel Sounds Additional comments: Colostomy bag- left abdomen, clean, dry, intact - Extremities Exam Additional comments: erythema, pitting edema b/l LE - Neurological Exam Neurological Exam: Alert, Awake, Oriented x3. absent: Abnormal Gait (paraplegia ) - Psychiatric Exam Psychiatric exam: Normal Affect, Normal Mood - Skin Skin Exam: Dry, Intact, Warm Assessment and Plan - Assessment and Plan (Free Text) Plan: Right hip decubitus ulcer s/p hip wound debridement - Continue wound care - Surgery, Dr. Leon is consulted - Zofran prn for nausea Right LE cellulitis - Pt has history of chronic LE swelling but now has recent erythema in R LE - LE dopplers: f/u reports - ID, Dr. Sevilla is consulted. - Patient does have history of MRSA infection (07/2017) in past but due to s/p nephrectomy, will avoid vancomycin. - Per ID, Continue Zosyn 3.375 q8. - Pt started back on Xeralto - Restart home medication lasixs 40 mg po qd and potassium chloride 20 meq BID - Tylenol prn for fever Hx of DVT - Pt started back on Xeralto post op - Will check LE dopplers due to LE swelling - SCDs contraindicated due to possible cellulitis Prediabetes - Accu checks ACHS - Heart healthy diet Paraplegia - Continue home medication gabapentin 300 mg po tid Major Depression - Continue home medication: celexa and klonopin Prophylaxis - Xeralto - Protonix Case discussed with attending, Dr. Aguirre. All managements and orders per Dr. Aguirre
--- NOTE | 2017-11-12 18:21 | CP.PCM.DIS ---
Addendum entered and electronically signed by Kenna Cee DO 11/13/17 15:22: Patient is discharged with Augmentin 875-125 mg PO BID #20 tabs and Florstar 1 tab PO HS #10 tabs. He is told to not take Omnicef but to take the Augmentin. He is also discharged with a copy of abd/pelvis CT scan. Original Note: <Kika Gordillo - Last Filed: 11/12/17 18:19> Provider - Provider Date of Admission: 11/11/17 16:47 Attending physician: Flako Aguirre Jr, MD Consults: Surgery: Dr. Leon ID: Dr. Sevilla Time Spent in preparation of Discharge (in minutes): 45 Hospital Course - Lab Results Lab Results: Micro Results 11/11/17 17:40 Blood Blood Culture - Preliminary NO GROWTH AFTER 24 HOURS 11/11/17 16:00 Sacral Gram Stain - Final 11/11/17 16:00 Sacral Gram Stain - Final 11/11/17 16:00 Sacral Wound Culture - Preliminary Gram Negative Melo Gram Negative Melo#2 Gram Positive Cocci Most Recent Lab Values WBC 9.1 K/uL (4.8-10.8) 11/12/17 07:05 RBC 3.87 Mil/uL (4.40-5.90) L 11/12/17 07:05 Hgb 10.0 g/dL (12.0-18.0) L 11/12/17 07:05 Hct 30.2 % (35.0-51.0) L 11/12/17 07:05 MCV 78.2 fL (80.0-94.0) L 11/12/17 07:05 MCH 25.9 pg (27.0-31.0) L 11/12/17 07:05 MCHC 33.1 g/dL (33.0-37.0) 11/12/17 07:05 RDW 16.9 % (11.5-14.5) H 11/12/17 07:05 Plt Count 369 K/uL (130-400) 11/12/17 07:05 MPV 7.8 fL (7.2-11.7) 11/12/17 07:05 Neut % (Auto) 60.3 % (50.0-75.0) 11/12/17 07:05 Lymph % (Auto) 29.2 % (20.0-40.0) 11/12/17 07:05 [place] % (Auto) 7.3 % (0.0-10.0) 11/12/17 07:05 Eos % (Auto) 2.5 % (0.0-4.0) 11/12/17 07:05 Baso % (Auto) 0.7 % (0.0-2.0) 11/12/17 07:05 Neut # (Auto) 5.5 K/uL (1.8-7.0) 11/12/17 07:05 Lymph # (Auto) 2.7 K/uL (1.0-4.3) 11/12/17 07:05 [place] # (Auto) 0.7 K/uL (0.0-0.8) 11/12/17 07:05 Eos # (Auto) 0.2 K/uL (0.0-0.7) 11/12/17 07:05 Baso # (Auto) 0.1 K/uL (0.0-0.2) 11/12/17 07:05 ESR 77 mm/hr (0-15) H 11/12/17 07:05 PT 14.0 SECONDS (9.7-12.2) H 11/11/17 17:46 INR 1.2 11/11/17 17:46 APTT 37 SECONDS (21-34) H 11/11/17 17:46 Sodium 135 mmol/L (132-148) 11/12/17 07:05 Potassium 3.8 mmol/L (3.6-5.2) 11/12/17 07:05 Chloride 96 mmol/L (98-107) L 11/12/17 07:05 Carbon Dioxide 32 mmol/L (22-30) H 11/12/17 07:05 Anion Gap 11 (10-20) 11/12/17 07:05 BUN 14 mg/dL (9-20) 11/12/17 07:05 Creatinine 0.6 mg/dL (0.8-1.5) L 11/12/17 07:05 Est GFR ( Amer) > 60 11/12/17 07:05 Est GFR (Non-Af Amer) > 60 11/12/17 07:05 POC Glucose (mg/dL) 129 mg/dL (65-110) H 11/12/17 16:58 Random Glucose 83 mg/dL (75-110) 11/12/17 07:05 Calcium 8.8 mg/dl (8.6-10.4) 11/12/17 07:05 Total Bilirubin 0.3 mg/dL (0.2-1.3) 11/12/17 07:05 Direct Bilirubin 0.2 mg/dL (0.0-0.4) 11/12/17 07:05 AST 13 U/L (17-59) L 11/12/17 07:05 ALT 21 U/L (21-72) D 11/12/17 07:05 Alkaline Phosphatase 62 U/L (38-126) 11/12/17 07:05 C-React Prot High Sens > 15.00 mg/L (1.00-3.00) H 11/12/17 07:05 Total Protein 6.0 g/dL (6.3-8.3) L 11/12/17 07:05 Albumin 3.0 g/dL (3.5-5.0) L 11/12/17 07:05 Globulin 3.0 gm/dL (2.2-3.9) 11/12/17 07:05 Albumin/Globulin Ratio 1.0 (1.0-2.1) 11/12/17 07:05 Urine Color Yellow (YELLOW) 11/12/17 06:07 Urine Clarity Hazy (Clear) 11/12/17 06:07 Urine pH 7.0 (5.0-8.0) 11/12/17 06:07 Ur Specific [place] 1.020 (1.003-1.030) 11/12/17 06:07 Urine Protein 1+ mg/dL (NEGATIVE) H 11/12/17 06:07 Urine Glucose (UA) 1+ mg/dL (Normal) H 11/12/17 06:07 Urine Ketones Negative mg/dL (NEGATIVE) 11/12/17 06:07 Urine Blood Negative (NEGATIVE) 11/12/17 06:07 Urine Nitrate Positive (NEGATIVE) H 11/12/17 06:07 Urine Bilirubin Negative (NEGATIVE) 11/12/17 06:07 Urine Urobilinogen Normal mg/dL (0.2-1.0) 11/12/17 06:07 Ur Leukocyte Esterase 3+ Benny/uL (Negative) H 11/12/17 06:07 Urine WBC (Auto) 1060 /hpf (0-5) H 11/12/17 06:07 Urine RBC (Auto) 9 /hpf (0-3) H 11/12/17 06:07 Urine WBC Clumps (Auto) Many /hpf (NONE) H 11/12/17 06:07 Ur Squamous Epith Cells 3 /hpf (0-5) 11/12/17 06:07 Urine Bacteria Occ (<OCC) H 11/12/17 06:07 Urine Yeast (Budding) Few /hpf (NEGATIVE) H 11/12/17 06:07 - Hospital Course Hospital Course: HPI: 67 year old male with past medical history of paraplegia due to fall since 1996, urinary and bowel incontinence, HLD, prediabetes, PVD, DVT on xeralto and with [place] filter, kidney cancer s/o nephrectomy is admitted for observation status post right hip wound debridement. Patient states that he developed the right buttock wound about 2 weeks ago. Patient underwent debridement with Dr. Leon today. Currently patient is resting comfortably. He denies having any CP, SOB, abd pain, N/V/D/C, F/C. Patient has B/L LE chronic swelling but since this morning, he has noticed the right lower extremity become more erythematuous and swollen. Patient has small wounds on his right heal that he noticed over 1 week ago. He has wound care on the heal with his home nurse. 12 point ROS negative except for the above mentioned. PMHx: stated above Sx: spinal surgery with titanium placement at T12 in 1996, left leg surgery with metal melo placement in 1996, left hip wound debridement, ostomy bag placement, [place] filter placement Social: Denies tobacco, ETOH or drug use. Lives at home Meds: See DEC Hospital Course: Discharge Exam - Additional Findings Additional findings: - Constitutional Appears: No Acute Distress - Head Exam Head Exam: ATRAUMATIC, NORMAL INSPECTION - Eye Exam Eye Exam: EOMI, Normal appearance - ENT Exam ENT Exam: Mucous Membranes Moist - Respiratory Exam Respiratory Exam: Clear to Ausculation Bilateral, NORMAL BREATHING PATTERN. absent: Rales, Rhonchi, Wheezes, Respiratory Distress - Cardiovascular Exam Cardiovascular Exam: REGULAR RHYTHM, +S1, +S2 - GI/Abdominal Exam GI & Abdominal Exam: Soft, Normal Bowel Sounds Additional comments: Colostomy bag- left abdomen, clean, dry, intact - Extremities Exam Additional comments: erythema, pitting edema b/l LE - Neurological Exam Neurological Exam: Alert, Awake, Oriented x3. absent: Abnormal Gait (paraplegia ) - Psychiatric Exam Psychiatric exam: Normal Affect, Normal Mood - Skin Skin Exam: Dry, Intact, Warm Discharge Plan - Discharge Medications Prescriptions: Cefdinir [Omnicef] 300 mg PO BID 10 Days #20 cap - Follow Up Plan Condition: GOOD Disposition: HOME/ ROUTINE Additional Instructions: Patient is stable for discharge to home. Patient must continue home medications. Patient must take new prescription as directed: Omnicef 300mg PO BID for 10 days -- take 1 tablet twice a day for 10 days. Patient must follow up with PMD within 1-2 weeks of discharge. Patient must follow up with general surgeon, Dr. Leon, within 1-2 weeks of discharge. Referral provided for patient. If symptoms reoccur or worsen, patient should return to the ED. Referrals: Dennis Leon Jr., MD [Staff Provider] - <Kenna Cee - Last Filed: 11/13/17 13:54> Provider - Provider Date of Admission: 11/11/17 16:47 Attending physician: Flako Aguirre Jr, MD Consults: Hospital Course - Lab Results Lab Results: Micro Results 11/11/17 22:28 Naris MRSA Culture (Admit) - Final MRSA NOT DETECTED 11/11/17 16:00 Sacral Gram Stain - Final 11/11/17 16:00 Sacral Wound Culture - Final Morg Morganii Ss Morganii Klebsiella Pneumoniae Ssp Pneu Staphylococcus Aureus 11/11/17 23:24 Urine,Clean Catch Urine Culture - Preliminary Gram Negative Melo Gram Negative Melo#2 11/11/17 18:10 Blood Blood Culture - Preliminary NO GROWTH AFTER 24 HOURS 11/11/17 17:40 Blood Blood Culture - Preliminary NO GROWTH AFTER 24 HOURS 11/11/17 16:00 Sacral Gram Stain - Final Most Recent Lab Values WBC 9.6 K/uL (4.8-10.8) 11/13/17 06:50 RBC 3.63 Mil/uL (4.40-5.90) L 11/13/17 06:50 Hgb 9.3 g/dL (12.0-18.0) L 11/13/17 06:50 Hct 28.1 % (35.0-51.0) L 11/13/17 06:50 MCV 77.4 fL (80.0-94.0) L 11/13/17 06:50 MCH 25.6 pg (27.0-31.0) L 11/13/17 06:50 MCHC 33.0 g/dL (33.0-37.0) 11/13/17 06:50 RDW 17.0 % (11.5-14.5) H 11/13/17 06:50 Plt Count 355 K/uL (130-400) 11/13/17 06:50 MPV 7.9 fL (7.2-11.7) 11/13/17 06:50 Neut % (Auto) 53.1 % (50.0-75.0) 11/13/17 06:50 Lymph % (Auto) 31.8 % (20.0-40.0) 11/13/17 06:50 [place] % (Auto) 6.6 % (0.0-10.0) 11/13/17 06:50 Eos % (Auto) 8.0 % (0.0-4.0) H 11/13/17 06:50 Baso % (Auto) 0.5 % (0.0-2.0) 11/13/17 06:50 Neut # (Auto) 5.1 K/uL (1.8-7.0) 11/13/17 06:50 Lymph # (Auto) 3.1 K/uL (1.0-4.3) 11/13/17 06:50 [place] # (Auto) 0.6 K/uL (0.0-0.8) 11/13/17 06:50 Eos # (Auto) 0.8 K/uL (0.0-0.7) H 11/13/17 06:50 Baso # (Auto) 0.0 K/uL (0.0-0.2) 11/13/17 06:50 ESR 77 mm/hr (0-15) H 11/12/17 07:05 PT 14.0 SECONDS (9.7-12.2) H 11/11/17 17:46 INR 1.2 11/11/17 17:46 APTT 37 SECONDS (21-34) H 11/11/17 17:46 Sodium 134 mmol/L (132-148) 11/13/17 06:50 Potassium 4.5 mmol/L (3.6-5.2) 11/13/17 06:50 Chloride 97 mmol/L (98-107) L 11/13/17 06:50 Carbon Dioxide 33 mmol/L (22-30) H 11/13/17 06:50 Anion Gap 9 (10-20) L 11/13/17 06:50 BUN 14 mg/dL (9-20) 11/13/17 06:50 Creatinine 0.6 mg/dL (0.8-1.5) L 11/13/17 06:50 Est GFR ( Amer) > 60 11/13/17 06:50 Est GFR (Non-Af Amer) > 60 11/13/17 06:50 POC Glucose (mg/dL) 80 mg/dL (65-110) 11/13/17 06:29 Random Glucose 80 mg/dL (75-110) 11/13/17 06:50 Calcium 8.7 mg/dl (8.6-10.4) 11/13/17 06:50 Total Bilirubin 0.2 mg/dL (0.2-1.3) 11/13/17 06:50 Direct Bilirubin 0.2 mg/dL (0.0-0.4) 11/12/17 07:05 AST 12 U/L (17-59) L 11/13/17 06:50 ALT 16 U/L (21-72) L D 11/13/17 06:50 Alkaline Phosphatase 51 U/L (38-126) 11/13/17 06:50 C-React Prot High Sens > 15.00 mg/L (1.00-3.00) H 11/12/17 07:05 Total Protein 5.5 g/dL (6.3-8.3) L 11/13/17 06:50 Albumin 2.8 g/dL (3.5-5.0) L 11/13/17 06:50 Globulin 2.7 gm/dL (2.2-3.9) 11/13/17 06:50 Albumin/Globulin Ratio 1.0 (1.0-2.1) 11/13/17 06:50 Urine Color Yellow (YELLOW) 11/12/17 06:07 Urine Clarity Hazy (Clear) 11/12/17 06:07 Urine pH 7.0 (5.0-8.0) 11/12/17 06:07 Ur Specific [place] 1.020 (1.003-1.030) 11/12/17 06:07 Urine Protein 1+ mg/dL (NEGATIVE) H 11/12/17 06:07 Urine Glucose (UA) 1+ mg/dL (Normal) H 11/12/17 06:07 Urine Ketones Negative mg/dL (NEGATIVE) 11/12/17 06:07 Urine Blood Negative (NEGATIVE) 11/12/17 06:07 Urine Nitrate Positive (NEGATIVE) H 11/12/17 06:07 Urine Bilirubin Negative (NEGATIVE) 11/12/17 06:07 Urine Urobilinogen Normal mg/dL (0.2-1.0) 11/12/17 06:07 Ur Leukocyte Esterase 3+ Benny/uL (Negative) H 11/12/17 06:07 Urine WBC (Auto) 1060 /hpf (0-5) H 11/12/17 06:07 Urine RBC (Auto) 9 /hpf (0-3) H 11/12/17 06:07 Urine WBC Clumps (Auto) Many /hpf (NONE) H 11/12/17 06:07 Ur Squamous Epith Cells 3 /hpf (0-5) 11/12/17 06:07 Urine Bacteria Occ (<OCC) H 11/12/17 06:07 Urine Yeast (Budding) Few /hpf (NEGATIVE) H 11/12/17 06:07 - Hospital Course Hospital Course: Patient's discharged was canceled for yesterday because patient's wheelchair was not working. This morning he is seen and examined. no acute events overnight. Resting comfortably. Denies CP, SOB, abd pain, N/V/D/C, F/C. Patient is explained the discharge instructions in detail. Discharge ordered is placed. Very briefly: 67 year old male with history of paraplegia and decubitus ulcers was admitted to hospital status post wound debridement of right buttock decubitus ulcer performed by Dr. Leon. Patient was started on antibiotics based on ID recs. Antibiotics were renally dosed since pt has history of nephrectomy. Surgeon recommended outpatient follow up for dressing change. Patient was discharged with antibiotics and with a referral for surgeon for follow up. - Date & Time of H&P Date of H&P: 11/13/17 Time of H&P: 13:53 Discharge Exam - Head Exam Head Exam: ATRAUMATIC, NORMOCEPHALIC - ENT Exam ENT Exam: Mucous Membranes Moist - Respiratory Exam Respiratory Exam: Clear to PA & Lateral, NORMAL BREATHING PATTERN. absent: Accessory Muscle Use, Rales, Rhonchi, Wheezes - Cardiovascular Exam Cardiovascular Exam: REGULAR RHYTHM, +S1, +S2 - GI/Abdominal Exam GI & Abdominal Exam: Normal Bowel Sounds, Soft, Unremarkable - Extremities Exam Extremities exam: pedal edema - Neurological Exam Neurological exam: Alert, Oriented x3 - Psychiatric Exam Psychiatric exam: Normal Affect, Normal Mood - Skin Skin Exam: Dry, Normal Color, Warm
--- NOTE | 2017-11-12 23:01 | CP.PCM.PN ---
Subjective - Date & Time of Evaluation Date of Evaluation: 11/12/17 Time of Evaluation: 23:01 - Subjective Subjective: afebrile offers no complaints. denies pain post -operative site. B/L LE +VE EDEMA- CHRONIC ON LASIX MILD CELLULITIS LLE. labs reviewed. BLOOD CULTURES -VE GROWTH X 24HRS. WOUND CULTURES +VE GNR GNR 2. GP COCCI (POLYIMICROBIAL ) Objective - Vital Signs/Intake and Output Vital Signs (last 24 hours): Temp Pulse Resp BP Pulse Ox 97.7 F 81 20 105/61 100 11/12/17 15:40 11/12/17 15:40 11/12/17 15:40 11/12/17 15:40 11/12/17 15:40 Intake and Output: 11/12/17 11/13/17 18:59 06:59 Intake Total 580 Output Total 550 Balance 30 - Medications Medications: Current Medications Acetaminophen (Tylenol 325mg Tab) 650 mg PO Q6 PRN PRN Reason: Fever >100.4 F Bupropion HCl (Wellbutrin) 100 mg PO DAILY [facility] Last Admin: 11/12/17 09:20 Dose: 100 mg Citalopram Hydrobromide (Celexa) 20 mg PO DAILY [facility] Last Admin: 11/12/17 09:21 Dose: 20 mg Clonazepam (Klonopin) 0.5 mg PO BID [facility] Last Admin: 11/12/17 17:48 Dose: 0.5 mg Furosemide (Lasix) 40 mg PO DAILY [facility] Last Admin: 11/12/17 09:19 Dose: 40 mg Gabapentin (Neurontin) 300 mg PO TID [facility] Last Admin: 11/12/17 17:48 Dose: 300 mg Piperacillin Sod/Tazobactam Sod (Zosyn 3.375 Gm Iv Premix) 3.375 gm in 50 mls @ 100 mls/hr IVPB Q8H [facility] Last Admin: 11/12/17 17:48 Dose: 100 mls/hr Metronidazole (Flagyl) 250 mg in 50 mls @ 100 mls/hr IVPB Q8 [facility] Stop: 11/16/17 22:01 Last Admin: 11/12/17 21:38 Dose: 100 mls/hr Ondansetron HCl (Zofran Inj) 4 mg IVP Q6 PRN PRN Reason: Nausea/Vomiting Pantoprazole Sodium (Protonix Ec Tab) 40 mg PO DAILY [facility] Last Admin: 11/12/17 09:18 Dose: 40 mg Potassium Chloride (K-Dur 20 Meq Er Tab) 20 meq PO BID [facility] Last Admin: 11/12/17 17:48 Dose: 20 meq Rivaroxaban (Xarelto) 10 mg PO HS [facility] Last Admin: 11/12/17 21:38 Dose: 10 mg - Labs Labs: 11/12/17 07:05 11/12/17 07:05 PT 14.0 SECONDS (9.7-12.2) H 11/11/17 17:46 INR 1.2 11/11/17 17:46 APTT 37 SECONDS (21-34) H 11/11/17 17:46 - Constitutional Appears: No Acute Distress - Head Exam Head Exam: NORMAL INSPECTION - Eye Exam Eye Exam: EOMI, PERRL - ENT Exam ENT Exam: Normal Oropharynx - Neck Exam Neck Exam: Normal Inspection - Respiratory Exam Respiratory Exam: Clear to Ausculation Bilateral - Cardiovascular Exam Cardiovascular Exam: REGULAR RHYTHM, +S1, +S2 - GI/Abdominal Exam GI & Abdominal Exam: Soft, Normal Bowel Sounds (+VE COLOSTOMY.) - Extremities Exam Extremities Exam: Pedal Edema (B/L PARAPLEGIA LE.). absent: Calf Tenderness - Neurological Exam Neurological Exam: Awake, Oriented x3 - Psychiatric Exam Psychiatric exam: Normal Mood - Skin Skin Exam: Normal Color, Warm Assessment and Plan (1) Decubitus ulcer Assessment & Plan: STATUS POST INCISION AND DRAINAGE AND DEBRIDEMENT OF RIGHT SACRAL ULCER.11/11/17. F/U CULTURES PENDING . . CONTINUE iv ZOSYN 3.375 EVERY 8 HOURLY FOR BROAD GRAM-NEGATIVE COVERAGE. ADD IV FLAGYL 250 MG EVERY 8 HOURLY FOR ANAEROBIC COVERAGE. PT W POLYMICROBIAL WOUND CULTURE. IF BLOOD CULTURES -VE X 48HRS CAN SWITCH TO PO AUGMENTIN 875MG PO BID X 10 DAYS AND F/U OPD. PO BACID 1 CAPSULE PO HS DAILY X 10 DAYS. LWC PER SURGERY.F/U W DR SINGH OPD. Status: Acute (2) Colostomy in place Status: Acute (3) Manic bipolar I disorder Status: Acute (4) Seizure Status: Acute (5) Ulcer of right heel Status: Acute (6) History of DVT (deep vein thrombosis) Status: Chronic (7) Paraplegia Status: Chronic (8) History of kidney cancer Assessment & Plan: ADVISED TO F/U WITH DR HUSTON OPD history of LEFT kidney CA s/p resection mass 2015. Denies any chemotherapy or radiation therapy as per patient. PATIENT'S CT OF THE ABDOMEN AND PELVIS WITH iv CONTRAST 11/01/17 SHOWS MILD LEFT HYDRONEPHROSIS/HYDROURETER ALSO BILATERAL LOW DENSITY RENAL HYPODENSE LESIONS INCLUDING RIGHT UPPER POLE RENAL CYST. (SEE FULL REPORT ). PATIENT TO FOLLOW UP OUTPATIENT WITH HIS UROLOGIST DR HUSTON. PATIENT MADE AWARE AND AGREES TO FOLLOW-UP WITH HIM POST DISCHARGE. Status: Acute Status: Acute
[2017-11-13] MEDS ORDERED: Piperacillin/Tazobact 3.375 GM in Sodium Chloride 0.9% 100 ML IVPB SCH (02:30)
[2017-11-13] MEDS: Piperacill/Tazo 3.375gm in Dex 3.375 GM/50 ML BAG IVPB SCH ×2 (03:01→18:56)
[2017-11-13 04:51] VITALS: PULSE 68; TEMP 97.3; O2SAT 98
[2017-11-13] MEDS: metroNIDAZOLE IV 250mg/50 ml 250 MG/50 ML BAG IVPB SCH (05:22)
[2017-11-13 07:10] LABS: BASO % 0.5 % (0.0-2.0); EOS # 0.8 K/uL (0.0-0.7); HEMOGLOBIN 9.3 g/dL (12.0-18.0); LYMPH # 3.1 K/uL (1.0-4.3); LYMPH % 31.8 % (20.0-40.0); MEAN CELL VOLUME 77.4 fL (80.0-94.0); MEAN CORPUSCULAR HEMOGLOBIN 25.6 pg (27.0-31.0); MEAN PLATELET VOLUME 7.9 fL (7.2-11.7); MONO # 0.6 K/uL (0.0-0.8); MONO % 6.6 % (0.0-10.0); NEUT # 5.1 K/uL (1.8-7.0); NEUT % 53.1 % (50.0-75.0); RBC 3.63 Mil/uL (4.40-5.90); WHITE BLOOD COUNT 9.6 K/uL (4.8-10.8)
[2017-11-13 07:40] LABS: ALBUMIN 2.8 g/dL (3.5-5.0); ALT/SGPT 16 U/L (21-72); AST/SGOT 12 U/L (17-59); BLOOD UREA NITROGEN 14 mg/dL (9-20); CALCIUM 8.7 mg/dl (8.6-10.4); GFR AFRICAN-AMERICAN > 60; GFR NON-AFRICAN AMERICAN > 60
[2017-11-13] MEDS: Pantoprazole 40 mg EC Tab PO SCH (09:19)
[2017-11-13 09:20] VITALS: BP 120/71
[2017-11-13] MEDS: Potassium Chloride 20 mEq ER Tab PO SCH (09:35)
[2017-11-13] MEDS ORDERED: Potassium Chloride 10 mEq ER Tab PO SCH (10:00)
--- NOTE | 2017-11-13 13:12 | CP.PCM.PN ---
Subjective - Date & Time of Evaluation Date of Evaluation: 11/13/17 Time of Evaluation: 13:12 Objective - Vital Signs/Intake and Output Vital Signs (last 24 hours): Temp Pulse Resp BP Pulse Ox 97.3 F L 68 20 120/71 98 11/13/17 04:49 11/13/17 04:49 11/13/17 04:49 11/13/17 09:19 11/13/17 04:49 Intake and Output: 11/13/17 11/13/17 06:59 18:59 Intake Total 580 220 Output Total 550 250 Balance 30 -30 - Medications Medications: Current Medications Acetaminophen (Tylenol 325mg Tab) 650 mg PO Q6 PRN PRN Reason: Fever >100.4 F Bupropion HCl (Wellbutrin) 100 mg PO DAILY [facility] Last Admin: 11/13/17 09:20 Dose: 100 mg Citalopram Hydrobromide (Celexa) 20 mg PO DAILY [facility] Last Admin: 11/13/17 09:20 Dose: 20 mg Clonazepam (Klonopin) 0.5 mg PO BID [facility] Last Admin: 11/13/17 09:20 Dose: 0.5 mg Furosemide (Lasix) 40 mg PO DAILY [facility] Last Admin: 11/13/17 09:19 Dose: 40 mg Gabapentin (Neurontin) 300 mg PO TID [facility] Last Admin: 11/13/17 09:20 Dose: 300 mg Piperacillin Sod/Tazobactam Sod (Zosyn 3.375 Gm Iv Premix) 3.375 gm in 50 mls @ 100 mls/hr IVPB Q8H [facility] Last Admin: 11/13/17 03:01 Dose: 100 mls/hr Metronidazole (Flagyl) 250 mg in 50 mls @ 100 mls/hr IVPB Q8 [facility] Stop: 11/16/17 22:01 Last Admin: 11/13/17 05:22 Dose: 100 mls/hr Ondansetron HCl (Zofran Inj) 4 mg IVP Q6 PRN PRN Reason: Nausea/Vomiting Pantoprazole Sodium (Protonix Ec Tab) 40 mg PO DAILY [facility] Last Admin: 11/13/17 09:19 Dose: 40 mg Potassium Chloride (Klor-Con 10) 20 meq PO BID [facility] Rivaroxaban (Xarelto) 10 mg PO HS [facility] Last Admin: 11/12/17 21:38 Dose: 10 mg - Labs Labs: 11/13/17 06:50 11/13/17 06:50 PT 14.0 SECONDS (9.7-12.2) H 11/11/17 17:46 INR 1.2 11/11/17 17:46 APTT 37 SECONDS (21-34) H 11/11/17 17:46 Assessment and Plan (1) Decubitus ulcer Status: Acute (2) Colostomy in place Status: Acute (3) Manic bipolar I disorder Status: Acute (4) Seizure Status: Acute (5) Ulcer of right heel Status: Acute (6) History of DVT (deep vein thrombosis) Status: Chronic (7) Paraplegia Status: Chronic (8) History of kidney cancer Status: Acute
--- NOTE | 2017-11-14 11:41 | CP.PCM.PCO ---
Physician Communication Note - Physician Communication Note Physician Communication Note: Patient made aware of urine cx. Dr. Lisa also made aware of cx results. Additional Comments - Additional Comments Additional Comments: Urine culture positive for ESBL. Pt made aware of the results. Dr. Lisa also made aware of the results. Per Dr. Lisa pt is to take ciprofloxacin 500 mg po BID x 10 days. Patient made aware. will call in prescription for [facility] [phone].
--- NOTE | 2017-11-15 10:28 | VASCLAB ---
PROCEDURE: Lower Extremity Venous Duplex Exam. HISTORY: LE swelling PRIORS: None. TECHNIQUE: Bilateral common femoral, femoral, popliteal and posterior tibial, peroneal and great saphenous veins were evaluated. Flow was assessed with color Doppler, compressibility, assessment of phasic flow and augmentation response. Report prepared by CARLTON Haynes, RVT FINDINGS: RIGHT: 1. Common Femoral Vein: 1.1. Compressibility - Partial: Thrombus - Chronic : Flow - Reduced : Augmentation -Reduced: Reflux - None. 2. Femoral Vein: 2.1. Compressibility - Partial: Thrombus - Chronic : Flow - Reduced : Augmentation -Reduced: Reflux - None. 3. Popliteal Vein: 3.1. Compressibility - Fully compressible: Thrombus - None : Flow - Phasic: Augmentation -Normal: Reflux - None. 4. Posterior Tibial Vein: 4.1. Compressibility - Fully compressible: Thrombus - None: Flow - Phasic: Augmentation -Normal: Reflux - None. 5. Peroneal Vein: 5.1. Compressibility - Fully compressible: Thrombus - None: Flow - Phasic: Augmentation -Normal: Reflux - None. 6. Great Saphenous Vein: 6.1. Compressibility - Partial: Thrombus - Chronic: Flow - Reduced : Augmentation - Reduced: Reflux - None. LEFT: 1. Common Femoral Vein: 1.1. Compressibility - Partial: Thrombus - Chronic: Flow - Reduced : Augmentation -Reduced: Reflux - None. 2. Femoral Vein: 2.1. Compressibility - Partial: Thrombus - Chronic: Flow - Reduced : Augmentation -Reduced: Reflux - None. 3. Popliteal Vein: 3.1. Compressibility - Partial: Thrombus - Chronic : Flow - Reduced : Augmentation -Reduced: Reflux - None. 4. Posterior Tibial Vein: 4.1. Compressibility - Partial: Thrombus - Chronic: Flow - Reduced : Augmentation -Reduced: Reflux - None. 5. Peroneal Vein: 5.1. Compressibility - Partial: Thrombus - Chronic: Flow - Reduced : Augmentation -Reduced: Reflux - None. 6. Great Saphenous Vein: 6.1. Compressibility - Fully compressible: Thrombus - None: Flow - Phasic: Augmentation - Normal: Reflux - None. OTHER FINDINGS: Right: None significant. Left: None significant. 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 Left: Chronic thrombosis of the left common femoral, popliteal, posterior tibial and peroneal veins with mild reduction of the venous return.
== END 2017-11-13 20:00 | disposition home or self-care (01) ==
LOC: C.SDS 11:32 → C.9S 16:47 → C.6T 16:47
PROVIDERS: ADMIT Internal Medicine; ATTEND Internal Medicine
DX: I96 Gangrene, not elsewhere classified (principal); L89.154 Pressure ulcer of sacral region, stage 4; G82.20 Paraplegia, unspecified; E78.00 Pure hypercholesterolemia, unspecified; F31.9 Bipolar disorder, unspecified; I12.9 Hypertensive chronic kidney disease with stage 1 through stage 4 chronic kidney disease, or unspecified chronic kidney disease; I73.9 Peripheral vascular disease, unspecified; K21.9 Gastro-esophageal reflux disease without esophagitis; L03.116 Cellulitis of left lower limb; L03.115 Cellulitis of right lower limb; N18.9 Chronic kidney disease, unspecified; N31.9 Neuromuscular dysfunction of bladder, unspecified; R73.03 Prediabetes; Z79.899 Other long term (current) drug therapy; Z93.3 Colostomy status; Z99.3 Dependence on wheelchair; L97.419 Non-pressure chronic ulcer of right heel and midfoot with unspecified severity
CPT/HCPCS: 11043; 11046; 36415; 80048; 80053; 81001; 82248; 82948; 85025; 85610; 85651; 85730; 86140; 87040; 87070; 87081; 87086; 87181; 88304; 93970; 97163; 97530; G0378; G8978; G8979; G8980; J0690; J2543

== ENCOUNTER 2017-11-29 20:24 | Emergency (ER) | payer MEDICARE ==
[2017-11-29 20:24] VITALS: BMI 26.5
[2017-11-29 21:29] VITALS: RESP 16; O2SAT 98
--- NOTE | 2017-11-29 23:29 | C.PDOC ---
History Of Present Illness 67yo male, referred to ER by visiting nurse for evaluation of buttock wound. 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 He has no other medical complaints today. Time Seen by Provider: 11/29/17 22:43 Chief Complaint (Nursing): Abnormal Skin Integrity History Per: Patient History/Exam Limitations: no limitations Onset/Duration Of Symptoms: Persistent Current Symptoms Are (Timing): Still Present Location Of Injury: Right: Buttock, Left: Buttock Past Medical History Reviewed: Historical Data, Nursing Documentation, Vital Signs Vital Signs: Last Vital Signs Temp 98.7 F 11/29/17 21:23 Pulse 92 H 11/29/17 21:23 Resp 16 11/29/17 21:23 BP 106/65 11/29/17 21:23 Pulse Ox 98 11/29/17 23:29 - Medical History PMH: Anemia, Anxiety, Arthritis (BACK W/ HX OF SURGERY), Back Problems ( paralysis), Bipolar Disorder, Depression, Diverticulitis, Fibromyalgia, Gastritis, Gall Bladder Disease, HTN, Hypercholesterolemia, Kidney Stones (1980s ), Malignancy (kidney ), Peripheral Edema, Chronic Kidney Disease Denies: Colonic Polyps, HIV, Sexually Transmitted Disease Surgical History: Back Surgery - [facility] Procedures COMPRESSION OF BACK USING PRESSURE DRESSING (06/15/17) DRAINAGE OF BACK SKIN, EXTERNAL APPROACH (06/15/17) DRAINAGE OF LEFT HIP JOINT, OPEN APPROACH (04/07/17) DRAINAGE OF RIGHT KNEE JOINT, OPEN APPROACH (04/07/17) ENDOSC LG BOWEL THROUGH STOMA (10/03/14) EXCIS DEBRIDE OF WOUND, INFECT, OR BURN (12/01/14) EXCISION OF BACK SKIN, EXTERNAL APPROACH (07/04/17) EXCISION OF BACK SUBCU/FASCIA, OPEN APPROACH (06/15/17) EXCISION OF LEFT HIP JOINT, OPEN APPROACH (04/07/17) EXCISION OF LEFT KIDNEY, PERCUTANEOUS ENDOSCOPIC APPROACH (06/01/16) EXCISION OF LEFT PELVIC BONE, OPEN APPROACH (04/07/17) EXCISION OF LEFT UPPER FEMUR, OPEN APPROACH, DIAGNOSTIC (04/07/17) EXCISION OF RIGHT LOWER LEG SKIN, EXTERNAL APPROACH (06/20/15) EXCISION OF SACRUM, OPEN APPROACH (06/15/17) EXTRACTION OF BACK SUBCU/FASCIA, OPEN APPROACH (06/15/17) FLUOROSCOPY OF L SUBCLAV VEIN USING OT CONTRAST, GUIDANCE (06/20/15) FLUOROSCOPY OF SUPERIOR VENA CAVA, GUIDANCE (04/07/17) INDIVID PSYCHOTHERAP NEC (02/28/14) INSERT INFUSION DEV IN L EXT JUGULAR VEIN, PERC (06/20/15) INSERTION OF INFUSION DEV INTO L SUBCLAV VEIN, OPEN APPROACH (06/20/15) INSERTION OF INFUSION DEV INTO SUP VENA CAVA, PERC APPROACH (04/07/17) INTRODUCE OF OTH ANTI-INFECT INTO PERIPH VEIN, PERC APPROACH (06/20/15) INTRODUCTION OF SERUM/TOX/VACCINE INTO SUBCU, PERC APPROACH (06/20/15) OTHER GROUP THERAPY (02/28/14) OTHER SKIN & SUBQ I D (12/01/14) RADICAL EXCIS SKIN LES (12/01/14) ROBOTIC ASSISTED PROCEDURE OF TRUNK, PERC ENDO APPROACH (06/01/16) SOFT TISSUE INCISION NEC (12/01/14) TRANSFER RIGHT LOWER LEG SKIN, EXTERNAL APPROACH (06/20/15) Family History: States: Unknown Family Hx - Social History Hx Tobacco Use: No Hx Alcohol Use: No Hx Substance Use: No - Immunization History Hx Tetanus Toxoid Vaccination: Yes Hx Influenza Vaccination: Yes Hx Pneumococcal Vaccination: No Review Of Systems Except As Marked, All Systems Reviewed And Found Negative. Constitutional: Negative for: Fever, Chills Skin: Positive for: Other (decubitus ulcers to bilateral buttocks) Physical Exam - Physical Exam Appears: Non-toxic Skin: Other (stage 4 decubital ulcers to bilateral buttock; right side 8cm with scant fat necrosis on right buttock edge from 2 o'clock to 4o'clock position. Left side 7cm in size. Mild foul smell noted.) Head: Normacephalic Eye(s): bilateral: Normal Inspection Neck: Normal ROM, Supple Chest: Symmetrical Cardiovascular: Rhythm Regular Respiratory: Normal Breath Sounds Neurological/Psych: Oriented x3, Normal Speech, Normal Cognition ED Course And Treatment O2 Sat by Pulse Oximetry: 98 (RA) Pulse Ox Interpretation: Normal Reevaluation Time: 23:28 Reassessment Condition: Unchanged - Physician Consult Information Outcome Of Conversation: 2300: d/w Surgical Joseph and Dr. Leon, ok to d/c and have outpatient f/u. Medical Decision Making Medical Decision Making: chronic b/l buttock decub ulcers- stable, uninfected. May f/u as outpatient. Past visits reviewed, patient had a recent debridement done by Dr. Leon. Case discussed with rn surgical pcu at 2300 who evaluated wound and plan for patient to be discharged home with outpatient follow up. Disposition Doctor Will See Patient In The: Office Counseled Patient/Family Regarding: Studies Performed, Diagnosis - Disposition Referrals: [facility]Outside] [facility] [Outside] Dennis Leon Jr., MD [Staff Provider] - Disposition: HOME/ ROUTINE Disposition Time: 23:29 Condition: GOOD Additional Instructions: continue outpatient follow-up with Dr. Leon and/or the chronic Wound specialists as previously referred. Instructions: Pressure Sores (DC) Forms: [email or web address] (Faroese) - Clinical Impression Clinical Impression: Skin ulcer - Scribe Statement The provider has reviewed the documentation as recorded by the Scribe (Verna Abdi) Provider Attestation: All medical record entries made by the Scribe were at my direction and personally dictated by me. I have reviewed the chart and agree that the record accurately reflects my personal performance of the history, physical exam, medical decision making, and the department course for this patient. I have also personally directed, reviewed, and agree with the discharge instructions and disposition.
[2017-11-30 00:26] VITALS: BP 107/66; PULSE 88; TEMP 98.5
== END 2017-11-29 23:00 | disposition home or self-care (01) ==
LOC: C.ER 20:24
DX: L89.324 Pressure ulcer of left buttock, stage 4 (principal); L89.314 Pressure ulcer of right buttock, stage 4

== ENCOUNTER 2018-07-11 08:23 | Inpatient (IN) | payer MEDICARE ==
[2018-07-11 08:23] VITALS: BMI 26.5
[2018-07-11 10:26] LABS: URINE BACTERIA MANY (<OCC); URINE BILIRUBIN NEGATIVE (NEGATIVE); URINE BLOOD 1+ (NEGATIVE); URINE CLARITY Turbid (Clear); URINE COLOR Amber (YELLOW); URINE GLUCOSE (UA) NORMAL (Normal); URINE LEUKOCYTE ESTERASE 3+ Leu/uL (Negative); URINE PROTEIN 2+ mg/dL (NEGATIVE); WBC CLUMPS MANY /hpf
[2018-07-11 10:38] LABS: BASO # 0.1 K/uL (0.0-0.2); BASO % 0.2 % (0.0-2.0); EOS % 0.2 % (0.0-4.0); HEMOGLOBIN 10.8 g/dL (12.0-18.0); LYMPH % 16.4 % (20.0-40.0); MEAN CORPUSCULAR HEMOGLOBIN 23.6 pg (27.0-31.0); MEAN CORPUSCULAR HGB CONC 32.4 g/dL (33.0-37.0); MEAN PLATELET VOLUME 7.6 fL (7.2-11.7); MONO # 1.6 K/uL (0.0-0.8); MONO % 6.6 % (0.0-10.0); NEUT # 18.7 K/uL (1.8-7.0); NEUT % 76.6 % (50.0-75.0); RBC 4.57 Mil/uL (4.40-5.90); RED CELL DISTRIBUTION WIDTH 17.6 % (11.5-14.5)
[2018-07-11 10:40] LABS: MEAN CELL VOLUME 72.9 fL (80.0-94.0); WHITE BLOOD COUNT 24.4 K/uL (4.8-10.8)
[2018-07-11 10:57] LABS: ALBUMIN 3.3 g/dL (3.5-5.0); ALT/SGPT 18 U/L (21-72); AST/SGOT 12 U/L (17-59); BLOOD UREA NITROGEN 10 mg/dL (9-20); CALCIUM 9.1 mg/dl (8.6-10.4); GFR NON-AFRICAN AMERICAN > 60
--- NOTE | 2018-07-11 12:28 | C.PDOC ---
History Of Present Illness 67 y/o male presents to the ER complaining of intermittent vomiting and several episodes diarrhea for the past 1 week. Patient states that he was had some tyope of cancerous tumor near his kidney removed by Dr. Yoni Morataya 1 month ago. Patient reports that he was referred to the ER by Dr.Y Morataya., He is not sure about the reason he referred him. Denies having fever, chills, abdominal pain, and back pain. Time Seen by Provider: 07/11/18 08:53 Chief Complaint (Nursing): Male Genitourinary History Per: Patient History/Exam Limitations: no limitations Onset/Duration Of Symptoms: Days Current Symptoms Are (Timing): Still Present Severity: Moderate Past Medical History Reviewed: Historical Data, Nursing Documentation, Vital Signs Vital Signs: Last Vital Signs Temp 98.5 F 07/11/18 11:43 Pulse 85 07/11/18 11:43 Resp 16 07/11/18 11:43 BP 101/69 07/11/18 11:43 Pulse Ox 100 07/11/18 11:43 - Medical History PMH: Anemia, Anxiety, Arthritis (BACK W/ HX OF SURGERY), Back Problems (paralysis), Bipolar Disorder, Depression, Diverticulitis, Fibromyalgia, Gastritis, Gall Bladder Disease, HTN, Hypercholesterolemia, Kidney Stones (1980s), Malignancy (kidney ), Peripheral Edema, Chronic Kidney Disease Denies: Colonic Polyps, HIV, Sexually Transmitted Disease Surgical History: Back Surgery - [facility] Procedures COMPRESSION OF BACK USING PRESSURE DRESSING (06/15/17) DRAINAGE OF BACK SKIN, EXTERNAL APPROACH (06/15/17) DRAINAGE OF LEFT HIP JOINT, OPEN APPROACH (04/07/17) DRAINAGE OF RIGHT KNEE JOINT, OPEN APPROACH (04/07/17) ENDOSC LG BOWEL THROUGH STOMA (10/03/14) EXCIS DEBRIDE OF WOUND, INFECT, OR BURN (12/01/14) EXCISION OF BACK SKIN, EXTERNAL APPROACH (07/04/17) EXCISION OF BACK SUBCU/FASCIA, OPEN APPROACH (06/15/17) EXCISION OF LEFT HIP JOINT, OPEN APPROACH (04/07/17) EXCISION OF LEFT KIDNEY, PERCUTANEOUS ENDOSCOPIC APPROACH (06/01/16) EXCISION OF LEFT PELVIC BONE, OPEN APPROACH (04/07/17) EXCISION OF LEFT UPPER FEMUR, OPEN APPROACH, DIAGNOSTIC (04/07/17) EXCISION OF RIGHT LOWER LEG SKIN, EXTERNAL APPROACH (06/20/15) EXCISION OF SACRUM, OPEN APPROACH (06/15/17) EXTRACTION OF BACK SUBCU/FASCIA, OPEN APPROACH (06/15/17) FLUOROSCOPY OF L SUBCLAV VEIN USING OTH CONTRAST, GUIDANCE (06/20/15) FLUOROSCOPY OF SUPERIOR VENA CAVA, GUIDANCE (04/07/17) INDIVID PSYCHOTHERAP NEC (02/28/14) INSERT INFUSION DEV IN L EXT JUGULAR VEIN, PERC (06/20/15) INSERTION OF INFUSION DEV INTO L SUBCLAV VEIN, OPEN APPROACH (06/20/15) INSERTION OF INFUSION DEV INTO SUP VENA CAVA, PERC APPROACH (04/07/17) INTRODUCE OF OTH ANTI-INFECT INTO PERIPH VEIN, PERC APPROACH (06/20/15) INTRODUCTION OF SERUM/TOX/VACCINE INTO SUBCU, PERC APPROACH (06/20/15) OTHER GROUP THERAPY (02/28/14) OTHER SKIN & SUBQ I D (12/01/14) RADICAL EXCIS SKIN LES (12/01/14) ROBOTIC ASSISTED PROCEDURE OF TRUNK, PERC ENDO APPROACH (06/01/16) SOFT TISSUE INCISION NEC (12/01/14) TRANSFER RIGHT LOWER LEG SKIN, EXTERNAL APPROACH (06/20/15) Family History: States: No Known Family Hx - Social History Hx Tobacco Use: No Hx Alcohol Use: No Hx Substance Use: No - Immunization History Hx Tetanus Toxoid Vaccination: Yes Hx Influenza Vaccination: Yes Hx Pneumococcal Vaccination: Yes Review Of Systems Except As Marked, All Systems Reviewed And Found Negative. Constitutional: Negative for: Fever, Chills Gastrointestinal: Positive for: Vomiting, Diarrhea. Negative for: Abdominal Pain Musculoskeletal: Negative for: Back Pain Physical Exam - Physical Exam Appears: Other (wheelchair bound) Skin: Normal Color, Warm, Dry Head: Atraumatic, Normacephalic Eye(s): bilateral: Normal Inspection Nose: Normal Oral Mucosa: Moist Neck: Supple Chest: Symmetrical Cardiovascular: Rhythm Regular Respiratory: Normal Breath Sounds, No Rales, No Rhonchi, No Wheezing Gastrointestinal/Abdominal: Normal Exam, Soft, No Tenderness, No Guarding, No Rebound Back: Normal Inspection, No CVA Tenderness Neurological/Psych: Oriented x3, Normal Speech ED Course And Treatment - Laboratory Results Result Diagrams: 07/11/18 10:31 07/11/18 10:31 O2 Sat by Pulse Oximetry: 100 (RA) Pulse Ox Interpretation: Normal Medical Decision Making Medical Decision Making: Plan: --Labs --UA --Urine Culture Updates: Patient was evaluated by Dr.Yale Morataya. states that there is no need for urological intervention at this time. Case discussed with . Patient will be admitted. Disposition - Disposition Disposition: HOME/ ROUTINE Disposition Time: 12:24 Condition: GOOD - Clinical Impression Clinical Impression: Diarrhea, Vomiting, UTI (urinary tract infection) - PA / ANIMAL TECHNICIAN / Resident Statement MD/DO has reviewed & agrees with the documentation as recorded. - Scribe Statement The provider has reviewed the documentation as recorded by the Scribe Clarice Blumq Provider Attestation All medical record entries made by the Jose Guadalupeibe were at my direction and personally dictated by me. I have reviewed the chart and agree that the record accurately reflects my personal performance of the history, physical exam, medical decision making, and the department course for this patient. I have also personally directed, reviewed, and agree with the discharge instructions and disposition.
[2018-07-11] MEDS ORDERED: Ciprofloxacin 400mg/200ml D5W 400 MG/200 ML BAG IVPB STA (14:17)
[2018-07-11] MEDS ORDERED: Ciprofloxacin 400mg/200ml D5W 400 MG/200 ML BAG IVPB ONE (14:22)
[2018-07-11] MEDS: Potassium Chloride 20 mEq ER Tab PO SCH (20:12)
[2018-07-12] MEDS: Ciprofloxacin 400mg/200ml D5W 400 MG/200 ML BAG IVPB SCH ×2 (02:03→14:44)
[2018-07-12 07:29] LABS: BASO # 0.1 K/uL (0.0-0.2); BASO % 0.3 % (0.0-2.0); EOS % 0.1 % (0.0-4.0); HEMOGLOBIN 10.6 g/dL (12.0-18.0); LYMPH % 11.7 % (20.0-40.0); MEAN CELL VOLUME 72.8 fL (80.0-94.0); MEAN CORPUSCULAR HEMOGLOBIN 23.4 pg (27.0-31.0); MEAN CORPUSCULAR HGB CONC 32.1 g/dL (33.0-37.0); MEAN PLATELET VOLUME 7.9 fL (7.2-11.7); MONO # 1.5 K/uL (0.0-0.8); NEUT # 21.1 K/uL (1.8-7.0); NEUT % 81.9 % (50.0-75.0); RBC 4.54 Mil/uL (4.40-5.90); RED CELL DISTRIBUTION WIDTH 17.8 % (11.5-14.5); WHITE BLOOD COUNT 25.8 K/uL (4.8-10.8)
--- NOTE | 2018-07-12 07:43 | CP.PCM.CON ---
History of Present Illness - History of Present Illness History of Present Illness: UROLOGY CONSULTATION Past Patient History - Infectious Disease Hx of Infectious Diseases: None - Tetanus Immunizations Tetanus Immunization: Unknown - Past Medical History & Family History Past Medical History?: Yes - Past Social History Smoking Status: Never Smoked - CARDIAC Hx Hypercholesterolemia: Yes Hx Hypertension: Yes Hx Peripheral Edema: Yes - PULMONARY Hx Respiratory Disorders: No Hx Tuberculosis: No - HEENT Hx HEENT Problems: Yes Other/Comment: HX: LINDSEY'S PALSY RIGHT SIDE - RENAL Hx Chronic Kidney Disease: Yes Hx Kidney Stones: Yes () - ENDOCRINE/METABOLIC Hx Endocrine Disorders: No - HEMATOLOGICAL/ONCOLOGICAL Hx Anemia: Yes Hx Human Immunodeficiency Virus (HIV): No - INTEGUMENTARY Hx Dermatological Problems: Yes Hx Cellulitis: Yes Other/Comment: CHRONIC GARRET BUTTOCK PRESSURE ULCERS.. - MUSCULOSKELETAL/RHEUMATOLOGICAL Hx Falls: No - GASTROINTESTINAL Hx Diverticulitis: Yes Hx Gall Bladder Disease: Yes Hx Gastritis: Yes - GENITOURINARY/GYNECOLOGICAL Hx Sexually Transmitted Disorders: No - PSYCHIATRIC Hx Anxiety: Yes Hx Bipolar Disorder: Yes Hx Depression: Yes Hx Substance Use: No - SURGICAL HISTORY Hx Surgeries: Yes Hx Musculoskeletal Surgery: Yes Hx Orthopedic Surgery: Yes (B/L LE sx) Other/Comment: Spinal surgery, Insertion of wound vacum to right knee - ANESTHESIA Hx Anesthesia: Yes Hx Anesthesia Reactions: No Hx Malignant Hyperthermia: No Meds Home Medications: Home Medication List Medication Instructions Recorded Confirmed Type Ondansetron ODT [Zofran ODT] 1 odt PO BID PRN #10 odt 07/11/18 Rx Allergies/Adverse Reactions: Allergies Allergy/AdvReac Type Severity Reaction Status Date / Time No Known Allergies Allergy Verified 07/11/18 08:31 - Medications Medications: Current Medications Bupropion HCl (Wellbutrin) 100 mg PO DAILY [facility] Citalopram Hydrobromide (Celexa) 40 mg PO DAILY [facility] Clonazepam (Klonopin) 0.5 mg PO BID [facility] Enoxaparin Sodium (Lovenox) 40 mg SC DAILY [facility] Gabapentin (Neurontin) 300 mg PO TID [facility] Ciprofloxacin (Cipro 400mg/200ml Dsw) 400 mg in 200 mls @ 133 mls/hr IVPB Q12H [facility]; Protocol Last Admin: 07/12/18 02:03 Dose: 133 mls/hr Potassium Chloride (K-Dur 20 Meq Er Tab) 20 meq PO BID [facility] Last Admin: 07/11/18 20:12 Dose: 20 meq Rivaroxaban (Xarelto) 10 mg PO HS [facility] Last Admin: 07/11/18 21:47 Dose: Not Given Results - Vital Signs Recent Vital Signs: Last Vital Signs Temp 98.4 F 07/12/18 00:00 Pulse 80 07/12/18 00:00 Resp 20 07/12/18 00:00 BP 125/74 07/12/18 00:00 Pulse Ox 96 07/12/18 00:00 - Labs Result Diagrams: 07/12/18 07:12 07/11/18 10:31 Labs: Laboratory Results - last 24 hr 07/11/18 07/11/18 07/11/18 10:08 10:31 10:31 WBC 24.4 H D RBC 4.57 Hgb 10.8 L Hct 33.3 L MCV 72.9 L D MCH 23.6 L MCHC 32.4 L RDW 17.6 H Plt Count 571 H D MPV 7.6 Neut % (Auto) 76.6 H Lymph % (Auto) 16.4 L [place] % (Auto) 6.6 Eos % (Auto) 0.2 Baso % (Auto) 0.2 Neut # (Auto) 18.7 H Lymph # (Auto) 4.0 [place] # (Auto) 1.6 H Eos # (Auto) 0.0 Baso # (Auto) 0.1 Sodium 141 Potassium 3.5 L Chloride 99 Carbon Dioxide 29 Anion Gap 17 BUN 10 Creatinine 0.4 L Est GFR ( Amer) > 60 Est GFR (Non-Af Amer) > 60 Random Glucose 110 Calcium 9.1 Total Bilirubin 0.4 AST 12 L ALT 18 L Alkaline Phosphatase 140 H D Total Protein 6.5 Albumin 3.3 L Globulin 3.2 Albumin/Globulin Ratio 1.0 Urine Color [place] Urine Clarity Turbid Urine pH 6.0 Ur Specific [place] 1.017 Urine Protein 2+ H Urine Glucose (UA) Normal Urine Ketones Negative Urine Blood 1+ H Urine Nitrate Negative Urine Bilirubin Negative Urine Urobilinogen 4.0 Ur Leukocyte Esterase 3+ H Urine WBC (Auto) 1796 H Urine RBC (Auto) 14 H Urine WBC Clumps (Auto) Many H Urine Bacteria Many H 07/12/18 07:12 WBC 25.8 H RBC 4.54 Hgb 10.6 L Hct 33.0 L MCV 72.8 L MCH 23.4 L MCHC 32.1 L RDW 17.8 H Plt Count 489 H MPV 7.9 Neut % (Auto) 81.9 H Lymph % (Auto) 11.7 L [place] % (Auto) 6.0 Eos % (Auto) 0.1 Baso % (Auto) 0.3 Neut # (Auto) 21.1 H Lymph # (Auto) 3.0 [place] # (Auto) 1.5 H Eos # (Auto) 0.0 Baso # (Auto) 0.1 Sodium Potassium Chloride Carbon Dioxide Anion Gap BUN Creatinine Est GFR ( Amer) Est GFR (Non-Af Amer) Random Glucose Calcium Total Bilirubin AST ALT Alkaline Phosphatase Total Protein Albumin Globulin Albumin/Globulin Ratio Urine Color Urine Clarity Urine pH Ur Specific [place] Urine Protein Urine Glucose (UA) Urine Ketones Urine Blood Urine Nitrate Urine Bilirubin Urine Urobilinogen Ur Leukocyte Esterase Urine WBC (Auto) Urine RBC (Auto) Urine WBC Clumps (Auto) Urine Bacteria Assessment & Plan - Assessment and Plan (Free Text) Assessment: IMP: uti neurogenic bladder paraplegia hx of renal tumor full note dictated thank you YS - Date & Time Date: 07/11/18 Time: 11:50
[2018-07-12 07:48] LABS: ALBUMIN 3.1 g/dL (3.5-5.0); ALT/SGPT 21 U/L (21-72); AST/SGOT 11 U/L (17-59); BLOOD UREA NITROGEN 11 mg/dL (9-20); CALCIUM 9.1 mg/dl (8.6-10.4); GFR NON-AFRICAN AMERICAN > 60
[2018-07-12] MEDS: Potassium Chloride 20 mEq ER Tab PO SCH ×2 (09:37→18:09)
[2018-07-12] MEDS ORDERED: Enoxaparin 40 mg Syringe SC SCH (10:00)
--- NOTE | 2018-07-12 15:47 | CON ---
DATE: 07/11/2018 REQUESTED BY: Amalia Orellana MD Urology consultation is filled by Dr. Sylwia Morataya. REASON FOR CONSULTATION: Urinary tract infection. HISTORY OF PRESENT ILLNESS: The patient is a 67-year-old male who presented to the emergency room with abdominal pain, nausea, and vomiting. The patient is in otherwise fair health. The patient was scheduled for a visit with me today as followup for his history of renal cancer. The patient reports several-day history of abdominal pain involving the upper and lower abdomen. He also had nausea , vomiting, and diarrhea. He has had these symptoms for the past week. The patient reports no fever or rigors. No flank pain. The patient has no hematuria. The patient has history of urinary incontinence. He has history of neurogenic bladder secondary to paraplegia. The patient has had multiple surgical procedures Including back surgery as well as lower extremity orthopedic surgery. The patient has history of lower extremity paralysis secondary to back disease. There is history of urolithiasis. There is history of renal cancer. The patient underwent previous robotic renal surgery. The patient voids with good urinary stream. He has poor urinary control. He uses an external catheter. The patient reports no chest pain. No shortness of breath. The patient has history of depression. The patient's medications have included clonazepam, gabapentin, Wellbutrin, Xarelto, The patient was seen in the emergency room. He was found to have marked leukocytosis. He is now admitted for evaluation and therapy. The patient has had other surgeries including hip surgery and knee surgery. The patient reports no dysuria and no hematuria. He does not have sensation of his bladder filling or voiding. No recent fever or rigors. There is possible history of urolithiasis. PHYSICAL EXAMINATION: GENERAL: The patient is a well-developed, well-nourished male appearing his stated age. ABDOMEN: Soft, nontender, nondistended. No mass or organomegaly. BACK: No CVA tenderness. LABORATORY DATA: White blood count 24,400. Hematocrit 33. BUN 10, creatinine 0.4. Urinalysis reveals 3+ lymphocyte esterase. 1796 white blood cells. 14 red blood cells per high-power field. IMPRESSION: A 67-year-old male with neurogenic bladder, paraplegic, history of renal cancer. The patient has leukocytosis. Urinalysis reveals evidence of likely urinary tract infection. RECOMMENDATIONS AND PLAN: Urine culture. Blood culture. Serum PSA. CT scan. Antibiotic therapy. Further therapy to follow according to the patient's clinical course as well as results of above tests. The predisposing causes for urinary infection include neurogenic bladder, urolithiasis, prostate disease. Thank you for recommending the patient for urology consultation. W[place] MD Hood cc: Amalia Orellana MD
[2018-07-12] MEDS ORDERED: Iohexol 350mg/ml 100 ML ONE (16:28)
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
[2018-07-12] MEDS ORDERED: cefTRIAXone IV 1 gm in Dextros 50 ML IVPB SCH (17:45)
[2018-07-13 07:27] LABS: BASO # 0.1 K/uL (0.0-0.2); BASO % 0.3 % (0.0-2.0); EOS # 0.1 K/uL (0.0-0.7); EOS % 0.4 % (0.0-4.0); HEMOGLOBIN 10.3 g/dL (12.0-18.0); LYMPH % 18.4 % (20.0-40.0); MEAN CELL VOLUME 72.9 fL (80.0-94.0); MEAN CORPUSCULAR HGB CONC 32.9 g/dL (33.0-37.0); MEAN PLATELET VOLUME 7.7 fL (7.2-11.7); MONO # 1.5 K/uL (0.0-0.8); MONO % 6.9 % (0.0-10.0); NEUT # 16.1 K/uL (1.8-7.0); RBC 4.32 Mil/uL (4.40-5.90); WHITE BLOOD COUNT 21.7 K/uL (4.8-10.8)
[2018-07-13 07:43] LABS: BLOOD UREA NITROGEN 11 mg/dL (9-20); CALCIUM 8.9 mg/dl (8.6-10.4); GFR NON-AFRICAN AMERICAN > 60
[2018-07-13] MEDS: Potassium Chloride 20 mEq ER Tab PO SCH ×2 (09:56→21:23)
--- NOTE | 2018-07-13 13:40 | CT ---
Date of service: 07/12/2018 PROCEDURE: CT Abdomen and Pelvis with and without intravenous contrast HISTORY: UTI, PYELONEPHRITIS COMPARISON: CT abdomen and pelvis with IV contrast performed 11/01/17 TECHNIQUE: Axial images of the abdomen were obtained in the pre contrast, portal venous and delayed phases of enhancement. Coronal and sagittal reformats were generated and reviewed. Contrast dose: 100 mL Omnipaque 350 Radiation dose: Total exam DLP = 1154.36 mGy-cm. This CT exam was performed using one or more of the following dose reduction techniques: Automated exposure control, adjustment of the mA and/or kV according to patient size, and/or use of iterative reconstruction technique. FINDINGS: LOWER THORAX: Mild ground-glass infiltrates, left lung base. No pleural effusion or pneumothorax. Dense coronary artery calcifications. Thick-walled distal esophagus. Moderate hiatal hernia. LIVER: Unremarkable. GALLBLADDER AND BILE DUCTS: Contracted gallbladder, otherwise grossly unremarkable. PANCREAS: Unremarkable. SPLEEN: Unremarkable. ADRENALS: Punctate calcification, lateral limb right adrenal gland. Nodular hypertrophy, left adrenal gland. KIDNEYS AND URETERS: The kidneys enhance symmetrically. No hydronephrosis or obstructing calculus identified. Numerous too small to characterize renal hypodensities. Additionally, 3 cm right renal cyst. VASCULATURE: IVC filter. No aortic aneurysm. BOWEL: Stomach is nondistended. Lack of oral contrast limits evaluation for bowel pathology. Multiple dilated loops of small bowel are fluid-filled with more distal loops appearing decompressed; transition point is not definitively noted. Appearance consistent with small bowel obstruction. Left lower quadrant colostomy. APPENDIX: The appendix appears within normal limits of caliber. No secondary signs of acute appendicitis. PERITONEUM: No significant free fluid. No definite free air. LYMPH NODES: Prominent sub cm mesenteric lymph nodes, nonspecific. Sub cm lymph nodes, bilateral pelvic sidewalls. BLADDER: Irregular thick-walled urinary bladder. REPRODUCTIVE: Penile prosthesis. [place] noted in the left lower quadrant. Prostate gland measures approximately 3.1 x 3.6 cm and contains calcifications. BONES: Extensive postsurgical changes involving the upper lumbar spine. Bilateral heterotopic ossification, proximal femurs. Osseous demineralization. Partially imaged hardware, left femur. OTHER FINDINGS: Left-sided decubitus ulcer with skin thickening. Probable subcutaneous varices. IMPRESSION: Multiple dilated loops of small bowel are fluid-filled with more distal loops appearing decompressed; transition point is not definitively noted. Appearance consistent with small bowel obstruction. Left lower quadrant colostomy. Irregular thick-walled urinary bladder. Recommend correlation with urinalysis. Mild ground-glass infiltrates, left lung base. Additional findings as above. Preliminary impression was provided by CODY Duarte
[2018-07-13] MEDS ORDERED: Moxifloxacin IV 400mg/250ml NS 400 MG/250 ML BAG IVPB SCH ×2 (16:15→18:00)
--- NOTE | 2018-07-13 16:18 | CP.PCM.PN ---
Subjective - Date & Time of Evaluation Date of Evaluation: 07/13/18 Time of Evaluation: 17:45 - Subjective Subjective: PT reports feeling better, No n.v pt reports eating better and feeling comfortable. PT was seen by wound care nurse Objective - Vital Signs/Intake and Output Vital Signs (last 24 hours): Temp Pulse Resp BP Pulse Ox 99.2 F 91 H 20 126/73 97 07/13/18 07:36 07/13/18 07:36 07/13/18 07:36 07/13/18 07:36 07/13/18 07:36 - Medications Medications: Current Medications Bupropion HCl (Wellbutrin) 100 mg PO DAILY [facility] Last Admin: 07/13/18 09:56 Dose: 100 mg Clonazepam (Klonopin) 0.5 mg PO BID [facility] Last Admin: 07/13/18 09:55 Dose: 0.5 mg Gabapentin (Neurontin) 300 mg PO TID [facility] Last Admin: 07/13/18 14:50 Dose: 300 mg Sodium Chloride (Sodium Chloride 0.45%) 500 mls @ 75 mls/hr IV .Q6H40M [facility] Moxifloxacin HCl (Avelox Iv 400mg/250ml Ns) 400 mg in 250 mls @ 167 mls/hr IVPB Q24H [facility]; Protocol Influenza Virus Vaccine (Fluzone Quad [id number]) 60 mcg IM .ONCE ONE Stop: 07/14/18 10:01 Pantoprazole Sodium (Protonix Inj) 40 mg IVP DAILY [facility] Last Admin: 07/13/18 09:54 Dose: 40 mg Potassium Chloride (K-Dur 20 Meq Er Tab) 20 meq PO BID [facility] Last Admin: 07/13/18 09:56 Dose: 20 meq Potassium Chloride (Potassium Chloride Oral Soln) 40 meq PO PC [facility] Rivaroxaban (Xarelto) 10 mg PO HS [facility] Last Admin: 07/12/18 21:54 Dose: 10 mg - Labs Labs: 07/13/18 07:20 07/13/18 07:20 - Constitutional Appears: Well, Non-toxic - Eye Exam Eye Exam: Normal appearance - ENT Exam ENT Exam: Mucous Membranes Moist - Respiratory Exam Respiratory Exam: Clear to Ausculation Bilateral - Cardiovascular Exam Cardiovascular Exam: RRR, +S1, +S2. absent: JVD Assessment and Plan - Assessment and Plan (Free Text) Assessment: URosepsis; ua; elevated wbc pending culture dc rocephin avelox hypokalemia added an extra dose of K monitor lytes
[2018-07-13] MEDS ORDERED: Potassium Chloride 20 mEq/15 ml LIQ UD PO SCH (18:00)
[2018-07-14 05:58] LABS: SQUAMOUS EPITHIAL 2 /hpf (0-5); URINE BACTERIA OCC (<OCC); URINE BILIRUBIN NEGATIVE (NEGATIVE); URINE BLOOD NEGATIVE (NEGATIVE); URINE CLARITY Clear (Clear); URINE COLOR Yellow (YELLOW); URINE GLUCOSE (UA) NORMAL (Normal); URINE LEUKOCYTE ESTERASE 3+ Leu/uL (Negative); URINE PROTEIN NEGATIVE (NEGATIVE)
[2018-07-14 07:49] LABS: BLOOD UREA NITROGEN 12 mg/dL (9-20); CALCIUM 8.9 mg/dl (8.6-10.4); GFR NON-AFRICAN AMERICAN > 60
[2018-07-14] MEDS ORDERED: Influenza Vaccine 60 MCG/0.5 ML SYR (3 yr & up) IM ONE (10:00)
[2018-07-14 10:01] LABS: BASO # 0.2 K/uL (0.0-0.2); BASO % 0.6 % (0.0-2.0); EOS # 0.1 K/uL (0.0-0.7); EOS % 0.4 % (0.0-4.0); HEMOGLOBIN 10.5 g/dL (12.0-18.0); LYMPH # 3.6 K/uL (1.0-4.3); MEAN CELL VOLUME 73.4 fL (80.0-94.0); MEAN CORPUSCULAR HEMOGLOBIN 23.4 pg (27.0-31.0); MEAN CORPUSCULAR HGB CONC 31.9 g/dL (33.0-37.0); MONO # 1.8 K/uL (0.0-0.8); NEUT # 20.3 K/uL (1.8-7.0); NRBC % 0.1 % (0.0-2.0); RBC 4.5 Mil/uL (4.40-5.90); RED CELL DISTRIBUTION WIDTH 18.2 % (11.5-14.5)
[2018-07-14] MEDS: Potassium Chloride 20 mEq ER Tab PO SCH ×2 (12:22→18:17)
[2018-07-14] MEDS ORDERED: Potassium Chloride 20 mEq/15 ml LIQ UD PO SCH (13:30)
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
--- NOTE | 2018-07-14 17:18 | CP.PCM.PN ---
Subjective - Date & Time of Evaluation Date of Evaluation: 07/14/18 Time of Evaluation: 17:18 - Subjective Subjective: Pt reports feeling well no N/v no pain feels comfortable Objective - Vital Signs/Intake and Output Vital Signs (last 24 hours): Temp Pulse Resp BP Pulse Ox 99.4 F 100 H 20 104/69 97 07/14/18 16:00 07/14/18 16:00 07/14/18 16:00 07/14/18 16:00 07/14/18 16:00 Intake and Output: 07/14/18 07/14/18 06:59 18:59 Intake Total 200 Output Total 300 Balance -100 - Medications Medications: Current Medications Bupropion HCl (Wellbutrin) 100 mg PO DAILY [facility] Last Admin: 07/14/18 12:22 Dose: 100 mg Clonazepam (Klonopin) 0.5 mg PO BID [facility] Last Admin: 07/14/18 12:24 Dose: 0.5 mg Gabapentin (Neurontin) 300 mg PO TID [facility] Last Admin: 07/14/18 15:17 Dose: 300 mg Sodium Chloride (Sodium Chloride 0.45%) 500 mls @ 75 mls/hr IV .Q6H40M [facility] Meropenem 500 mg/ Sodium (Chloride) 100 mls @ 100 mls/hr IVPB Q8H [facility]; Protocol Pantoprazole Sodium (Protonix Inj) 40 mg IVP DAILY [facility] Last Admin: 07/14/18 12:25 Dose: 40 mg Potassium Chloride (K-Dur 20 Meq Er Tab) 20 meq PO BID [facility] Last Admin: 07/14/18 12:22 Dose: 20 meq Rivaroxaban (Xarelto) 10 mg PO HS [facility] Last Admin: 07/13/18 21:43 Dose: 10 mg - Labs Labs: 07/14/18 09:56 07/14/18 06:29 - Constitutional Appears: Well, Non-toxic, No Acute Distress - Eye Exam Eye Exam: Normal appearance - ENT Exam ENT Exam: Mucous Membranes Moist - Respiratory Exam Respiratory Exam: Clear to Ausculation Bilateral - Cardiovascular Exam Cardiovascular Exam: REGULAR RHYTHM, RRR. absent: JVD - GI/Abdominal Exam GI & Abdominal Exam: Soft, Normal Bowel Sounds Assessment and Plan - Assessment and Plan (Free Text) Assessment: urosepsis wbc increased no fever consulted ID [email or web address]
[2018-07-14] MEDS: Meropenem 500 MG in Sodium Chloride 0.9% 100 ML IVPB SCH (18:21)
[2018-07-15] MEDS: Meropenem 500 MG in Sodium Chloride 0.9% 100 ML IVPB SCH ×3 (01:04→17:21)
[2018-07-15 05:14] LABS: SQUAMOUS EPITHIAL 2 /hpf (0-5); URINE BACTERIA RARE (<OCC); URINE BILIRUBIN NEGATIVE (NEGATIVE); URINE BLOOD NEGATIVE (NEGATIVE); URINE CLARITY Hazy (Clear); URINE COLOR Yellow (YELLOW); URINE GLUCOSE (UA) NORMAL (Normal); URINE LEUKOCYTE ESTERASE 3+ Leu/uL (Negative); URINE PROTEIN NEGATIVE (NEGATIVE); URINE URIC ACID CRYSTALS RARE /hpf (<OCC); URINE UROBILINOGEN NORMAL mg/dL (0.2-1.0)
[2018-07-15 07:38] LABS: BLOOD UREA NITROGEN 10 mg/dL (9-20); CALCIUM 8.8 mg/dl (8.6-10.4); GFR NON-AFRICAN AMERICAN > 60
[2018-07-15] MEDS: Potassium Chloride 20 mEq ER Tab PO SCH ×2 (11:25→17:19)
--- NOTE | 2018-07-15 16:01 | CP.PCM.PN ---
Subjective - Date & Time of Evaluation Date of Evaluation: 07/15/18 - Subjective Subjective: PT reports Objective - Vital Signs/Intake and Output Vital Signs (last 24 hours): Temp Pulse Resp BP Pulse Ox 98.3 F 91 H 20 98/61 L 95 07/15/18 07:38 07/15/18 07:38 07/15/18 07:38 07/15/18 07:38 07/15/18 07:38 Intake and Output: 07/15/18 07/15/18 06:59 18:59 Intake Total 1075 Output Total 600 500 Balance 475 -500 - Medications Medications: Current Medications Bupropion HCl (Wellbutrin) 100 mg PO DAILY [facility] Last Admin: 07/15/18 11:27 Dose: 100 mg Citalopram Hydrobromide (Celexa) 40 mg PO DAILY [facility] Last Admin: 07/15/18 15:12 Dose: 40 mg Clonazepam (Klonopin) 0.5 mg PO BID [facility] Last Admin: 07/15/18 11:25 Dose: 0.5 mg Gabapentin (Neurontin) 300 mg PO TID [facility] Last Admin: 07/15/18 15:12 Dose: 300 mg Sodium Chloride (Sodium Chloride 0.45%) 500 mls @ 75 mls/hr IV .Q6H40M [facility] Last Admin: 07/15/18 15:14 Dose: 75 mls/hr Meropenem 500 mg/ Sodium (Chloride) 100 mls @ 100 mls/hr IVPB Q8H [facility]; Protocol Last Admin: 07/15/18 08:11 Dose: 100 mls/hr Pantoprazole Sodium (Protonix Inj) 40 mg IVP DAILY [facility] Last Admin: 07/15/18 11:26 Dose: 40 mg Potassium Chloride (K-Dur 20 Meq Er Tab) 20 meq PO BID [facility] Last Admin: 07/15/18 11:25 Dose: 20 meq Rivaroxaban (Xarelto) 10 mg PO HS [facility] Last Admin: 07/14/18 21:14 Dose: 10 mg - Labs Labs: 07/14/18 09:56 07/15/18 06:46 Assessment and Plan - Assessment and Plan (Free Text) Assessment: complicated UTi ID consulted [email or web address] changed
--- NOTE | 2018-07-15 19:30 | CP.PCM.PN ---
Subjective - Date & Time of Evaluation Date of Evaluation: 07/15/18 Time of Evaluation: 14:20 - Subjective Subjective: Patient was seen today he says he had diarrhea he has a colostomy bag and says it was brown color. denies any vomiting ,drinking fluids,no abdominal ,Patient is paraplegic and bed bound since 1996 He has [place] cathter draining clear urine,however he did have high wbc count and was covered for ESBL uti Objective - Vital Signs/Intake and Output Vital Signs (last 24 hours): Temp Pulse Resp BP Pulse Ox 99.2 F 97 H 20 117/70 98 07/15/18 16:00 07/15/18 16:00 07/15/18 16:00 07/15/18 16:00 07/15/18 16:00 Intake and Output: 07/15/18 07/16/18 18:59 06:59 Output Total 500 Balance -500 - Medications Medications: Current Medications Bupropion HCl (Wellbutrin) 100 mg PO DAILY [facility] Last Admin: 07/15/18 11:27 Dose: 100 mg Citalopram Hydrobromide (Celexa) 40 mg PO DAILY [facility] Last Admin: 07/15/18 15:12 Dose: 40 mg Clonazepam (Klonopin) 0.5 mg PO BID [facility] Last Admin: 07/15/18 17:19 Dose: 0.5 mg Gabapentin (Neurontin) 300 mg PO TID [facility] Last Admin: 07/15/18 17:19 Dose: 300 mg Sodium Chloride (Sodium Chloride 0.45%) 500 mls @ 75 mls/hr IV .Q6H40M [facility] Last Admin: 07/15/18 15:14 Dose: 75 mls/hr Meropenem 500 mg/ Sodium (Chloride) 100 mls @ 100 mls/hr IVPB Q8H [facility]; Protocol Last Admin: 07/15/18 17:21 Dose: 100 mls/hr Pantoprazole Sodium (Protonix Inj) 40 mg IVP DAILY [facility] Last Admin: 07/15/18 11:26 Dose: 40 mg Potassium Chloride (K-Dur 20 Meq Er Tab) 20 meq PO BID [facility] Last Admin: 07/15/18 17:19 Dose: 20 meq Rivaroxaban (Xarelto) 10 mg PO HS [facility] Last Admin: 07/14/18 21:14 Dose: 10 mg - Labs Labs: 07/14/18 09:56 07/15/18 06:46 - Constitutional Appears: No Acute Distress - Head Exam Head Exam: ATRAUMATIC, NORMOCEPHALIC - Eye Exam Eye Exam: Normal appearance Pupil Exam: PERRL - ENT Exam ENT Exam: Mucous Membranes Moist - Neck Exam Neck Exam: Normal Inspection - Respiratory Exam Respiratory Exam: Clear to Ausculation Bilateral, NORMAL BREATHING PATTERN. absent: Accessory Muscle Use, Chest Wall Tenderness, Decreased Breath Sounds, Prolonged Expiratory Phase, Rales, Rhonchi, Wheezes, Respiratory Distress, Stridor - Cardiovascular Exam Cardiovascular Exam: REGULAR RHYTHM. absent: Bradycardia, Tachycardia, Clicks, Diastolic murmur, Gallop, Irregular Rhythm, JVD, RRR, Rubs, +S1, +S2, +S4, Murmur - GI/Abdominal Exam GI & Abdominal Exam: Soft, Normal Bowel Sounds Additional comments: left lower quadrant colostomy present, functioning was just cleaned - Exam Additional comments: Patient has a [place] catheter at present as he has neurogenic bladder and was seen by Gu attending - Extremities Exam Additional comments: paraplegia with no edema - Skin Additional comments: has decubiti on back - Additional Findings Additional findings: Ct scan reviewed results was read as no hydronephrosis,thickened bladder and bowel obstruction on 07/13/18 but pt has abowel movemnet so i would think no obstrucion present will get a KUB in am to be sure Continue Merrem for esbl uti and cystitis without hydronephrisis for 7 days and hopefully wbc count /leucocytosis will decrease with treatment Thank you for allowing me to help in care of this patient Assessment and Plan (1) ESBL (extended spectrum beta-lactamase) producing bacteria infection Assessment & Plan: Patient is started on Merrem yesterday today is day 2 Status: Acute (2) Diarrhea Status: Acute (3) Urinary tract infection Status: Acute (4) Cystitis Status: Acute
[2018-07-16] MEDS: Meropenem 500 MG in Sodium Chloride 0.9% 100 ML IVPB SCH ×2 (01:02→08:13)
[2018-07-16 06:38] LABS: BASO % 0.1 % (0.0-2.0); EOS # 0.2 K/uL (0.0-0.7); EOS % 0.5 % (0.0-4.0); HEMOGLOBIN 11.3 g/dL (12.0-18.0); LYMPH # 4.7 K/uL (1.0-4.3); LYMPH % 15.1 % (20.0-40.0); MEAN CELL VOLUME 73.4 fL (80.0-94.0); MEAN CORPUSCULAR HEMOGLOBIN 23.2 pg (27.0-31.0); MEAN CORPUSCULAR HGB CONC 31.7 g/dL (33.0-37.0); MEAN PLATELET VOLUME 7.9 fL (7.2-11.7); MONO # 2.2 K/uL (0.0-0.8); NEUT # 24.1 K/uL (1.8-7.0); NEUT % 77.3 % (50.0-75.0); RBC 4.85 Mil/uL (4.40-5.90); RED CELL DISTRIBUTION WIDTH 18.2 % (11.5-14.5); WHITE BLOOD COUNT 31.2 K/uL (4.8-10.8)
[2018-07-16 08:03] LABS: BLOOD UREA NITROGEN 9 mg/dL (9-20); CALCIUM 9.1 mg/dl (8.6-10.4); GFR NON-AFRICAN AMERICAN > 60
[2018-07-16] MEDS: Potassium Chloride 20 mEq ER Tab PO SCH ×2 (10:42→17:28)
--- NOTE | 2018-07-16 15:30 | RAD ---
Date of service: 07/16/2018 PROCEDURE: Radiographs of the chest and abdomen (obstructive series) HISTORY: follow up SBO and leucocytosis COMPARISON: Abdomen pelvis CT without/with contrast performed 07/12/18 TECHNIQUE: AP radiograph of the chest, with upright and supine radiographs of the abdomen. FINDINGS: CHEST: Right-sided central venous catheter extends the cavoatrial junction. Heart size appears within normal limits. No focal consolidation, significant pleural effusion, or definite pneumothorax identified.Please note that chest x-ray has limited sensitivity for the detection of pulmonary masses. ABDOMEN AND PELVIS: Air-filled loops of prominent/dilated small bowel in the left abdomen, nonspecific. Suspect air within the right colon. Correlate clinically. No definite free air. IVC filter. Postsurgical lumbar spine hardware. Extensive heterotopic ossification, bilateral femurs. IMPRESSION: Right-sided MediPort. IVC filter. Air-filled loops of prominent/dilated small bowel in the left abdomen, nonspecific. Suspect air within the right colon. Correlate clinically.
--- NOTE | 2018-07-16 18:51 | CP.PCM.PN ---
Subjective - Date & Time of Evaluation Date of Evaluation: 07/16/18 Time of Evaluation: 15:15 - Subjective Subjective: dictated Objective - Vital Signs/Intake and Output Vital Signs (last 24 hours): Temp Pulse Resp BP Pulse Ox 98.4 F 100 H 20 104/72 98 07/16/18 16:25 07/16/18 16:25 07/16/18 16:25 07/16/18 16:25 07/16/18 16:25 Intake and Output: 07/16/18 07/16/18 06:59 18:59 Intake Total 1374 890 Output Total 700 450 Balance 674 440 - Medications Medications: Current Medications Bupropion HCl (Wellbutrin) 100 mg PO DAILY [facility] Last Admin: 07/16/18 10:42 Dose: 100 mg Citalopram Hydrobromide (Celexa) 40 mg PO DAILY [facility] Last Admin: 07/16/18 10:41 Dose: 40 mg Clonazepam (Klonopin) 0.5 mg PO BID [facility] Last Admin: 07/16/18 17:31 Dose: 0.5 mg Gabapentin (Neurontin) 300 mg PO TID [facility] Last Admin: 07/16/18 17:31 Dose: 300 mg Sodium Chloride (Sodium Chloride 0.45%) 500 mls @ 75 mls/hr IV .Q6H40M [facility] Last Admin: 07/16/18 17:00 Dose: 75 mls/hr Ceftazidime/Avibactam 2.5 gm/ (Sodium Chloride) 100 mls @ 50 mls/hr IV Q8H [facility]; Protocol Last Admin: 07/16/18 13:00 Dose: 50 mls/hr Colistimethate Sodium 80 mg/ (Sodium Chloride) 100 mls @ 200 mls/hr IV Q12H [facility]; Protocol Stop: 07/19/18 11:01 Last Admin: 07/16/18 12:00 Dose: 200 mls/hr Pantoprazole Sodium (Protonix Inj) 40 mg IVP DAILY [facility] Last Admin: 07/16/18 10:43 Dose: 40 mg Potassium Chloride (K-Dur 20 Meq Er Tab) 20 meq PO BID [facility] Last Admin: 07/16/18 17:28 Dose: 20 meq Rivaroxaban (Xarelto) 10 mg PO HS [facility] Last Admin: 07/15/18 21:40 Dose: 10 mg - Labs Labs: 07/16/18 06:00 07/16/18 06:00 Assessment and Plan (1) Cystitis Status: Acute (2) Diarrhea Status: Acute (3) Urinary tract infection Status: Acute (4) Vomiting Status: Acute
--- NOTE | 2018-07-16 20:15 | CP.PCM.PN ---
Subjective - Date & Time of Evaluation Date of Evaluation: 07/16/18 Time of Evaluation: 20:15 - Subjective Subjective: PT reports feeling well no chest pain, chills or sob Objective - Vital Signs/Intake and Output Vital Signs (last 24 hours): Temp Pulse Resp BP Pulse Ox 98.4 F 100 H 20 104/72 98 07/16/18 16:25 07/16/18 16:25 07/16/18 16:25 07/16/18 16:25 07/16/18 16:25 Intake and Output: 07/16/18 07/17/18 18:59 06:59 Intake Total 890 Output Total 450 Balance 440 - Medications Medications: Current Medications Bupropion HCl (Wellbutrin) 100 mg PO DAILY [facility] Last Admin: 07/16/18 10:42 Dose: 100 mg Citalopram Hydrobromide (Celexa) 40 mg PO DAILY [facility] Last Admin: 07/16/18 10:41 Dose: 40 mg Clonazepam (Klonopin) 0.5 mg PO BID [facility] Last Admin: 07/16/18 17:31 Dose: 0.5 mg Gabapentin (Neurontin) 300 mg PO TID [facility] Last Admin: 07/16/18 17:31 Dose: 300 mg Sodium Chloride (Sodium Chloride 0.45%) 500 mls @ 75 mls/hr IV .Q6H40M [facility] Last Admin: 07/16/18 17:00 Dose: 75 mls/hr Ceftazidime/Avibactam 2.5 gm/ (Sodium Chloride) 100 mls @ 50 mls/hr IV Q8H [facility]; Protocol Last Admin: 07/16/18 20:03 Dose: 50 mls/hr Colistimethate Sodium 80 mg/ (Sodium Chloride) 100 mls @ 200 mls/hr IV Q12H [facility]; Protocol Stop: 07/19/18 11:01 Last Admin: 07/16/18 12:00 Dose: 200 mls/hr Pantoprazole Sodium (Protonix Inj) 40 mg IVP DAILY [facility] Last Admin: 07/16/18 10:43 Dose: 40 mg Potassium Chloride (K-Dur 20 Meq Er Tab) 20 meq PO BID [facility] Last Admin: 07/16/18 17:28 Dose: 20 meq Rivaroxaban (Xarelto) 10 mg PO HS [facility] Last Admin: 07/15/18 21:40 Dose: 10 mg - Labs Labs: 07/16/18 06:00 07/16/18 06:00 - Constitutional Appears: Non-toxic - Eye Exam Eye Exam: Normal appearance - ENT Exam ENT Exam: Mucous Membranes Moist - Cardiovascular Exam Cardiovascular Exam: REGULAR RHYTHM, RRR, +S1, +S2 (I examined his decubiti ulcers, and no evidence of nfection. [place] and no exudate). absent: JVD Assessment and Plan - Assessment and Plan (Free Text) Assessment: complicated UTI ESBL noted increasing wbc although no fever ID changed abx bp stable cont current care
--- NOTE | 2018-07-16 23:06 | PN ---
DATE: 07/16/2018 SUBJECTIVE: He was seen today. We have placed him in isolation as his urine has a multidrug organ resistant organism. It is even resistant to meropenem which I came to know today as his white count has increased further, so now he is on Avycaz, and he also has a decubitus on the back, and he is concerned about it. However, he is mostly on his back as he has paraplegia, it is very difficult to heal. T-max is 98 but he denies any nausea and vomiting. He has a [place] catheter, and he is draining urine which is clear. OBJECTIVE: VITAL SIGNS: T-max is 98.4, heart rate is 100, blood pressure 104/72, respirations are 20. HEENT: Head is atraumatic, normocephalic. He is able to converse. Tongue is moist. NECK: Supple. JVP is flat. LUNGS: Clear. HEART: S1, S2 tachycardic. ABDOMEN: Soft, and he has a colostomy bag. EXTREMITIES: The muscle mass is unremarkable, sacral decubitus. His white count today is 31.2, hemoglobin 11.3, hematocrit 35.6, platelet count is 568, neutrophils are 77.3, BUN is 15, creatinine 0.5. He only has one kidney. However, at this time, with this multidrug resistant organism which grew in the urine, it is probably in the sacral wound, also it is resistant even to meropenem, nitrofurantoin, Zosyn, to ampicillin, cefazolin, cefepime, ceftriaxone, Cipro. It is only gentamicin sensitive and it is Bactrim sensitive. So at this time, I have placed him on Avycaz as well as colistin. Hopefully, we can clear it from the urine, but he has a neurogenic bladder obviously and the CAT scan also talked about small-bowel obstruction but he has been having diarrhea, he says, so I ordered an obstructive series which was done right in his room and which shows right-sided for IVC filter, air-filled loops of prominent dilated small bowel in the left abdomen, nonspecific, suspect air within the right colon, correlate clinically. He is complaining of diarrhea. I think he is prudent, and he does not have a small bowel obstruction. At this point, he is not having any nausea, no vomiting, so we will monitor his labs tomorrow. Hill Sevilla MD
[2018-07-17 07:29] LABS: EOS # 0.1 K/uL (0.0-0.7); EOS % 0.3 % (0.0-4.0); HEMOGLOBIN 11.2 g/dL (12.0-18.0); LYMPH # 4.8 K/uL (1.0-4.3); LYMPH % 15.7 % (20.0-40.0); MEAN CELL VOLUME 73.3 fL (80.0-94.0); MEAN CORPUSCULAR HEMOGLOBIN 23.4 pg (27.0-31.0); MEAN CORPUSCULAR HGB CONC 31.9 g/dL (33.0-37.0); MONO # 2.1 K/uL (0.0-0.8); MONO % 6.8 % (0.0-10.0); NEUT # 23.5 K/uL (1.8-7.0); NEUT % 77.2 % (50.0-75.0); RBC 4.79 Mil/uL (4.40-5.90); RED CELL DISTRIBUTION WIDTH 17.9 % (11.5-14.5); WHITE BLOOD COUNT 30.5 K/uL (4.8-10.8)
[2018-07-17 07:57] LABS: ALBUMIN 2.9 g/dL (3.5-5.0); ALT/SGPT 15 U/L (21-72); AST/SGOT 13 U/L (17-59); BLOOD UREA NITROGEN 12 mg/dL (9-20); CALCIUM 9.1 mg/dl (8.6-10.4); GFR NON-AFRICAN AMERICAN > 60
[2018-07-17] MEDS: Potassium Chloride 20 mEq ER Tab PO SCH ×2 (09:41→17:32)
--- NOTE | 2018-07-17 15:40 | CP.PCM.PN ---
Subjective - Date & Time of Evaluation Date of Evaluation: 07/17/18 Time of Evaluation: 15:40 - Subjective Subjective: Pt states he feels ok dry mouth as he admits not drinking enough water poor appetitie, states food has little flavor no sob no fever Objective - Vital Signs/Intake and Output Vital Signs (last 24 hours): Temp Pulse Resp BP Pulse Ox 98.5 F 105 H 20 102/68 98 07/17/18 08:09 07/17/18 08:09 07/17/18 08:09 07/17/18 08:09 07/17/18 08:09 Intake and Output: 07/17/18 07/17/18 06:59 18:59 Intake Total 1250 863 Output Total 800 500 Balance 450 363 - Medications Medications: Current Medications Bupropion HCl (Wellbutrin) 100 mg PO DAILY [facility] Last Admin: 07/17/18 09:42 Dose: 100 mg Citalopram Hydrobromide (Celexa) 40 mg PO DAILY [facility] Last Admin: 07/17/18 09:42 Dose: 40 mg Clonazepam (Klonopin) 0.5 mg PO BID [facility] Last Admin: 07/17/18 09:41 Dose: 0.5 mg Gabapentin (Neurontin) 300 mg PO TID [facility] Sodium Chloride (Sodium Chloride 0.45%) 500 mls @ 75 mls/hr IV .Q6H40M [facility] Last Admin: 07/17/18 12:10 Dose: Not Given Ceftazidime/Avibactam 2.5 gm/ (Sodium Chloride) 100 mls @ 50 mls/hr IV Q8H [facility]; Protocol Last Admin: 07/17/18 12:55 Dose: 50 mls/hr Colistimethate Sodium 80 mg/ (Sodium Chloride) 100 mls @ 200 mls/hr IV Q12H [facility]; Protocol Stop: 07/19/18 11:01 Last Admin: 07/17/18 11:00 Dose: 200 mls/hr Pantoprazole Sodium (Protonix Inj) 40 mg IVP DAILY [facility] Last Admin: 07/17/18 09:41 Dose: 40 mg Potassium Chloride (K-Dur 20 Meq Er Tab) 20 meq PO BID [facility] Last Admin: 07/17/18 09:41 Dose: 20 meq Rivaroxaban (Xarelto) 10 mg PO HS [facility] Last Admin: 07/16/18 21:47 Dose: 10 mg - Labs Labs: 07/17/18 07:21 07/17/18 07:21 - Constitutional Appears: Non-toxic - Eye Exam Eye Exam: Normal appearance - ENT Exam ENT Exam: Mucous Membranes Dry - Respiratory Exam Respiratory Exam: Chest Wall Tenderness - Cardiovascular Exam Cardiovascular Exam: RRR, +S1. absent: JVD - GI/Abdominal Exam GI & Abdominal Exam: Normal Bowel Sounds Assessment and Plan - Assessment and Plan (Free Text) Assessment: UTI +klebsiella abx per ID wbc still elevted dry mouth poor appetite will gvie one liter of fluisd encouraged po intake
[2018-07-17] MEDS ORDERED: Sodium Chloride 0.45% 1,000 ML IV SCH (15:45)
[2018-07-18 07:17] LABS: MEAN CELL VOLUME 73.4 fL (80.0-94.0); MEAN CORPUSCULAR HEMOGLOBIN 23.4 pg (27.0-31.0); MEAN CORPUSCULAR HGB CONC 31.8 g/dL (33.0-37.0); MEAN PLATELET VOLUME 8.1 fL (7.2-11.7); RBC 4.72 Mil/uL (4.40-5.90); RED CELL DISTRIBUTION WIDTH 18.1 % (11.5-14.5); WHITE BLOOD COUNT 28.6 K/uL (4.8-10.8)
[2018-07-18 07:32] LABS: BLOOD UREA NITROGEN 11 mg/dL (9-20); CALCIUM 8.9 mg/dl (8.6-10.4); GFR NON-AFRICAN AMERICAN > 60
[2018-07-18] MEDS: Potassium Chloride 20 mEq ER Tab PO SCH ×2 (09:16→17:47)
--- NOTE | 2018-07-18 16:48 | CP.PCM.PN ---
Subjective - Date & Time of Evaluation Date of Evaluation: 07/18/18 Time of Evaluation: 07:00 - Subjective Subjective: Uneventful last 24 hours no new issues tolerating abx Objective - Vital Signs/Intake and Output Vital Signs (last 24 hours): Temp Pulse Resp BP Pulse Ox 98.4 F 94 H 20 124/69 98 07/18/18 16:00 07/18/18 16:00 07/18/18 16:00 07/18/18 16:00 07/18/18 16:00 Intake and Output: 07/18/18 07/18/18 06:59 18:59 Intake Total 750 840 Output Total 550 500 Balance 200 340 - Medications Medications: Current Medications Bupropion HCl (Wellbutrin) [address] [facility] Last Admin: 07/18/18 09:16 Dose: 100 mg Citalopram Hydrobromide (Celexa) [address] [facility] Last Admin: 07/18/18 09:16 Dose: 40 mg Clonazepam (Klonopin) 0.[address] [facility] Last Admin: 07/18/18 09:16 Dose: 0.5 mg Gabapentin (Neurontin) 300 mg PO TID [facility] Last Admin: 07/18/18 13:29 Dose: 300 mg Ceftazidime/Avibactam 2.5 gm/ (Sodium Chloride) 100 mls @ 50 mls/hr IV Q8H [facility]; Protocol Last Admin: 07/18/18 11:14 Dose: 50 mls/hr Colistimethate Sodium 80 mg/ (Sodium Chloride) 100 mls @ 200 mls/hr IV Q12H [facility]; Protocol Stop: 07/19/18 11:01 Last Admin: 07/18/18 10:00 Dose: 200 mls/hr Pantoprazole Sodium (Protonix Inj) [address] [facility] Last Admin: 07/18/18 09:15 Dose: 40 mg Potassium Chloride (K-Dur 20 Meq Er Tab) 20 meq PO BID [facility] Last Admin: 07/18/18 09:16 Dose: 20 meq Rivaroxaban (Xarelto) 10 mg PO HS [facility] Last Admin: 07/17/18 21:49 Dose: 10 mg - Labs Labs: 07/18/18 07:13 07/18/18 07:13 - Constitutional Appears: Well, Non-toxic - Eye Exam Eye Exam: Normal appearance - ENT Exam ENT Exam: Mucous Membranes Moist - Respiratory Exam Respiratory Exam: Clear to Ausculation Bilateral - Cardiovascular Exam Cardiovascular Exam: RRR, +S1, +S2. absent: JVD Assessment and Plan - Assessment and Plan (Free Text) Assessment: ID: no fever wbc starting come down abx per ID
--- NOTE | 2018-07-18 19:34 | CP.PCM.PN ---
Subjective - Date & Time of Evaluation Date of Evaluation: 07/18/18 Time of Evaluation: 16:15 - Subjective Subjective: dictated Objective - Vital Signs/Intake and Output Vital Signs (last 24 hours): Temp Pulse Resp BP Pulse Ox 98.4 F 94 H 20 124/69 98 07/18/18 16:00 07/18/18 16:00 07/18/18 16:00 07/18/18 16:00 07/18/18 16:00 Intake and Output: 07/18/18 07/19/18 18:59 06:59 Intake Total 840 Output Total 500 Balance 340 - Medications Medications: Current Medications Bupropion HCl (Wellbutrin) 100 mg PO DAILY [facility] Last Admin: 07/18/18 09:16 Dose: 100 mg Citalopram Hydrobromide (Celexa) 40 mg PO DAILY [facility] Last Admin: 07/18/18 09:16 Dose: 40 mg Clonazepam (Klonopin) 0.5 mg PO BID [facility] Last Admin: 07/18/18 17:49 Dose: 0.5 mg Gabapentin (Neurontin) 300 mg PO TID [facility] Last Admin: 07/18/18 17:47 Dose: 300 mg Ceftazidime/Avibactam 2.5 gm/ (Sodium Chloride) 100 mls @ 50 mls/hr IV Q8H [facility]; Protocol Last Admin: 07/18/18 11:14 Dose: 50 mls/hr Colistimethate Sodium 80 mg/ (Sodium Chloride) 100 mls @ 200 mls/hr IV Q12H [facility]; Protocol Stop: 07/19/18 11:01 Last Admin: 07/18/18 10:00 Dose: 200 mls/hr Pantoprazole Sodium (Protonix Inj) 40 mg IVP DAILY [facility] Last Admin: 07/18/18 09:15 Dose: 40 mg Potassium Chloride (K-Dur 20 Meq Er Tab) 20 meq PO BID [facility] Last Admin: 07/18/18 17:47 Dose: 20 meq Rivaroxaban (Xarelto) 10 mg PO HS [facility] Last Admin: 07/17/18 21:49 Dose: 10 mg - Labs Labs: 07/18/18 07:13 07/18/18 07:13 Assessment and Plan (1) Cystitis Status: Acute (2) Diarrhea Status: Acute (3) Urinary tract infection Status: Acute (4) Vomiting Status: Acute
--- NOTE | 2018-07-19 00:32 | PN ---
DATE: 07/18/2018 SUBJECTIVE: The patient was seen today. His elder son was there, he was concerned about his dad. The patient denied any nausea or vomiting and he said he was drinking enough fluids. He was; however, concerned about his lips being dry. He denies any other complaints. PHYSICAL EXAMINATION: GENERAL: The patient is awake, did not appear dehydrated. VITAL SIGNS: T-max was 98.4, pulse 94, blood pressure 124/69, respirations are 20. HEENT: Head is atraumatic and normocephalic. His tongue was moist. NECK: Supple. LUNGS: Clear. HEART: S1 and S2 are regular. ABDOMEN: Soft. Colostomy is functioning. EXTREMITIES: He is bedridden and he is paraplegic and has mild dependent edema. The sacral decubitus is a huge area, which I would say 10 x 10 and it is open, but it is clean and it does not appear deep right now. It looks very clean, so we will continue present treatment. The best would be to avoid pressure, so I told the patient that he should ask for help and switch his positions. LABORATORY DATA: White count today 28.6 is slightly better, hemoglobin 11, hematocrit 34.7, platelet count is 547. BUN 11, creatinine 0.6. MEDICATIONS: He is on Avycaz now. He is on clonazepam. He is also on Colistin until tomorrow. He is on citalopram, gabapentin, pantoprazole and potassium. He is on Xarelto 10 mg p.o. at bedtime. ASSESSMENT AND PLAN: So, at this time, the patient has cystitis with neurogenic bladder, had a urine culture which showed multidrug-resistant Klebsiella. He is in isolation. He is on Avycaz and Colistin with a high white count with sepsis. They started this on maybe tomorrow we will get a UA and urine C and S, and we will continue present treatment. The back wound seems to be clean, I am not sure if they can put a skin graft and that will help closure, should be looked into with a plastic surgeon. We will follow. Hill Sevilla MD
[2018-07-19 07:14] LABS: URINE BACTERIA RARE (<OCC); URINE BILIRUBIN NEGATIVE (NEGATIVE); URINE BLOOD NEGATIVE (NEGATIVE); URINE CLARITY Hazy (Clear); URINE COLOR Yellow (YELLOW); URINE GLUCOSE (UA) NORMAL (Normal); URINE LEUKOCYTE ESTERASE TRACE Leu/uL (Negative); URINE PROTEIN 1+ mg/dL (NEGATIVE); URINE UROBILINOGEN NORMAL mg/dL (0.2-1.0)
[2018-07-19] MEDS: Pantoprazole 40 mg EC Tab PO SCH (09:36)
[2018-07-19 11:37] LABS: BASO # 0.1 K/uL (0.0-0.2); BASO % 0.2 % (0.0-2.0); EOS % 0.2 % (0.0-4.0); HEMOGLOBIN 10.2 g/dL (12.0-18.0); LYMPH # 3.4 K/uL (1.0-4.3); LYMPH % 13.3 % (20.0-40.0); MEAN CELL VOLUME 73.3 fL (80.0-94.0); MEAN CORPUSCULAR HEMOGLOBIN 23.5 pg (27.0-31.0); MEAN CORPUSCULAR HGB CONC 32.1 g/dL (33.0-37.0); MEAN PLATELET VOLUME 7.9 fL (7.2-11.7); MONO # 1.5 K/uL (0.0-0.8); MONO % 5.6 % (0.0-10.0); NEUT % 80.7 % (50.0-75.0); RBC 4.33 Mil/uL (4.40-5.90); RED CELL DISTRIBUTION WIDTH 17.8 % (11.5-14.5)
[2018-07-19 13:01] LABS: BLOOD UREA NITROGEN 10 mg/dL (9-20); GFR NON-AFRICAN AMERICAN > 60
--- NOTE | 2018-07-19 14:23 | RAD ---
Date of service: 07/19/2018 HISTORY: leucocytosis COMPARISON: 07/16/2018. TECHNIQUE: Chest PA and lateral FINDINGS: LUNGS: No active pulmonary disease. PLEURA: No significant pleural effusion identified. No pneumothorax apparent. CARDIOVASCULAR: No radiographic findings to suggest acute or significant cardiovascular disease. Venous access catheter in stable, satisfactory position. OSSEOUS STRUCTURES: No significant abnormalities. Stable position of orthopedic hardware lower thoracic upper lumbar spine region. VISUALIZED UPPER ABDOMEN: Normal. OTHER FINDINGS: None. IMPRESSION: No active disease. No significant interval change compared to the prior examination(s).
--- NOTE | 2018-07-19 17:25 | CP.PCM.PN ---
Subjective - Date & Time of Evaluation Date of Evaluation: 07/19/18 Time of Evaluation: 15:25 - Subjective Subjective: Patient seen today feels betetr ,no nausea,no vomiting, has [place] cathter wbc decreasing slowly ,has large clean open wound back not sure plastics may be able to close it ,no new issues Objective - Vital Signs/Intake and Output Vital Signs (last 24 hours): Temp Pulse Resp BP Pulse Ox 98.6 F 106 H 20 94/63 L 97 07/19/18 15:07 07/19/18 15:07 07/19/18 15:07 07/19/18 15:07 07/19/18 15:07 Intake and Output: 07/19/18 07/19/18 06:59 18:59 Intake Total 850 100 Output Total 400 700 Balance 450 -600 - Medications Medications: Current Medications Bupropion HCl (Wellbutrin) 100 mg PO DAILY [facility] Last Admin: 07/19/18 09:36 Dose: 100 mg Citalopram Hydrobromide (Celexa) 40 mg PO DAILY [facility] Last Admin: 07/19/18 09:37 Dose: 40 mg Clonazepam (Klonopin) 0.5 mg PO BID [facility] Last Admin: 07/19/18 09:35 Dose: 0.5 mg Gabapentin (Neurontin) 300 mg PO TID [facility] Last Admin: 07/19/18 13:28 Dose: 300 mg Ceftazidime/Avibactam 2.5 gm/ (Sodium Chloride) 100 mls @ 50 mls/hr IV Q8H [facility]; Protocol Last Admin: 07/19/18 11:36 Dose: 50 mls/hr Pantoprazole Sodium (Protonix Ec Tab) 40 mg PO DAILY [facility] Last Admin: 07/19/18 09:36 Dose: 40 mg Potassium Chloride (K-Dur 20 Meq Er Tab) 20 meq PO BID [facility] Last Admin: 07/18/18 17:47 Dose: 20 meq Rivaroxaban (Xarelto) 10 mg PO HS [facility] Last Admin: 07/18/18 21:38 Dose: 10 mg - Labs Labs: 07/19/18 11:20 07/19/18 12:50 - Constitutional Appears: No Acute Distress - Head Exam Head Exam: ATRAUMATIC, NORMOCEPHALIC - Eye Exam Eye Exam: Normal appearance - ENT Exam ENT Exam: Mucous Membranes Moist - Respiratory Exam Respiratory Exam: Decreased Breath Sounds, Clear to Ausculation Bilateral - Cardiovascular Exam Cardiovascular Exam: REGULAR RHYTHM, +S1, +S2 - GI/Abdominal Exam GI & Abdominal Exam: Soft Additional comments: colostomy present - Extremities Exam Extremities Exam: Normal Inspection Additional comments: paraplegic for several years Assessment and Plan (1) Cystitis Assessment & Plan: Patient is on AVYCAZ as urine showed resistant Klebsiella and he has a neurogenic bladder. He says his father had prostate cancer and he is concerned but he also had renal cancer however draining clear urine now Status: Acute (2) Diarrhea Assessment & Plan: better,there was question of SBO but he had diarrhea and clinically did not appears so except severe leucocytosis hence to observe,he is having stool in his colostomy is important Status: Acute (3) Urinary tract infection Status: Acute (4) Vomiting Status: Acute (5) Leucocytosis Assessment & Plan: still persists and very slowly coming down ,will need close follow up Status: Acute
--- NOTE | 2018-07-19 17:48 | CP.PCM.PN ---
Subjective - Date & Time of Evaluation Date of Evaluation: 07/19/18 Time of Evaluation: 17:48 - Subjective Subjective: Pt reports feeling well no pain reports change in stool color to yellow but not other issues Objective - Vital Signs/Intake and Output Vital Signs (last 24 hours): Temp Pulse Resp BP Pulse Ox 98.6 F 106 H 20 94/63 L 97 07/19/18 15:07 07/19/18 15:07 07/19/18 15:07 07/19/18 15:07 07/19/18 15:07 Intake and Output: 07/19/18 07/19/18 06:59 18:59 Intake Total 850 100 Output Total 400 700 Balance 450 -600 - Medications Medications: Current Medications Bupropion HCl (Wellbutrin) 100 mg PO DAILY [facility] Last Admin: 07/19/18 09:36 Dose: 100 mg Citalopram Hydrobromide (Celexa) 40 mg PO DAILY [facility] Last Admin: 07/19/18 09:37 Dose: 40 mg Clonazepam (Klonopin) 0.5 mg PO BID [facility] Last Admin: 07/19/18 17:32 Dose: 0.5 mg Gabapentin (Neurontin) 300 mg PO TID [facility] Last Admin: 07/19/18 17:32 Dose: 300 mg Ceftazidime/Avibactam 2.5 gm/ (Sodium Chloride) 100 mls @ 50 mls/hr IV Q8H [facility]; Protocol Last Admin: 07/19/18 11:36 Dose: 50 mls/hr Pantoprazole Sodium (Protonix Ec Tab) 40 mg PO DAILY [facility] Last Admin: 07/19/18 09:36 Dose: 40 mg Potassium Chloride (K-Dur 20 Meq Er Tab) 20 meq PO BID [facility] Last Admin: 07/18/18 17:47 Dose: 20 meq Rivaroxaban (Xarelto) 10 mg PO HS [facility] Last Admin: 07/18/18 21:38 Dose: 10 mg - Labs Labs: 07/19/18 11:20 07/19/18 12:50 - Constitutional Appears: Well, Non-toxic - Eye Exam Eye Exam: Normal appearance - ENT Exam ENT Exam: Mucous Membranes Moist - Respiratory Exam Respiratory Exam: Clear to Ausculation Bilateral - Cardiovascular Exam Cardiovascular Exam: REGULAR RHYTHM, RRR, +S1, +S2. absent: JVD, Rubs - GI/Abdominal Exam GI & Abdominal Exam: Soft, Normal Bowel Sounds - Extremities Exam Extremities Exam: absent: Joint Swelling, Tenderness Assessment and Plan - Assessment and Plan (Free Text) Assessment: 1. complicated uti persistent leukocytosis with very gradual decrease in wbc now no fever spoke to Dr. Morataya today will hold off on cysto for now, unless spikes temp or no improvement reviewed ID note
[2018-07-20 07:20] LABS: INR 1.7; PROTHROMBIN TIME 19.1 SECONDS (9.7-12.2)
[2018-07-20 07:42] LABS: BASO # 0.1 K/uL (0.0-0.2); BASO % 0.3 % (0.0-2.0); EOS # 0.1 K/uL (0.0-0.7); EOS % 0.5 % (0.0-4.0); HEMOGLOBIN 10.7 g/dL (12.0-18.0); LYMPH # 3.7 K/uL (1.0-4.3); LYMPH % 14.1 % (20.0-40.0); MEAN CELL VOLUME 72.6 fL (80.0-94.0); MEAN CORPUSCULAR HEMOGLOBIN 23.8 pg (27.0-31.0); MEAN CORPUSCULAR HGB CONC 32.7 g/dL (33.0-37.0); MEAN PLATELET VOLUME 7.9 fL (7.2-11.7); MONO # 1.8 K/uL (0.0-0.8); MONO % 6.7 % (0.0-10.0); NEUT # 20.7 K/uL (1.8-7.0); NEUT % 78.4 % (50.0-75.0); RBC 4.52 Mil/uL (4.40-5.90); WHITE BLOOD COUNT 26.4 K/uL (4.8-10.8)
[2018-07-20] MEDS: Pantoprazole 40 mg EC Tab PO SCH (10:07)
[2018-07-20] MEDS: Vancomycin 1 gm/NS 200 ml 1 GM/200 ML BAG IVPB SCH (14:26)
--- NOTE | 2018-07-20 14:35 | CP.PCM.PN ---
Subjective - Date & Time of Evaluation Date of Evaluation: 07/20/18 Time of Evaluation: 14:20 - Subjective Subjective: Patient is feeling ok,no new complaints,his colostomy is funcioning, still wbc high and uncler as sacral wound though big area are clean He denies any nausea,eating , urine thru wilkinson cath clear Objective - Vital Signs/Intake and Output Vital Signs (last 24 hours): Temp Pulse Resp BP Pulse Ox 97.7 F 95 H 20 112/67 98 07/20/18 07:00 07/20/18 07:00 07/20/18 07:00 07/20/18 07:00 07/20/18 07:00 Intake and Output: 07/20/18 07/20/18 06:59 18:59 Intake Total 100 110 Output Total 400 400 Balance -300 -290 - Medications Medications: Current Medications Bupropion HCl (Wellbutrin) 100 mg PO DAILY [facility] Last Admin: 07/20/18 10:07 Dose: 100 mg Citalopram Hydrobromide (Celexa) 40 mg PO DAILY [facility] Last Admin: 07/20/18 10:07 Dose: 40 mg Clonazepam (Klonopin) 0.5 mg PO BID [facility] Last Admin: 07/20/18 10:07 Dose: 0.5 mg Gabapentin (Neurontin) 300 mg PO TID [facility] Last Admin: 07/20/18 14:14 Dose: 300 mg Ceftazidime/Avibactam 2.5 gm/ (Sodium Chloride) 100 mls @ 50 mls/hr IV Q8H [facility]; Protocol Last Admin: 07/20/18 12:07 Dose: 50 mls/hr Vancomycin/Sodium Chloride (Vancomycin 1 Gm/Ns 200 Ml) 1 gm in 200 mls @ 133.333 mls/hr IVPB Q24H [facility]; Protocol Last Admin: 07/20/18 14:26 Dose: 133.333 mls/hr Pantoprazole Sodium (Protonix Ec Tab) 40 mg PO DAILY [facility] Last Admin: 07/20/18 10:07 Dose: 40 mg Potassium Chloride (K-Dur 20 Meq Er Tab) 20 meq PO BID [facility] Last Admin: 07/18/18 17:47 Dose: 20 meq Rivaroxaban (Xarelto) 10 mg PO HS [facility] Last Admin: 07/19/18 21:33 Dose: 10 mg - Labs Labs: 07/20/18 07:06 07/19/18 12:50 PT 19.1 SECONDS (9.7-12.2) H 07/20/18 07:06 INR 1.7 07/20/18 07:06 APTT 38 SECONDS (21-34) H 07/20/18 07:06 - Constitutional Appears: No Acute Distress - Head Exam Head Exam: NORMAL INSPECTION, NORMOCEPHALIC - Eye Exam Eye Exam: Normal appearance - ENT Exam ENT Exam: Mucous Membranes Moist - Neck Exam Neck Exam: Normal Inspection - Respiratory Exam Respiratory Exam: Decreased Breath Sounds, NORMAL BREATHING PATTERN Additional comments: Has a brennan cath inchest wall which he says has not been used and not been flushed , - Cardiovascular Exam Cardiovascular Exam: REGULAR RHYTHM, +S1, +S2 - GI/Abdominal Exam GI & Abdominal Exam: Soft, Normal Bowel Sounds Additional comments: colostomy functioning - Extremities Exam Extremities Exam: Normal Inspection Additional comments: Paraplegia present Assessment and Plan (1) Cystitis Assessment & Plan: Patient is On Avycaz for resistant uti Status: Acute (2) Diarrhea Status: Resolved (3) Urinary tract infection Status: Acute (4) Vomiting Status: Resolved (5) Leucocytosis Assessment & Plan: unclear why persistent wbc high ,has decubiti will add Vancomycin to Avycaz and dc colistin as both are aminoglycosides Status: Acute - Assessment and Plan (Free Text) Assessment: will follow also to evaluate sacral wounds with wound care Nurse to see possibilit of Infection ?brennan cat shoul be removed as useless
[2018-07-21 07:14] LABS: BASO # 0.1 K/uL (0.0-0.2); BASO % 0.2 % (0.0-2.0); EOS # 0.1 K/uL (0.0-0.7); EOS % 0.4 % (0.0-4.0); HEMOGLOBIN 10.7 g/dL (12.0-18.0); LYMPH # 3.5 K/uL (1.0-4.3); LYMPH % 13.7 % (20.0-40.0); MEAN CELL VOLUME 73.5 fL (80.0-94.0); MEAN CORPUSCULAR HEMOGLOBIN 23.8 pg (27.0-31.0); MEAN CORPUSCULAR HGB CONC 32.4 g/dL (33.0-37.0); MONO # 1.8 K/uL (0.0-0.8); MONO % 6.9 % (0.0-10.0); NEUT # 20.3 K/uL (1.8-7.0); NEUT % 78.8 % (50.0-75.0); RBC 4.47 Mil/uL (4.40-5.90); RED CELL DISTRIBUTION WIDTH 17.9 % (11.5-14.5); WHITE BLOOD COUNT 25.7 K/uL (4.8-10.8)
[2018-07-21] MEDS: Pantoprazole 40 mg EC Tab PO SCH (09:16)
[2018-07-21] MEDS: Vancomycin 1 gm/NS 200 ml 1 GM/200 ML BAG IVPB SCH (13:32)
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
--- NOTE | 2018-07-21 17:52 | CP.PCM.PN ---
Subjective - Date & Time of Evaluation Date of Evaluation: 07/21/18 Time of Evaluation: 17:52 - Subjective Subjective: Pt feels well no fever no chills no pain eating dinner Objective - Vital Signs/Intake and Output Vital Signs (last 24 hours): Temp Pulse Resp BP Pulse Ox 98.4 F 93 H 20 102/62 99 07/21/18 16:00 07/21/18 16:00 07/21/18 16:00 07/21/18 16:00 07/21/18 16:00 Intake and Output: 07/21/18 07/21/18 06:59 18:59 Intake Total 100 Output Total 600 400 Balance -500 -400 - Medications Medications: Current Medications Bupropion HCl (Wellbutrin) 100 mg PO DAILY [facility] Last Admin: 07/21/18 09:17 Dose: 100 mg Citalopram Hydrobromide (Celexa) 40 mg PO DAILY [facility] Last Admin: 07/21/18 09:16 Dose: 40 mg Clonazepam (Klonopin) 0.5 mg PO BID [facility] Last Admin: 07/21/18 09:16 Dose: 0.5 mg Gabapentin (Neurontin) 300 mg PO TID [facility] Last Admin: 07/21/18 13:31 Dose: 300 mg Ceftazidime/Avibactam 2.5 gm/ (Sodium Chloride) 100 mls @ 50 mls/hr IV Q8H [facility]; Protocol Last Admin: 07/21/18 11:46 Dose: 50 mls/hr Vancomycin/Sodium Chloride (Vancomycin 1 Gm/Ns 200 Ml) 1 gm in 200 mls @ 133.333 mls/hr IVPB Q24H [facility]; Protocol Last Admin: 07/21/18 13:32 Dose: 133.333 mls/hr Sodium Chloride (Sodium Chloride 0.9%) 1,000 mls @ 100 mls/hr IV .Q10H [facility] Pantoprazole Sodium (Protonix Ec Tab) 40 mg PO DAILY [facility] Last Admin: 07/21/18 09:16 Dose: 40 mg Potassium Chloride (K-Dur 20 Meq Er Tab) 20 meq PO BID [facility] Last Admin: 07/18/18 17:47 Dose: 20 meq Rivaroxaban (Xarelto) 10 mg PO HS [facility] Last Admin: 07/20/18 22:14 Dose: 10 mg - Labs Labs: 07/21/18 06:41 07/19/18 12:50 PT 19.1 SECONDS (9.7-12.2) H 07/20/18 07:06 INR 1.7 07/20/18 07:06 APTT 38 SECONDS (21-34) H 07/20/18 07:06 - Constitutional Appears: Well, Non-toxic - Eye Exam Eye Exam: Normal appearance - ENT Exam ENT Exam: Mucous Membranes Moist - Respiratory Exam Respiratory Exam: Clear to Ausculation Bilateral, NORMAL BREATHING PATTERN - Cardiovascular Exam Cardiovascular Exam: +S1. absent: JVD - GI/Abdominal Exam GI & Abdominal Exam: Soft, Normal Bowel Sounds Assessment and Plan - Assessment and Plan (Free Text) Assessment: PErsistent elevation of wbc agree portacath should be removed wounds look clean complicated uti on abx per id
[2018-07-21] MEDS: Sodium Chloride 0.9% 1,000 ML IV SCH (17:57)
--- NOTE | 2018-07-21 21:43 | CP.PCM.PN ---
Subjective - Date & Time of Evaluation Date of Evaluation: 07/21/18 Time of Evaluation: 15:00 - Subjective Subjective: Patient feels well wounds seen again with wound care Nurse Jesus clean except minor yellowish areas ,no nausea,no vomiting, he is hydrated ,no new complaints. Ernestine cath probably non functional. wbc still high Objective - Vital Signs/Intake and Output Vital Signs (last 24 hours): Temp Pulse Resp BP Pulse Ox 98.4 F 93 H 20 102/62 99 07/21/18 16:00 07/21/18 16:00 07/21/18 16:00 07/21/18 16:00 07/21/18 16:00 Intake and Output: 07/21/18 07/22/18 18:59 06:59 Output Total 400 Balance -400 - Medications Medications: Current Medications Bupropion HCl (Wellbutrin) 100 mg PO DAILY [facility] Last Admin: 07/21/18 09:17 Dose: 100 mg Citalopram Hydrobromide (Celexa) 40 mg PO DAILY [facility] Last Admin: 07/21/18 09:16 Dose: 40 mg Clonazepam (Klonopin) 0.5 mg PO BID [facility] Last Admin: 07/21/18 17:58 Dose: 0.5 mg Gabapentin (Neurontin) 300 mg PO TID [facility] Last Admin: 07/21/18 17:58 Dose: 300 mg Ceftazidime/Avibactam 2.5 gm/ (Sodium Chloride) 100 mls @ 50 mls/hr IV Q8H [facility]; Protocol Last Admin: 07/21/18 20:17 Dose: 50 mls/hr Vancomycin/Sodium Chloride (Vancomycin 1 Gm/Ns 200 Ml) 1 gm in 200 mls @ 133.333 mls/hr IVPB Q24H [facility]; Protocol Last Admin: 07/21/18 13:32 Dose: 133.333 mls/hr Sodium Chloride (Sodium Chloride 0.9%) 1,000 mls @ 100 mls/hr IV .Q10H [facility] Last Admin: 07/21/18 17:57 Dose: 100 mls/hr Pantoprazole Sodium (Protonix Ec Tab) 40 mg PO DAILY [facility] Last Admin: 07/21/18 09:16 Dose: 40 mg Potassium Chloride (K-Dur 20 Meq Er Tab) 20 meq PO BID [facility] Last Admin: 07/18/18 17:47 Dose: 20 meq Rivaroxaban (Xarelto) 10 mg PO HS [facility] Last Admin: 07/20/18 22:14 Dose: 10 mg - Labs Labs: 07/21/18 06:41 07/19/18 12:50 PT 19.1 SECONDS (9.7-12.2) H 07/20/18 07:06 INR 1.7 07/20/18 07:06 APTT 38 SECONDS (21-34) H 07/20/18 07:06 - Constitutional Appears: Non-toxic, No Acute Distress - Head Exam Head Exam: ATRAUMATIC, NORMOCEPHALIC - Eye Exam Eye Exam: Normal appearance - ENT Exam ENT Exam: Mucous Membranes Moist - Neck Exam Neck Exam: Normal Inspection - Respiratory Exam Respiratory Exam: Clear to Ausculation Bilateral, NORMAL BREATHING PATTERN Additional comments: ernestine cath right chest wall - Cardiovascular Exam Cardiovascular Exam: REGULAR RHYTHM, +S1, +S2 - GI/Abdominal Exam GI & Abdominal Exam: Normal Bowel Sounds Additional comments: colostomy present - Extremities Exam Extremities Exam: Normal Inspection Additional comments: Paraplegia present - Back Exam Additional comments: sacral decubiti as described by nurse and extensive but mostly cleean ,difficult to heal as patient is paraplegic but appear clean Assessment and Plan (1) Cystitis Assessment & Plan: repeat urine culture and urine analysis Status: Acute (2) Diarrhea Status: Resolved (3) Urinary tract infection Status: Acute (4) Vomiting Status: Resolved (5) Leucocytosis Assessment & Plan: will dc ernestine cath ,repeat urine analysis and culture 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
[2018-07-22 07:30] LABS: BASO % 0.1 % (0.0-2.0); EOS # 0.1 K/uL (0.0-0.7); EOS % 0.3 % (0.0-4.0); HEMOGLOBIN 10.1 g/dL (12.0-18.0); LYMPH # 3.5 K/uL (1.0-4.3); LYMPH % 13.8 % (20.0-40.0); MEAN CELL VOLUME 72.9 fL (80.0-94.0); MEAN CORPUSCULAR HEMOGLOBIN 23.5 pg (27.0-31.0); MEAN CORPUSCULAR HGB CONC 32.3 g/dL (33.0-37.0); MEAN PLATELET VOLUME 7.9 fL (7.2-11.7); MONO # 1.5 K/uL (0.0-0.8); MONO % 5.9 % (0.0-10.0); NEUT # 20.1 K/uL (1.8-7.0); NEUT % 79.9 % (50.0-75.0); RBC 4.31 Mil/uL (4.40-5.90); RED CELL DISTRIBUTION WIDTH 18.2 % (11.5-14.5); WHITE BLOOD COUNT 25.2 K/uL (4.8-10.8)
[2018-07-22 07:49] LABS: ALB/GLOB RATIO 0.9 (1.0-2.1); ALBUMIN 2.6 g/dL (3.5-5.0); ALT/SGPT 20 U/L (21-72); AST/SGOT 16 U/L (17-59); BLOOD UREA NITROGEN 10 mg/dL (9-20); CALCIUM 8.6 mg/dl (8.6-10.4); GFR NON-AFRICAN AMERICAN > 60
[2018-07-22] MEDS ORDERED: Potassium Chloride 20 mEq ER Tab PO SCH ×2 (10:00→15:00)
[2018-07-22] MEDS: Pantoprazole 40 mg EC Tab PO SCH (10:28)
--- NOTE | 2018-07-22 11:07 | RAD ---
Date of service: 07/22/2018 PROCEDURE: CHEST RADIOGRAPH, 1 VIEW HISTORY: verify left PICC COMPARISON: 07/19/2018. FINDINGS: The left PICC line terminates in the SVC. The right-sided MediPort terminates in the SVC. LUNGS: The lungs are clear. PLEURA: No pneumothorax. Suspect small effusions. CARDIOVASCULAR: Normal. OSSEOUS STRUCTURES: Stable appearance of hardware in the lower lumbar spine. VISUALIZED UPPER ABDOMEN: Normal. OTHER FINDINGS: None. IMPRESSION: Left PICC line terminates in the SVC. No pneumothorax. No other significant interval change.
[2018-07-22] MEDS: Vancomycin 1 gm/NS 200 ml 1 GM/200 ML BAG IVPB SCH (13:56)
[2018-07-22] MEDS: Sodium Chloride 0.9% 1,000 ML IV SCH (13:57)
--- NOTE | 2018-07-22 15:04 | CP.PCM.PN ---
Subjective - Date & Time of Evaluation Date of Evaluation: 07/22/18 Time of Evaluation: 05:00 - Subjective Subjective: Pt getting portacath removed today awaiting for OR to call; has pic line Objective - Vital Signs/Intake and Output Vital Signs (last 24 hours): Temp Pulse Resp BP Pulse Ox 98.4 F 90 20 93/55 L 95 07/22/18 07:00 07/22/18 07:00 07/22/18 07:00 07/22/18 07:00 07/22/18 07:00 Intake and Output: 07/22/18 07/22/18 06:59 18:59 Intake Total 1000 800 Output Total 300 400 Balance 700 400 - Medications Medications: Current Medications Bupropion HCl (Wellbutrin) 100 mg PO DAILY [facility] Last Admin: 07/22/18 10:28 Dose: Not Given Citalopram Hydrobromide (Celexa) 40 mg PO DAILY [facility] Last Admin: 07/22/18 10:27 Dose: Not Given Clonazepam (Klonopin) 0.5 mg PO BID [facility] Last Admin: 07/22/18 10:28 Dose: Not Given Gabapentin (Neurontin) 300 mg PO TID [facility] Last Admin: 07/22/18 13:44 Dose: Not Given Ceftazidime/Avibactam 2.5 gm/ (Sodium Chloride) 100 mls @ 50 mls/hr IV Q8H [facility]; Protocol Last Admin: 07/22/18 11:29 Dose: 50 mls/hr Vancomycin/Sodium Chloride (Vancomycin 1 Gm/Ns 200 Ml) 1 gm in 200 mls @ 133.333 mls/hr IVPB Q24H [facility]; Protocol Last Admin: 07/22/18 13:56 Dose: 133.333 mls/hr Sodium Chloride (Sodium Chloride 0.9%) 1,000 mls @ 100 mls/hr IV .Q10H [facility] Last Admin: 07/22/18 13:57 Dose: Not Given Pantoprazole Sodium (Protonix Ec Tab) 40 mg PO DAILY [facility] Last Admin: 07/22/18 10:28 Dose: Not Given Potassium Chloride (K-Dur 20 Meq Er Tab) 20 meq PO DAILY [facility] Potassium Chloride (K-Dur 20 Meq Er Tab) 40 meq PO DAILY [facility] Stop: 07/22/18 15:01 Rivaroxaban (Xarelto) 10 mg PO HS [facility] Last Admin: 07/20/18 22:14 Dose: 10 mg - Labs Labs: 07/22/18 07:06 07/22/18 07:06 PT 19.1 SECONDS (9.7-12.2) H 07/20/18 07:06 INR 1.7 07/20/18 07:06 APTT 38 SECONDS (21-34) H 07/20/18 07:06 - Constitutional Appears: Well, Non-toxic - Eye Exam Eye Exam: Normal appearance - ENT Exam ENT Exam: Mucous Membranes Moist - Respiratory Exam Respiratory Exam: Clear to Ausculation Bilateral Assessment and Plan - Assessment and Plan (Free Text) Assessment: persistent leukocytosis for cath removal picc place for iv abx per ID low k replacement ordered cbc and bpm in am
[2018-07-22] MEDS ORDERED: Lidocaine/Epinephrine 1% 1:100000 10 ML IJ ONE (17:14)
[2018-07-22] MEDS ORDERED: Midazolam 2 MG/2 ML VIAL ONE ×2 (17:45→17:48)
[2018-07-22] MEDS ORDERED: HYDROmorphone 0.5 mg/0.5 ml ISec IVP PRN (18:11)
--- NOTE | 2018-07-22 19:41 | PCM.SURG1 ---
Surgeon's Initial Post Op Note - Surgeon's Notes Surgeon: Dr. Leon Clay Worker: Jeni Del Rio, PGY2 Type of Anesthesia: Moderate Sedation{RN}, Local Pre-Operative Diagnosis: infected portacath right IJ Operative Findings: Intact portacath with no purulent fluid around it Post-Operative Diagnosis: same Operation Performed: removal of infected right portacath Specimen/Specimens Removed: portacath Estimated Blood Loss: EBL {In ML}: 1 Blood Products Given: N/A Drains Used: No Drains Post-Op Condition: Fair Date of Surgery/Procedure: 07/22/18 Time of Surgery/Procedure: 17:10
--- NOTE | 2018-07-22 20:07 | CP.PCM.PN ---
Subjective - Date & Time of Evaluation Date of Evaluation: 07/22/18 Time of Evaluation: 16:00 - Subjective Subjective: dictated Objective - Vital Signs/Intake and Output Vital Signs (last 24 hours): Temp Pulse Resp BP Pulse Ox 97.2 F L 88 16 110/69 96 07/22/18 18:55 07/22/18 18:55 07/22/18 18:55 07/22/18 18:55 07/22/18 18:55 Intake and Output: 07/22/18 07/23/18 18:59 06:59 Intake Total 1100 Output Total 400 Balance 700 - Medications Medications: Current Medications Bupropion HCl (Wellbutrin) 100 mg PO DAILY [facility] Last Admin: 07/22/18 10:28 Dose: Not Given Citalopram Hydrobromide (Celexa) 40 mg PO DAILY [facility] Last Admin: 07/22/18 10:27 Dose: Not Given Clonazepam (Klonopin) 0.5 mg PO BID [facility] Last Admin: 07/22/18 18:02 Dose: Not Given Gabapentin (Neurontin) 300 mg PO TID [facility] Last Admin: 07/22/18 18:02 Dose: Not Given Hydromorphone HCl (Dilaudid) 0.5 mg IVP Q15M PRN PRN Reason: Pain, moderate (4-7) Stop: 07/22/18 20:11 Ceftazidime/Avibactam 2.5 gm/ (Sodium Chloride) 100 mls @ 50 mls/hr IV Q8H [facility]; Protocol Last Admin: 07/22/18 11:29 Dose: 50 mls/hr Vancomycin/Sodium Chloride (Vancomycin 1 Gm/Ns 200 Ml) 1 gm in 200 mls @ 133.333 mls/hr IVPB Q24H [facility]; Protocol Last Admin: 07/22/18 13:56 Dose: 133.333 mls/hr Sodium Chloride (Sodium Chloride 0.9%) 1,000 mls @ 100 mls/hr IV .Q10H [facility] Last Admin: 07/22/18 13:57 Dose: Not Given Ondansetron HCl (Zofran Inj) 4 mg IVP ONCE PRN PRN Reason: Nausea/Vomiting Stop: 07/22/18 20:11 Pantoprazole Sodium (Protonix Ec Tab) 40 mg PO DAILY [facility] Last Admin: 07/22/18 10:28 Dose: Not Given Potassium Chloride (K-Dur 20 Meq Er Tab) 20 meq PO DAILY [facility] Rivaroxaban (Xarelto) 10 mg PO [facility] Last Admin: 07/20/18 22:14 Dose: 10 mg - Labs Labs: 07/22/18 07:06 07/22/18 07:06 PT 19.1 SECONDS (9.7-12.2) H 07/20/18 07:06 INR 1.7 07/20/18 07:06 APTT 38 SECONDS (21-34) H 07/20/18 07:06 Assessment and Plan (1) Cystitis Status: Acute (2) Diarrhea Status: Resolved (3) Urinary tract infection Status: Acute (4) Vomiting Status: Resolved (5) Leucocytosis Status: Acute
--- NOTE | 2018-07-22 23:20 | PN ---
DATE: 07/22/2018 SUBJECTIVE: The patient was afebrile this afternoon. We have asked to remove the Port-A-Cath as he has had high white count, and it is not coming down. The back wound is looking better. He had no new complaints. He was just waiting, and he was also told that we might give him IV antibiotics for his back wound since it is open. There is a big open area, and I am not sure even with antibiotics, it will heal or not. He is mostly on his back but we want to bring the white count down. OBJECTIVE: VITAL SIGNS: Temperature was 98.8 when he was seen, blood pressure 111/60, respirations 20, pulse of 89. HEENT: Head is atraumatic, normocephalic. NECK: Supple. LUNGS: Clear. HEART: S1 and S2 regular. ABDOMEN: Soft, nontender. No guarding. No rigidity present. Sacral wound is present. EXTREMITIES: Paraplegia, has a [place] catheter. Labs are noted. Labs show white count still remains at 25.2 today, hemoglobin 10.1, hematocrit 31.4, platelet count is 596 and the neutrophils are 79.9, and there are no bands. His potassium was little low at 3.3 which is being supplemented, creatinine is 0.5. IMPRESSION: This patient has leukocytosis, came in with high white count and is septic with urinary tract infection, sacral decubitus, paraplegia. He has a Port-A-Cath which is nonfunctioning so have to be removed, and we will see what the culture reports come back, and if his white count comes down with this. Otherwise, we will have to do further testing. Hill Sevilla MD
[2018-07-23] MEDS: Sodium Chloride 0.9% 1,000 ML IV SCH (00:05)
[2018-07-23 07:18] LABS: HEMOGLOBIN 9.9 g/dL (12.0-18.0); MEAN CELL VOLUME 73.5 fL (80.0-94.0); MEAN CORPUSCULAR HEMOGLOBIN 23.3 pg (27.0-31.0); MEAN CORPUSCULAR HGB CONC 31.7 g/dL (33.0-37.0); MEAN PLATELET VOLUME 7.9 fL (7.2-11.7); RBC 4.26 Mil/uL (4.40-5.90); RED CELL DISTRIBUTION WIDTH 18.2 % (11.5-14.5)
[2018-07-23 07:21] LABS: SQUAMOUS EPITHIAL 1 /hpf (0-5); URINE BACTERIA RARE (<OCC); URINE BILIRUBIN NEGATIVE (NEGATIVE); URINE BLOOD NEGATIVE (NEGATIVE); URINE CLARITY Hazy (Clear); URINE COLOR Yellow (YELLOW); URINE GLUCOSE (UA) NORMAL (Normal); URINE LEUKOCYTE ESTERASE 3+ Leu/uL (Negative); URINE PROTEIN NEGATIVE (NEGATIVE); URINE UROBILINOGEN NORMAL mg/dL (0.2-1.0)
[2018-07-23 07:30] LABS: BLOOD UREA NITROGEN 10 mg/dL (9-20); CALCIUM 8.7 mg/dl (8.6-10.4); GFR NON-AFRICAN AMERICAN > 60
--- NOTE | 2018-07-23 08:23 | CP.PCM.PN ---
Subjective - Date & Time of Evaluation Date of Evaluation: 07/23/18 Time of Evaluation: 06:50 - Subjective Subjective: Surgery progress note for Dr. Leon Pt seen and examined this AM. No adverse events over night. Patient denies any chest pain, fevers, SOB, or any other complaints Objective - Vital Signs/Intake and Output Vital Signs (last 24 hours): Temp Pulse Resp BP Pulse Ox 99 F 85 20 114/56 L 97 07/23/18 00:00 07/23/18 00:00 07/23/18 00:00 07/23/18 00:00 07/23/18 00:00 Intake and Output: 07/23/18 07/23/18 06:59 18:59 Intake Total 900 Output Total 620 Balance 280 - Medications Medications: Current Medications Bupropion HCl (Wellbutrin) 100 mg PO DAILY [facility] Last Admin: 07/22/18 10:28 Dose: Not Given Citalopram Hydrobromide (Celexa) 40 mg PO DAILY [facility] Last Admin: 07/22/18 10:27 Dose: Not Given Clonazepam (Klonopin) 0.5 mg PO BID [facility] Last Admin: 07/23/18 00:14 Dose: 0.5 mg Gabapentin (Neurontin) 300 mg PO TID [facility] Last Admin: 07/23/18 00:13 Dose: 300 mg Ceftazidime/Avibactam 2.5 gm/ (Sodium Chloride) 100 mls @ 50 mls/hr IV Q8H [facility]; Protocol Last Admin: 07/23/18 03:47 Dose: 50 mls/hr Vancomycin/Sodium Chloride (Vancomycin 1 Gm/Ns 200 Ml) 1 gm in 200 mls @ 133.333 mls/hr IVPB Q24H [facility]; Protocol Last Admin: 07/22/18 13:56 Dose: 133.333 mls/hr Pantoprazole Sodium (Protonix Ec Tab) 40 mg PO DAILY [facility] Last Admin: 07/22/18 10:28 Dose: Not Given Potassium Chloride (K-Dur 20 Meq Er Tab) 20 meq PO DAILY [facility] Rivaroxaban (Xarelto) 10 mg PO HS [facility] Last Admin: 07/20/18 22:14 Dose: 10 mg - Labs Labs: 07/23/18 07:10 07/23/18 07:10 PT 19.1 SECONDS (9.7-12.2) H 07/20/18 07:06 INR 1.7 07/20/18 07:06 APTT 38 SECONDS (21-34) H 07/20/18 07:06 - Constitutional Appears: Well, Non-toxic, No Acute Distress - Head Exam Head Exam: ATRAUMATIC, NORMOCEPHALIC - Eye Exam Eye Exam: Normal appearance. absent: Conjunctival injection, Scleral icterus - ENT Exam ENT Exam: Mucous Membranes Moist, Normal Oropharynx - Respiratory Exam Respiratory Exam: NORMAL BREATHING PATTERN. absent: Accessory Muscle Use, Resp iratory Distress - Cardiovascular Exam Cardiovascular Exam: RRR - GI/Abdominal Exam GI & Abdominal Exam: Soft. absent: Distended - Extremities Exam Extremities Exam: absent: Calf Tenderness, Pedal Edema - Neurological Exam Neurological Exam: Alert, Awake, Oriented x3 - Psychiatric Exam Psychiatric exam: Normal Affect, Normal Mood - Skin Skin Exam: Dry, Normal Color, Warm Additional comments: surgical incision site dressing C/D/I Assessment and Plan - Assessment and Plan (Free Text) Assessment: 67M with SIRS, POD#1 s/p removal of portacath Plan: No further surgical intervention indicated Antibiotics per ID Medical management per primary PRN pain medication Discussed with Dr. Edward Del Rio, PGY2
--- NOTE | 2018-07-23 09:36 | CP.PCM.PN ---
Subjective - Date & Time of Evaluation Date of Evaluation: 07/23/18 Time of Evaluation: 09:36 - Subjective Subjective: PT has no complaints no chest pain no sob no discharge from [facility] portacath removed Objective - Vital Signs/Intake and Output Vital Signs (last 24 hours): Temp Pulse Resp BP Pulse Ox 98.2 F 87 20 112/65 97 07/23/18 08:00 07/23/18 08:00 07/23/18 08:00 07/23/18 08:00 07/23/18 08:00 Intake and Output: 07/23/18 07/23/18 06:59 18:59 Intake Total 900 Output Total 620 Balance 280 - Medications Medications: Current Medications Bupropion HCl (Wellbutrin) 100 mg PO DAILY [facility] Last Admin: 07/22/18 10:28 Dose: Not Given Citalopram Hydrobromide (Celexa) 40 mg PO DAILY [facility] Last Admin: 07/22/18 10:27 Dose: Not Given Clonazepam (Klonopin) 0.5 mg PO BID [facility] Last Admin: 07/23/18 00:14 Dose: 0.5 mg Gabapentin (Neurontin) 300 mg PO TID [facility] Last Admin: 07/23/18 00:13 Dose: 300 mg Ceftazidime/Avibactam 2.5 gm/ (Sodium Chloride) 100 mls @ 50 mls/hr IV Q8H [facility]; Protocol Last Admin: 07/23/18 03:47 Dose: 50 mls/hr Vancomycin/Sodium Chloride (Vancomycin 1 Gm/Ns 200 Ml) 1 gm in 200 mls @ 133.333 mls/hr IVPB Q24H [facility]; Protocol Last Admin: 07/22/18 13:56 Dose: 133.333 mls/hr Pantoprazole Sodium (Protonix Ec Tab) 40 mg PO DAILY [facility] Last Admin: 07/22/18 10:28 Dose: Not Given Potassium Chloride (K-Dur 20 Meq Er Tab) 20 meq PO DAILY [facility] Rivaroxaban (Xarelto) 10 mg PO HS [facility] Last Admin: 07/20/18 22:14 Dose: 10 mg - Labs Labs: 07/23/18 07:10 07/23/18 07:10 PT 19.1 SECONDS (9.7-12.2) H 07/20/18 07:06 INR 1.7 07/20/18 07:06 APTT 38 SECONDS (21-34) H 07/20/18 07:06 - Constitutional Appears: Well, No Acute Distress - Eye Exam Eye Exam: Normal appearance - ENT Exam ENT Exam: Mucous Membranes Moist - Respiratory Exam Respiratory Exam: Clear to Ausculation Bilateral - Cardiovascular Exam Cardiovascular Exam: RRR, +S1, +S2. absent: JVD - GI/Abdominal Exam GI & Abdominal Exam: Normal Bowel Sounds Assessment and Plan - Assessment and Plan (Free Text) Assessment: PErsistent leukocytosis and pyuria no fever will check ct of abd and pelvis recall urology repeat bc
[2018-07-23] MEDS: Pantoprazole 40 mg EC Tab PO SCH (09:41)
[2018-07-23] MEDS ORDERED: Iohexol 240 (50 ml) PO ONE (11:45)
[2018-07-23] MEDS: Vancomycin 1 gm/NS 200 ml 1 GM/200 ML BAG IVPB SCH (14:40)
[2018-07-24 07:53] LABS: SQUAMOUS EPITHIAL 2 /hpf (0-5); URINE BACTERIA OCC (<OCC); URINE BILIRUBIN NEGATIVE (NEGATIVE); URINE BLOOD 1+ (NEGATIVE); URINE CLARITY Hazy (Clear); URINE COLOR Yellow (YELLOW); URINE GLUCOSE (UA) NORMAL (Normal); URINE LEUKOCYTE ESTERASE 3+ Leu/uL (Negative); URINE PROTEIN 1+ mg/dL (NEGATIVE); URINE UROBILINOGEN NORMAL mg/dL (0.2-1.0)
[2018-07-24] MEDS: Pantoprazole 40 mg EC Tab PO SCH (10:49)
--- NOTE | 2018-07-24 13:43 | CP.PCM.PN ---
Subjective - Date & Time of Evaluation Date of Evaluation: 07/24/18 Time of Evaluation: 13:40 - Subjective Subjective: dictated Objective - Vital Signs/Intake and Output Vital Signs (last 24 hours): Temp Pulse Resp BP Pulse Ox 98.1 F 82 20 118/69 97 07/24/18 08:16 07/24/18 08:16 07/24/18 08:16 07/24/18 08:16 07/24/18 08:16 Intake and Output: 07/24/18 07/24/18 06:59 18:59 Intake Total 100 Output Total 250 Balance -150 - Medications Medications: Current Medications Bupropion HCl (Wellbutrin) 100 mg PO DAILY [facility] Last Admin: 07/24/18 10:49 Dose: 100 mg Citalopram Hydrobromide (Celexa) 40 mg PO DAILY [facility] Last Admin: 07/24/18 10:49 Dose: 40 mg Clonazepam (Klonopin) 0.5 mg PO BID [facility] Last Admin: 07/24/18 10:49 Dose: 0.5 mg Gabapentin (Neurontin) 300 mg PO TID [facility] Last Admin: 07/24/18 10:49 Dose: 300 mg Ceftazidime/Avibactam 2.5 gm/ (Sodium Chloride) 100 mls @ 50 mls/hr IV Q8H [facility]; Protocol Last Admin: 07/24/18 12:22 Dose: 50 mls/hr Vancomycin/Sodium Chloride (Vancomycin 1 Gm/Ns 200 Ml) 1 gm in 200 mls @ 133.333 mls/hr IVPB Q24H [facility]; Protocol Last Admin: 07/23/18 14:40 Dose: 133.333 mls/hr Pantoprazole Sodium (Protonix Ec Tab) 40 mg PO DAILY [facility] Last Admin: 07/24/18 10:49 Dose: 40 mg Potassium Chloride (K-Dur 20 Meq Er Tab) 20 meq PO DAILY [facility] Rivaroxaban (Xarelto) 10 mg PO HS [facility] Last Admin: 07/23/18 21:47 Dose: 10 mg - Labs Labs: 07/23/18 07:10 07/23/18 07:10 PT 19.1 SECONDS (9.7-12.2) H 07/20/18 07:06 INR 1.7 07/20/18 07:06 APTT 38 SECONDS (21-34) H 07/20/18 07:06 Assessment and Plan (1) Cystitis Status: Acute (2) Diarrhea Status: Resolved (3) Urinary tract infection Status: Acute (4) Vomiting Status: Resolved (5) Leucocytosis Status: Acute
--- NOTE | 2018-07-24 13:52 | CT ---
CT abdomen and pelvis History: Persistent leukocytosis. COMPARISON: 07/12/2018 TECHNIQUE: Contiguous axial images were performed through the abdomen and pelvis without the use of intravenous contrast. Subsequently, sagittal reformatted images were obtained. This CT exam was performed using one or more of the following dose reduction techniques: Automated exposure control, adjustment of the mA and/or kV according to patient size, and/or use of iterative reconstruction technique. Findings Prominent bibasilar consolidation with effusions. Coronary calcifications. Small pericardial effusion. Worsening abdominal ascites including worsening perihepatic and perisplenic ascites. Mild intrahepatic biliary ductal dilatation. Contracted and edematous gallbladder wall. Nodular thickening of the adrenal glands. Mesenteric fat stranding and edema seen at the level of pancreatic head which may be reactive however underlying focal pancreatitis can't be excluded. Clinical correlation. A few punctate calcifications noted at the level of the pancreatic body which may represent the sequelae of chronic pancreatitis. Moderate hiatal hernia. Multiple dilated thickened and enhancing small bowel loops seen throughout the upper mid and lower abdomen suggestive for a prominent enteritis. Overall this appears similar in appearance to the prior study. IVC filter in place. Prominent calcification and plaque in the aorta. Prominent confluent mesenteric lymph nodes with adjacent mesenteric fat stranding seen throughout the visualized abdomen most prominent at the level the infrarenal aorta. Moderate loculated pelvic ascites. Scattered hypodense lesions within the kidneys with limited evaluation given the streak artifact from adjacent hardware in the spine. For example a partially imaged 2.4 centimeter midpole low-attenuation lesion in the right kidney demonstrates a Hounsfield attenuation of 30, indeterminate. Mild perinephric fat stranding. A few scattered hypodense lesions seen within the left kidney some of which are too small to characterize. In addition, thereare a few small hyperdense foci seen at the level of the left kidney exophytically at the midpole measuring up to 9 millimeters somewhat too small to characterize. Mild fullness of the left renal collecting system and ureter. This may be better evaluated with ultrasound. Thick-walled urinary bladder. Prominent prostate with calcifications. Left lower quadrant colostomy in place. Fecal retention in the colon proximal to the colostomy. Appendix is partially imaged. No findings to suggest acute appendicitis. Circumferential reticulation and edema within the subcutaneous soft tissues in the flank; left greater than right. Penile prosthesis with reservoir in the left lower pelvis. Prominent fluid and edema seen within the scrotal sac. Clinical correlation. Prominent posttraumatic, degenerative, and postsurgical changes in the visualized osseous structures. Multiple chronic left rib deformities. Spinal hardware in the lumbar spine. Additional hardware noted within the left femur. Prominent patchy and or focalized sclerosis seen within the posterior left pubic bone, nonspecific. Prominent heterotopic bone formation and/or productive change adjacent to the greater tuberosities trochanters bilaterally. Impression: 1. Worsening ascites in the abdomen and pelvis. 2. Multiple dilated thickened and enhancing small bowel loops seen throughout the upper mid and lower abdomen suggestive for a prominent enteritis. Overall this appears similar in appearance to the prior study. 3. Prominent bibasilar consolidation with effusions. 4. Small pericardial effusion. 5. Mesenteric fat stranding and edema seen at the level of pancreatic head which may be reactive however underlying focal pancreatitis can't be excluded. Clinical correlation. A few punctate calcifications noted at the level of the pancreatic body which may represent the sequelae of chronic pancreatitis. 6. Moderate hiatal hernia. 7. Thick-walled urinary bladder. Prominent prostate with calcifications. 8. Left lower quadrant colostomy in place. Fecal retention in the colon proximal to the colostomy. 9. Circumferential reticulation and edema within the subcutaneous soft tissues in the flank; left greater than right. 10. Penile prosthesis with reservoir in the left lower pelvis. Prominent fluid and edema seen within the scrotal sac. Clinical correlation. Additional findings as above. A preliminary report was submitted at 7:20 p.m. on 07/23/[address] Jake Wilson from [employer].
[2018-07-24] MEDS: Vancomycin 1 gm/NS 200 ml 1 GM/200 ML BAG IVPB SCH (13:56)
[2018-07-24] MEDS: Vancomycin 125 MG/5 ML SOLN (ORAL/RECTAL) PO SCH ×2 (18:00→22:16)
--- NOTE | 2018-07-24 23:47 | PN ---
DATE: 07/24/2018 SUBJECTIVE: The patient was seen today. He wanted to know his CAT scan report. I was waiting for the reports as Dr. Orellana had ordered CAT scan again, as his white count has not come down even though he clinically does not look septic. PHYSICAL EXAMINATION: GENERAL: He is awake and alert. No nausea, no vomiting reported. VITAL SIGNS: T-max is 98.4, pulse 88, blood pressure 104/62, respirations are 20. HEENT: Head is atraumatic, normocephalic. NECK: Supple. LUNGS: Clear. HEART: S1, S2, regular. ABDOMEN: Soft, nontender. Colostomy is present. EXTREMITIES: Have chronic paraplegia. He has some pressure decubiti of local wound as well as sacral wound which was evaluated earlier. LABORATORY DATA: Labs are noted. Labs show white count was 29 yesterday. C. difficile has been ordered. CAT scan was again reordered and I reviewed the CAT scan report, which shows multiple issues. ASSESSMENT AND PLAN: He has ascites, tremendous amount of ascites prominent on the CAT scan. It says, prominent bibasilar consolidation with effusions, coronary calcification, worsening abdominal ascites inducing worsening perihepatic and perisplenic ascites. He has some stranding around the level of the pancreatic head which may be reactive; however, underlying focal pancreatitis cannot be excluded. He does have some calcification, punctate calcification in the pancreatic head, moderate hiatal hernia, multiple dilated enhancing small bowel loops again seen suggestive of a prominent enteritis and since he is on antibiotics, I would cover for Clostridium difficile colitis. Clostridium difficile has already been collected but empirically would start him on vancomycin p.o., we will start with a low dose and see how he does. He has prominent calcification of the aorta and moderate loculated pelvic ascites. Also has sacral decubiti. He has lot of hardware in the back and in the leg . He has some calculi which are noted in the left, in the kidney and has hyperdense foci seen at the level of left kidney, specifically at the mid pole measuring up to 9 mm, somewhat too small to characterize. Then, mild fullness in the left renal collecting system and ureter, and a thickened-walled bladder which we know he has cystitis, prominent prostate with calcification. He has a left lower colostomy which is functioning. At this time, I am going to add vancomycin p.o. and continue vancomycin and since he only has a [place] catheter. He also has a penile prosthesis. Blood cultures are negative. Stool culture came out yeast, but he has a [place] catheter, so we will remove that and re-culture before we start treating with more antifungal and we will follow. The patient is paraplegic and remains bedbound, has sacral decubiti which is hard to cure as he is sometimes sitting over them. He will also need a followup with Dr. Morataya. Hill Sevilla MD
--- NOTE | 2018-07-25 07:29 | OP ---
PROCEDURE DATE: 07/22/2018 SURGEON: Dennis Leon Jr., MD INTERNAL MEDICINE PHYSICIAN: Jeni Del Rio DO, PGY-2 PREOPERATIVE DIAGNOSIS: Infected Port-A-Cath in the right chest. PROCEDURE CARRIED OUT: Removal of right chest wall Port-A-Cath. ANESTHESIA ADMINISTERED BY: Chicho Adam MD TYPE OF ANESTHESIA: Local anesthesia. INDICATIONS: The patient had leucocytosis, refractory to antibiotics. The patient had Port-A-Cath placed many years ago and was not being used. Decision was made to take out Port-A-Cath as possible nidus of infection. OPERATIVE FINDINGS: Intact Port-A-Cath with no purulent fluid, erythema, or signs of cellulitis in the overlying skin. Wound was partially closed after intact Port-A-Cath was removed, but also partially left open for any drainage. Hemostasis was obtained by the end of the case with pressure and electrocautery. OPERATION CARRIED OUT: Removal of Port-A-Cath in the right chest. DESCRIPTION OF PROCEDURE: The patient was brought into the room on a stretcher. Procedure was performed on a stretcher. Time-out was performed. The patient was prepped and draped in a sterile fashion. Local anesthesia was injected over the surgical site. Incision was made through the skin with a 15-blade scalpel and the Port-A-Cath pocket was explored using hemostat. No purulent drainage or fluid was discovered around the Port-A-Cath. Catheter was retracted from the subcutaneous tunnel. Port-A-Cath was released from its surrounding attachments and withdrawn from the subcutaneous tissue. Fibrinous capsule in the subcutaneous pocket was excised. Port was examined and was found to be completely intact. Minimal bleeding was encountered at the skin edges and was controlled by electrocautery. Two interrupted deep dermal sutures with 2-0 Monocryl were placed, loosely approximating the incision which was then covered with Steri-Stirps and 4x4 dressings. The patient tolerated the procedure well with no complications and hemodynamically stable throughout the entire case. He was transferred to the PACU in stable condition. Jeni Del Rio DO Dennis Leon Jr., MD MTDJoel
[2018-07-25 08:53] LABS: BASO # 0.1 K/uL (0.0-0.2); BASO % 0.3 % (0.0-2.0); EOS # 0.2 K/uL (0.0-0.7); EOS % 0.9 % (0.0-4.0); HEMOGLOBIN 10.3 g/dL (12.0-18.0); LYMPH # 3.5 K/uL (1.0-4.3); LYMPH % 17.9 % (20.0-40.0); MEAN CELL VOLUME 73.9 fL (80.0-94.0); MEAN CORPUSCULAR HEMOGLOBIN 23.6 pg (27.0-31.0); MEAN CORPUSCULAR HGB CONC 31.9 g/dL (33.0-37.0); MEAN PLATELET VOLUME 7.5 fL (7.2-11.7); MONO # 1.1 K/uL (0.0-0.8); MONO % 5.7 % (0.0-10.0); NEUT # 14.6 K/uL (1.8-7.0); NEUT % 75.2 % (50.0-75.0); RBC 4.35 Mil/uL (4.40-5.90); RED CELL DISTRIBUTION WIDTH 18.4 % (11.5-14.5); WHITE BLOOD COUNT 19.4 K/uL (4.8-10.8)
[2018-07-25 09:06] LABS: BLOOD UREA NITROGEN 9 mg/dL (9-20); CALCIUM 8.6 mg/dl (8.6-10.4); GFR NON-AFRICAN AMERICAN > 60
[2018-07-25] MEDS ORDERED: Midazolam 2 MG/2 ML VIAL ONE (10:27)
[2018-07-25] MEDS ORDERED: Propofol 10 mg/ml Inj (20 ML) ONE (10:27)
[2018-07-25] MEDS: Pantoprazole 40 mg EC Tab PO SCH (10:31)
[2018-07-25] MEDS ORDERED: Iohexol 240 (50 ml) ONE ×2 (10:33→10:59)
--- NOTE | 2018-07-25 11:12 | PCM.SURG1 ---
Surgeon's Initial Post Op Note - Surgeon's Notes Surgeon: Yoni Morataya Station Agent: none Type of Anesthesia: IV Sedation Pre-Operative Diagnosis: UTI. Neurogenic bladder Operative Findings: same. cystitis. residual =120cc Post-Operative Diagnosis: same Operation Performed: cystogram. cystoscopy. attempted RTG pyelogram Specimen/Specimens Removed: urine Estimated Blood Loss: EBL {In ML}: 0 Blood Products Given: N/A Post-Op Condition: Good Date of Surgery/Procedure: 07/25/18 Time of Surgery/Procedure: 11:11
[2018-07-25] MEDS ORDERED: HYDROmorphone 0.5 mg/0.5 ml ISec IVP PRN (11:18)
--- NOTE | 2018-07-25 13:27 | RAD ---
Date of service: 07/25/2018 PROCEDURE: Intraoperative Fluoroscopy. HISTORY: UTI AND PYURIA FINDINGS: Fluoroscopic assistance was provided for cystoscopy. Please refer to the operative report from Dr. HUSTON, [place]. Total fluoroscopic time (continuous mode) utilized during the procedure 14.7 (seconds). Dose report: [id number] (mGy/m2)
--- NOTE | 2018-07-25 15:00 | CP.PCM.PN ---
Subjective - Date & Time of Evaluation Date of Evaluation: 07/25/18 Time of Evaluation: 15:00 - Subjective Subjective: dictated Objective - Vital Signs/Intake and Output Vital Signs (last 24 hours): Temp Pulse Resp BP Pulse Ox 97.2 F L 77 12 97/60 L 100 07/25/18 12:15 07/25/18 12:15 07/25/18 12:15 07/25/18 12:15 07/25/18 12:15 Intake and Output: 07/25/18 07/25/18 06:59 18:59 Intake Total 100 700 Output Total 600 150 Balance -500 550 - Medications Medications: Current Medications Bupropion HCl (Wellbutrin) 100 mg PO DAILY [facility] Last Admin: 07/25/18 10:31 Dose: Not Given Citalopram Hydrobromide (Celexa) 40 mg PO DAILY [facility] Last Admin: 07/25/18 10:30 Dose: Not Given Clonazepam (Klonopin) 0.5 mg PO BID [facility] Last Admin: 07/25/18 10:30 Dose: Not Given Gabapentin (Neurontin) 300 mg PO TID [facility] Last Admin: 07/25/18 13:11 Dose: 300 mg Ceftazidime/Avibactam 2.5 gm/ (Sodium Chloride) 100 mls @ 50 mls/hr IV Q8H [facility]; Protocol Last Admin: 07/25/18 12:21 Dose: 50 mls/hr Pantoprazole Sodium (Protonix Ec Tab) 40 mg PO DAILY [facility] Last Admin: 07/25/18 10:31 Dose: Not Given Potassium Chloride (K-Dur 20 Meq Er Tab) 20 meq PO DAILY [facility] Rivaroxaban (Xarelto) 10 mg PO HS [facility] Last Admin: 07/24/18 21:23 Dose: 10 mg Vancomycin HCl (Vancocin (Oral Or Rectal Use)) 125 mg PO QID [facility]; Protocol Last Admin: 07/24/18 22:16 Dose: 125 mg - Labs Labs: 07/25/18 08:44 07/25/18 08:44 PT 19.1 SECONDS (9.7-12.2) H 07/20/18 07:06 INR 1.7 07/20/18 07:06 APTT 38 SECONDS (21-34) H 07/20/18 07:06 Assessment and Plan (1) Cystitis Status: Acute (2) Diarrhea Status: Resolved (3) Urinary tract infection Status: Acute (4) Vomiting Status: Resolved (5) Leucocytosis Status: Acute
[2018-07-25 17:04] VITALS: RESP 20
--- NOTE | 2018-07-25 17:29 | CP.PCM.PN ---
Subjective - Date & Time of Evaluation Date of Evaluation: 07/25/18 Time of Evaluation: 17:30 - Subjective Subjective: Pt reports feeling ok Pt had attempted cysto pt denies n/v Objective - Vital Signs/Intake and Output Vital Signs (last 24 hours): Temp Pulse Resp BP Pulse Ox 98 F 64 20 104/66 97 07/25/18 16:00 07/25/18 16:00 07/25/18 16:00 07/25/18 16:00 07/25/18 16:00 Intake and Output: 07/25/18 07/25/18 06:59 18:59 Intake Total 100 700 Output Total 600 150 Balance -500 550 - Medications Medications: Current Medications Bupropion HCl (Wellbutrin) 100 mg PO DAILY [facility] Last Admin: 07/25/18 10:31 Dose: Not Given Citalopram Hydrobromide (Celexa) 40 mg PO DAILY [facility] Last Admin: 07/25/18 10:30 Dose: Not Given Clonazepam (Klonopin) 0.5 mg PO BID [facility] Last Admin: 07/25/18 10:30 Dose: Not Given Gabapentin (Neurontin) 300 mg PO TID [facility] Last Admin: 07/25/18 13:11 Dose: 300 mg Ceftazidime/Avibactam 2.5 gm/ (Sodium Chloride) 100 mls @ 50 mls/hr IV Q8H [facility]; Protocol Last Admin: 07/25/18 12:21 Dose: 50 mls/hr Pantoprazole Sodium (Protonix Ec Tab) 40 mg PO DAILY [facility] Last Admin: 07/25/18 10:31 Dose: Not Given Potassium Chloride (K-Dur 20 Meq Er Tab) 20 meq PO DAILY [facility] Rivaroxaban (Xarelto) 10 mg PO HS [facility] Last Admin: 07/24/18 21:23 Dose: 10 mg Vancomycin HCl (Vancocin (Oral Or Rectal Use)) 125 mg PO QID [facility]; Protocol Last Admin: 07/24/18 22:16 Dose: 125 mg - Labs Labs: 07/25/18 08:44 07/25/18 08:44 PT 19.1 SECONDS (9.7-12.2) H 07/20/18 07:06 INR 1.7 07/20/18 07:06 APTT 38 SECONDS (21-34) H 07/20/18 07:06 - Constitutional Appears: Non-toxic - Eye Exam Eye Exam: Normal appearance - ENT Exam ENT Exam: Mucous Membranes Moist - Respiratory Exam Respiratory Exam: Chest Wall Tenderness - Cardiovascular Exam Cardiovascular Exam: +S1, +S2 Assessment and Plan - Assessment and Plan (Free Text) Assessment: ID spoke to Dr. Ralph today wbc down no fever ct; reviewed she will see him and will likely change to po meds discussed case with caser in for planning
[2018-07-25] MEDS: Vancomycin 125 MG/5 ML SOLN (ORAL/RECTAL) PO SCH ×2 (17:54→21:52)
[2018-07-25] MEDS: Vancomycin 1 gm/NS 200 ml 1 GM/200 ML BAG IVPB SCH (19:14)
--- NOTE | 2018-07-25 21:43 | PN ---
DATE: 07/25/2018 SUBJECTIVE: The patient was seen today. He had an attempted cystoscopy but since he has a benign implant, the nurse practitioner told me that they could not do retrograde pyelogram. The patient remains afebrile. He is awake, alert, offers no new complaints. Anita, the nurse, was there and we looked up at the wound . There is some swelling which is going on the edges. The sacral wound looked clean and dry, and there was no drainage and no odor to it. The patient was again stressed about not lying on it and to have position change frequently. His Port-A-Cath has been out, and now the WBC has decreased after the Port-A-Cath was removed; however, CAT scan did show enteritis. Hence, I do not plan to give him IV antibiotics for long time. He has had this sacral wound for long time. It is healing and will probably improve with nutrition as well as position change. We will give him few days worth of antibiotic orally. He did receive Avycaz for almost 10 days. It will be tomorrow for the cystitis and should improve with that. The patient is told to take a good protein diet now, so that he can have a better healing of the wound. PHYSICAL EXAMINATION: VITAL SIGNS: T-max is 97.2, pulse 77, blood pressure is 97/60, respirations are 12. GENERAL: He is awake and alert. He asked reasonable questions. HEENT: Head is atraumatic. NECK: Supple. LUNGS: Clear. HEART: S1 and S2 are regular. ABDOMEN: Soft, nontender. Colostomy is functioning. EXTREMITIES: Have paraplegia, some ulceration, pressure sores which need to be monitored, and sacral decubitus was clean. LABORATORY DATA: Labs are noted. Labs show white count is 19.4, hemoglobin 10.3, hematocrit 32.1, platelet count is 611 and still elevated. His BUN is 9, creatinine 0.5. Procalcitonin came out 0.44. PSA was 0.11. Urine showed some yeast. ASSESSMENT AND PLAN: He only has a [place] catheter, so that was changed. If his white count decreases further tomorrow, we will agree to discharge him with Diflucan for three days and also would give him vancomycin orally. He is on vancomycin orally here which is 125 orally four times a day. We will give it for 10 days. He does have methicillin-resistant Staphylococcus aureus in the wound, but I think any open wound would grow bacteria. The wound is coming along well, and we have covered him for at least seven days with vancomycin. We will continue vancomycin today also and maybe one dose tomorrow and then give him if he can get Zyvox 600 mg orally b.i.d. for one week, that may be sufficient. We will discuss the plan with Dr. Orellana and with the family preservation caseworker. I am waiting for tomorrow's labs to decide further. The patient did come in with cystitis, has had severe leukocytosis and had a Port-A-Cath which was probably infected, has been removed because white count came down only after we removed it. He also has enteritis. He has an open sacral wound and paraplegia. We will follow. Hill Sevilla MD
[2018-07-26 07:13] LABS: BASO % 0.2 % (0.0-2.0); EOS # 0.2 K/uL (0.0-0.7); EOS % 0.9 % (0.0-4.0); HEMOGLOBIN 9.9 g/dL (12.0-18.0); LYMPH # 3.9 K/uL (1.0-4.3); LYMPH % 17.4 % (20.0-40.0); MEAN CELL VOLUME 73.2 fL (80.0-94.0); MEAN CORPUSCULAR HEMOGLOBIN 23.3 pg (27.0-31.0); MEAN CORPUSCULAR HGB CONC 31.9 g/dL (33.0-37.0); MEAN PLATELET VOLUME 7.7 fL (7.2-11.7); MONO # 1.3 K/uL (0.0-0.8); MONO % 5.9 % (0.0-10.0); NEUT # 17.1 K/uL (1.8-7.0); NEUT % 75.6 % (50.0-75.0); RBC 4.25 Mil/uL (4.40-5.90); RED CELL DISTRIBUTION WIDTH 18.5 % (11.5-14.5); WHITE BLOOD COUNT 22.6 K/uL (4.8-10.8)
[2018-07-26 08:10] LABS: ALB/GLOB RATIO 0.9 (1.0-2.1); ALBUMIN 2.6 g/dL (3.5-5.0); ALT/SGPT 13 U/L (21-72); AST/SGOT 19 U/L (17-59); BLOOD UREA NITROGEN 8 mg/dL (9-20); CALCIUM 8.7 mg/dl (8.6-10.4); GFR NON-AFRICAN AMERICAN > 60
[2018-07-26] MEDS: Vancomycin 125 MG/5 ML SOLN (ORAL/RECTAL) PO SCH ×4 (10:30→21:28)
[2018-07-26] MEDS: Pantoprazole 40 mg EC Tab PO SCH (10:32)
--- NOTE | 2018-07-26 12:43 | RAD ---
Date of service: 07/25/2018 HISTORY: UTI AND PYURIA COMPARISON: 07/23/2018 CT abdomen and pelvis FINDINGS: BOWEL: Moderate stool retention. Left lower quadrant colostomy stoma noted-stool proximal to this. Left upper quadrant small bowel loops not particularly dilated but with thickened folds-reactive changes and/or a focal enteritis are some consideration (series 1, image 1). No obstruction. BONES: Sclerotic lumbar changes. Proximal lumbar spinal hardware Bilateral hip arthrosis. Additional bilateral heterotopic like bone formation suggested here Osteopenia of each iliac in sacrum. OTHER FINDINGS: Bilateral pelvic phleboliths and/or calcified lymph nodes. Left inferior verena pelvic faint reservoir-compatible with a prior mention of a penile implant/reservoir combination. IVC filter right L3-4 level. IMPRESSION: Moderate stool retention. No bowel obstruction. Additional findings small large bowel related as detailed above. Other findings as above.
--- NOTE | 2018-07-26 16:59 | CP.PCM.PN ---
Subjective - Date & Time of Evaluation Date of Evaluation: 07/26/18 Time of Evaluation: 05:00 - Subjective Subjective: Pt with no fever wbc up today no complaints Objective - Vital Signs/Intake and Output Vital Signs (last 24 hours): Temp Pulse Resp BP Pulse Ox 98 F 80 20 112/63 98 07/26/18 16:01 07/26/18 16:01 07/26/18 16:01 07/26/18 16:01 07/26/18 16:01 Intake and Output: 07/26/18 07/26/18 06:59 18:59 Intake Total 650 Output Total 600 Balance 50 - Medications Medications: Current Medications Bupropion HCl (Wellbutrin) 100 mg PO DAILY [facility] Last Admin: 07/26/18 10:32 Dose: 100 mg Citalopram Hydrobromide (Celexa) 40 mg PO DAILY [facility] Last Admin: 07/26/18 10:32 Dose: 40 mg Clonazepam (Klonopin) 0.5 mg PO BID [facility] Last Admin: 07/26/18 10:32 Dose: 0.5 mg Gabapentin (Neurontin) 300 mg PO TID [facility] Last Admin: 07/26/18 13:13 Dose: 300 mg Ceftazidime/Avibactam 2.5 gm/ (Sodium Chloride) 100 mls @ 50 mls/hr IV Q8H [facility]; Protocol Last Admin: 07/26/18 11:21 Dose: 50 mls/hr Vancomycin/Sodium Chloride (Vancomycin 1 Gm/Ns 200 Ml) 1 gm in 200 mls @ 133.333 mls/hr IVPB Q24H [facility]; Protocol Stop: 07/30/18 19:01 Last Admin: 07/25/18 19:14 Dose: 133.333 mls/hr Pantoprazole Sodium (Protonix Ec Tab) 40 mg PO DAILY [facility] Last Admin: 07/26/18 10:32 Dose: 40 mg Rivaroxaban (Xarelto) 10 mg PO HS [facility] Last Admin: 07/25/18 21:51 Dose: 10 mg Vancomycin HCl (Vancocin (Oral Or Rectal Use)) 125 mg PO QID [facility]; Protocol Last Admin: 07/26/18 13:13 Dose: 125 mg - Labs Labs: 07/26/18 07:03 07/26/18 07:03 PT 19.1 SECONDS (9.7-12.2) H 07/20/18 07:06 INR 1.7 07/20/18 07:06 APTT 38 SECONDS (21-34) H 07/20/18 07:06 - Constitutional Appears: Non-toxic - Eye Exam Eye Exam: Normal appearance - ENT Exam ENT Exam: Mucous Membranes Moist - Respiratory Exam Respiratory Exam: Clear to Ausculation Bilateral Assessment and Plan - Assessment and Plan (Free Text) Assessment: pyuria blood cultures negative discussed case with Dr. Sevilla today who recommended a change in abx and dc to rehab in 3 days after observing response
[2018-07-26] MEDS: Vancomycin 1 gm/NS 200 ml 1 GM/200 ML BAG IVPB SCH (18:49)
--- NOTE | 2018-07-26 21:54 | CP.PCM.PN ---
Subjective - Date & Time of Evaluation Date of Evaluation: 07/26/18 Time of Evaluation: 15:00 - Subjective Subjective: dictated Objective - Vital Signs/Intake and Output Vital Signs (last 24 hours): Temp Pulse Resp BP Pulse Ox 98 F 80 20 112/63 98 07/26/18 16:01 07/26/18 16:01 07/26/18 16:01 07/26/18 16:01 07/26/18 16:01 - Medications Medications: Current Medications Bupropion HCl (Wellbutrin) 100 mg PO DAILY [facility] Last Admin: 07/26/18 10:32 Dose: 100 mg Citalopram Hydrobromide (Celexa) 40 mg PO DAILY [facility] Last Admin: 07/26/18 10:32 Dose: 40 mg Clonazepam (Klonopin) 0.5 mg PO BID [facility] Last Admin: 07/26/18 17:18 Dose: 0.5 mg Gabapentin (Neurontin) 300 mg PO TID [facility] Last Admin: 07/26/18 17:18 Dose: 300 mg Ceftazidime/Avibactam 2.5 gm/ (Sodium Chloride) 100 mls @ 50 mls/hr IV Q8H [facility]; Protocol Last Admin: 07/26/18 19:22 Dose: 50 mls/hr Vancomycin/Sodium Chloride (Vancomycin 1 Gm/Ns 200 Ml) 1 gm in 200 mls @ 133.333 mls/hr IVPB Q24H [facility]; Protocol Stop: 07/30/18 19:01 Last Admin: 07/26/18 18:49 Dose: 133.333 mls/hr Pantoprazole Sodium (Protonix Ec Tab) 40 mg PO DAILY [facility] Last Admin: 07/26/18 10:32 Dose: 40 mg Rivaroxaban (Xarelto) 10 mg PO HS [facility] Last Admin: 07/26/18 21:27 Dose: 10 mg Vancomycin HCl (Vancocin (Oral Or Rectal Use)) 125 mg PO QID [facility]; Protocol Last Admin: 07/26/18 21:28 Dose: 125 mg - Labs Labs: 07/26/18 07:03 07/26/18 07:03 PT 19.1 SECONDS (9.7-12.2) H 07/20/18 07:06 INR 1.7 07/20/18 07:06 APTT 38 SECONDS (21-34) H 07/20/18 07:06 Assessment and Plan (1) Cystitis Status: Acute (2) Diarrhea Status: Resolved (3) Urinary tract infection Status: Acute (4) Vomiting Status: Resolved (5) Leucocytosis Status: Acute
--- NOTE | 2018-07-26 22:27 | PN ---
DATE: 07/26/2018 SUBJECTIVE: The patient was seen today. He denied any complaints. He has no nausea, no vomiting or diarrhea. He does have a sacral wound, which I saw yesterday. It is very clean, but a big size area. He was still lying on his back on the ulcer, so I am not sure it can heal well. He did agree that he will eat better. PHYSICAL EXAMINATION VITAL SIGNS: T-max is 98, pulse 80, blood pressure 112/63, respirations are 20. HEENT: Head is atraumatic and normocephalic. Tongue is moist. NECK: Supple. LUNGS: Clear. HEART: S1, S2 are regular. ABDOMEN: Soft , has a colostomy bag and sacral wound. EXTREMITIES: Have paraplegia with some pressure decubiti occasionally. LABORATORY DATA: White count today was 22.6. I am not sure if this is after the procedure they did yesterday. He does have penile prosthesis, but his differential here shows granulocytes 75.6, hemoglobin 9.9, hematocrit 31.1. ASSESSMENT AND PLAN: There was an urine culture which was done yesterday. I am waiting for its report, and I wanted to switch him to Zyvox, but it seems that Zyvox interacts with his psych medications, so we will continue with the vancomycin IV for now. I am waiting for his final urine culture report, so that I cannot switch him over. Also, I wanted to add Diflucan, but Diflucan also interacts with citalopram. He does have a [place] catheter, so we will wait for the urine culture report when it arrives. Right now, he is on vancomycin IV and vancomycin p.o. for enteritis, as I am suspecting antibiotic-associated diarrhea or C. diff, and he is still on waiting for their urine culture report which was collected by Dr. Morataya on 07/25/2018. We will continue vancomycin for 5 days more and will follow, and I did discuss the plan with Dr. Orellana, and we will repeat this white count again in a day or so. We will follow. Hill Sevilla MD [facility] # [id number]
[2018-07-27 07:22] LABS: BASO # 0.1 K/uL (0.0-0.2); BASO % 0.3 % (0.0-2.0); EOS # 0.2 K/uL (0.0-0.7); HEMOGLOBIN 9.5 g/dL (12.0-18.0); LYMPH # 3.4 K/uL (1.0-4.3); LYMPH % 16.8 % (20.0-40.0); MEAN CELL VOLUME 73.6 fL (80.0-94.0); MEAN CORPUSCULAR HEMOGLOBIN 23.5 pg (27.0-31.0); MEAN CORPUSCULAR HGB CONC 31.9 g/dL (33.0-37.0); MEAN PLATELET VOLUME 7.7 fL (7.2-11.7); MONO # 1.3 K/uL (0.0-0.8); MONO % 6.3 % (0.0-10.0); NEUT # 15.3 K/uL (1.8-7.0); NEUT % 75.6 % (50.0-75.0); RBC 4.05 Mil/uL (4.40-5.90); RED CELL DISTRIBUTION WIDTH 18.6 % (11.5-14.5); WHITE BLOOD COUNT 20.2 K/uL (4.8-10.8)
[2018-07-27] MEDS: Pantoprazole 40 mg EC Tab PO SCH (09:11)
[2018-07-27] MEDS: Vancomycin 125 MG/5 ML SOLN (ORAL/RECTAL) PO SCH ×4 (11:00→21:45)
--- NOTE | 2018-07-27 16:39 | CP.PCM.PN ---
Subjective - Date & Time of Evaluation Date of Evaluation: 07/27/18 Time of Evaluation: 16:38 - Subjective Subjective: Pt reports feleing well no pain wants to go home Objective - Vital Signs/Intake and Output Vital Signs (last 24 hours): Temp Pulse Resp BP Pulse Ox 98.3 F 63 20 103/66 97 07/27/18 16:00 07/27/18 16:00 07/27/18 16:00 07/27/18 16:00 07/27/18 16:00 Intake and Output: 07/27/18 07/27/18 06:59 18:59 Intake Total 100 100 Output Total 200 1000 Balance -100 -900 - Medications Medications: Current Medications Bupropion HCl (Wellbutrin) 100 mg PO DAILY [facility] Last Admin: 07/27/18 09:11 Dose: 100 mg Citalopram Hydrobromide (Celexa) 40 mg PO DAILY [facility] Last Admin: 07/27/18 09:12 Dose: 40 mg Clonazepam (Klonopin) 0.5 mg PO BID [facility] Last Admin: 07/27/18 09:11 Dose: 0.5 mg Gabapentin (Neurontin) 300 mg PO TID [facility] Last Admin: 07/27/18 14:28 Dose: 300 mg Ceftazidime/Avibactam 2.5 gm/ (Sodium Chloride) 100 mls @ 50 mls/hr IV Q8H [facility]; Protocol Last Admin: 07/27/18 11:14 Dose: 50 mls/hr Vancomycin/Sodium Chloride (Vancomycin 1 Gm/Ns 200 Ml) 1 gm in 200 mls @ 133.333 mls/hr IVPB Q24H [facility]; Protocol Stop: 07/30/18 19:01 Last Admin: 07/26/18 18:49 Dose: 133.333 mls/hr Pantoprazole Sodium (Protonix Ec Tab) 40 mg PO DAILY [facility] Last Admin: 07/27/18 09:11 Dose: 40 mg Rivaroxaban (Xarelto) 10 mg PO HS [facility] Last Admin: 07/26/18 21:27 Dose: 10 mg Vancomycin HCl (Vancocin (Oral Or Rectal Use)) 125 mg PO QID [facility]; Protocol Last Admin: 07/27/18 14:00 Dose: 125 mg - Labs Labs: 07/27/18 07:09 07/26/18 07:03 PT 19.1 SECONDS (9.7-12.2) H 07/20/18 07:06 INR 1.7 07/20/18 07:06 APTT 38 SECONDS (21-34) H 07/20/18 07:06 - Constitutional Appears: Non-toxic - Eye Exam Eye Exam: Normal appearance - ENT Exam ENT Exam: Mucous Membranes Moist - Respiratory Exam Respiratory Exam: Clear to Ausculation Bilateral - Cardiovascular Exam Cardiovascular Exam: REGULAR RHYTHM, RRR, +S1. absent: JVD - GI/Abdominal Exam GI & Abdominal Exam: Soft Assessment and Plan - Assessment and Plan (Free Text) Assessment: Persistent leukocytois] blood cultures are negative ID recommended 2 more weeks of IV abx will make arrangement for rehab for abx UA+ MRSA ; wound discussed with case planner to make arrangements
[2018-07-27] MEDS: Mag&Al/Simet/Diphen/Lido 237 ML KIT PO SCH (18:42)
[2018-07-27] MEDS: Vancomycin 1 gm/NS 200 ml 1 GM/200 ML BAG IVPB SCH (19:51)
--- NOTE | 2018-07-28 02:02 | PN ---
DATE: 07/27/2018 SUBJECTIVE: The patient was seen today. He was awake and alert. He has no new complaints. He has no nausea, no vomiting. He was waiting for the food to come from home. As the food tray was lying there, I saw him late afternoon. PHYSICAL EXAMINATION VITAL SIGNS: T-max is 98.3, pulse 63, blood pressure 103/66, respirations 20. HEENT: Head is atraumatic and normocephalic. NECK: Supple. LUNGS: Clear. HEART: S1 and S2, regular. ABDOMEN: Soft, nontender. Colostomy is functioning. EXTREMITIES: Remain with paraplegia; however, he keeps lying on his sacral wound and needs positioning very often, and I told him that he needs to get assistance every time he rolls into this position as this is not going to help his wound healed. Urine culture now came out yeast species, which was done by Dr. Morataya, so he has cleared ESBL organism for now. He does have a penile prosthesis and other issues, but hopefully they will be quiet. I have added Diflucan and I am holding citalopram for 3 days. He is also on vancomycin at this time. Labs show white count 20.2, hemoglobin 9.5, hematocrit 29.8, platelet count is 574. So we will keep him on these. Probably he can go to a rehab and get vancomycin for the next 3 days and can stay there and get wound care later on. He is on Diflucan at this time. I will not put IV at this time because I think he has enteritis and keeping him on IV antibiotics too long can end up in toxic megacolon. He will need local wound care off the pressure on the sacral decubitus, and we will follow. I added Diflucan for now, so citalopram is on hold. Once he is done with Diflucan, I think to place the citalopram on. Hill Sevilla MD
[2018-07-28 07:51] LABS: BASO % 0.2 % (0.0-2.0); EOS # 0.3 K/uL (0.0-0.7); EOS % 1.4 % (0.0-4.0); HEMOGLOBIN 9.6 g/dL (12.0-18.0); LYMPH # 3.1 K/uL (1.0-4.3); LYMPH % 16.7 % (20.0-40.0); MEAN CELL VOLUME 73.3 fL (80.0-94.0); MEAN CORPUSCULAR HEMOGLOBIN 24.1 pg (27.0-31.0); MEAN CORPUSCULAR HGB CONC 32.9 g/dL (33.0-37.0); MEAN PLATELET VOLUME 7.7 fL (7.2-11.7); MONO # 1.3 K/uL (0.0-0.8); MONO % 6.8 % (0.0-10.0); NEUT # 13.8 K/uL (1.8-7.0); NEUT % 74.9 % (50.0-75.0); RBC 3.98 Mil/uL (4.40-5.90); RED CELL DISTRIBUTION WIDTH 18.2 % (11.5-14.5); WHITE BLOOD COUNT 18.4 K/uL (4.8-10.8)
[2018-07-28] MEDS: Fluconazole IV 200mg/100 ml NS 100 MG in Premixed IV 1 EA IVPB SCH (09:37)
[2018-07-28] MEDS: Mag&Al/Simet/Diphen/Lido 237 ML KIT PO SCH ×3 (09:37→17:27)
[2018-07-28] MEDS: Pantoprazole 40 mg EC Tab PO SCH (09:38)
[2018-07-28] MEDS: Vancomycin 125 MG/5 ML SOLN (ORAL/RECTAL) PO SCH ×4 (09:41→21:25)
--- NOTE | 2018-07-28 14:28 | CP.PCM.PN ---
Subjective - Date & Time of Evaluation Date of Evaluation: 07/28/18 Time of Evaluation: 02:00 - Subjective Subjective: pt was going to rehab today but some issues with transportation so postponed no other isssues today Objective - Vital Signs/Intake and Output Vital Signs (last 24 hours): Temp Pulse Resp BP Pulse Ox 98.1 F 82 20 103/96 H 96 07/28/18 08:09 07/28/18 08:09 07/28/18 08:09 07/28/18 08:09 07/28/18 08:09 Intake and Output: 07/28/18 07/28/18 06:59 18:59 Intake Total 780 Output Total 1600 Balance -820 - Medications Medications: Current Medications Bupropion HCl (Wellbutrin) 100 mg PO DAILY [facility] Last Admin: 07/28/18 09:38 Dose: 100 mg Citalopram Hydrobromide (Celexa) 40 mg PO DAILY [facility] Last Admin: 07/27/18 09:12 Dose: 40 mg Clonazepam (Klonopin) 0.5 mg PO BID [facility] Last Admin: 07/28/18 09:41 Dose: 0.5 mg Gabapentin (Neurontin) 300 mg PO TID [facility] Last Admin: 07/28/18 13:56 Dose: 300 mg Vancomycin/Sodium Chloride (Vancomycin 1 Gm/Ns 200 Ml) 1 gm in 200 mls @ 133.333 mls/hr IVPB Q24H [facility]; Protocol Stop: 07/30/18 19:01 Last Admin: 07/27/18 19:51 Dose: 133.333 mls/hr Fluconazole 100 mg/ (Miscellaneous) 50 mls @ 100 mls/hr IVPB DAILY [facility]; Pr otocol Last Admin: 07/28/18 09:37 Dose: 100 mls/hr Pantoprazole Sodium (Protonix Ec Tab) 40 mg PO DAILY [facility] Last Admin: 07/28/18 09:38 Dose: 40 mg Rivaroxaban (Xarelto) 10 mg PO HS [facility] Last Admin: 07/27/18 21:45 Dose: 10 mg Saliva Substitute (First Magic Mouthwash) 10 ml PO TID [facility] Last Admin: 07/28/18 13:56 Dose: 10 ml Vancomycin HCl (Vancocin (Oral Or Rectal Use)) 125 mg PO QID [facility]; Protocol Last Admin: 07/28/18 13:56 Dose: 125 mg - Labs Labs: 07/28/18 07:40 07/26/18 07:03 PT 19.1 SECONDS (9.7-12.2) H 07/20/18 07:06 INR 1.7 07/20/18 07:06 APTT 38 SECONDS (21-34) H 07/20/18 07:06 - Constitutional Appears: Well, Non-toxic - Eye Exam Eye Exam: Normal appearance - ENT Exam ENT Exam: Mucous Membranes Moist - Respiratory Exam Respiratory Exam: Clear to Ausculation Bilateral - Cardiovascular Exam Cardiovascular Exam: RRR, +S1, +S2. absent: JVD Assessment and Plan - Assessment and Plan (Free Text) Assessment: cont abx awating for rehab arrangements
[2018-07-28] MEDS: Vancomycin 1 gm/NS 200 ml 1 GM/200 ML BAG IVPB SCH (18:18)
--- NOTE | 2018-07-28 20:12 | CP.PCM.PN ---
Subjective - Date & Time of Evaluation Date of Evaluation: 07/28/18 Time of Evaluation: 16:00 - Subjective Subjective: dictated Objective - Vital Signs/Intake and Output Vital Signs (last 24 hours): Temp Pulse Resp BP Pulse Ox 98 F 81 20 113/70 98 07/28/18 16:00 07/28/18 16:00 07/28/18 16:00 07/28/18 16:00 07/28/18 16:00 Intake and Output: 07/28/18 07/29/18 18:59 06:59 Intake Total 530 Output Total 800 Balance -270 - Medications Medications: Current Medications Bupropion HCl (Wellbutrin) 100 mg PO DAILY [facility] Last Admin: 07/28/18 09:38 Dose: 100 mg Citalopram Hydrobromide (Celexa) 40 mg PO DAILY [facility] Last Admin: 07/27/18 09:12 Dose: 40 mg Clonazepam (Klonopin) 0.5 mg PO BID [facility] Last Admin: 07/28/18 17:26 Dose: 0.5 mg Gabapentin (Neurontin) 300 mg PO TID [facility] Last Admin: 07/28/18 17:26 Dose: 300 mg Vancomycin/Sodium Chloride (Vancomycin 1 Gm/Ns 200 Ml) 1 gm in 200 mls @ 133.333 mls/hr IVPB Q24H [facility]; Protocol Stop: 07/30/18 19:01 Last Admin: 07/28/18 18:18 Dose: 133.333 mls/hr Fluconazole 100 mg/ (Miscellaneous) 50 mls @ 100 mls/hr IVPB DAILY [facility]; Protocol Last Admin: 07/28/18 09:37 Dose: 100 mls/hr Pantoprazole Sodium (Protonix Ec Tab) 40 mg PO DAILY [facility] Last Admin: 07/28/18 09:38 Dose: 40 mg Rivaroxaban (Xarelto) 10 mg PO HS [facility] Last Admin: 07/27/18 21:45 Dose: 10 mg Saliva Substitute (First Magic Mouthwash) 10 ml PO TID [facility] Last Admin: 07/28/18 17:27 Dose: 10 ml Vancomycin HCl (Vancocin (Oral Or Rectal Use)) 125 mg PO QID [facility]; Protocol Last Admin: 07/28/18 17:26 Dose: 125 mg - Labs Labs: 07/28/18 07:40 07/26/18 07:03 PT 19.1 SECONDS (9.7-12.2) H 07/20/18 07:06 INR 1.7 07/20/18 07:06 APTT 38 SECONDS (21-34) H 07/20/18 07:06 Assessment and Plan (1) Cystitis Status: Acute (2) Diarrhea Status: Resolved (3) Urinary tract infection Status: Acute (4) Vomiting Status: Resolved (5) Leucocytosis Status: Acute
--- NOTE | 2018-07-28 20:45 | OP ---
PROCEDURE DATE: 07/25/2018 PREOPERATIVE DIAGNOSES: Urinary tract infection. Pyuria. POSTOPERATIVE DIAGNOSES: Urinary tract infection. Pyuria. Neurogenic bladder. Benign prostatic hyperplasia. Cystitis. Penile prosthesis. Scrotal edema. PROCEDURE: Cystoscopy. Cystogram. Attempt at retrograde pyelogram. Exam under anesthesia. OPERATING SURGEON: Sylwia Morataya MD DESCRIPTION OF PROCEDURE: Procedure was performed under video endoscopic control as well as under fluoroscopic control. The patient was placed in lithotomy position. [employer] film of the abdomen had been obtained. The genitalia prepped and draped sterilely. Anesthesia applied by the anesthesiologist. A #22-[place] cystoscope sheath was introduced under direct vision. Urethra, prostate, and bladder were inspected with 30-degree and 70-degree lenses. FINDINGS: There was noted to be no stricture in the anterior urethra. There was inflammation in the prostatic urethra. There was inflammation in the penile urethra as well. There were no tumors within the urethra. The prostatic urethra was subocclusive. The prostatic urethra was approximately 2.5 to 3 cm in length. There was no bladder neck contraction. The bladder was noted to be markedly trabeculated. There were multiple cellules. There was diffuse moderate cystitis. There was a greater amount of inflammation involving the trigone. Iodinated contrast dye was instilled via the cystoscope sheath into the bladder. Fluoroscopic views of the bladder were obtained during filling as well as during further filling as well as post-drainage film. There was noted to be severe trabeculation of the bladder. There was early flex tree appearance in the bladder. There was no vesicoureteral reflux noted. There were no intrinsic or extrinsic filling defects of the bladder. The attempt at retrograde pyelogram was performed. Iodinated contrast material was instilled via cone-tip catheter. However, the ureteral orifices could not be identified due to the inflammation and trabeculation involving the trigone. The expected sites of the orifices were probed. However, retrograde pyelogram could not be performed. The bladder was reinspected with 70-degree lens and confirmed the above findings. The cystoscope and sheath were removed. A Cotter catheter was inserted. Bladder drainage was clear. There were multiple areas in the bladder of inflammation. In addition, there were some more intense areas of erythema. Biopsy was not performed due to the patient's anticoagulation medication. The Cotter catheter was inserted. Bladder drainage was clear. Rectal examination was performed. There was lack of sphincter tone. There was no abnormal pelvic mass fixation or induration. The patient has an inflatable penile prosthesis in place. There was noted to be edema of the scrotum. The prosthesis was deflated to allow performance of the cystoscopy. There was some degree of spontaneous autoinflation noted by the conclusion of the cystoscopy. Sylwia Morataya MD cc: Amalia Orellana MD
--- NOTE | 2018-07-29 01:33 | PN ---
DATE: 07/28/2018 SUBJECTIVE: The patient is afebrile. The patient offers no new complaints. Cynthia called me that they may try to get him to a rehab. He has a line in the left arm and he has this wound. He is almost lying on it always. He needs a position change and he needs wound care and it may be better in the rehab. PHYSICAL EXAMINATION VITAL SIGNS: T-max is 98, pulse is 81, blood pressure 113/70, respirations are 20. HEENT: Head is atraumatic and normocephalic. GENERAL: He is awake and alert, offers no new complaints. NECK: Supple. JVP is flat. LUNGS: Clear. HEART: S1, S2 is regular. ABDOMEN: Soft, nontender. No guarding, no rigidity present. Colostomy is functioning. EXTREMITIES: He is paraplegic. LABORATORY DATA: Labs are noted. White count is dropping to 18.4. Hemoglobin remains stable. Platelets are still 540, but they are coming down. ASSESSMENT AND PLAN: So at this time, I suggest that he should get vancomycin IV for 3 days more and Diflucan IV as he has yeast on the urine culture, but he has a [place] catheter and should remain on vancomycin p.o. for seven more days to keep the PICC line and flush it unless they plan to give vancomycin more in the rehab. But at this time since he had enteritis, I was keeping it for lesser days and wanted to treat the enteritis. The patient did have elevated WBC, but they are trending down and need to be monitored in the assisted. He does have a sacral decubitus. He is paraplegic. He has depression and needs nutritional support and wound care. Hill Sevilla MD
--- NOTE | 2018-07-29 09:10 | CP.PCM.PN ---
Subjective - Date & Time of Evaluation Date of Evaluation: 07/29/18 Time of Evaluation: 09:14 - Subjective Subjective: Pt was getting ready to leave yesterday when his was bathing him and noted a swelling on the left side of the chest. PT states he tends to sleep on that side all the time and believes that is the reason for the sweling. Pt denies fever or pain. This morning he states the swelling is less and he believes is because he has had a lot of burping. PT feels well, and reports feeling very comfortable. FOund him driking his coffee comfortably. Objective - Vital Signs/Intake and Output Vital Signs (last 24 hours): Temp Pulse Resp BP Pulse Ox 98.2 F 87 20 107/67 97 07/29/18 05:30 07/29/18 05:30 07/29/18 05:30 07/29/18 05:30 07/29/18 05:30 Intake and Output: 07/29/18 07/29/18 06:59 18:59 Intake Total 800 Output Total 1400 Balance -600 - Medications Medications: Current Medications Bupropion HCl (Wellbutrin) 100 mg PO DAILY [facility] Last Admin: 07/28/18 09:38 Dose: 100 mg Citalopram Hydrobromide (Celexa) 40 mg PO DAILY [facility] Last Admin: 07/27/18 09:12 Dose: 40 mg Clonazepam (Klonopin) 0.5 mg PO BID [facility] Last Admin: 07/28/18 17:26 Dose: 0.5 mg Gabapentin (Neurontin) 300 mg PO TID SRIKANTH Last Admin: 07/28/18 17:26 Dose: 300 mg Vancomycin/Sodium Chloride (Vancomycin 1 Gm/Ns 200 Ml) 1 gm in 200 mls @ 133.333 mls/hr IVPB Q24H [facility]; Protocol Stop: 07/30/18 19:01 Last Admin: 07/28/18 18:18 Dose: 133.333 mls/hr Fluconazole 100 mg/ (Miscellaneous) 50 mls @ 100 mls/hr IVPB DAILY [facility]; Protocol Last Admin: 07/28/18 09:37 Dose: 100 mls/hr Pantoprazole Sodium (Protonix Ec Tab) 40 mg PO DAILY [facility] Last Admin: 07/28/18 09:38 Dose: 40 mg Rivaroxaban (Xarelto) 10 mg PO HS [facility] Last Admin: 10/25/18 21:25 Dose: 10 mg Saliva Substitute (First Magic Mouthwash) 10 ml PO TID SRIKANTH Last Admin: 07/28/18 17:27 Dose: 10 ml Vancomycin HCl (Vancocin (Oral Or Rectal Use)) 125 mg PO QID SRIKANTH; Protocol Last Admin: 07/28/18 21:25 Dose: 125 mg - Labs Labs: 07/28/18 07:40 07/26/18 07:03 PT 19.1 SECONDS (9.7-12.2) H 07/20/18 07:06 INR 1.7 07/20/18 07:06 APTT 38 SECONDS (21-34) H 07/20/18 07:06 - Constitutional Appears: Well, Non-toxic - Eye Exam Eye Exam: Normal appearance - ENT Exam ENT Exam: Mucous Membranes Moist - Respiratory Exam Respiratory Exam: Clear to Ausculation Bilateral - Cardiovascular Exam Cardiovascular Exam: REGULAR RHYTHM. absent: JVD - GI/Abdominal Exam GI & Abdominal Exam: Soft, Normal Bowel Sounds. absent: Tenderness (left lower side of back midline to axilla) Additional comments: left lower chest wll under floating ribs. midline to axilla some induration , not red not tender , appears to be dependent edema Assessment and Plan - Assessment and Plan (Free Text) Assessment: chest wall swelling appers to be dependent edema ct of chest to investigate further transfer to rehab was placed on hold yesterday to clarify this issue;. pt non toxic.
[2018-07-29] MEDS ORDERED: Iodixanol 320 mg/ml 150 ml Bottle IV ONE (10:49)
[2018-07-29] MEDS: Vancomycin 125 MG/5 ML SOLN (ORAL/RECTAL) PO SCH ×4 (11:10→22:12)
[2018-07-29] MEDS: Pantoprazole 40 mg EC Tab PO SCH (11:10)
[2018-07-29] MEDS: Mag&Al/Simet/Diphen/Lido 237 ML KIT PO SCH ×3 (11:11→18:53)
[2018-07-29] MEDS: Fluconazole IV 200mg/100 ml NS 100 MG in Premixed IV 1 EA IVPB SCH (11:11)
[2018-07-29] MEDS ORDERED: Iohexol 240 (50 ml) PO ONE (12:30)
--- NOTE | 2018-07-29 18:32 | CT ---
Date of service: 07/29/2018 PROCEDURE: CT Chest, Abdomen and Pelvis without intravenous contrast HISTORY: left sided chest induration rule out abscess COMPARISON: 07/23/2018. CT abdomen and pelvis. TECHNIQUE: Radiation dose: Total exam DLP = 995.23 mGy-cm. This CT exam was performed using one or more of the following dose reduction techniques: Automated exposure control, adjustment of the mA and/or kV according to patient size, and/or use of iterative reconstruction technique. FINDINGS: CT CHEST WITHOUT CONTRAST: LUNGS: Compressive atelectasis affecting both lower lobes right greater than left. No additional/suspicious pulmonary nodules or masses/infiltrates identified. MEDIASTINUM: Normal size heart. Small pericardial effusion. PICC line identified, the tip is in the right atrium. LYMPH NODES: Unremarkable. PLEURA: Bilateral pleural effusions, right larger than left. BONES: Postoperative or posttraumatic changes identified in posterior lateral left ribs. OTHER FINDINGS: Left lateral chest wall edema extending into the flanks identified. This extends to the level of the left-sided colostomy. Similar less pronounced changes are identified on the right. CT ABDOMEN AND PELVIS: LIVER: Unremarkable. No gross lesion or ductal dilatation. GALLBLADDER AND BILE DUCTS: Unremarkable. PANCREAS: Unremarkable. No gross lesion or ductal dilatation. SPLEEN: Unremarkable. ADRENALS: Unremarkable. No mass. KIDNEYS AND URETERS: Right kidney in ureter: Unremarkable. No hydronephrosis. No solid mass. Mild dilatation of the left ureter and thickening of the wall of the ureter. Findings consistent with ureteritis. VASCULATURE: No aortic atherosclerotic calcification or mural plaque present. Unremarkable. No aortic aneurysm. BOWEL: Dilated small bowel the overall appearance suggests enteritis. Luminal caliber diminished compared to the prior study suggesting improvement. Stable findings related to colostomy without evidence of incarceration APPENDIX: A normal appendix is visualized in it's entirety. PERITONEUM: Low volume abdominal and pelvic ascites identified, this is increased since the prior study. Inflammatory changes in the peritoneum, multiple small lymph nodes compatible with mesenteric adenitis. LYMPH NODES: Unremarkable. No enlarged lymph nodes. BLADDER: Diffuse bladder wall thickening consistent with cystitis. REPRODUCTIVE: Unremarkable. BONES: No acute fracture. Postoperative changes lower thoracic upper lumbar spine are stable. Chronic posttraumatic/changes in both hips. OTHER FINDINGS: Lower extremity edema noted bilaterally. IMPRESSION: Bilateral lower thoracic and flank edema left greater than right without drainable collection. Interval improvement compared to the prior study. Bilateral pleural effusions with compressive atelectasis. Low volume abdominal pelvic ascites. Cystitis and unilateral, left ureteritis. Modest improvement in enteritis. Additional benign and/or incidental findings described above.
[2018-07-29] MEDS: Vancomycin 1 gm/NS 200 ml 1 GM/200 ML BAG IVPB SCH (19:16)
[2018-07-30 07:44] VITALS: BP 96/60; PULSE 85; TEMP 97.7; O2SAT 95
--- NOTE | 2018-08-03 09:40 | PCM.URO ---
Urology Progress Note - General General: No Complaints, Tolerating Diet - Subjective Abdominal Pain: No Flank Pain: No Voiding Well: No Stone Passed: No Chest Pain: No Fever & Chills: No - Objective Lab Studies: Reviewed - Physical Exam Abdominal Exam: Soft, Non-Tender, Non-Distended Back: No CVA Tenderness Genitalia: Without Inflammation Urinary Catheter Draining Well: Yes Urine Color: Clear, Yellow - Male Phallus: Normal (penile prosthesis in place) Scrotum: Normal - Plan Discontinue Urinary Catheter: Yes See Orders: Yes Additional Information: IMP: stable p cysto. uti. neurogenic bladder. Rec/p: trial of voiding. antibiotic rx. discussed w pt. check post void residual - Date & Time of Note Date: 07/29/18 Time: 10:40
--- NOTE | 2018-08-09 15:40 | CP.PCM.DIS ---
Provider - Provider Date of Admission: 07/11/18 13:16 Attending physician: Amalia Orellana MD Time Spent in preparation of Discharge (in minutes): 30 Hospital Course - Lab Results Lab Results: Micro Results 07/23/18 13:54 Blood-Thru Central Line Blood Culture - Final NO GROWTH AFTER 5 DAYS 07/23/18 13:54 Blood-Thru Central Line Gram Stain - Final TEST NOT PERFORMED 07/23/18 10:00 Blood-Thru Central Line Blood Culture - Final NO GROWTH AFTER 5 DAYS 07/23/18 10:00 Blood-Thru Central Line Gram Stain - Final TEST NOT PERFORMED 07/25/18 11:58 Urine,Clean Catch Urine Culture - Final Yeast Species 07/23/18 07:34 Urine Urine Culture - Final Yeast Species 07/22/18 17:04 Urine,Clean Catch Urine Culture - Final Yeast Species 07/19/18 19:06 Foot - Left Gram Stain - Final 07/19/18 19:06 Foot - Left Wound Culture - Final Methicillin Resistant S Aureus 07/19/18 13:16 Buttock Gram Stain - Final 07/19/18 13:16 Buttock Wound Culture - Final Coagulase Neg Staphylococcus 07/19/18 19:06 Sacral Gram Stain - Final 07/19/18 19:06 Sacral Wound Culture - Final Methicillin Resistant S Aureus 07/19/18 07:04 Urine,Clean Catch Urine Culture - Final No Growth (<1,000 CFU/ML) 07/13/18 08:00 Blood-Venous Blood Culture - Final NO GROWTH AFTER 5 DAYS 07/13/18 08:00 Blood-Venous Gram Stain - Final TEST NOT PERFORMED 07/13/18 06:50 Blood-Venous Blood Culture - Final NO GROWTH AFTER 5 DAYS 07/13/18 06:50 Blood-Venous Gram Stain - Final TEST NOT PERFORMED 07/14/18 18:38 Urine,Cotter Urine Culture - Final Klebsiella Pneumoniae Ssp Pneu 07/11/18 16:22 Blood Blood Culture - Final NO GROWTH AFTER 5 DAYS 07/11/18 16:22 Blood Gram Stain - Final TEST NOT PERFORMED 07/11/18 16:22 Blood Blood Culture - Final NO GROWTH AFTER 5 DAYS 07/11/18 16:22 Blood Gram Stain - Final TEST NOT PERFORMED 07/11/18 12:17 Urine Urine Culture - Final 10-50,000 CFU/ML. MULTIPLE SPECIES. PROBABLE CONTAMINATION. Most Recent Lab Values WBC 18.4 K/uL (4.8-10.8) H 07/28/18 07:40 RBC 3.98 Mil/uL (4.40-5.90) L 07/28/18 07:40 Hgb 9.6 g/dL (12.0-18.0) L 07/28/18 07:40 Hct 29.2 % (35.0-51.0) L 07/28/18 07:40 MCV 73.3 fL (80.0-94.0) L 07/28/18 07:40 MCH 24.1 pg (27.0-31.0) L 07/28/18 07:40 MCHC 32.9 g/dL (33.0-37.0) L 07/28/18 07:40 RDW 18.2 % (11.5-14.5) H 07/28/18 07:40 Plt Count 540 K/uL (130-400) H 07/28/18 07:40 MPV 7.7 fL (7.2-11.7) 07/28/18 07:40 Neut % (Auto) 74.9 % (50.0-75.0) 07/28/18 07:40 Lymph % (Auto) 16.7 % (20.0-40.0) L 07/28/18 07:40 O'Brien % (Auto) 6.8 % (0.0-10.0) 07/28/18 07:40 Eos % (Auto) 1.4 % (0.0-4.0) 07/28/18 07:40 Baso % (Auto) 0.2 % (0.0-2.0) 07/28/18 07:40 Neut # (Auto) 13.8 K/uL (1.8-7.0) H 07/28/18 07:40 Lymph # (Auto) 3.1 K/uL (1.0-4.3) 07/28/18 07:40 O'Brien # (Auto) 1.3 K/uL (0.0-0.8) H 07/28/18 07:40 Eos # (Auto) 0.3 K/uL (0.0-0.7) 07/28/18 07:40 Baso # (Auto) 0.0 K/uL (0.0-0.2) 07/28/18 07:40 Differential Comment 07/26/18 07:03 PT 19.1 SECONDS (9.7-12.2) H 07/20/18 07:06 INR 1.7 07/20/18 07:06 APTT 38 SECONDS (21-34) H 07/20/18 07:06 Sodium 135 mmol/L (132-148) 07/26/18 07:03 Potassium 3.9 mmol/L (3.6-5.2) 07/26/18 07:03 Chloride 96 mmol/L (98-107) L 07/26/18 07:03 Carbon Dioxide 27 mmol/L (22-30) 07/26/18 07:03 Anion Gap 16 (10-20) 07/26/18 07:03 BUN 8 mg/dL (9-20) L 07/26/18 07:03 Creatinine 0.4 mg/dL (0.8-1.5) L 07/26/18 07:03 Est GFR ( Amer) > 60 07/26/18 07:03 Est GFR (Non-Af Amer) > 60 07/26/18 07:03 Random Glucose 84 mg/dL (75-110) 07/26/18 07:03 Calcium 8.7 mg/dl (8.6-10.4) 07/26/18 07:03 Phosphorus 3.4 mg/dL (2.5-4.5) 07/13/18 07:20 Magnesium 1.9 mg/dL (1.6-2.3) 07/13/18 07:20 Total Bilirubin 0.3 mg/dL (0.2-1.3) 07/26/18 07:03 AST 19 U/L (17-59) 07/26/18 07:03 ALT 13 U/L (21-72) L D 07/26/18 07:03 Alkaline Phosphatase 85 U/L (38-126) 07/26/18 07:03 Total Protein 5.5 g/dL (6.3-8.3) L 07/26/18 07:03 Albumin 2.6 g/dL (3.5-5.0) L 07/26/18 07:03 Globulin 2.9 gm/dL (2.2-3.9) 07/26/18 07:03 Albumin/Globulin Ratio 0.9 (1.0-2.1) L 07/26/18 07:03 Prostate Specific Ag 0.110 ng/mL (0.00-4.0) 07/23/18 19:04 Procalcitonin 0.44 NG/ML (0.19-0.49) 07/24/18 07:20 Urine Color Yellow (YELLOW) 07/23/18 07:34 Urine Clarity Hazy (Clear) 07/23/18 07:34 Urine pH 5.0 (5.0-8.0) 07/23/18 07:34 Ur Specific [place] 1.025 (1.003-1.030) 07/23/18 07:34 Urine Protein 1+ mg/dL (NEGATIVE) H 07/23/18 07:34 Urine Glucose (UA) Normal mg/dL (Normal) 07/23/18 07:34 Urine Ketones Trace mg/dL (NEGATIVE) 07/23/18 07:34 Urine Blood 1+ (NEGATIVE) H 07/23/18 07:34 Urine Nitrate Negative (NEGATIVE) 07/23/18 07:34 Urine Bilirubin Negative (NEGATIVE) 07/23/18 07:34 Urine Urobilinogen Normal mg/dL (0.2-1.0) 07/23/18 07:34 Ur Leukocyte Esterase 3+ Benny/uL (Negative) H 07/23/18 07:34 Urine WBC (Auto) 373 /hpf (0-5) H 07/23/18 07:34 Urine RBC (Auto) 49 /hpf (0-3) H 07/23/18 07:34 Urine WBC Clumps (Auto) Many /hpf (NONE) H 07/11/18 10:08 Ur Squamous Epith Cells 2 /hpf (0-5) 07/23/18 07:34 Uric Acid Crystals Rare /hpf (<OCC) 07/15/18 04:57 Urine Bacteria Occ (<OCC) H 07/23/18 07:34 Urine Yeast (Budding) Many /hpf (NEGATIVE) H 07/23/18 07:34 C. difficile Ag & Toxin Negative (NEGATIVE) 07/23/18 07:34 - Hospital Course Hospital Course: Pt was admitted with elevated wbc and multi drug resistant uti, persistent pyuria and leukocytosis. Pt was evalulated but ID< urology and wound care nurse Pt was given abx, an not used old portacath removed. He also had ct which showed enteritis and ascitis Pt was managed with iv abx per ID recommedations and eventually sent to Rehab for complition of therapy. Discharge Exam - Head Exam Head Exam: ATRAUMATIC, NORMOCEPHALIC - Eye Exam Eye Exam: EOMI - Respiratory Exam Respiratory Exam: Clear to PA & Lateral, NORMAL BREATHING PATTERN - Cardiovascular Exam Cardiovascular Exam: REGULAR RHYTHM, +S1, +S2. absent: JVD, Rubs - Skin Skin Exam: Normal Color Discharge Plan - Discharge Medications Prescriptions: Vancomycin/0.9 % Sod Chloride [Vanco 1 Gram/250 ml-0.9% NaCl] 1 gm IV DAILY 3 Days plast..bag Ondansetron ODT [Zofran ODT] 1 odt PO BID PRN #10 odt PRN Reason: Nausea/Vomiting - Follow Up Plan Instructions: Urinary Tract Infection, Adult (DC), Nausea and Vomiting, Adult (DC), Ondansetron, Extended-Spectrum Beta Lactamase Infection, Vancomycin Additional Instructions: Follow up with the medical doctor within 1-2 days without fail. return if worsened. vancomycin 1gm iv dailyx3 days diflucan 100mg iv x3 days vancomycin 125mg po qid po x7 days as per DR Sevilla sacral ulcer care as ordered, change position q 2 hourly cmp, CBC Q week Referrals: Amalia Orellana MD [Staff Provider] -
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
== END 2018-07-30 09:42 | DRG 689 ==
LOC: C.ER 08:23 → C.9E 13:16 → C.3T 17:48
PROVIDERS: ADMIT Internal Medicine; ATTEND Internal Medicine
PROC: 0JPT0WZ Removal of Totally Implantable Vascular Access Device from Trunk Subcutaneous Tissue and Fascia, Open Approach (ICD-10-PCS; 2018-07-22)
PROC: 02HV33Z Insertion of Infusion Device into Superior Vena Cava, Percutaneous Approach (ICD-10-PCS; principal; 2018-07-22 17:30)
PROC: 0TJB8ZZ Inspection of Bladder, Via Natural or Artificial Opening Endoscopic (ICD-10-PCS; 2018-07-25)
PROC: BT1BZZZ Fluoroscopy of Bladder and Urethra (ICD-10-PCS; 2018-07-25)
DX: N30.00 Acute cystitis without hematuria (principal); L89.154 Pressure ulcer of sacral region, stage 4; T80.219A Unspecified infection due to central venous catheter, initial encounter; G82.20 Paraplegia, unspecified; R18.8 Other ascites; Z85.528 Personal history of other malignant neoplasm of kidney; I12.9 Hypertensive chronic kidney disease with stage 1 through stage 4 chronic kidney disease, or unspecified chronic kidney disease; Z99.3 Dependence on wheelchair; L89.219 Pressure ulcer of right hip, unspecified stage; E78.00 Pure hypercholesterolemia, unspecified; D64.9 Anemia, unspecified; G51.0 Bell's palsy; L98.419 Non-pressure chronic ulcer of buttock with unspecified severity; E86.0 Dehydration; Y82.8 Other medical devices associated with adverse incidents; N31.9 Neuromuscular dysfunction of bladder, unspecified; N40.1 Benign prostatic hyperplasia with lower urinary tract symptoms; N32.89 Other specified disorders of bladder; B96.20 Unspecified Escherichia coli [E. coli] as the cause of diseases classified elsewhere; G40.909 Epilepsy, unspecified, not intractable, without status epilepticus; E87.6 Hypokalemia; Z93.3 Colostomy status; K52.9 Noninfective gastroenteritis and colitis, unspecified; F32.9 Major depressive disorder, single episode, unspecified; N18.9 Chronic kidney disease, unspecified